=== PATIENT | female | born 1960 | race Caucasian/White ===

== ENCOUNTER 2023-07-15 22:36 | Emergency (ER) | payer MEDICAID, SELFPAY ==
[2023-07-15 22:48] VITALS: BP 161/79; BP 167/80; PULSE 82; PULSE 93; RESP 17; O2SAT 90; O2SAT 94
--- NOTE | 2023-07-15 23:44 | ED.ALCOHOL ---
HPI - Alcohol General Chief Complaint: ETOH/Substance Use Stated Complaint: ETOH, WANTS TO GET OUT OF COLD Time Seen by Provider: 07/15/23 22:43 Source: patient and EMS Mode of arrival: EMS History of Present Illness HPI narrative: 62-year-old female brought in by EMS for alcohol/substance use, patient states that she drank 3 pt of vodka with the last drink 2100 and she endorses a history of withdrawal seizures the last of which occurred approximately 2 months ago. Patient reports she wants to be in out of the cold and did not like any of the [facility] options. She otherwise has no acute complaints and denies any SI/HI. Related Data Allergies Allergy/AdvReac Type Severity Reaction Status Date / Time No Known Allergies Allergy Verified 07/15/23 22:58 Review of Systems Review of Systems: Pertinent positives and negatives as stated in HPI PMF Past Medical History Source: nursing notes reviewed Social History Social History Alcohol intake: current Alcohol intake frequency: 3 or more drinks per day Alcohol type: hard liquor Smoked in Last 30 Days: Yes Use of substances other than those prescribed or required for medical reasons: No Advance Directives: No Advance Directives Information Provided: No Physical Exam ED Vital Signs: Vital Signs - 24 hr 07/15/23 22:48 07/16/23 00:16 Pulse Rate 82 Respiratory Rate 17 Blood Pressure 167/80 H Pulse Oximetry 90 L 91 L Oxygen Delivery Method Room Air Room Air BMI result Body Mass Index 30.0 VITAL SIGNS: Reviewed. GENERAL: Well developed, well nourished, in no acute distress. HEAD: Normocephalic/atraumatic LUNGS: Normal breath sounds. No adventitious sounds or accessory muscle use. SpO2<90> CARDIOVASCULAR: Regular rate and rhythm without noted murmurs, no JVD or lower extremity edema. ABDOMEN: Soft, non-tender, non-distended with bowel sounds. MUSCULOSKELETAL: No tenderness, deformities, or effusions noted on gross inspection. EXTREMITIES: No cyanosis, clubbing or edema. SKIN: Inspection of the skin reveals no rashes NEUROLOGIC: Drowsy but easily aroused and oriented x 3. Strength and sensation to light touch were grossly intact x 4. Medical Decision Making Medical Decision Making [facility] Narrative: 62-year-old female with history and clinical presentation consistent with alcohol intoxication, will place CIWA protocol, seizure pads were in place, will place patient on cardiac monitoring. Have continued with the CIWA evaluation, patient is clinically sober as walked with a steady gait several times to the bathroom, she is remained stable and is tolerating oral intake. She does not wish for any detox program at this time and otherwise denies any SI/HI. Patient placed in physician observation because the patient needed more time for clinical sobriety. At the time observation was started the patient's vital signs were stable, patient is alert and oriented, neuro: Nonfocal, CV RRR, lungs clear Differential Diagnosis Differential Diagnoses: The differential diagnosis associated with the presentation includes Please see the discussion above Admission/Observation Consideration of admission/observation: Escalation of care including admission/observation considered Please see the discussion above Discharge Plan Discharge Clinical Impression: Alcoholic intoxication, Alcohol use disorder Patient Disposition: Still a Patient
[2023-07-16 00:16] VITALS: O2SAT 91
--- NOTE | 2023-07-16 00:17 | PC.NURSE ---
on arrival pt changed into hospital gown. pt moved from hallway to room placed on heart monitor. nsr 83 bpm. pt reported hx seizure with withdrawals. seizure precautions in placed. hx copd 91% on RA. resp even and unlabored. ciwa 2. pt denies si/hi. nad. call morgan within reach.
--- NOTE | 2023-07-16 00:50 | PC.NURSE ---
pt ripped off heart monitor/o2 monitor. pt reporting needing detox meds. ciwa 2. pt ambulatory with steady gait to bathroom. pt verbally aggressive wit this RN saying you're a bitch and i need to see a fucking doctor. Dr. Shook aware.
--- NOTE | 2023-07-16 04:19 | PC.NURSE ---
pt appears to be sleeping. resp even and unlabored. able to reposition self in stretcher. call morgan within reach.
[2023-07-16 06:00] VITALS: BP 141/70; PULSE 85; RESP 17; TEMP 37; O2SAT 92
--- NOTE | 2023-07-16 06:43 | PC.NURSE ---
axox4 ambulatory with steady gait. resource booklet provided for pt for detox/shelters. pt escorted by security as states she wants to sleep and will not leave.
== END 2023-07-16 06:44 | disposition home or self-care (01) ==
PROVIDERS: Emergency Provider Student in an Organized Health Care Education/Training Program
DX: F10.129 Alcohol abuse with intoxication, unspecified (principal)
CPT/HCPCS: 99284

== ENCOUNTER 2023-07-29 18:43 | Emergency (ER) | payer MEDICAID, SELFPAY ==
--- NOTE | ~2023-07-29 | XR_ITS ---
EXAMINATION: PORTABLE CHEST 1 VIEW CLINICAL INFORMATION: cp. COMPARISON: No recent pertinent prior studies are available for comparison. TECHNIQUE: Portable frontal view of the chest was obtained. FINDINGS: Asymmetric elevation of the right hemidiaphragm is seen with linear basilar scarring or atelectasis more so at the right base. No significant effusion, overt edema, or pneumothorax. Cardiac silhouette within normal limits for size with vascular calcification in aorta. Degenerative scoliotic changes in the spine XR/XR chest 1V IMPRESSION: Asymmetric elevation of the right hemidiaphragm with linear basilar markings more likely due to atelectasis.
[2023-07-29 19:07] VITALS: BP 102/72; BP 113/48; PULSE 73; PULSE 81; RESP 18; TEMP 39.6; O2SAT 96; O2SAT 97
--- NOTE | 2023-07-29 19:55 | ECG_ITS ---
Test Reason : SYNCOPE Blood Pressure : / mmHG Vent. Rate : 072 BPM Atrial Rate : 072 BPM P-R Int : 144 ms QRS Dur : 086 ms QT Int : 388 ms P-R-T Axes : 041 -24 076 degrees QTc Int : 424 ms Normal sinus rhythm Minimal voltage criteria for LVH, may be normal variant ( R in aVL ) Septal infarct , age undetermined Abnormal ECG No previous ECGs available Referred By: Jennifer Clancy Electronically Signed By:Casper Arnett
--- NOTE | 2023-07-29 19:59 | ED_ITS ---
HPI - Syncope General Chief Complaint: Syncope Stated Complaint: [address], dizzy, diff breathing, syncope Time Seen by Provider: 07/29/23 19:10 Related Data Allergies Allergy/AdvReac Type Severity Reaction Status Date / Time No Known Allergies Allergy Verified 07/15/23 22:58 [facility] Social History Social History Alcohol intake: current Alcohol intake frequency: a few times a week Alcohol type: hard liquor Smoked in Last 30 Days: No Use of substances other than those prescribed or required for medical reasons: No Advance Directives: No Advance Directives Information Provided: No Physical Exam 2 Vital Signs: Vital Signs: Last Vital Signs Temp 97.8 F 07/30/23 01:04 Pulse 59 07/30/23 01:04 Resp 21 H 07/30/23 01:04 BP 125/59 L 07/30/23 01:42 Pulse Ox 96 07/30/23 01:04 O2 Del Method Room Air 07/30/23 01:04 O2 Flow Rate 4 07/30/23 00:55 Oxygen Flow Rate 2 07/29/23 21:52 BMI result Body Mass Index 30.0 Course Reevaluation(s) Reevaluation #1: I reviewed results of patient's workup, she is doing much better, she is noted be influenza A positive, she does ambulate with a steady gait and is noted to be oxygenating well on room air and is otherwise stable for discharge back to the facility. Time: 03:01 Medications Administered Discontinued Medications Generic Name Dose Route Start Last Admin Trade Name Freq PRN Reason Stop Dose Admin Acetaminophen 975 mg 07/29/23 19:55 07/29/23 22:28 Acetaminophen 325 Mg Tablet PO 07/29/23 19:56 975 mg ONCE ONE Administration Sodium Chloride 1,000 mls @ 999 mls/hr 07/29/23 20:00 07/29/23 23:49 Ns IV 07/29/23 21:00 Not Given .Q1H1M FABIEN Sodium Chloride 1,000 mls @ 999 mls/hr 07/29/23 20:00 07/29/23 23:49 Ns IV 07/29/23 21:00 Not Given .Q1H1M FABIEN Sodium Chloride 2,449.41 mls @ 2,449.41 mls/hr 07/29/23 22:03 07/30/23 00:33 Ns 30 ml/kg infuse over 1 hr (2449.41 ml) 07/29/23 23:02 Infused IV Infusion .Q1H STA Ceftriaxone Sodium 1 gm/ 50 mls @ 100 mls/hr 07/29/23 22:03 07/29/23 23:44 Sodium Chloride IV 07/29/23 22:32 Infused ONCE ONE Infusion Medical Decision Making Medical Decision Making [facility] Narrative: 62-year-old from [facility] presents today with having shortness of breath dizziness history of COPD. Positive fever positive generalized malaise positive coughing had a syncopal episode. No head strike. Positive loss of consciousness noted for about 30 seconds. Patient not on any blood thinners. No signs of head trauma. Patient's had a fever here 103.2. Labs ordered. Will order a total of 30 cc/kilos IV fluids. Lactate is pending. Additional labs are pending. My interpretation patient's initial chest x-ray was grossly negative for any acute infiltrate. My interpretation patient's EKG showed a sinus rhythm heart rate is 70 ID QRS QTC within normal limits is no acute ST segment elevation. This patient was signed out to me and I quickly reviewed all workup and investigations, patient is been resting during the time that I have been awaiting completion of her workup which seems to be significant for influenza a positivity. Differential Diagnosis Differential Diagnoses: The differential diagnosis associated with the presentation includes Flu COVID RSV, vasovagal syncope versus cardiac syncope versus urinary tract infection. Lab Data [facility] Lab Attestation statement: I reviewed the patient's lab results. 07/29/23 22:01 07/29/23 22:01 Labs: Lab Results 07/29/23 07/29/23 07/30/23 Range/Units 22:01 22:08 00:09 WBC 14.4 H (4.8-10.8) X10*3/uL RBC 4.37 (4.20-5.50) X10*6/uL Hgb 10.0 L (12.0-16.0) g/dl Hct 31.5 L (37.0-47.0) % MCV 72.1 L (80.0-98.0) fL MCH 22.9 L (27.0-33.0) pg MCHC 31.7 (31.0-35.0) g/dl RDW 20.3 H (11.0-16.0) % Plt Count 336 (160-400) X10*3/uL MPV 10.0 (9.4-12.3) fL Immature Gran % (Auto) 0.3 (0.0-0.4) % Neut % (Auto) 72.0 (45-73) % Lymph % (Auto) 17.6 L (20-40) % Cotton % (Auto) 9.7 (2-11) % Eos % (Auto) 0.1 (0-4) % Baso % (Auto) 0.3 (0-2) % Lymph # (Auto) 2.5 (1.2-4.9) X10*3/uL Cotton # (Auto) 1.4 H (0.1-1.2) X10*3/uL Eos # (Auto) 0.0 (0.0-0.4) X10*3/uL Baso # (Auto) 0.0 (0.0-0.2) X10*3/uL Abs Immat Gran (auto) 0.05 H (0.00-0.03) X10*3/uL Absolute Neuts (auto) 10.3 H (2.0-8.3) x10*3/uL Absolute Nucleated RBC 0.000 (0.0-0.012) X10*3/uL Nucleated RBC % (auto) 0.0 (0.0-0.2) /100WBC Sodium 130 L (135-145) mmol/L Potassium 4.4 (3.3-5.1) mmol/L Chloride 95 L (96-108) mmol/L Carbon Dioxide 25 (22-29) mmol/L Anion Gap 14 (12-20) BUN 22 H (9-16) mg/dL Creatinine 1.43 H (0.5-1.4) mg/dL Estim Creat Clear Calc 42.5 Estimated GFR 37 Random Glucose 109 (60-115) mg/dL Lactic Acid 0.8 (0.5-2.0) mmol/L Calcium 9.0 (8.4-10.2) mg/dL Total Bilirubin 0.3 (0.0-1.0) mg/dL Direct Bilirubin 0.2 (0.0-0.5) mg/dL AST 28 (5-31) U/L ALT 17 (0-31) U/L Alkaline Phosphatase 150 H (39-117) U/L Troponin I High Sens < 2.7 (<3.5-17.0) ng/L Total Protein 7.6 (6.5-8.0) g/dL Albumin 3.9 (3.5-5.0) g/dL Urine Color Yellow Urine Appearance Clear Urine pH 5.5 (5.0-9.0) Ur Specific [place] 1.015 (1.005-1.025) Urine Protein Negative (Neg-Trace) mg/dL Urine Glucose (UA) Negative (Negative) mg/dL Urine Ketones Trace (Negative) mg/dL Urine Blood Negative (Negative) Urine Nitrite Negative (Negative) Ur Leukocyte Esterase Negative (Negative) Urine RBC 0-2 (0-2) /HPF Urine WBC 0-5 (0-5) /HPF Ur Squamous Epith Cells 3-5 (0-2) /HPF Urine Bacteria None Seen (None Seen) Hyaline Casts >20 (0-2) /LPF Ethyl Alcohol < 10 mg/dL Influenza Type A (PCR) POSITIVE A (Negative) Influenza Type B (PCR) NEGATIVE (Negative) RSV RNA Qual (PCR) NEGATIVE (Negative) SARS-CoV-2 RNA (RT-PCR) NEGATIVE (Negative) Independent Interpretation I performed an independent interpretation of an: EKG (Sinus pattern heart rate is 70 ID QRS QTC within normal limits is no acute ST segment elevation) and Plain X-Ray (Chest x-ray negative for focal infiltrate) Discharge Plan Discharge Clinical Impression: Fever, Syncope, Viral syndrome, Influenza A Patient Disposition: Home, Self-Care Instructions: Influenza (ED), Viral Syndrome (ED) Additional Instructions: 1. Resume all home medications as prescribed. 2. Please follow up with the facilities primary care doctor in the next 1-2 days. Return to the ER for any worsening symptoms.
[2023-07-29 21:43] VITALS: BP 109/46; RESP 24; TEMP 37.7; O2SAT 93
[2023-07-29 21:52] VITALS: O2SAT 93
[2023-07-29 22:15] LABS: MANUAL DIFF FLAG NO
[2023-07-29 22:16] LABS: Basophils Percent Auto 0.3 % (0-2); Eosinophils Percent Auto 0.1 % (0-4); Hematocrit 31.5 % (37.0-47.0); Imm Gran Abs Auto 0.05 X10*3/uL (0.00-0.03); Imm Gran Pct Auto 0.3 % (0.0-0.4); Lymphocytes Absolute Auto 2.5 X10*3/uL (1.2-4.9); Lymphocytes Percent Auto 17.6 % (20-40); Mean Corpuscular HGB Conc 31.7 g/dl (31.0-35.0); Mean Corpuscular Hemoglobin 22.9 pg (27.0-33.0); Mean Corpuscular Volume 72.1 fL (80.0-98.0); Monocytes Absolute Auto 1.4 X10*3/uL (0.1-1.2); Monocytes Percent Auto 9.7 % (2-11); Neutrophils Absolute Auto 10.3 x10*3/uL (2.0-8.3); Platelet Count 336 X10*3/uL (160-400); Red Blood Count 4.37 X10*6/uL (4.20-5.50); Red Cell Distribution Width 20.3 % (11.0-16.0); White Blood Count 14.4 X10*3/uL (4.8-10.8)
[2023-07-29] MEDS: 0.9 % Sodium Chloride 2,449.41 ML 2449.41 ML IV (22:23)
[2023-07-29 22:26] LABS: Lactic Acid 0.8 mmol/L (0.5-2.0)
--- NOTE | 2023-07-29 22:27 | MHC.EDTECH ---
Patient inc therfore patient changed and patient walked to the bathroom
[2023-07-29] MEDS: Acetaminophen 325 MG TABLET 975 MG PO (22:28)
[2023-07-29 22:35] LABS: Alanine Aminotransferase 17 U/L (0-31); Albumin Level 3.9 g/dL (3.5-5.0); Alkaline Phosphatase 150 U/L (39-117); Anion Gap 14 (12-20); Aspartate Amino Transferase 28 U/L (5-31); Bilirubin Direct 0.2 mg/dL (0.0-0.5); Bilirubin Total 0.3 mg/dL (0.0-1.0); Blood Urea Nitrogen 22 mg/dL (9-16); Carbon Dioxide 25 mmol/L (22-29); Chloride 95 mmol/L (96-108); Creatinine Clr Calc Pharmacy 42.5; Estimated Glomerular Filt Rate 37; Ethanol < 10 mg/dL; Glucose Random 109 mg/dL (60-115); Potassium 4.4 mmol/L (3.3-5.1); Sodium 130 mmol/L (135-145); Total Protein 7.6 g/dL (6.5-8.0)
[2023-07-29 22:48] LABS: Troponin-I High Sensitivity < 2.7 ng/L (<3.5-17.0)
[2023-07-29 23:01] LABS: Influenza A PCR POSITIVE (Negative); Influenza B PCR NEGATIVE (Negative); Resp Syncy Virus RNA Qual PCR NEGATIVE (Negative); SARS COV2 PCR INHOUSE NEGATIVE (Negative)
[2023-07-29 23:12] VITALS: BP 91/38; PULSE 65; RESP 24; TEMP 37.4; O2SAT 92
[2023-07-29] MEDS: cefTRIAXone sodium 1 GM in 0.9 % Sodium Chloride 50 ML IV (23:14)
--- NOTE | 2023-07-29 23:15 | PC.NURSE ---
Addendum entered by Maya Montilla 07/30/23 02:23: IV FLUIDS STARTED @22:23 BY PREVIOUS RN MARCIN Cruz FLUIDS SCANNED IN UNDER 30CC/KG ORDER TO REFLECT SEPSIS PROTOCOL BY THIS RN WHEN CARE TOOK OVER Original Note: assumed care of patient at 23:00 - per previous RN sepsis protocol initiated at 22:04 however sepsis worksheet not started by previous RN. When t/w assumed care at 23:00, first liter bag of normal saline fluids running through iv, antibiotics not yet administered. This RN took over care and started antibiotic as ordered @23:14. Vital signs updated and entered. Pt wearing 2L O2 nasal cannula which she says is not her baseline. Pt dropped down to 88% on 2L when asleep, O2 bumped up to 4L NC. Pt straight cath'd for urine sample as ordered by , pt cleaned up and linens changed. Call morgan within reach plan of care ongoing
[2023-07-29 23:40] VITALS: BP 93/37; PULSE 63; RESP 24; O2SAT 92
--- NOTE | 2023-07-29 23:41 | PC.NURSE ---
late entry: pt comes from [facility] for a syncopal episode. is on a section 21. pt was caught by staff in the hallway, did not hit head, but lost consciousness for ~30 seconds. pt not on thinners. pt in hallway bed, waiting for private ED bay for changeover/EKG. pt initial temp read 103, second 99.8. pt had sweatshirt on that was taken off to cool down. pt difficult stick, multiple attempts for IV. 22G to left thumb. labs drawn and sent. EKG obtained. sepsis alert called at 2204. pt medicated with tylenol. fluids hung. awaiting for 2nd blood culture to hang abx. report given to DARSHANA Trejo who is hanging IV abx now that 2nd blood culture obtained. pt is a&o x4, pleasant, calm, and cooperative. call morgan within reach. plan of care ongoing.
[2023-07-29 23:52] VITALS: BP 100/41; PULSE 64; RESP 23; O2SAT 94
[2023-07-30 00:07] VITALS: BP 97/48; PULSE 61; RESP 23; O2SAT 93
[2023-07-30 00:19] LABS: Appearance Urine Clear; Color Urine Yellow; Glucose Urine UA Negative (Negative); Leukocyte Esterase Urine Negative (Negative); Nitrite Urine Negative (Negative); PH 5.5 (5.0-9.0); Specific Gravity - Urine 1.015 (1.005-1.025); Urine Blood Negative (Negative); Urine Ketones Trace mg/dL (Negative); Urine Protein Negative (Neg-Trace)
[2023-07-30 00:32] LABS: Bacteria Urine None Seen (None Seen); Hyaline Casts Urine >20 /LPF (0-2); RBC Urine 0-2 /HPF (0-2); WBC Urine 0-5 /HPF (0-5)
[2023-07-30 00:33] VITALS: BP 108/48; PULSE 63; RESP 20; TEMP 36.7; O2SAT 94; O2SAT 98
[2023-07-30 00:55] VITALS: BP 119/48; PULSE 60; RESP 22; O2SAT 97
--- NOTE | 2023-07-30 00:57 | PC.NURSE ---
sepsis fluids complete. blood pressures documented in chart. Pt resting comfortably on stretcher. plan of care ongoing.
[2023-07-30 01:04] VITALS: BP 106/48; PULSE 59; RESP 21; TEMP 36.6; O2SAT 96
[2023-07-30 01:42] VITALS: BP 125/59
--- NOTE | 2023-07-30 02:50 | PC.NURSE ---
pt ambulated with this RN with a steady gait to and from bathroom. Pt is 90-92% O2 on room air . MD malagon
--- NOTE | 2023-07-30 03:05 | PC.NURSE ---
pt to be discharged back to [facility] via ambulance.
--- NOTE | 2023-07-30 03:53 | PC.NURSE ---
report called to yard general car supervisor at [facility]. ambulance transport back to facility now.
== END 2023-07-30 03:54 | disposition home or self-care (01) ==
PROVIDERS: Emergency Medicine Emergency Medical Services; Emergency Provider Student in an Organized Health Care Education/Training Program
DX: J10.1 Influenza due to other identified influenza virus with other respiratory manifestations (principal); B34.9 Viral infection, unspecified; R55 Syncope and collapse; R06.02 Shortness of breath; R42 Dizziness and giddiness; R50.9 Fever, unspecified; R94.31 Abnormal electrocardiogram [ECG] [EKG]; Z20.822 Contact with and (suspected) exposure to COVID-19; Z20.828 Contact with and (suspected) exposure to other viral communicable diseases; Z79.899 Other long term (current) drug therapy
CPT/HCPCS: 0241U; 36415; 71045; 80048; 80076; 80307; 81001; 83605; 84484; 85025; 87040; 93005; 96361; 96374; 99285; J0696

== ENCOUNTER → 2023-07-29 19:55 | Outpatient (BNV) | payer MEDICAID, SELFPAY | PROVIDERS: Emergency Provider Student in an Organized Health Care Education/Training Program; Visit Provider Internal Medicine Cardiovascular Disease | DX: R94.31 Abnormal electrocardiogram [ECG] [EKG] (principal) | CPT/HCPCS: 93010 ==

== ENCOUNTER 2023-08-21 23:39 | Emergency (ER) | payer MEDICAID, SELFPAY ==
[2023-08-22 00:03] VITALS: BP 160/90; PULSE 82; O2SAT 96; BMI 26.6
--- NOTE | 2023-08-22 00:05 | PC.NURSE ---
pt changed over by security had bottle of alcohol on self; belongings placed in linen closet of [facility] pod.
[2023-08-22 00:36] VITALS: BP 136/65; PULSE 76; RESP 12; TEMP 36.8; O2SAT 93
--- NOTE | 2023-08-22 00:57 | ED_ITS ---
HPI - Alcohol General Chief Complaint: ETOH/Substance Use Stated Complaint: etoh Time Seen by Provider: 08/21/23 23:56 Source: patient Mode of arrival: EMS History of Present Illness HPI narrative: 62-year-old female is brought in by EMS from [facility] and reports that her last alcoholic drink was 2-1/2 hours ago and that she would like to pursue detox and left her previous detox a month and a half ago prior to completion. Patient reports that she has had history of seizures with abstaining from alcohol and that she lives alone. She denies SI/HI. Related Data Allergies Allergy/AdvReac Type Severity Reaction Status Date / Time No Known Allergies Allergy Verified 07/15/23 22:58 Review of Systems Review of Systems: Pertinent positives and negatives as stated in HPI PMF Past Medical History Source: nursing notes reviewed Social History Social History Alcohol intake: current Alcohol intake frequency: a few times a week Alcohol type: hard liquor Advance Directives: No Advance Directives Information Provided: No Physical Exam ED Vital Signs: Vital Signs - 24 hr 08/22/23 00:36 Temperature 98.2 F Pulse Rate 76 Respiratory Rate 12 Blood Pressure 136/65 Pulse Oximetry 93 Oxygen Delivery Method Room Air BMI result Body Mass Index 26.6 VITAL SIGNS: Reviewed. GENERAL: Well developed, well nourished, in no acute distress. HEAD: Normocephalic/atraumatic EYES: PERRLA, EOMI EARS: Ext canals without abnormality NOSE: Nares patent bilateral OROPHARYNX: no oral lesions noted, posterior pharynx clear NECK: Supple, no adenopathy LUNGS: Normal breath sounds. No adventitious sounds or accessory muscle use. SpO2<93> CARDIOVASCULAR: Regular rate and rhythm without noted murmurs ABDOMEN: Soft, non-tender, non-distended with bowel sounds. MUSCULOSKELETAL: No tenderness, deformities, or effusions noted on gross inspection. EXTREMITIES: No cyanosis, clubbing or edema. SKIN: Inspection of the skin reveals no rashes NEUROLOGIC: Alert and oriented x 4. Strength and sensation to light touch were grossly intact x 4. Medical Decision Making Medical Decision Making [facility] Narrative: 62-year-old female who appears well but clinically intoxicated, she will be placed on a CIWA and allowed to become clinically sober. In the morning the plan will be for her to call around to different detox facilities if she still wishes to pursue detox. Patient placed in physician observation because the patient needed more time for clinical sobriety. At the time observation was started the patient's vital signs were stable, patient is alert and oriented, neuro: Nonfocal, CV RRR, lungs clear Differential Diagnosis Differential Diagnoses: The differential diagnosis associated with the presentation includes Please see the discussion above Admission/Observation Consideration of admission/observation: Escalation of care including admission/observation considered Please see the discussion above External Record Review External record reviewed: Outpatient record and Prior outpatient labs Critical Care Time Critical Care Time Critical Care Time: Yes Total Critical Care Time: 30 Attestation: I personally attest to this time spent taking care of the patient. Discharge Plan Discharge Clinical Impression: Alcoholic intoxication, Alcohol use disorder Patient Disposition: Still a Patient Instructions: Abuse of Alcohol (ED), Alcohol Intoxication (ED) Additional Instructions: You have been provided with a list detox facilities, please make the necessary phone calls to check for bed availability.
[2023-08-22 06:10] VITALS: BP 104/71; PULSE 78; RESP 16; TEMP 36.7; O2SAT 98
[2023-08-22 07:58] VITALS: BP 149/59; PULSE 87; RESP 14; TEMP 36.6; O2SAT 92
--- NOTE | 2023-08-22 08:28 | PC.NURSE ---
this RN resumed care of pt at this time. vss and up to date. pt currently resting on stretcher in no apparent distress at this time. no sob/wob noted. respirations even and unlabored.
[2023-08-22 09:49] LABS: Appearance Urine Clear; Color Urine Yellow; Glucose Urine UA Negative (Negative); Leukocyte Esterase Urine Negative (Negative); Nitrite Urine Negative (Negative); PH 6.5 (5.0-9.0); Specific Gravity - Urine <= 1.005 (1.005-1.025); Urine Blood Negative (Negative); Urine Ketones Negative (Negative); Urine Protein Negative (Neg-Trace)
[2023-08-22 10:14] LABS: Amphetamine Screen Urine Not Detected (Not Detect); Barbiturates, Urine Not Detected (Not Detect); Benzodiazepines Screen Urine Not Detected (Not Detect); Cannabinoid Screen Urine Not Detected (Not Detect); Cocaine Screen Urine Not Detected (Not Detect); Fentanyl, urine Not Detected (Not Detect); Opiate Screen Urine Not Detected (Not Detect); Phencyclidine Screen Urine Not Detected (Not Detect)
[2023-08-22 11:08] LABS: MANUAL DIFF FLAG NO
[2023-08-22 11:09] LABS: Basophils Percent Auto 0.8 % (0-2); Eosinophils Absolute Auto 0.3 X10*3/uL (0.0-0.4); Eosinophils Percent Auto 5.3 % (0-4); Hemoglobin 10.6 g/dl (12.0-16.0); Imm Gran Abs Auto 0.01 X10*3/uL (0.00-0.03); Imm Gran Pct Auto 0.2 % (0.0-0.4); Lymphocytes Absolute Auto 1.5 X10*3/uL (1.2-4.9); Lymphocytes Percent Auto 28.6 % (20-40); Mean Corpuscular HGB Conc 31.2 g/dl (31.0-35.0); Mean Corpuscular Hemoglobin 22.9 pg (27.0-33.0); Mean Corpuscular Volume 73.4 fL (80.0-98.0); Mean Platelet Volume 9.4 fL (9.4-12.3); Monocytes Absolute Auto 0.4 X10*3/uL (0.1-1.2); Monocytes Percent Auto 7.6 % (2-11); Neutrophils Percent Auto 57.5 % (45-73); Platelet Count 333 X10*3/uL (160-400); Red Blood Count 4.63 X10*6/uL (4.20-5.50); Red Cell Distribution Width 20.3 % (11.0-16.0); White Blood Count 5.3 X10*3/uL (4.8-10.8)
--- NOTE | 2023-08-22 11:12 | PC.NURSE ---
labs/urine obtained/sent to lab.
[2023-08-22 11:36] LABS: Alanine Aminotransferase 17 U/L (0-31); Albumin Level 3.8 g/dL (3.5-5.0); Alkaline Phosphatase 168 U/L (39-117); Anion Gap 9 (12-20); Aspartate Amino Transferase 23 U/L (5-31); Bilirubin Direct 0.1 mg/dL (0.0-0.5); Bilirubin Total 0.3 mg/dL (0.0-1.0); Blood Urea Nitrogen 6 mg/dL (9-16); Calcium 8.9 mg/dL (8.4-10.2); Carbon Dioxide 26 mmol/L (22-29); Chloride 105 mmol/L (96-108); Creatinine Clr Calc Pharmacy 81.5; Estimated Glomerular Filt Rate > 60; Ethanol < 10 mg/dL; Glucose Random 182 mg/dL (60-115); Magnesium 1.9 mg/dL (1.6-2.6); Potassium 3.9 mmol/L (3.3-5.1); Sodium 136 mmol/L (135-145); Total Protein 7.4 g/dL (6.5-8.0)
--- NOTE | 2023-08-22 11:58 | PC.NURSE ---
pt becoming increasingly agitated/arguing w/ staff when vitals needed to be taken. pt verbalizing that she no longer wants to have a care team consult placed and that she wants to leave. provider notified/aware.
--- NOTE | 2023-08-22 12:05 | PC.NURSE ---
pt's belongings returned from the pod. pt provided w/ list of detox facilities. pt verbalizes to this rn that she will not be utilizing them. pt also provided w/ d/c paperwork.
== END 2023-08-22 12:06 | disposition home or self-care (01) ==
PROVIDERS: Emergency Provider Emergency Medicine
DX: F10.129 Alcohol abuse with intoxication, unspecified (principal); Y90.8 Blood alcohol level of 240 mg/100 ml or more; Z71.51 Drug abuse counseling and surveillance of drug abuser; Z79.899 Other long term (current) drug therapy
CPT/HCPCS: 36415; 80048; 80076; 80307; 81003; 83735; 85025; 99284

== ENCOUNTER 2023-09-01 05:10 | Emergency (ER) | payer MEDICAID, SELFPAY ==
--- NOTE | ~2023-09-01 | XR_ITS ---
EXAMINATION: XR ANKLE, LEFT CLINICAL INFORMATION: Pain. COMPARISON: None available. TECHNIQUE: AP, lateral, and mortise views of the left ankle. FINDINGS: There is mild diffuse soft tissue swelling about the ankle. No significant ankle joint effusion is seen. The ankle mortise is intact. No acute fracture or dislocation is noted. Prominent plantar calcaneal spur is seen. XR/XR ankle LT min 3V IMPRESSION: * Mild diffuse soft tissue swelling about the ankle. * No acute fracture or dislocation.
[2023-09-01 05:24] VITALS: BP 135/67; PULSE 79; RESP 18; TEMP 36.8; O2SAT 93; BMI 31.7
--- NOTE | 2023-09-01 07:30 | ED_ITS ---
HPI - Extremity Problem General Chief complaint: Extremity Problem Stated complaint: Lt Ankle pain Time Seen by Provider: 09/01/23 07:20 Source: patient and RN notes reviewed Mode of arrival: ambulatory Limitations: no limitations History of Present Illness HPI Narrative: This is a 62-year-old female, with a history of osteoarthritis and hypertension, presenting to the emergency department with complaints of left ankle pain x2 days. Patient denies any recent trauma or injury. She reports worsening pain with weight-bearing. Denies any fevers, chills, chest pain, shortness breast, abdominal pain, nausea, vomiting or diarrhea. She is otherwise feeling well. Denies taking any medications prior to arrival to treat her pain. No history of previous injury or problems with her ankle in the past. No other complaints or concerns at this time. MD Complaint: extremity pain and extremity swelling Related Data Previous Rx's Medication Instructions Recorded acetaminophen 500 mg tablet 500 mg PO Q6H PRN pain #30 tabs 09/01/23 (Tylenol Extra Strength) Allergies Allergy/AdvReac Type Severity Reaction Status Date / Time No Known Allergies Allergy Verified 09/01/23 05:23 Review of Systems Review of Systems: Yes all other systems are reviewed and are negative Constitutional: Constitutional: Reports as per [facility] Social History Social History Alcohol intake: current Alcohol intake frequency: 3 or more drinks per day Alcohol type: wine and hard liquor Smoked in Last 30 Days: Yes Use of substances other than those prescribed or required for medical reasons: No Advance Directives: No Advance Directives Information Provided: Yes Patient : No Physical Exam Vital Signs: Vital Signs: Last Vital Signs Temp 99.1 F 09/01/23 11:16 Pulse 80 09/01/23 11:16 Resp 14 09/01/23 11:16 BP 161/70 H 09/01/23 11:16 Pulse Ox 94 09/01/23 11:16 O2 Del Method Room Air 09/01/23 11:16 BMI result Body Mass Index 31.7 Const: General: cooperative, comfortable and no acute distress Orientation/consciousness: patient oriented x3 Limitations: no limitations HEENT: Head: Yes normal to inspection, Yes normocephalic and Yes atraumatic Ears: hearing grossly normal bilaterally General nose exam: Normal external nose present Face and sinus: Yes normal facial exam Mouth: Normal oral and palatal mucosa present, oropharynx normal and moist mucous membranes Throat: Yes posterior oropharynx normal Eyes: General: appearance normal, both eyes and all related structures Eyelids: Yes eyelids normal Conjunctivae: conjunctivae normal Sclerae: sclerae normal Pupils: Equal, round and reactive pupils present EOM: EOMs intact bilaterally Neck: Neck: Yes normal visual inspection, Yes full ROM and Yes no lymphadenopathy Lymphatic: no lymphadenopathy noted Chest: Chest palpation & inspection: normal inspection of the chest Resp: Effort & Inspection: normal respiratory effort and able to speak in complete sentences Cardio: Rate: regular rate Rhythm: regular rhythm Heart sounds: S1 normal heart sound present and S2 normal heart sound present GI: Inspection: Yes normal to inspection Skin: General skin exam: no rashes or lesions noted Trauma: no lacerations or abrasions Wounds: no wounds Neuro: General: patient oriented x3 and moves all extremities Cranial nerves: Yes Equal, round and reactive pupils present Extrem: Other: Left ankle lateral aspect is moderate edema noted, no ecchymosis, erythema. Tenderness palpation along the lateral malleolus, no tenderness along the medial malleolus. Full range of motion joint without difficulty. Strong DP pulse. No calf tenderness, no pedal edema noted. General: Yes normal to inspection Right upper extremity: normal to inspection Left upper extremity: normal to inspection Right lower extremity: normal to inspection Left lower extremity: normal to inspection Course Reevaluation(s) Reevaluation #1: Left ankle x-ray revealing mild diffuse soft tissue swelling, no bony abnormality seen. Patient's symptoms consistent with a left ankle pain/sprain. Discussed findings with patient. Patient does not have a primary care physician who she can follow-up with. Patient discharged with Tylenol, given Fortino wrap, and also orthopedic referral. Given return precautions. She understands and agrees with this plan. Time: 10:57 Medications Administered Discontinued Medications Generic Name Dose Route Start Last Admin Trade Name Freq PRN Reason Stop Dose Admin Acetaminophen 650 mg 09/01/23 07:29 09/01/23 07:39 Acetaminophen 325 Mg Tablet PO 09/01/23 07:30 650 mg ONCE ONE Administration Medical Decision Making Medical Decision Making MDM Narrative: This is a 62-year-old female, with a history of hypertension and osteoarthritis, presenting to the emergency department with complaints of atraumatic left ankle pain x 2 days. On arrival, vital signs within normal limits. Patient has tenderness palpation along the lateral malleolus. Differential diagnoses include fracture, sprain, strain, contusion, septic arthritis-stefanii sarah. Plan: X-ray, Tylenol Differential Diagnosis Differential Diagnoses: The differential diagnosis associated with the presentation includes See above Admission/Observation Consideration of admission/observation: Escalation of care including admission/observation considered Escalation of care including admission/observation considered however given workup today not warranted at this time. Lab Data MDM Lab Attestation statement: I reviewed the patient's lab results. Radiology Impression Discussion of test interpretation with radiology: I have reviewed the radiologist's reading. Radiologist Impression: EXAMINATION: XR ANKLE, LEFT CLINICAL INFORMATION: Pain. COMPARISON: None available. TECHNIQUE: AP, lateral, and mortise views of the left ankle. FINDINGS: There is mild diffuse soft tissue swelling about the ankle. No significant ankle joint effusion is seen. The ankle mortise is intact. No acute fracture or dislocation is noted. Prominent plantar calcaneal spur is seen. XR/XR ankle LT min 3V IMPRESSION: * Mild diffuse soft tissue swelling about the ankle. * No acute fracture or dislocation. Dictated By: Charisse Sharma MD External Record Review External record reviewed: Inpatient record, Office record, Outpatient record, Prior outpatient labs, Prior outpatient radiology, Primary care record and Outside ED record Discharge Plan Discharge Clinical Impression: Ankle pain, left Patient Disposition: Home, Self-Care Instructions: Arthralgia (ED) Additional Instructions: You were seen in the emergency department due to left ankle pain. Your x-ray did not show any bony abnormalities. Rest, ice, elevate, and use Fortino wrap as needed. Take Tylenol as needed for pain. You need to follow-up with a primary care physician, call tomorrow to make an appointment. If you continue to have pain in your ankle, please follow-up with Orthopedics, call to make an appointment. If any new or worsening symptoms occur, including but not limited to fevers, chills, worsening swelling, pain, please return for re-evaluation. Prescriptions: New acetaminophen [Tylenol Extra Strength] 500 mg tablet 500 mg PO Q6H PRN (Reason: pain) Qty: 30 0RF Referrals: [facility] [place] [facility] [Provider Group] Interventions: ED Discharge Assessment Last Done: 09/01/23 11:16
[2023-09-01] MEDS: Acetaminophen 325 MG TABLET 650 MG PO (07:39)
--- NOTE | 2023-09-01 07:42 | PC.NURSE ---
pt medicated per mar. effectiveness pending.
[2023-09-01 08:44] VITALS: BP 125/65; PULSE 65; RESP 13; TEMP 36.9; O2SAT 93
--- NOTE | 2023-09-01 09:07 | PC.NURSE ---
pt resting comfortably w/ eyes closed in no apparent distress post medication administration. respirations even and unlabored. plan of care ongoing at this time.
[2023-09-01 10:00] VITALS: BP 161/70; PULSE 80; RESP 14; TEMP 37.3; O2SAT 94
[2023-09-01 11:10] VITALS: BP 131/70; PULSE 80; RESP 14; TEMP 37.3; O2SAT 94
--- NOTE | 2023-09-01 11:11 | PC.NURSE ---
lesly wrap applied to LLE by tech. pt tolerated well.
[2023-09-01 11:16] VITALS: BP 161/70; PULSE 80; RESP 14; TEMP 37.3; O2SAT 94
== END 2023-09-01 11:28 | disposition home or self-care (01) ==
PROVIDERS: Emergency Provider Emergency Medicine
DX: M25.572 Pain in left ankle and joints of left foot (principal); I10 Essential (primary) hypertension
CPT/HCPCS: 73610; 99283; 99284

== ENCOUNTER 2023-12-04 01:31 | Emergency (ER) | payer MEDICAID, SELFPAY ==
--- NOTE | 2023-12-04 | ECG_ITS ---
Test Reason : HTN Blood Pressure : / mmHG Vent. Rate : 089 BPM Atrial Rate : 089 BPM P-R Int : 152 ms QRS Dur : 090 ms QT Int : 400 ms P-R-T Axes : 071 -28 067 degrees QTc Int : 486 ms Sinus rhythm with Premature atrial complexes Minimal voltage criteria for LVH, may be normal variant ( R in aVL ) Borderline ECG When compared with ECG of 29-JUL-2023 21:14, Premature atrial complexes are now Present Criteria for Septal infarct are no longer Present QT has lengthened Referred By: Generic ED Physician Electronically Signed By:Casper Arnett
[2023-12-04 01:34] VITALS: BP 170/98; PULSE 97; O2SAT 95
[2023-12-04 01:35] VITALS: BP 161/68; PULSE 89; RESP 18; TEMP 36.2; O2SAT 90; BMI 34.0
--- NOTE | 2023-12-04 02:05 | MHC.EDTECH ---
Pt refusing lab work/swab. Derrick GILLILAND aware.
[2023-12-04 02:45] LABS: MANUAL DIFF FLAG NO
--- NOTE | 2023-12-04 02:45 | ED.ALCOHOL ---
HPI - Alcohol General Chief Complaint: ETOH/Substance Use Stated Complaint: etoh sob edema Time Seen by Provider: 12/04/23 02:39 Source: patient and EMS Mode of arrival: EMS Limitations: no limitations History of Present Illness ED Provider: Dr. Mikki Reyes HPI narrative: Patient comes to the emergency room complaining of alcohol intoxication, requesting detox. Patient called herself 911. Patient complaining of chronic left ankle pain that started approximately in August. Patient denies any falls or injuries. Patient denies SI or HI Related Data Previous Rx's ?Medication ?Instructions ?Recorded acetaminophen 500 mg tablet 500 mg PO Q6H PRN pain #30 tabs 09/01/23 (Tylenol Extra Strength) Allergies Allergy/AdvReac Type Severity Reaction Status Date / Time No Known Allergies Allergy Verified 12/04/23 01:37 Review of Systems Review of Systems: Constitutional : No Weight loss, No Fever, No Chills, No Night Sweats, No Fatigue, No Malaise ENT/Mouth : No Hearing loss, No Ear Pain, No Nasal Congestion, No Sinus Pain, No Hoarseness, No sore throat, No Rhinorrhea, No Swallowing Difficulty Eyes: No Eye Pain, No Swelling, No Redness, No Foreign Body, No Discharge, No Vision Changes Cardiovascular : No Chest Pain, No SOB, No Dyspnea on Exertion, No Orthopnea, No Edema, No Palpitations Respiratory : No Cough, No Sputum, No Wheezing, No Smoke Exposure, No Dyspnea Gastrointestinal : No Nausea, No Vomiting, No Diarrhea, No Constipation, No abdominal Pain, No Hematochezia, No Melena Genitourinary : no irregular bleeding, No Dysuria, No Urinary Frequency, No Hematuria, No Urinary Incontinence, No Urgency, No Flank Pain, No Urinary Flow Changes, No Hesitancy Musculoskeletal : No joint pain, No Myalgias, No Joint Swelling Skin : No Skin Lesions, No rash Neuro : No Weakness, No Numbness, No Paresthesias, No Loss of Consciousness, No Dizziness, No Headache Psych : No Anxiety/Panic, No Depression, No SI/HI/AH/VH, admits to alcohol abuse, requesting detox Heme/Lymph: No Bruising, No Bleeding,No Lymphadenopathy Endocrine : No Polyuria, No Polydipsia, No Temperature Intolerance PMF Past Medical History Medical History Alcohol dependence Alcohol abuse Social History Social History Alcohol intake: current Alcohol intake frequency: 3 or more drinks per day Alcohol type: hard liquor Smoked in Last 30 Days: Yes Use of substances other than those prescribed or required for medical reasons: No Do you have a plan to hurt others: No Plan Patient : No Physical Exam ED Vital Signs: Vital Signs - 24 hr 12/04/23 01:35 Temperature 97.2 F Pulse Rate 89 Respiratory Rate 18 Blood Pressure 161/68 H Pulse Oximetry 90 L Oxygen Delivery Method Room Air BMI result Body Mass Index 34.0 Const Other: Appearance: Alert. Oriented X3. No acute distress. Intoxicated, mildly slurred speech Eyes: Pupils equal, round and reactive to light. ENT: Pharynx normal. Neck: Normal inspection. Neck supple. No lymph nodes noted. No crepitus CVS: Normal heart rate and rhythm. Pulses normal. Normal S1 and S2 Respiratory: No respiratory distress. Breath sounds normal. No Wheezing. No rales Abdomen: Soft and nontender. No rigidity. No distention. Skin: Skin warm and dry. Normal skin color. Normal skin turgor. Extremities: +1 nonpitting edema bilaterally. No Lacerations. No Rash Neuro: Oriented X 3. No motor deficit. No sensory deficit. Moves all extremities, intoxicated Psych: calm, cooperative, normal affect Course Course Course Narrative: -of patient's labs pending -care team consult pending Medical Decision Making Medical Decision Making [facility] Narrative: -nonpitting edema in lower extremities likely secondary to amlodipine side-effect. Patient states she has had this before with propranolol. -my interpretation of labs: Hematology and chemistry at base line, BNP negative, ETOH level 86 -patient calm, sleeping, care team consult pending for detox -physician observation started at 03:51 Differential Diagnosis Differential Diagnoses: The differential diagnosis associated with the presentation includes (Anxiety, depression, alcohol dependence, alcohol intoxication) Admission/Observation Consideration of admission/observation: Escalation of care including admission/observation considered (Patient under physician observation waiting to be seen by the care team) Lab Data [facility] Lab Attestation statement: I reviewed the patient's lab results. 12/04/23 Unknown 12/04/23 Unknown Labs: Lab Results 12/04/23 Range/Units Unknown WBC 7.9 (4.8-10.8) X10*3/uL RBC 4.35 (4.20-5.50) X10*6/uL Hgb 10.1 L (12.0-16.0) g/dl Hct 31.6 L (37.0-47.0) % MCV 72.6 L (80.0-98.0) fL MCH 23.2 L (27.0-33.0) pg MCHC 32.0 (31.0-35.0) g/dl RDW 18.6 H (11.0-16.0) % Plt Count 361 (160-400) X10*3/uL MPV 9.4 (9.4-12.3) fL Immature Gran % (Auto) 0.4 (0.0-0.4) % Neut % (Auto) 56.3 (45-73) % Lymph % (Auto) 30.7 (20-40) % [place] % (Auto) 7.7 (2-11) % Eos % (Auto) 4.1 H (0-4) % Baso % (Auto) 0.8 (0-2) % Lymph # (Auto) 2.4 (1.2-4.9) X10*3/uL [place] # (Auto) 0.6 (0.1-1.2) X10*3/uL Eos # (Auto) 0.3 (0.0-0.4) X10*3/uL Baso # (Auto) 0.1 (0.0-0.2) X10*3/uL Abs Immat Gran (auto) 0.03 (0.00-0.03) X10*3/uL Absolute Neuts (auto) 4.4 (2.0-8.3) x10*3/uL Absolute Nucleated RBC 0.000 (0.0-0.012) X10*3/uL Nucleated RBC % (auto) 0.0 (0.0-0.2) /100WBC Sodium 138 (135-145) mmol/L Potassium 3.4 (3.3-5.1) mmol/L Chloride 104 (96-108) mmol/L Carbon Dioxide 24 (22-29) mmol/L Anion Gap 13 (12-20) BUN 7 L (9-16) mg/dL Creatinine 0.70 (0.5-1.4) mg/dL Estim Creat Clear Calc 91.3 Estimated GFR > 60 Random Glucose 108 (60-115) mg/dL Calcium 8.6 (8.4-10.2) mg/dL Magnesium 2.0 (1.6-2.6) mg/dL Total Bilirubin 0.2 (0.0-1.0) mg/dL AST 24 (5-31) U/L ALT 18 (0-31) U/L Alkaline Phosphatase 161 H (39-117) U/L B-Natriuretic Peptide 14 (<100) pg/mL Total Protein 7.5 (6.5-8.0) g/dL Albumin 3.8 (3.5-5.0) g/dL Ethyl Alcohol 86 mg/dL COVID-19 ([facility]) Negative (Negative) COVID-19 Clin Com See Note Critical Care Time Critical Care Time Critical Care Time: Yes Total Critical Care Time: 30 Attestation: I have personally provided critical care time. Time includes review of lab data, radiology results, discussion with consultants, and monitoring for potential decompensation. Intervention performed as documented. Discharge Plan Discharge Clinical Impression: Alcoholic intoxication Patient Disposition: Still a Patient Prescriptions: No Action acetaminophen [Tylenol Extra Strength] 500 mg tablet 500 mg PO Q6H PRN (Reason: pain) Qty: 30 0RF Print Language: Bhutanese
[2023-12-04 02:47] LABS: Basophils Absolute Auto 0.1 X10*3/uL (0.0-0.2); Basophils Percent Auto 0.8 % (0-2); Eosinophils Absolute Auto 0.3 X10*3/uL (0.0-0.4); Eosinophils Percent Auto 4.1 % (0-4); Hematocrit 31.6 % (37.0-47.0); Hemoglobin 10.1 g/dl (12.0-16.0); Imm Gran Abs Auto 0.03 X10*3/uL (0.00-0.03); Imm Gran Pct Auto 0.4 % (0.0-0.4); Lymphocytes Absolute Auto 2.4 X10*3/uL (1.2-4.9); Lymphocytes Percent Auto 30.7 % (20-40); Mean Corpuscular Hemoglobin 23.2 pg (27.0-33.0); Mean Corpuscular Volume 72.6 fL (80.0-98.0); Mean Platelet Volume 9.4 fL (9.4-12.3); Monocytes Absolute Auto 0.6 X10*3/uL (0.1-1.2); Monocytes Percent Auto 7.7 % (2-11); Neutrophils Absolute Auto 4.4 x10*3/uL (2.0-8.3); Neutrophils Percent Auto 56.3 % (45-73); Platelet Count 361 X10*3/uL (160-400); Red Blood Count 4.35 X10*6/uL (4.20-5.50); Red Cell Distribution Width 18.6 % (11.0-16.0); White Blood Count 7.9 X10*3/uL (4.8-10.8)
[2023-12-04 03:01] LABS: Alanine Aminotransferase 18 U/L (0-31); Albumin Level 3.8 g/dL (3.5-5.0); Alkaline Phosphatase 161 U/L (39-117); Anion Gap 13 (12-20); Aspartate Amino Transferase 24 U/L (5-31); Bilirubin Total 0.2 mg/dL (0.0-1.0); Blood Urea Nitrogen 7 mg/dL (9-16); Calcium 8.6 mg/dL (8.4-10.2); Carbon Dioxide 24 mmol/L (22-29); Chloride 104 mmol/L (96-108); Creatinine Clr Calc Pharmacy 91.3; Estimated Glomerular Filt Rate > 60; Ethanol 86 mg/dL; Glucose Random 108 mg/dL (60-115); Potassium 3.4 mmol/L (3.3-5.1); Sodium 138 mmol/L (135-145); Total Protein 7.5 g/dL (6.5-8.0)
[2023-12-04 03:12] LABS: COVID-19 Test Negative (Negative); IDNOW Serial# 08D9AD1C
[2023-12-04 03:25] LABS: B Type Natriuretic Peptide 14 pg/mL (<100)
[2023-12-04 04:00] VITALS: BP 168/72; PULSE 81; RESP 16; TEMP 36.6; O2SAT 92
[2023-12-04 06:22] VITALS: BP 173/82; PULSE 87; RESP 16; TEMP 36.6; O2SAT 93
[2023-12-04] MEDS: LORazepam 1 MG TABLET 2 MG PO (08:26)
[2023-12-04 08:29] VITALS: BP 140/54; PULSE 90; RESP 16; O2SAT 95
--- NOTE | 2023-12-04 08:29 | PC.NURSE ---
Breakfast ordered, CIWA 6, Ativan given
[2023-12-04 08:48] LABS: Appearance Urine Clear; Color Urine Yellow; Glucose Urine UA Negative (Negative); Leukocyte Esterase Urine Negative (Negative); Nitrite Urine Negative (Negative); PH 6.5 (5.0-9.0); Specific Gravity - Urine <= 1.005 (1.005-1.025); Urine Blood Negative (Negative); Urine Ketones Negative (Negative); Urine Protein Negative (Neg-Trace)
[2023-12-04 08:50] LABS: UPreg QC Valid YES; Urine Pregnancy NEGATIVE (NEGATIVE)
[2023-12-04 08:56] LABS: Amphetamine Screen Urine Not Detected (Not Detect); Barbiturates, Urine Not Detected (Not Detect); Benzodiazepines Screen Urine Not Detected (Not Detect); Buprenorphine Scr Not Detected (Not Detect); Cannabinoid Screen Urine Not Detected (Not Detect); Cocaine Screen Urine Not Detected (Not Detect); Fentanyl, urine Not Detected (Not Detect); Methadone Screen, Urine Not Detected (Not Detect); Opiate Screen Urine Not Detected (Not Detect); Oxycodone Screen Urine Not Detected (Not Detect); Phencyclidine Screen Urine Not Detected (Not Detect)
--- NOTE | 2023-12-04 10:23 | MHC.RECOVRN ---
Briefly met with pt after request for [facility]. Pt laying in bed asleep, wakes to touch but quickly falls back to sleep during conversation. Pt reports alcohol use, 2 6 packs beer daily plus 1 bottle of wine x 2 months. Pt interested in local [facility] only. Referral sent to Jess.
[2023-12-04 13:15] VITALS: BP 140/54; PULSE 90; RESP 16; TEMP -17.7; TEMP 0; O2SAT 95
--- NOTE | 2023-12-04 13:26 | MHC.RECOVRN ---
Pt accepted to [facility]. Transported via [facility].
== END 2023-12-04 13:17 | disposition other institution (70) ==
PROVIDERS: Emergency Provider Emergency Medicine
DX: F10.129 Alcohol abuse with intoxication, unspecified (principal); Y90.4 Blood alcohol level of 80-99 mg/100 ml; R94.31 Abnormal electrocardiogram [ECG] [EKG]; Z79.899 Other long term (current) drug therapy; Z11.52 Encounter for screening for COVID-19; Z51.81 Encounter for therapeutic drug level monitoring
CPT/HCPCS: 80053; 80307; 81003; 81025; 83735; 83880; 85025; 87635; 93005; 99285

== ENCOUNTER → 2023-12-04 01:51 | Outpatient (BNV) | payer MEDICAID, SELFPAY | PROVIDERS: Emergency Provider Emergency Medicine; Visit Provider Internal Medicine Cardiovascular Disease | DX: I10 Essential (primary) hypertension (principal) | CPT/HCPCS: 93010 ==

== ENCOUNTER 2024-07-11 02:12 | Emergency (ER) | payer MEDICAID, SELFPAY ==
[2024-07-11] VITALS (10 sets, daily range): BP systolic 122–230; BP diastolic 43–100; PULSE 59–112; RESP 14–20; TEMP 36.4–36.7; O2SAT 89–98; BMI 28.3
--- NOTE | 2024-07-11 02:40 | PC.NURSE ---
Addendum entered by Pamella Rutledge 07/11/24 03:01: patient belongings placed in locker #3 Original Note: patient changed over with security present. swearing, verbal threats to staff. security took belongings.
--- NOTE | 2024-07-11 03:20 | MHC.EDTECH ---
Pt refusing any care from this Tech. Pt continues to hurl racist comments at staff
--- OUTSIDE RECORDS SUMMARY | 2024-07-11 04:06 | XMS_ITS | Encounter Summary ---
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 Skin: Warm and dry. No rash, no ulceration. Behavioral/Psychiatric: Slightly dysthymic mood. Labs: Lab Results Component Value Date WBC 8.7 06/24/2024 RBC 4.20 06/24/2024 HGB 10.4 (L) 06/24/2024 HCT 33.0 (L) 06/24/2024 MCV 79.5 06/24/2024 MCHC 31.5 (L) 06/24/2024 RDW 17.1 (H) 06/24/2024 PLT 305 06/24/2024 MPV 10.5 06/24/2024 NRBC 0.0 06/24/2024 DIFF Lab Results Component Value Date LYMPHOPCT 22.7 06/24/2024 NEUTROABS 5.28 06/24/2024 LYMPHSABS 1.97 06/24/2024 MONOABS 0.90 06/24/2024 EOSABS 0.44 06/24/2024 BASOSABS 0.06 06/24/2024 IMMGRANABS 0.02 06/24/2024 RETIC No results found for: RETIC , RETICCTPCT Lab Results Component Value Date NA 134 06/25/2024 K 3.5 06/25/2024 CL 98 06/25/2024 CO2 30 06/25/2024 GLUCOSE 84 06/25/2024 BUN 13 06/25/2024 CREATININE 0.54 06/25/2024 CALCIUM 8.7 06/25/2024 PROT 7.3 06/22/2024 ALBUMIN 3.2 06/22/2024 BILITOT 0.4 06/22/2024 AST 30 06/22/2024 ALT 36 06/22/2024 PHOS 2.8 06/23/2024 MG 1.9 06/23/2024 ALKPHOS 302 (H) 06/22/2024 EGFR 103 06/25/2024 Imaging: XR Chest 1 View Result Date: 06/21/2024 Narrative: XR CHEST 1 VIEW INDICATION: Pneumonia TECHNIQUE: XR CHEST 1 VIEW COMPARISON: 06/19/2024 Impression: FINDINGS/IMPRESSION: Right upper extremity PICC terminates in the right atrium. Elevated right diaphragm with unchanged right basilar opacity, possibly atelectasis. No pleural effusion orpneumothorax. Cardiac silhouette and bones are stable compared to prior -------- FINAL REPORT -------- Dictated By: DELANO HERNANDEZ Dictated Date: 06/21/2024 08:08 ET Assigned Physician: DELANO HERNANDEZ Reviewed and Electronically Signed By: DELANO HERNANDEZ Signed Date: 06/21/2024 08:09 ET Workstation ID: [id number] Transcribed By: Self Edit Transcribed Date: 06/21/2024 08:08 ET XR Chest 1 View Result Date: 06/19/2024 Narrative: XR CHEST 1 VIEW INDICATION: Respiratory failure TECHNIQUE: XR CHEST 1 VIEW COMPARISON: 06/18/2024 Impression: FINDINGS/IMPRESSION: Elevated right diaphragm with bibasilar atelectasis. No pleural effusion or pneumothorax. Cardiac silhouette and bones are normal. -------- FINAL REPORT -------- Dictated By: DELANO HERNANDEZ Dictated Date: 06/19/2024 08:54 ET Assigned Physician: DELANO HERNANDEZ Reviewed and El ectronically Signed By: DELANO HERNANDEZ Signed Date: 06/19/2024 09:08 ET Workstation ID: [id number] Transcribed By: Self Edit Transcribed Date: 06/19/2024 08:54 ET XR Chest 1 View Result Date: 06/18/2024 Narrative: HISTORY: The patient is a 63-year-old female with hypoxia. FINDINGS: Upright AP portableradiograph of the chest again demonstrates degenerative changes and dextroscoliosis of the thoracicspine as also seen on the prior study performed 06/16/2024. The cardiac silhouette is within normallimits. The aortic knob is calcified. Discoid atelectasis has developed at the left lung base. The lungs are otherwise clear. The right hemidiaphragm is again seen to be elevated as also seen on prior studies dating back to 08/20/2023. Impression: Interval development of left base discoid atelectasis since 06/16/2024. The lungs otherwise remain clear. Again seen is chronic elevation of the right hemidiaphragm. Code 81695 -------- FINAL REPORT -------- Dictated By: Chacorta Pineda Dictated Date: 06/18/2024 10:06 ET Assigned Physician: Chacorta Pineda Reviewed and Electronically Signed By: Chacorta Pineda Signed Date: 06/18/2024 10:08 ET Workstation ID: [id number] Transcribed By: Self Edit Transcribed Date: 06/18/2024 10:06 ET XR Chest 1 View Result Date: 06/17/2024 Narrative: Examination: Chest portable AP sitting at 2158 hours. COMPARISON: Chest 03/10/2024. FINDINGS: The lungs are hypoexpanded with by basilar atelectatic changes. Heart size and pulmonary vasculature is normal. There is mild extradural scoliosis lower dorsal spine. No aggressive lytic or sclerotic process seen. Impression: Bibasilar atelectatic changes. -------- FINAL REPORT -------- Dictated By: Lex DarlingDictated Date: 06/17/2024 08:26 ET Assigned Physician: Lex Darling Reviewed and Electronically Signed By: Lex Darling Signed Date: 06/17/2024 08:27 ET Workstation ID: [id number] Transcribed By: Self Edit Transcribed Date: 06/17/2024 08:[address] Abdomen Pelvis w Contrast Result Date: 06/16/2024 Narrative: CT abdomen and pelvis with contrast Comparison: None Findings: Developing infiltrate and/or atelectasis of the right lung base. Small hiatal hernia. Atherosclerosis of the abdominal aorta.Small subcentimeter lymph nodes retroperitoneum. Mild intrahepatic and extrahepatic biliary ductal dilatation likely related to prior cholecystectomy. Pancreatic atrophy. The spleen and bilateral adrenal glands are normal. The kidneys without nephrolithiasis or hydronephrosis. The contour of the urinary bladder is unremarkable. Atrophied anteverted uterus. No bowel obstruction, pneumoperitoneum, or pneumatosis. Scattered colonic diverticula without diverticulitis. Mild colonic fecal burden greatest involving proximal colon. Normal appendix. Degenerative changes of the lumbar spine bilateral hips. Impression: 1. Normal appendix. 2. Scattered colonic diverticula without diverticulitis. Mild colonic fecal burden greatest involving the proximal colon. 3. Mild intrahepatic and extrahepatic biliaryductal dilatation likely related to prior cholecystectomy. 4. A small hiatal hernia. 5. Developing infiltrate and/or atelectasis of the right lung base. This document has been electronically signed by: Joey Rivera DO on 06/16/2024 23:00:36 CT Angio Chest wo and/or w Contrast Result Date: 06/16/2024 Narrative: CTA chest with IV contrast. MIP images also submitted for evaluation. Comparison: None Findings: The thyroid is unremarkable. Normal caliber of the thoracic aorta. Atherosclerosis of the thoracic aorta. Soft plaque involving the descending thoracic aorta The heart is normal size. Small lymph nodes throughout mediastinum No pulmonary embolism. Bronchial thickening within the right base.Some opacities involving the right lung base which could represent developing right basilar infectious process including pneumonia and or right basilar atelectasis. Degenerative changes of the thoracic spine. Please see report for discussion of the abdomen and pelvis. A small hiatal hernia. Cholecys tectomy. Impression: 1. No pulmonary embolism. 2. Bronchial thickening within the right base. Some opacitiesinvolving the right lung base which could represent developing right basilar infectious process including pneumonia and or right basilar atelectasis. This document has been electronically signed by: Joey Rivera DO on 06/16/2024 23:00:33 Assessment / Plan: Assessment: This is a 63-year-old female with past medical history significant for essential hypertension, chronic obstructive pulmonary disease, severe alcohol use disorder complicated by alcohol withdrawal seizures, cocaine use disorder, tobacco use disorder, major depressive disorder admitted to the inpatient psychiatric unit for depression with suicidal ideations. [facility] was consulted for medical clearancefor psychiatric admission. Major depressive disorder with suicidal ideations History of severe alcohol use disorder with history of alcohol withdrawal seizures (completed alcohol withdrawal at [facility]) History of cocaine use disorder -Patient to be assessed and managed by the psychiatric team. -Continue management and medication changes per psychiatric team. -Continue as needed medications per psychiatric team. -The patient verbally contracts for safety, continue with safety checks every 15 minutes per psychiatric team. History of essential hypertension -Continue PO amlodipine 5 mg daily and PO propranolol 20 mg twice daily. History of chronic obstructive pulmonary disease History of tobacco use disorder Patient has a documented history of chronic obstructive pulmonary disease but denies using any inhalers or nebulizers at home. She denies any cough or shortness of breath and she has no expiratory wheezing on physical examination. -Continue nicotine replacement with as needed gum. -Start DuoNeb every 6 hours as needed for wheezing/shortness of breath. Acute hypoxic respiratory failure secondary to aspiration pneumonia - resolved MRSA carrier Patient initially presented to [facility] on 06/06/2024 in the setting of shortness of breath following an episode of nausea/vomiting. She was found to have acute hypoxic respiratory failure secondary to an early right lower lobe infiltrate concerning for aspiration pneumonia. Patient wastreated with IV antibiotics including ampicillin/sulbactam, ceftriaxone/azithromycin, and doxycycline throughout her 2-week stay at [facility]. Patient currently denies any cough or shortness of breath. She was also found to have a positive MRSA nasal swab on 06/18/2024. -Patient completed antibiotic course at [facility] so no need for continued antibiotic treatment at this time. -She received mupirocin ointment x 5 days for + MRSA nasal swab. Per infection prevention, patient does not require any isolation for positive MRSA nasal swab at this time. Patient's vital signs are reviewed and the patient has remained hemodynamically stable. The patient's most recent lab work from 06/25/2024 was reviewed and negative for acute significant abnormalities. Patient is otherwise medically stable and cleared for psychiatric admission; please do not hesitate to contact [facility] if any acute medical problems arise. Ashley Loyd PA-C Hospital Medicine Service 07/01/24 3:56 PM EST Associated attestation - Terri Roberson DO - 07/02/2024 1:45 PM EST AIMS ATTENDING ADDENDUM I personally saw and evaluated the patient. I discussed the patient case with the [facility] PA and am inagreement with the findings and plan as documented A complete 10 point review of symptoms was done and was negative except as mentioned in PA documentation. Vitally stable, afebrile. Vitals: Vitals: 07/01/24 1500 07/01/24 1936 07/02/24 0803 BP: 132/72 (!) 119/49 116/50 BP Location: Left arm Left arm Left arm Patient Position: Sitting Sitting Sitting Pulse: 64 69 64 Resp: Temp: 36.5 ??C (97.7 ??F) 36.1 ??C (97 ??F) 36.3 ??C (97.4 ??F) TempSrc: Temporal Temporal Temporal SpO2: 94% 90% 90% Weight: 86.3 kg (190 lb 4.8 oz) Height: 1.651 m (65 ) Labs and imaging reviewed as above. Clinical Impression: 63 y.o. year of old female with history of essential HTN, COPD, severe EtOH use disorder w/ hx EtOHwithdrawal seizures, cocaine use disorder, tobacco use disorder, MDD, who was admitted to the inpatient psych unit for depression with SI. #Hypokalemia #Chronic anemia #Essential HTN #MDD with SI #H/o severe EtOH disorder with hx withdrawal seizures #H/o cocaine use disorder #COPD #H/o tobacco use disorder #AHRF 2/2 aspiration pna, resolved #MRSA carrier -Agree with ongoing electrolyte monitoring and repletion. -HTN desi been reasonably controlled on amlodipine 5, propanolol 20. Hold propanolol for HR <60, hold amlodipine/propanolol for SBP <100 or DBP <50 -Continue nicotine replacement -Agree with duonebs per below. Rest as per PA note. DO LINDY Lei Hospitalist ([place] Text 7 AM- 7 PM) Contact LINDY cross-cover after 7 PM documented in this encounter Consult Notes * Velasquez Alicia, ERINN - 07/08/2024 2:01 PM EST 07/08/2024 @ 2:20 PM EST Nutrition Consult Note/Nutrition Assessment Reason for RD Intervention: Assessment Type: Nutrition Trigger Reason for Assessment: LOS Anthropometrics: Height: 165.1 cm (65 ) Weight: 86.3 kg (190 lb 4.8 oz) BMI (Calculated): 31.7 BMI Class: Obesity Class I Current Diet and Supplements: Dietary Orders (From admission, onward) Start Ordered 07/01/24 1456 Adult diet [facility]; General; Regular Diet effective now Question Answer Comment Location [facility] Diet Type (req) General General Diet Regular 07/01/24 1500 History of presenting illness: Patient is a 63 y.o. female with a history of essential hypertension, chronic obstructive pulmonary disease, severe alcohol use disorder complicated by alcohol withdrawal seizures, cocaine use disorder, tobacco use disorder, major depressive disorder, anxiety admitted07/01/2024 with Depression with suicidal ideation. Past Medical History: Diagnosis Date Alcohol use disorder Anxiety Cervical spinal stenosis CHF (congestive heart failure) ([facility]) Chronic back pain COPD (chronic obstructive pulmonary disease) ([facility]) Depression Hypertension Seizures ([facility]) Past Surgical History: Procedure Laterality Date CHOLECYSTECTOMY Food/Nutrition History: Self-selected diet(s) followed: Tends to follow a low sodium diet. Per medical documentation, pt was receiving food stamps and was eating 2 meals a day prior to admission. Appetite AGRICULTURAL AGENT: Fair Intake AGRICULTURAL AGENT: Stable Vitamins/Minerals/Herbs: One-a-Day Women's multivitamin, potassium phosphorus, and ferrous sulfate Weight History: Wt Readings from Last 10 Encounters: 07/01/24 86.3 kg (190 lb 4.8 oz) 06/24/24 89.8 kg (198 lb) 05/14/24 90.7 kg (200 lb) 04/22/24 81.6 kg (180 lb) Subjective Assessment: Spoke with Cherelle. Per interview, pt stated that her appetite is fair. She mentioned that prior to her previous admission at [facility], she was eating two meals a day. She was unclear how well she was eating at [facility]. During admission, she is eating 2 meals a day at 75% intake per meal. Cherelle denied any weight changes, difficulty with chewing or swallowing, food related allergies and use of nutritional supplements prior to admission. Cherelle was receptive to a nutritional supplement during admission. Cherelle confirmed that she was taking Women's One-a-Day multivitamin prior to admission. Per medical documentation, pt was also taking a potassium phosphorus tablet and ferrous sulfate. Per medical documentation, pt is homeless and was utilizing food stamps. Nutrition-Related Lab Values: Lab Results Component Value Date LIPASE 39 06/21/2024 Medications: amLODIPine, 5 mg, oral, Daily DULoxetine, 30 mg, oral, Daily gabapentin, 400 mg, oral, TID multivitamin minerals-iron, 1 tablet, oral, Daily propranoloL, 20 mg, oral, BID CONTINUOUS: PRN medications: acetaminophen, hydrOXYzine pamoate, ipratropium-albuteroL, magnesium hydroxide, nicotine polacrilex Energy Needs: 9088-2921 kcal, 86-103 gm protein, 2155 mL fluid per day. Height: 165.1 cm (65 ) Temp: 36.7 ??C (98.1 ??F) Calculating Weight (lbs): 190 Calculating Weight (Kg calc): 86.18 Food/Nutrition-Current Status: Intake Type: P.O. Current Diet Status: Appropriate Appetite: Fair Intake Amount (%): 75-100% Intake Assessment: Adequate (2 meals a day) Nutrition Focused Physical Findings: Overall Appearance: Per visual assessment, pt is obese. Nerves and Cognition: Alert Nutrition Diagnosis: Code Type: None Identified Status: New Diagnosis: No Acute Nutrition Dx Nutrition Interventions: Diet Order (Continue regular diet.) Goals: Patient will consume greater than or equal to 75% meals., Electrolytes within normal range., and Maintain weight. Coordination of Patient Care: Care plan discussed with patient/family. and Discussed with provider(s) via [employer] Chat/[employer]. Monitoring/Evaluation: Food Intake, Weight, Renal/Electrolyte Profile Follow Up: Nutrition Priority Level: Low Follow up Date: 07/17/24 Please consult nutrition if needed sooner. RD remains available and will continue to follow. Signature: Velasquez Alicia MS, RD Available through [employer] documented in this encounter Plan of Treatment Not on file documented as of this encounter Visit Diagnoses Diagnosis Depression with suicidal ideation- Primary Major depression Major depressive disorder, single episode, unspecified PTSD (post-traumatic stress disorder) Posttraumatic stress disorder documented in this encounter Admitting Diagnoses Diagnosis Major depression Major depressive disorder, single episode, unspecified documented in this encounter Administered Medications Inactive Administered Medications - up to 3 most recent administrations Medication Order MAR Action Action Date Dose Rate Site acetaminophen (TYLENOL) tablet 650 mg 650 mg, oral, Every 6 hours PRN, mild pain, Starting on Sat07/01/24 at 1459 amLODIPine (NORVASC) tablet 5 mg 5 mg, oral, Daily, First dose on Sat07/02/24 at 0900 Given 07/08/2024 9:05 AM EST 5 mg Given 07/07/2024 9:10 AM EST 5 mg Given 07/06/2024 9:15 AM EST 5 mg DULoxetine (CYMBALTA) DR capsule 30 mg 30 mg, oral, Daily, First dose on Sat07/02/24 at 1415, Do not crush or chew. Given 07/08/2024 9:05 AM EST 30 mg Given 07/07/2024 9:10 AM EST 30 mg Given 07/06/2024 9:15 AM EST 30 mg gabapentin (NEURONTIN) capsule 300 mg 300 mg, oral, 3 times daily, First dose on Sat07/01/24 at 1600 Given 07/04/2024 2:38 PM EST 300 mg Given 07/04/2024 9:49 AM EST 300 mg Given 07/03/2024 1:57 PM EST 300 mg gabapentin (NEURONTIN) capsule 400 mg 400 mg, oral, 3 times daily, First dose (after last modification) on Sat07/04/24 at 2100 Given 07/08/2024 1:14 PM EST 400 mg Given 07/08/2024 9:04 AM EST 400 mg Given 07/07/2024 8:30 PM EST 400 mg hydrOXYzine pamoate (VISTARIL) capsule 25 mg 25 mg, oral, Every 8 hours PRN, anxiety, Starting on Sat07/03/24 at 1452, Indications: anxiety Given 07/06/2024 8:21 PM EST 25 mg ipratropium-albuteroL (DUONEB) 0.5-2.5 mg/3 mL nebulizer solution 3 mL 3 mL, nebulization, Every 6 hours PRN, wheezing, shortness of breath, Starting on Sat07/01/24 at 1600 LORazepam (ATIVAN) tablet 1 mg 1 mg, oral, Every 4 hours PRN, for anxiety with psychomotor agitation / restlessness, Starting on Sat07/01/24 at 1459 Given 07/02/2024 8:32 PM EST 1 mg magnesium hydroxide (MILK OF MAGNESIA) 400 mg/5 mL suspension 30 mL 30 mL, oral, Daily PRN, constipation, Starting on Sat07/01/24 at 1500, 1st line for treatment of constipation - give scheduled if no bowel movement in past 24 hours multivitamin minerals-iron (THERA-M) 1 tablet 1 tablet, oral, Daily, First dose on Sat07/02/24 at 1415 Given 07/08/2024 9:04 AM EST 1 tablet Given 07/07/2024 9:10 AM EST 1 tablet Given 07/06/2024 9:15 AM EST 1 tablet nicotine polacrilex (NICORETTE) gum 2 mg 2 mg, buccal, Every 1 hour PRN, smoking cessation, nicotine craving, urge to smoke, Starting on Sat07/01/24 at 1500, Instruct patient to chew into gum, then place between the cheek and gum to enhance absorption. To increase chances of quitting, recommended to chew and park at least 9 pieces per day in the first 6 weeks of cessation., Indications: nicotine dependence, smoking cessation Given 07/04/2024 2:54 PM EST 2 mg propranoloL (INDERAL) tablet 20 mg 20 mg, oral, 2 times daily, First dose on Sat07/02/24 at 0900 Given 07/06/2024 9:15 AM EST 20 mg Given 07/05/2024 9:13 PM EST 20 mg Given 07/05/2024 9:58 AM EST 20 mg documented in this encounter Discontinued Medications Medication Sig Discontinue Reason Start Date End Da te nicotine polacrilex (NICORETTE) [address] 1 each (2 mg total) into mouth between cheek and gum every 2 (two) hours if needed for smoking cessation. Ineffective 06/26/2024 07/02/2024 amLODIPine (NORVASC) 5 mg tablet Take 1 tablet (5 mg total) by mouth 1 (one) time each day. 03/20/2024 07/08/2024 multivitamin minerals-iron (THERA-M) 9 mg iron-400 mcg tablet Take 1 tablet by mouth 1 (one) time each day. 06/27/2024 07/08/2024 ferrous sulfate 325 mg (65 mg iron) EC tablet Take 1 tablet (325 mg total) by mouth every other day. Stop Taking at Discharge 03/20/2024 07/08/2024 propranoloL (INDERAL) 20 mg tablet Take 1 tablet (20 mg total) by mouth 2 (two) times a day. Stop Taking at Discharge 03/20/2024 07/08/2024 cloNIDine (CATAPRES) 0.1 mg tablet Take 1 tablet (0.1 mg total) by mouth 4 (four) times a day. Stop Taking at Discharge 12/15/2023 07/08/2024 gabapentin (NEURONTIN) 100 mg capsule Take 3 capsules (300 mg total) by mouth 3 (three) times a day. Stop Taking at Discharge 12/15/2023 07/08/2024 FLUoxetine (PROzac) 20 mg capsule Take 1 capsule (20 mg total) by mouth 1 (one) time each day for 3 doses. Stop Taking at Discharge 06/27/2024 07/08/2024 OLANZapine (ZyPREXA ZYDIS) 5 mg disintegrating tablet Take 1 tablet (5 mg total) by mouth 3 (three) times a day if needed (delirium). Stop Taking at Discharge 06/26/2024 07/08/2024 doxycycline (MONODOX) 100 mg capsule Take 1 capsule (100 mg total) by mouth every 12 (twelve) hours for 4 doses. Take with at least 8 ounces (large glass) of water, do not lie down for 30 minutes after Stop Taking at Discharge 06/26/2024 07/08/2024 DULoxetine (CYMBALTA) [address] capsule Take 1 capsule (30 mg total) by mouth 1 (one) time each day. Do not crush or chew. Stop Taking at Discharge 06/27/2024 07/08/2024 folic acid (FOLVITE) 1 mg tablet Take 1 tablet (1 mg total) by mouth 1 (one) time each day. Stop Taking at Discharge 06/27/2024 07/08/2024 mupirocin (BACTROBAN) 2 % ointment Apply to each nostril 3 (three) times a day for 5 doses. Stop Taking at Discharge 06/26/2024 07/08/2024 phosphorus (K PHOS NEUTRAL) tablet Take 1 tablet by mouth 3 (three) times a day for 5 days. Stop Taking at Discharge 06/26/2024 07/08/2024 documented as of this encounter Active and Recently Administered Medications Times are shown in EST. Scheduled Medication Order 07/06/2024 07/07/2024 07/08/2024 amLODIPine (NORVASC) tablet 5 mg 5 mg, oral, Daily, First dose on Tyesha 07/02/24 at 0900 0915 (Given - Provider: Lynda Johnson RN) 0910 (Given - Provider: Jemma Adams RN) 0905 (Given - Provider: Alem Casas RN) DULoxetine (CYMBALTA) DR capsule 30 mg 30 mg, oral, Daily, First dose on Tyesha 07/02/24 at 1415, Do not crush or chew. 0915 (Given - Provider: Lynda Johnson RN) 0910 (Given - Provider: Jemma Adams RN) 0905 (Given - Provider: Alem Casas RN) gabapentin (NEURONTIN) capsule 400 mg 400 mg, oral, 3 times daily, First dose (after last modification) on 07/04/24 at 2100 0915 (Given - Provider: Lynda Johnson RN)1353 (Given - Provider: Lynda Johnson RN)2020 (Given - Provider: Kiet Sandoval RN) 0910 (Given - Provider: Jemma Adams RN)1312 (Given - Provider: Jemma Adams RN)2029 (Given - Provider: Kiet Sandoval RN) 0904 (Given - Provider: Alem Casas RN)1314 (Given - Provider: Alem Casas RN) multivitamin minerals-iron (THERA-M) 1 tablet 1 tablet, oral, Daily, First dose on Tyesha 07/02/24 at 1415 0915 (Given - Provider: Lynda Johnson RN) 0910 (Given - Provider: Jemma Adams RN) 09 (Given - Provider: Alem Casas RN) propranoloL (INDERAL) tablet 20 mg 20 mg, oral, 2 times daily, First dose on Sat07/02/24 at 0900 0915 (Given - Provider: Lynda Johnson, DARSHANA)2121 (Not Given - Provider: Kiet Sandoval RN - Reason: Patient/Resident/Agen t refused - education provided ) 09 (Not Given - Provider: Jemma Adams RN - Reason: Patient/Resident/Agen t refused - education provided )2030 (Not Given - Provider: Kiet Sandoval RN - Reason: Patient/Resident/Agen t refused - education provided ) 09 (Not Given - Provider: Alem Casas RN - Reason: Patient/Resident/Agen t refused - education provided ) PRN Medication Order 07/06/2024 07/07/2024 07/08/2024 acetaminophen (TYLENOL) tablet 650 mg 650 mg, oral, Every 6 hours PRN, mild pain, Starting on Sat07/01/24 at 1459 hydrOXYzine pamoate (VISTARIL) capsule 25 mg 25 mg, oral, Every 8 hours PRN, anxiety, Starting on Sat07/03/24 at 1452, Indications: anxiety 2020 (Given - Provider: Kiet Sandoval RN) ipratropium-albuteroL (DUONEB) 0.5-2.5 mg/3 mL nebulizer solution 3 mL 3 mL, nebulization, Every 6 hours PRN, wheezing, shortness of breath, Starting on Sat07/01/24 at 1600 magnesium hydroxide (MILK OF MAGNESIA) 400 mg/5 mL suspension 30 mL 30 mL, oral, Daily PRN, constipation, Starting on Sat07/01/24 at 1500, 1st line for treatment of constipation - give scheduled if no bowel movement in past 24 hours nicotine polacrilex (NICORETTE) gum 2 mg 2 mg, buccal, Every 1 hour PRN, smoking cessation, nicotine craving, urge to smoke, Starting on Sat07/01/24 at 1500, Instruct patient to chew into gum, then place between the cheek and gum to enhance absorption. To increase chances of quitting, recommended to chew and park at least 9 pieces per day in the first 6 weeks of cessation., Indications: nicotine dependence, smoking cessation documented in this encounter Orders Medications Ordered That Zeus ht Not Have Been Administered Count Last Ordered Date First Ordered Date acetaminophen (TYLENOL) tablet 650 mg 1 ipratropium-albuteroL (DUONE B) 0.5-2.5 mg/3 mL nebulizer solution 3 mL 1 07/01/2024 LORazepam (ATIVAN) injection 1 mg 1 025 magnesium hydroxide (MILK OF MAGNESIA) 400 mg/5 mL suspension 30 mL 1 07/01/2024 Diet Count Last Ordered Date First Orde red Date ADULT DISCHARGE DIET 1 07/08/2024 Nursing Count Last Ordered Date First Orde red Date ACTIVITY 1 07/08/2024 Admission Count Last Ordered Date First Orde red Date ADMIT TO IP PSYCH 1 07/01/2024 Discharge Count Last Ordered Date First Orde red Date DISCHARGE PATIENT 1 07/08/2024 documented in this encounter Additional Health Concerns Infection Onset Date Last Indicated Resolved Time MRSA 06/18/2024 06/18/2024 07/01/2024 3:49 PM EST documented as of this encounter Care Teams Door Manager Relationship Specialty Start Date End Date Physician, No Pcp PCP - General 04/22/24 documented as of this encounter
--- OUTSIDE RECORDS SUMMARY | 2024-07-11 04:06 | XMS_ITS ---
Author Organization [facility] Address [address], [place] [id number] Care Team Providers Care Core Drier Name Role Phone No, PCP Primary Care Provider Unavailabl e [facility], CHW Unavailable [phone] [facility], Nursing Unavailable [phone] REASON FOR VISIT C3 Chart Review by DARSHANA Streeter @[email or web address] Encounters Encounter Location Date Provider Diagnosis [facility] [address], [place] [id number] 07/02/2024 Nursing [facility] Plan Of Treatment No Information Progress Notes * Margi DOSHIDOB: 0 (63 yo F)Acc No.[id number]:07/02/2024 Patient:?Margi DOSHI :1960???Age:63 Y???Sex:Female Address: * true * Date:? Generated for Esperanza riley/Dave/eTfarooqsmitting on:?07/11/2024 04:05 AM EST
--- OUTSIDE RECORDS SUMMARY | 2024-07-11 04:07 | XMS_ITS | Encounter Summary ---
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 Orlando Ng MD [address] [place] [address] [facility] Emergency [address] [place] [address] Referral ID Status Reason Start Date Expiration Date Visits Re quested Visits Authorized [id number] 1 1 Encounter Details Date Type Department Care Team (Latest Contact Info) Description 06/16/2024 8:11 PM EST - 07/01/2024 1:57 PM [facility] Hospital Encounter [facility] Surgical Unit [address] [place] [id number] Cristin Lutz DO [address] [place] [address] Orlando Ng MD [address] [place] [id number] James Fletcher MD [address] [place] [phone] Jonathan Cole DO [address] [place], [place] [id number] Vickie Carmona MD [address] [place] [address] Grisel Wynn MD [address] [place] [id number] Adolfo Mena MD [address] [place] [address] Pneumonia of right lower lobe due to infectious organism (Primary Dx); SOB (shortness of breath); Hypoxia; Aspiration pneumonitis (CMS/HCC); Acute on chronic respiratory failure with hypercapnia (CMS/HCC) Discharge Disposition: Psychiatric Hospital Social History Tobacco Use Types Packs/Day Years Used Date Smoking Tobacco: Every Day Cigarettes Alcohol Use Standard Drinks/Week Comments Yes 0 (1 standard drink = 0.6 oz pur e alcohol) Interpersonal Safety Answer Date Record ed Physical [...] Sign Reading Time Taken Comments Blood Pressure 119/77 07/01/2024 7:54 AM EST Pulse 84 07/01/2024 7:54 AM EST Temperature 36.1 ??C (97 ??F) 07/01/2024 7:54 AM EST Respiratory Rate 14 07/01/2024 7:54 AM EST Oxygen Saturation 93% 07/01/2024 7:54 AM EST Inhaled Oxygen Concentration - - Weight 89.8 kg (198 lb) 06/24/2024 3:30 PM EST p er epic record Height 165.1 cm (5' 5 ) 06/16/2024 8:30 PM EST Body Mass Index 32.95 06/16/2024 8:30 PM EST documented in this encounter Functional [...] as of this encounter Discharge Summaries * Adolfo Mena MD - 07/01/2024 8:42 AM EST Images from the original note were not included. [facility] DISCHARGE SUMMARY Patient Information Cherelle Gonsales : 1960 [63 y.o.] Admitting Provider Jonathan Cole DO Discharge Provider Adolfo Mena MD, Adolfo Mena MD Primary Care Physician No Pcp Physician Admission Date 06/16/2024 Discharge Date 07/01/2024 Summary of Hospital Problems Presenting Chief Complaint: Difficulty breathing Primary Discharge Diagnosis: Acute hypoxic respiratory failure Aspiration pneumonia Methadone intoxication Major depression with suicidal ideation Alcohol use disorder Hypertension Discharge Destination: Needs inpatient psych facility Code Status at Discharge: Full Code - Default Inpatient Consultants: Psychiatry - Dr [facility] Hospital Course Summary This is a 63-year-old female with history of major depressive disorder, alcohol use disorder, cocaine use, COPD tobacco dependence, presenting to the emergency room initially with complaints of difficulty breathing, vomiting. Patient was noted to be hypoxic, concern for aspiration pneumonia, admitted for acute hypoxic respiratory failure secondary to likely aspiration pneumonia, and also possiblemethadone intoxication. Patient continued to be obtunded, and required to be started on naloxone infusion, hence transferred to the ICU. Patient was also monitored for her alcohol withdrawal, was briefly on Precedex drip aswell. Patient stabilized in the ICU and transferred out to the telemetry floor last evening. Acute hypoxic respiratory failure -improved Likely secondary to methadone intoxication, aspiration pneumonia Continue supplemental oxygen, titrate as tolerated Continue with doxycycline to complete the course. Currently on room air with good O2 sats Alcohol use disorder History of alcohol withdrawal seizures Not scoring on CIWA at this time. Followed by addiction service team as well. Continue multivitamin, folic acid Major depression with suicidal ideation Methadone overdose, intentional self-harm Patient reported of taking methadone and also with suicidal ideation. Continue with sitter at this time. Patient cannot leave AGAINST MEDICAL ADVICE at this time need continued evaluation for suicidal ideation Patient was seen by psychiatry again recommending inpatient psych facility when medically stable for discharge. Seen by N, recommending inpatient psych. Seen by psychiatry, plan is to reduce the dose of Prozac to eventually discontinue, continue 20 mg daily for 06/27, 06/28, 06/29 and then discontinue Hypertension on amlodipine CODE STATUS is full Patient is medically stable at this time for transfer to inpatient psych facility - being discharged to [facility] likely 07/01/24 Follow-Up Instructions and Recommendations Follow up with PCP in a week Discharge Medications Your medication list START taking these medications Instructions Last Dose Given Next Dose Due DULoxetine [address] capsule Commonly known as: CYMBALTA Take 1 capsule (30 mg total) by mouth 1 (one) time each day. Do not crush or chew. folic acid 1 mg tablet Commonly known as: FOLVITE Take 1 tablet (1 mg total) by mouth 1 (one) time each day. multivitamin minerals-iron 9 mg iron-400 mcg tablet Commonly known as: THERA-M Take 1 tablet by mouth 1 (one) time each day. nicotine polacrilex 2 mg gum Commonly known as: NICORETTE Place 1 each (2 mg total) into mouth between cheek and gum every 2 (two) hours if needed for smoking cessation. OLANZapine 5 mg disintegrating tablet Commonly known as: ZyPREXA ZYDIS Replaces: OLANZapine 2.5 mg tablet Take 1 tablet (5 mg total) by mouth 3 (three) times a day if needed (delirium). phosphorus tablet Commonly known as: K PHOS NEUTRAL Take 1 tablet by mouth 3 (three) times a day for 5 days. CHANGE how you take these medications Instructions Last Dose Given Next Dose Due FLUoxetine 20 mg capsule Commonly known as: PROzac What changed: how much to take when to take this Take 1 capsule (20 mg total) by mouth 1 (one) time each day for 3 doses. CONTINUE taking these medications Instructions Last Dose Given Next Dose Due amLODIPine 5 mg tablet Commonly known as: NORVASC Take 1 tablet (5 mg total) by mouth 1 (one) time each day. cloNIDine 0.1 mg tablet Commonly known as: CATAPRES Take 1 tablet (0.1 mg total) by mouth 4 (four) times a day. ferrous sulfate 325 mg (65 mg iron) EC tablet Take 1 tablet (325 mg total) by mouth every other day. gabapentin 100 mg capsule Commonly known as: NEURONTIN Take 3 capsules (300 mg total) by mouth 3 (three) times a day. propranoloL 20 mg tablet Commonly known as: INDERAL Take 1 tablet (20 mg total) by mouth 2 (two) times a day. STOP taking these medications hydrOXYzine pamoate 25 mg capsule Commonly known as: VISTARIL mirtazapine 7.5 mg tablet Commonly known as: REMERON OLANZapine 2.5 mg tablet Commonly known as: ZyPREXA Replaced by: OLANZapine 5 mg disintegrating tablet ASK your doctor about these medications Instructions Last Dose Given Next Dose Due doxycycline 100 mg capsule Commonly known as: MONODOX Ask about: Should I take this medication? Take 1 capsule (100 mg total) by mouth every 12 (twelve) hours for 4 doses. Take with at least 8 ounces (large glass) of water, do not lie down for 30 minutes after mupirocin 2 % ointment Commonly known as: BACTROBAN Ask about: Should I take this medication? Apply to each nostril 3 (three) times a day for 5 doses. Where to Get Your Medications These medications were sent to [facility] [place]- - [place], [place] - [address] [place] [phone] doxycycline 100 mg capsule FLUoxetine 20 mg capsule phosphorus tablet Information about where to get these medications is not yet available Ask your nurse or doctor about these medications DULoxetine [address] capsule folic acid 1 mg tablet multivitamin minerals-iron 9 mg iron-400 mcg tablet mupirocin 2 % ointment nicotine polacrilex 2 mg gum OLANZapine 5 mg disintegrating tablet Physical Exam at time of Discharge Physical Exam Elderly female, awake answering to questions appropriately, flat affect HEENT PERRLA Neck supple Chest no accessory muscle use, clear to auscultation Heart S1-S2 regular no murmurs appreciated Abdomen soft nontender bowel sounds present Extremities no edema Vitals Visit Vitals BP 119/77 (BP Location: Left arm, Patient Position: Lying) Pulse 84 Temp 36.1 ??C (97 ??F) (Temporal) Resp 14 Temp (24hrs), Av.4 ??C (97.5 ??F), Min:36.1 ??C (97 ??F), Max:36.7 ??C (98 ??F) Body mass index is 32.95 kg/m??. No results found for: PTWT , PTHT Results from last 7 days Lab Units 06/25/24 0517 SODIUM mmol/L 134 POTASSIUM mmol/L 3.5 CHLORIDE mmol/L 98 CO2 mmol/L 30 BUN mg/dL 13 CREATININE mg/dL 0.54 GLUCOSE mg/dL 84 CALCIUM mg/dL 8.7 XR Chest 1 View Final Result FINDINGS/IMPRESSION: Right upper extremity PICC terminates in the right atrium. Elevated right diaphragm with unchanged right basilar opacity, possibly atelectasis. No pleural effusion or pneumothorax. Cardiac silhouette and bones are stable compared to prior -------- FINAL REPORT -------- Dictated By: DELANO BARAJAS Dictated Date: 06/21/2024 08:08 ET Assigned Physician: DELANO BARAJAS Reviewed and Electronically Signed By: DELANO BARAJAS Signed Date: 06/21/2024 08:09 ET Workstation ID: [id number] Transcribed By: Self Edit Transcribed Date: 06/21/2024 08:08 ET XR Chest 1 View Final Result FINDINGS/IMPRESSION: Elevated right diaphragm with bibasilar atelectasis. No pleural effusion or pneumothorax. Cardiac silhouette and bones are normal. -------- FINAL REPORT -------- Dictated By: DELANO BARAJAS Dictated Date: 06/19/2024 08:54 ET Assigned Physician: DELANO BARAJAS Reviewed and Electronically Signed By: DELANO BARAJAS Signed Date: 06/19/2024 09:08 ET Workstation ID: [id number] Transcribed By: Self Edit Transcribed Date: 06/19/2024 08:54 ET XR Chest 1 View Final Result Interval development of left base discoid atelectasis since 06/16/2024. The lungs otherwise remain clear. Again seen is chronic elevation of the right hemidiaphragm. Code 27189 -------- FINAL REPORT -------- Dictated By: Chacorta Pineda Dictated Date: 06/18/2024 10:06 ET Assigned Physician: Chacorta Pineda Reviewed and Electronically Signed By: Chacorta Pineda Signed Date: 06/18/2024 10:08 ET Workstation ID: [id number] Transcribed By: Self Edit Transcribed Date: 06/18/2024 10:[address] Abdomen Pelvis w Contrast Final Result 1. Normal appendix. 2. Scattered colonic diverticula without diverticulitis. Mild colonic fecal burden greatest involving the proximal colon. 3. Mild intrahepatic and extrahepatic biliary ductal dilatation likely related to prior cholecystectomy. 4. A small hiatal hernia. 5. Developing infiltrate and/or atelectasis of the right lung base. This document has been electronically signed by: Joey Sullivan DO on 06/16/2024 23:00:36 CT Angio Chest wo and/or w Contrast Final Result 1. No pulmonary embolism. 2. Bronchial thickening within the right base. Some opacities involving the right lung base which could represent developing right basilar infectious process including pneumonia and or right basilar atelectasis. This document has been electronically signed by: Joey Sullivan DO on 06/16/2024 23:00:33 XR Chest 1 View Final Result Bibasilar atelectatic changes. -------- FINAL REPORT -------- Dictated By: Lex Darling Dictated Date: 06/17/2024 08:26 ET Assigned Physician: Lex Darling Reviewed and Electronically Signed By: Lex Darling Signed Date: 06/17/2024 08:27 ET Workstation ID: [id number] Transcribed By: Self Edit Transcribed Date: 06/17/2024 08:26 ET This dictation was performed using voice recognition software. Word substitution may have occurred and may have gone unnoticed and uncorrected * Adolfo Mena MD - 06/29/2024 3:20 PM EST Images from the original note were not included. [facility] DISCHARGE SUMMARY Patient Information Cherelle Gonsales : 1960 [63 y.o.] Admitting Provider Jonathan Cole DO Discharge Provider Adolfo Mena MD, Adolfo Mena MD Primary Care Physician No Pcp Physician Admission Date 06/16/2024 Discharge Date 06/29/2024 Summary of Hospital Problems Presenting Chief Complaint: Difficulty breathing Primary Discharge Diagnosis: Acute hypoxic respiratory failure Aspiration pneumonia Methadone intoxication Major depression with suicidal ideation Alcohol use disorder Hypertension Discharge Destination: Needs inpatient psych facility Code Status at Discharge: Full Code - Default Inpatient Consultants: Psychiatry - Dr [facility] Course Summary This is a 63-year-old female with history of major depressive disorder, alcohol use disorder, cocaine use, COPD tobacco dependence, presenting to the emergency room initially with complaints of difficulty breathing, vomiting. Patient was noted to be hypoxic, concern for aspiration pneumonia, admitted for acute hypoxic respiratory failure secondary to likely aspiration pneumonia, and also possiblemethadone intoxication. Patient continued to be obtunded, and required to be started on naloxone infusion, hence transferred to the ICU. Patient was also monitored for her alcohol withdrawal, was briefly on Precedex drip aswell. Patient stabilized in the ICU and transferred out to the telemetry floor last evening. Acute hypoxic respiratory failure -improved Likely secondary to methadone intoxication, aspiration pneumonia Continue supplemental oxygen, titrate as tolerated Continue with doxycycline to complete the course. Currently on room air with good O2 sats Alcohol use disorder History of alcohol withdrawal seizures Not scoring on CIWA at this time. Followed by addiction service team as well. Continue multivitamin, folic acid Major depression with suicidal ideation Methadone overdose, intentional self-harm Patient reported of taking methadone and also with suicidal ideation. Continue with sitter at this time. Patient cannot leave AGAINST MEDICAL ADVICE at this time need continued evaluation for suicidal ideation Patient was seen by psychiatry again recommending inpatient psych facility when medically stable for discharge. Seen by N, recommending inpatient psych. Seen by psychiatry, plan is to reduce the dose of Prozac to eventually discontinue, continue 20 mg daily for 06/27, 06/28, 06/29 and then discontinue Hypertension on amlodipine CODE STATUS is full Patient is medically stable at this time for transfer to inpatient psych facility when bed available. Still awaiting inpatient psych bed. Consider dc prozac after tomorrow's dose per psych Follow-Up Instructions and Recommendations Follow up with PCP in a week Discharge Medications Your medication list START taking these medications Instructions Last Dose Given Next Dose Due DULoxetine [address] capsule Commonly known as: CYMBALTA Take 1 capsule (30 mg total) by mouth 1 (one) time each day. Do not crush or chew. folic acid 1 mg tablet Commonly known as: FOLVITE Take 1 tablet (1 mg total) by mouth 1 (one) time each day. multivitamin minerals-iron 9 mg iron-400 mcg tablet Commonly known as: THERA-M Take 1 tablet by mouth 1 (one) time each day. nicotine polacrilex 2 mg gum Commonly known as: NICORETTE Place 1 each (2 mg total) into mouth between cheek and gum every 2 (two) hours if needed for smoking cessation. OLANZapine 5 mg disintegrating tablet Commonly known as: ZyPREXA ZYDIS Replaces: OLANZapine 2.5 mg tablet Take 1 tablet (5 mg total) by mouth 3 (three) times a day if needed (delirium). phosphorus tablet Commonly known as: K PHOS NEUTRAL Take 1 tablet by mouth 3 (three) times a day for 5 days. CHANGE how you take these medications Instructions Last Dose Given Next Dose Due FLUoxetine 20 mg capsule Commonly known as: PROzac What changed: how much to take when to take this Take 1 capsule (20 mg total) by mouth 1 (one) time each day for 3 doses. CONTINUE taking these medications Instructions Last Dose Given Next Dose Due amLODIPine 5 mg tablet Commonly known as: NORVASC Take 1 tablet (5 mg total) by mouth 1 (one) time each day. cloNIDine 0.1 mg tablet Commonly known as: CATAPRES Take 1 tablet (0.1 mg total) by mouth 4 (four) times a day. ferrous sulfate 325 mg (65 mg iron) EC tablet Take 1 tablet (325 mg total) by mouth every other day. gabapentin 100 mg capsule Commonly known as: NEURONTIN Take 3 capsules (300 mg total) by mouth 3 (three) times a day. propranoloL 20 mg tablet Commonly known as: INDERAL Take 1 tablet (20 mg total) by mouth 2 (two) times a day. STOP taking these medications hydrOXYzine pamoate 25 mg capsule Commonly known as: VISTARIL mirtazapine 7.5 mg tablet Commonly known as: REMERON OLANZapine 2.5 mg tablet Commonly known as: ZyPREXA Replaced by: OLANZapine 5 mg disintegrating tablet ASK your doctor about these medications Instructions Last Dose Given Next Dose Due doxycycline 100 mg capsule Commonly known as: MONODOX Ask about: Should I take this medication? Take 1 capsule (100 mg total) by mouth every 12 (twelve) hours for 4 doses. Take with at least 8 ounces (large glass) of water, do not lie down for 30 minutes after mupirocin 2 % ointment Commonly known as: BACTROBAN Ask about: Should I take this medication? Apply to each nostril 3 (three) times a day for 5 doses. Where to Get Your Medications These medications were sent to [facility]- [place]- - [address] [phone] doxycycline 100 mg capsule FLUoxetine 20 mg capsule phosphorus tablet Information about where to get these medications is not yet available Ask your nurse or doctor about these medications DULoxetine [address] capsule folic acid 1 mg tablet multivitamin minerals-iron 9 mg iron-400 mcg tablet mupirocin 2 % ointment nicotine polacrilex 2 mg gum OLANZapine 5 mg disintegrating tablet Physical Exam at time of Discharge Physical Exam Elderly female, awake answering to questions appropriately, flat affect HEENT PERRLA Neck supple Chest no accessory muscle use, clear to auscultation Heart S1-S2 regular no murmurs appreciated Abdomen soft nontender bowel sounds present Extremities no edema Vitals Visit Vitals BP 135/71 (BP Location: Left arm, Patient Position: Sitting) Pulse 58 Temp 36.2 ??C (97.2 ??F) (Temporal) Resp 18 Temp (24hrs), Av.3 ??C (97.4 ??F), Min:36.1 ??C (97 ??F), Max:36.8 ??C (98.2 ??F) Body mass index is 32.95 kg/m??. No results found for: PTWT , PTHT Results from last 7 days Lab Units 06/25/24 0517 06/24/24 0531 06/23/24 0425 SODIUM mmol/L 134 135 135 POTASSIUM mmol/L 3.5 3.3* 3.4* CHLORIDE mmol/L 98 97 98 CO2 mmol/L 30 30 31 BUN mg/dL 13 15 15 CREATININE mg/dL 0.54 0.56 0.55 GLUCOSE mg/dL 84 82 82 CALCIUM mg/dL 8.7 8.4* 8.5 Results from last 7 days Lab Units 06/24/24 0531 06/23/24 0425 WBC AUTO K/mcL 8.7 8.4 HEMOGLOBIN g/dL 10.4* 10.3* HEMATOCRIT % 33.0* 32.9* PLATELETS K/mcL 305 328 XR Chest 1 View Final Result FINDINGS/IMPRESSION: Right upper extremity PICC terminates in the right atrium. Elevated right diaphragm with unchanged right basilar opacity, possibly atelectasis. No pleural effusion or pneumothorax. Cardiac silhouette and bones are stable compared to prior -------- FINAL REPORT -------- Dictated By: DELANO BARAJAS Dictated Date: 06/21/2024 08:08 ET Assigned Physician: DELANO BARAJAS Reviewed and Electronically Signed By: DELANO BARAJAS Signed Date: 06/21/2024 08:09 ET Workstation ID: [id number] Transcribed By: Self Edit Transcribed Date: 06/21/2024 08:08 ET XR Chest 1 View Final Result FINDINGS/IMPRESSION: Elevated right diaphragm with bibasilar atelectasis. No pleural effusion or pneumothorax. Cardiac silhouette and bones are normal. -------- FINAL REPORT -------- Dictated By: DELANO BARAJAS Dictated Date: 06/19/2024 08:54 ET Assigned Physician: DELANO BARAJAS Reviewed and Electronically Signed By: DELANO BARAJAS Signed Date: 06/19/2024 09:08 ET Workstation ID: [id number] Transcribed By: Self Edit Transcribed Date: 06/19/2024 08:54 ET XR Chest 1 View Final Result Interval development of left base discoid atelectasis since 06/16/2024. The lungs otherwise remain clear. Again seen is chronic elevation of the right hemidiaphragm. Code 73774 -------- FINAL REPORT -------- Dictated By: Chacorta Pineda Dictated Date: 06/18/2024 10:06 ET Assigned Physician: Chacorta Pineda Reviewed and Electronically Signed By: Chacorta Pineda Signed Date: 06/18/2024 10:08 ET Workstation ID: [id number] Transcribed By: Self Edit Transcribed Date: 06/18/2024 10:[address] Abdomen Pelvis w Contrast Final Result 1. Normal appendix. 2. Scattered colonic diverticula without diverticulitis. Mild colonic fecal burden greatest involving the proximal colon. 3. Mild intrahepatic and extrahepatic biliary ductal dilatation likely related to prior cholecystectomy. 4. A small hiatal hernia. 5. Developing infiltrate and/or atelectasis of the right lung base. This document has been electronically signed by: Joey Sullivan DO on 06/16/2024 23:00:36 CT Angio Chest wo and/or w Contrast Final Result 1. No pulmonary embolism. 2. Bronchial thickening within the right base. Some opacities involving the right lung base which could represent developing right basilar infectious process including pneumonia and or right basilar atelectasis. This document has been electronically signed by: Joey Sullivan DO on 06/16/2024 23:00:33 XR Chest 1 View Final Result Bibasilar atelectatic changes. -------- FINAL REPORT -------- Dictated By: Lex Darling Dictated Date: 06/17/2024 08:26 ET Assigned Physician: Lex Darling Reviewed and Electronically Signed By: Lex Darling Signed Date: 06/17/2024 08:27 ET Workstation ID: [id number] Transcribed By: Self Edit Transcribed Date: 06/17/2024 08:26 ET Total time spent 45 minutes doing chart review, seeing patient performing physical exam, formulating plan, coordinating with RN, ICC for discharge, and documentation This dictation was performed using voice recognition software. Word substitution may have occurred and may have gone unnoticed and uncorrected * Grisel Wynn MD - 06/28/2024 2:01 PM EST Images from the original note were not included. [facility] DISCHARGE SUMMARY Patient Information Cherelle Gonsales : 1960 [63 y.o.] Admitting Provider Jonathan Cole, DO Discharge Provider Grisel Wynn MD, Grisel Wynn MD Primary Care Physician No Pcp Physician Admission Date 06/16/2024 Discharge Date 06/28/2024 Summary of Hospital Problems Presenting Chief Complaint: Difficulty breathing Primary Discharge Diagnosis: Acute hypoxic respiratory failure Aspiration pneumonia Methadone intoxication Major depression with suicidal ideation Alcohol use disorder Hypertension Discharge Destination: Needs inpatient psych facility Code Status at Discharge: Full Code - Default Inpatient Consultants: Psychiatry - Dr [facility] Course Summary This is a 63-year-old female with history of major depressive disorder, alcohol use disorder, cocaine use, COPD tobacco dependence, presenting to the emergency room initially with complaints of difficulty breathing, vomiting. Patient was noted to be hypoxic, concern for aspiration pneumonia, admitted for acute hypoxic respiratory failure secondary to likely aspiration pneumonia, and also possiblemethadone intoxication. Patient continued to be obtunded, and required to be started on naloxone infusion, hence transferred to the ICU. Patient was also monitored for her alcohol withdrawal, was briefly on Precedex drip aswell. Patient stabilized in the ICU and transferred out to the telemetry floor last evening. Acute hypoxic respiratory failure -improved Likely secondary to methadone intoxication, aspiration pneumonia Continue supplemental oxygen, titrate as tolerated Continue with doxycycline to complete the course. Currently on room air with good O2 sats Alcohol use disorder History of alcohol withdrawal seizures Not scoring on CIWA at this time. Followed by addiction service team as well. Continue multivitamin, folic acid Major depression with suicidal ideation Methadone overdose, intentional self-harm Patient reported of taking methadone and also with suicidal ideation. Continue with sitter at this time. Patient cannot leave AGAINST MEDICAL ADVICE at this time need continued evaluation for suicidal ideation Patient was seen by psychiatry again recommending inpatient psych facility when medically stable for discharge. Seen by [facility], recommending inpatient psych. Seen by psychiatry, plan is to reduce the dose of Prozac to eventually discontinue, continue 20 mg daily for 06/27, 06/28, 06/29 and then discontinue Hypertension on amlodipine CODE STATUS is full Patient is medically stable at this time for transfer to inpatient psych facility when bed available. Still awaiting inpatient psych bed. Consider dc prozac after tomorrow's dose per psych Follow-Up Instructions and Recommendations Follow up with PCP in a week Discharge Medications Your medication list START taking these medications Instructions Last Dose Given Next Dose Due doxycycline 100 mg capsule Commonly known as: MONODOX Take 1 capsule (100 mg total) by mouth every 12 (twelve) hours for 4 doses. Take with at least 8 ounces (large glass) of water, do not lie down for 30 minutes after DULoxetine [address] capsule Commonly known as: CYMBALTA Take 1 capsule (30 mg total) by mouth 1 (one) time each day. Do not crush or chew. folic acid 1 mg tablet Commonly known as: FOLVITE Take 1 tablet (1 mg total) by mouth 1 (one) time each day. multivitamin minerals-iron 9 mg iron-400 mcg tablet Commonly known as: THERA-M Take 1 tablet by mouth 1 (one) time each day. mupirocin 2 % ointment Commonly known as: BACTROBAN Apply to each nostril 3 (three) times a day for 5 doses. nicotine polacrilex 2 mg gum Commonly known as: NICORETTE Place 1 each (2 mg total) into mouth between cheek and gum every 2 (two) hours if needed for smoking cessation. OLANZapine 5 mg disintegrating tablet Commonly known as: ZyPREXA ZYDIS Replaces: OLANZapine 2.5 mg tablet Take 1 tablet (5 mg total) by mouth 3 (three) times a day if needed (delirium). phosphorus tablet Commonly known as: K PHOS NEUTRAL Take 1 tablet by mouth 3 (three) times a day for 5 days. CHANGE how you take these medications Instructions Last Dose Given Next Dose Due FLUoxetine 20 mg capsule Commonly known as: PROzac What changed: how much to take when to take this Take 1 capsule (20 mg total) by mouth 1 (one) time each day for 3 doses. CONTINUE taking these medications Instructions Last Dose Given Next Dose Due amLODIPine 5 mg tablet Commonly known as: NORVASC Take 1 tablet (5 mg total) by mouth 1 (one) time each day. cloNIDine 0.1 mg tablet Commonly known as: CATAPRES Take 1 tablet (0.1 mg total) by mouth 4 (four) times a day. ferrous sulfate 325 mg (65 mg iron) EC tablet Take 1 tablet (325 mg total) by mouth every other day. gabapentin 100 mg capsule Commonly known as: NEURONTIN Take 3 capsules (300 mg total) by mouth 3 (three) times a day. propranoloL 20 mg tablet Commonly known as: INDERAL Take 1 tablet (20 mg total) by mouth 2 (two) times a day. STOP taking these medications hydrOXYzine pamoate 25 mg capsule Commonly known as: VISTARIL mirtazapine 7.5 mg tablet Commonly known as: REMERON OLANZapine 2.5 mg tablet Commonly known as: ZyPREXA Replaced by: OLANZapine 5 mg disintegrating tablet Where to Get Your Medications These medications were sent to [facility]- [place] - [place], [place] - [address] [place] [id number] doxycycline 100 mg capsule FLUoxetine 20 mg capsule phosphorus tablet Information about where to get these medications is not yet available Ask your nurse or doctor about these medications DULoxetine [address] capsule folic acid 1 mg tablet multivitamin minerals-iron 9 mg iron-400 mcg tablet mupirocin 2 % ointment nicotine polacrilex 2 mg gum OLANZapine 5 mg disintegrating tablet Physical Exam at time of Discharge Physical Exam Elderly female, awake answering to questions appropriately, flat affect HEENT PERRLA Neck supple Chest no accessory muscle use, clear to auscultation Heart S1-S2 regular no murmurs appreciated Abdomen soft nontender bowel sounds present Extremities no edema Vitals Visit Vitals BP 129/69 (BP Location: Left arm, Patient Position: Lying) Pulse 55 Temp 36.8 ??C (98.3 ??F) (Temporal) Resp 14 Temp (24hrs), Av.4 ??C (97.5 ??F), Min:36.1 ??C (96.9 ??F), Max:36.8 ??C (98.3 ??F) Body mass index is 32.95 kg/m??. No results found for: PTWT , PTHT Results from last 7 days Lab Units 06/25/24 0517 06/24/24 0531 06/23/24 0425 SODIUM mmol/L 134 135 135 POTASSIUM mmol/L 3.5 3.3* 3.4* CHLORIDE mmol/L 98 97 98 CO2 mmol/L 30 30 31 BUN mg/dL 13 15 15 CREATININE mg/dL 0.54 0.56 0.55 GLUCOSE mg/dL 84 82 82 CALCIUM mg/dL 8.7 8.4* 8.5 Results from last 7 days Lab Units 06/24/24 0531 06/23/24 0425 06/22/24 0400 WBC AUTO K/mcL 8.7 8.4 7.9 HEMOGLOBIN g/dL 10.4* 10.3* 10.2* HEMATOCRIT % 33.0* 32.9* 32.3* PLATELETS K/mcL 305 328 285 XR Chest 1 View Final Result FINDINGS/IMPRESSION: Right upper extremity PICC terminates in the right atrium. Elevated right diaphragm with unchanged right basilar opacity, possibly atelectasis. No pleural effusion or pneumothorax. Cardiac silhouette and bones are stable compared to prior -------- FINAL REPORT -------- Dictated By: DELANO BARAJAS Dictated Date: 06/21/2024 08:08 ET Assigned Physician: DELANO BARAJAS Reviewed and Electronically Signed By: DELANO BARAJAS Signed Date: 06/21/2024 08:09 ET Workstation ID: [id number] Transcribed By: Self Edit Transcribed Date: 06/21/2024 08:08 ET XR Chest 1 View Final Result FINDINGS/IMPRESSION: Elevated right diaphragm with bibasilar atelectasis. No pleural effusion or pneumothorax. Cardiac silhouette and bones are normal. -------- FINAL REPORT -------- Dictated By: DELANO BARAJAS Dictated Date: 06/19/2024 08:54 ET Assigned Physician: DELANO BARAJAS Reviewed and Electronically Signed By: DELANO BARAJAS Signed Date: 06/19/2024 09:08 ET Workstation ID: [id number] Transcribed By: Self Edit Transcribed Date: 06/19/2024 08:54 ET XR Chest 1 View Final Result Interval development of left base discoid atelectasis since 06/16/2024. The lungs otherwise remain clear. Again seen is chronic elevation of the right hemidiaphragm. Code 84978 -------- FINAL REPORT -------- Dictated By: Chacorta Pineda Dictated Date: 06/18/2024 10:06 ET Assigned Physician: Chacorta Pineda Reviewed and Electronically Signed By: Chacorta Pineda Signed Date: 06/18/2024 10:08 ET Workstation ID: [id number] Transcribed By: Self Edit Transcribed Date: 06/18/2024 10:[address] Abdomen Pelvis w Contrast Final Result 1. Normal appendix. 2. Scattered colonic diverticula without diverticulitis. Mild colonic fecal burden greatest involving the proximal colon. 3. Mild intrahepatic and extrahepatic biliary ductal dilatation likely related to prior cholecystectomy. 4. A small hiatal hernia. 5. Developing infiltrate and/or atelectasis of the right lung base. This document has been electronically signed by: Joey Sullivan DO on 06/16/2024 23:00:36 CT Angio Chest wo and/or w Contrast Final Result 1. No pulmonary embolism. 2. Bronchial thickening within the right base. Some opacities involving the right lung base which could represent developing right basilar infectious process including pneumonia and or right basilar atelectasis. This document has been electronically signed by: Joey Sullivan DO on 06/16/2024 23:00:33 XR Chest 1 View Final Result Bibasilar atelectatic changes. -------- FINAL REPORT -------- Dictated By: Lex Darling Dictated Date: 06/17/2024 08:26 ET Assigned Physician: Lex Darling Reviewed and Electronically Signed By: Lex Darling Signed Date: 06/17/2024 08:27 ET Workstation ID: [id number] Transcribed By: Self Edit Transcribed Date: 06/17/2024 08:26 ET Total time spent 45 minutes doing chart review, seeing patient performing physical exam, formulating plan, coordinating with RN, ICC for discharge, and documentation This dictation was performed using voice recognition software. Word substitution may have occurred and may have gone unnoticed and uncorrected * Grisel Wynn MD - 06/27/2024 12:41 PM EST Images from the original note were not included. [place] DISCHARGE SUMMARY Patient Information Cherelle Gonsales : 1960 [63 y.o.] Admitting Provider Jonathan Cole DO Discharge Provider Grisel Wynn MD, Grisel Wynn MD Primary Care Physician No Pcp Physician Admission Date 06/16/2024 Discharge Date 06/27/2024 Please use this as a progress note for 06/27/24 as patient awaiting inpt psych bed at this time Summary of Hospital Problems Presenting Chief Complaint: Difficulty breathing Primary Discharge Diagnosis: Acute hypoxic respiratory failure Aspiration pneumonia Methadone intoxication Major depression with suicidal ideation Alcohol use disorder Hypertension Discharge Destination: Needs inpatient psych facility Code Status at Discharge: Full Code - Default Inpatient Consultants: Psychiatry - Dr [facility] Course Summary This is a 63-year-old female with history of major depressive disorder, alcohol use disorder, cocaine use, COPD tobacco dependence, presenting to the emergency room initially with complaints of difficulty breathing, vomiting. Patient was noted to be hypoxic, concern for aspiration pneumonia, admitted for acute hypoxic respiratory failure secondary to likely aspiration pneumonia, and also possiblemethadone intoxication. Patient continued to be obtunded, and required to be started on naloxone infusion, hence transferred to the ICU. Patient was also monitored for her alcohol withdrawal, was briefly on Precedex drip aswell. Patient stabilized in the ICU and transferred out to the telemetry floor last evening. Acute hypoxic respiratory failure -improved Likely secondary to methadone intoxication, aspiration pneumonia Continue supplemental oxygen, titrate as tolerated Continue with doxycycline to complete the course. Currently on room air with good O2 sats Alcohol use disorder History of alcohol withdrawal seizures Not scoring on CIWA at this time. Followed by addiction service team as well. Continue multivitamin, folic acid Major depression with suicidal ideation Methadone overdose, intentional self-harm Patient reported of taking methadone and also with suicidal ideation. Continue with sitter at this time. Patient cannot leave AGAINST MEDICAL ADVICE at this time need continued evaluation for suicidal ideation Patient was seen by psychiatry again recommending inpatient psych facility when medically stable for discharge. Seen by N, recommending inpatient psych. Seen by psychiatry, plan is to reduce the dose of Prozac to eventually discontinue, continue 20 mg daily for 06/27, 06/28, 06/29 and then discontinue Hypertension on amlodipine CODE STATUS is full Patient is medically stable at this time for transfer to inpatient psych facility when bed available. Will need to complete the oral course of antibiotics at this time. Follow-Up Instructions and Recommendations Follow up with PCP in a week Discharge Medications Your medication list START taking these medications Instructions Last Dose Given Next Dose Due doxycycline 100 mg capsule Commonly known as: MONODOX Take 1 capsule (100 mg total) by mouth every 12 (twelve) hours for 4 doses. Take with at least 8 ounces (large glass) of water, do not lie down for 30 minutes after DULoxetine [address] capsule Commonly known as: CYMBALTA Take 1 capsule (30 mg total) by mouth 1 (one) time each day. Do not crush or chew. folic acid 1 mg tablet Commonly known as: FOLVITE Take 1 tablet (1 mg total) by mouth 1 (one) time each day. multivitamin minerals-iron 9 mg iron-400 mcg tablet Commonly known as: THERA-M Take 1 tablet by mouth 1 (one) time each day. mupirocin 2 % ointment Commonly known as: BACTROBAN Apply to each nostril 3 (three) times a day for 5 doses. nicotine polacrilex 2 mg gum Commonly known as: NICORETTE Place 1 each (2 mg total) into mouth between cheek and gum every 2 (two) hours if needed for smoking cessation. OLANZapine 5 mg disintegrating tablet Commonly known as: ZyPREXA ZYDIS Replaces: OLANZapine 2.5 mg tablet Take 1 tablet (5 mg total) by mouth 3 (three) times a day if needed (delirium). phosphorus tablet Commonly known as: K PHOS NEUTRAL Take 1 tablet by mouth 3 (three) times a day for 5 days. CHANGE how you take these medications Instructions Last Dose Given Next Dose Due FLUoxetine 20 mg capsule Commonly known as: PROzac What changed: how much to take when to take this Take 1 capsule (20 mg total) by mouth 1 (one) time each day for 3 doses. CONTINUE taking these medications Instructions Last Dose Given Next Dose Due amLODIPine 5 mg tablet Commonly known as: NORVASC Take 1 tablet (5 mg total) by mouth 1 (one) time each day. cloNIDine 0.1 mg tablet Commonly known as: CATAPRES Take 1 tablet (0.1 mg total) by mouth 4 (four) times a day. ferrous sulfate 325 mg (65 mg iron) EC tablet Take 1 tablet (325 mg total) by mouth every other day. gabapentin 100 mg capsule Commonly known as: NEURONTIN Take 3 capsules (300 mg total) by mouth 3 (three) times a day. propranoloL 20 mg tablet Commonly known as: INDERAL Take 1 tablet (20 mg total) by mouth 2 (two) times a day. STOP taking these medications hydrOXYzine pamoate 25 mg capsule Commonly known as: VISTARIL mirtazapine 7.5 mg tablet Commonly known as: REMERON OLANZapine 2.5 mg tablet Commonly known as: ZyPREXA Replaced by: OLANZapine 5 mg disintegrating tablet Where to Get Your Medications These medications were sent to [facility]- [place]- - [place], [place] - [address] [place] [phone] doxycycline 100 mg capsule FLUoxetine 20 mg capsule phosphorus tablet Information about where to get these medications is not yet available Ask your nurse or doctor about these medications DULoxetine [address] capsule folic acid 1 mg tablet multivitamin minerals-iron 9 mg iron-400 mcg tablet mupirocin 2 % ointment nicotine polacrilex 2 mg gum OLANZapine 5 mg disintegrating tablet Physical Exam at time of Discharge Physical Exam Elderly female, awake answering to questions appropriately, flat affect HEENT PERRLA Neck supple Chest no accessory muscle use, clear to auscultation Heart S1-S2 regular no murmurs appreciated Abdomen soft nontender bowel sounds present Extremities no edema Vitals Visit Vitals BP 114/84 Pulse 56 Temp 36.3 ??C (97.4 ??F) Resp 15 Temp (24hrs), Av.5 ??C (97.7 ??F), Min:36.3 ??C (97.4 ??F), Max:36.7 ??C (98 ??F) Body mass index is 32.95 kg/m??. No results found for: PTWT , PTHT Results from last 7 days Lab Units 06/25/24 0517 06/24/24 0531 06/23/24 0425 SODIUM mmol/L 134 135 135 POTASSIUM mmol/L 3.5 3.3* 3.4* CHLORIDE mmol/L 98 97 98 CO2 mmol/L 30 30 31 BUN mg/dL 13 15 15 CREATININE mg/dL 0.54 0.56 0.55 GLUCOSE mg/dL 84 82 82 CALCIUM mg/dL 8.7 8.4* 8.5 Results from last 7 days Lab Units 06/24/24 0531 06/23/24 0425 06/22/24 0400 WBC AUTO K/mcL 8.7 8.4 7.9 HEMOGLOBIN g/dL 10.4* 10.3* 10.2* HEMATOCRIT % 33.0* 32.9* 32.3* PLATELETS K/mcL 305 328 285 XR Chest 1 View Final Result FINDINGS/IMPRESSION: Right upper extremity PICC terminates in the right atrium. Elevated right diaphragm with unchanged right basilar opacity, possibly atelectasis. No pleural effusion or pneumothorax. Cardiac silhouette and bones are stable compared to prior -------- FINAL REPORT -------- Dictated By: DELANO BARAJAS Dictated Date: 06/21/2024 08:08 ET Assigned Physician: DELANO BARAJAS Reviewed and Electronically Signed By: DELANO BARAJAS Signed Date: 06/21/2024 08:09 ET Workstation ID: [id number] Transcribed By: Self Edit Transcribed Date: 06/21/2024 08:08 ET XR Chest 1 View Final Result FINDINGS/IMPRESSION: Elevated right diaphragm with bibasilar atelectasis. No pleural effusion or pneumothorax. Cardiac silhouette and bones are normal. -------- FINAL REPORT -------- Dictated By: DELANO BARAJAS Dictated Date: 06/19/2024 08:54 ET Assigned Physician: DELANO BARAJAS Reviewed and Electronically Signed By: DELANO BARAJAS Signed Date: 06/19/2024 09:08 ET Workstation ID: [id number] Transcribed By: Self Edit Transcribed Date: 06/19/2024 08:54 ET XR Chest 1 View Final Result Interval development of left base discoid atelectasis since 06/16/2024. The lungs otherwise remain clear. Again seen is chronic elevation of the right hemidiaphragm. Code 80754 -------- FINAL REPORT -------- Dictated By: Chacorta Pineda Dictated Date: 06/18/2024 10:06 ET Assigned Physician: Chacorta Pineda Reviewed and Electronically Signed By: Chacorta Pineda Signed Date: 06/18/2024 10:08 ET Workstation ID: [id number] Transcribed By: Self Edit Transcribed Date: 06/18/2024 10:[address] Abdomen Pelvis w Contrast Final Result 1. Normal appendix. 2. Scattered colonic diverticula without diverticulitis. Mild colonic fecal burden greatest involving the proximal colon. 3. Mild intrahepatic and extrahepatic biliary ductal dilatation likely related to prior cholecystectomy. 4. A small hiatal hernia. 5. Developing infiltrate and/or atelectasis of the right lung base. This document has been electronically signed by: Joey Sullivan DO on 06/16/2024 23:00:36 CT Angio Chest wo and/or w Contrast Final Result 1. No pulmonary embolism. 2. Bronchial thickening within the right base. Some opacities involving the right lung base which could represent developing right basilar infectious process including pneumonia and or right basilar atelectasis. This document has been electronically signed by: Joey Sullivan DO on 06/16/2024 23:00:33 XR Chest 1 View Final Result Bibasilar atelectatic changes. -------- FINAL REPORT -------- Dictated By: Lex Darling Dictated Date: 06/17/2024 08:26 ET Assigned Physician: Lex Darling Reviewed and Electronically Signed By: Lex Darling Signed Date: 06/17/2024 08:27 ET Workstation ID: [id number] Transcribed By: Self Edit Transcribed Date: 06/17/2024 08:26 ET Total time spent 45 minutes doing chart review, seeing patient performing physical exam, formulating plan, coordinating with RN, ICC for discharge, and documentation This dictation was performed using voice recognition software. Word substitution may have occurred and may have gone unnoticed and uncorrected * Grisel Wynn MD - 06/26/2024 2:36 PM EST Images from the original note were not included. [place] DISCHARGE SUMMARY Patient Information Cherelle Gonsales : 1960 [63 y.o.] Admitting Provider Jonathan Cole DO Discharge Provider Grisel Wynn MD, Grisel Wynn MD Primary Care Physician No Pcp Physician Admission Date 06/16/2024 Discharge Date 06/26/2024 Please use this is a progress note, patient needs inpatient psych facility transfer. Awaiting inpatient psych bed availability at this time. Medically cleared for discharge Summary of Hospital Problems Presenting Chief Complaint: Difficulty breathing Primary Discharge Diagnosis: Acute hypoxic respiratory failure Aspiration pneumonia Methadone intoxication Major depression with suicidal ideation Alcohol use disorder Hypertension Discharge Destination: Needs inpatient psych facility Code Status at Discharge: Full Code - Default Inpatient Consultants: Psychiatry - Dr [facility] Course Summary This is a 63-year-old female with history of major depressive disorder, alcohol use disorder, cocaine use, COPD tobacco dependence, presenting to the emergency room initially with complaints of difficulty breathing, vomiting. Patient was noted to be hypoxic, concern for aspiration pneumonia, admitted for acute hypoxic respiratory failure secondary to likely aspiration pneumonia, and also possiblemethadone intoxication. Patient continued to be obtunded, and required to be started on naloxone infusion, hence transferred to the ICU. Patient was also monitored for her alcohol withdrawal, was briefly on Precedex drip aswell. Patient stabilized in the ICU and transferred out to the telemetry floor last evening. Acute hypoxic respiratory failure -improved Likely secondary to methadone intoxication, aspiration pneumonia Continue supplemental oxygen, titrate as tolerated Continue with doxycycline to complete the course. Currently on room air with good O2 sats Alcohol use disorder History of alcohol withdrawal seizures Not scoring on CIWA at this time. Followed by addiction service team as well. Continue multivitamin, folic acid Major depression with suicidal ideation Methadone overdose, intentional self-harm Patient reported of taking methadone and also with suicidal ideation. Continue with sitter at this time. Seen by psychiatry started on Prozac. Patient cannot leave AGAINST MEDICAL ADVICE at this time need continued evaluation for suicidal ideation Patient was seen by psychiatry again today, recommending inpatient psych facility when medically stable for discharge. Discussed with geriatric social worker to have N evaluate. Hypertension on amlodipine CODE STATUS is full Patient is medically stable at this time for transfer to inpatient psych facility when bed available. Will need to complete the oral course of antibiotics at this time. Follow-Up Instructions and Recommendations Follow up with PCP in a week Discharge Medications Your medication list ASK your doctor about these medications Instructions Last Dose Given Next Dose Due amLODIPine 5 mg tablet Commonly known as: NORVASC Ask about: Which instructions should I use? Take 1 tablet (5 mg total) by mouth 1 (one) time each day. cloNIDine 0.1 mg tablet Commonly known as: CATAPRES Take 1 tablet (0.1 mg total) by mouth 4 (four) times a day. ferrous sulfate 325 mg (65 mg iron) EC tablet Take 1 tablet (325 mg total) by mouth every other day. FLUoxetine 20 mg capsule Commonly known as: PROzac Ask about: Which instructions should I use? Take 3 capsules (60 mg total) by mouth. gabapentin 100 mg capsule Commonly known as: NEURONTIN Ask about: Which instructions should I use? Take 3 capsules (300 mg total) by mouth 3 (three) times a day. hydrOXYzine pamoate 25 mg capsule Commonly known as: VISTARIL Take 2 capsules (50 mg total) by mouth 3 (three) times a day if needed for anxiety. mirtazapine 7.5 mg tablet Commonly known as: REMERON Ask about: Which instructions should I use? Take 1 tablet (7.5 mg total) by mouth. OLANZapine 2.5 mg tablet Commonly known as: ZyPREXA Ask about: Which instructions should I use? Take 2 tablets (5 mg total) by mouth 2 (two) times a day. propranoloL 20 mg tablet Commonly known as: INDERAL Ask about: Which instructions should I use? Take 1 tablet (20 mg total) by mouth 2 (two) times a day. Physical Exam at time of Discharge Physical Exam Elderly female, awake answering to questions appropriately, flat affect HEENT PERRLA Neck supple Chest no accessory muscle use, clear to auscultation Heart S1-S2 regular no murmurs appreciated Abdomen soft nontender bowel sounds present Extremities no edema Vitals Visit Vitals BP 119/63 Pulse 56 Temp 37.2 ??C (99 ??F) Resp 18 Temp (24hrs), Av.6 ??C (97.9 ??F), Min:36.1 ??C (97 ??F), Max:37.2 ??C (99 ??F) Body mass index is 32.95 kg/m??. No results found for: PTWT , PTHT Results from last 7 days Lab Units 06/25/24 0517 06/24/24 0531 06/23/24 0425 SODIUM mmol/L 134 135 135 POTASSIUM mmol/L 3.5 3.3* 3.4* CHLORIDE mmol/L 98 97 98 CO2 mmol/L 30 30 31 BUN mg/dL 13 15 15 CREATININE mg/dL 0.54 0.56 0.55 GLUCOSE mg/dL 84 82 82 CALCIUM mg/dL 8.7 8.4* 8.5 Results from last 7 days Lab Units 06/24/24 0531 06/23/24 0425 06/22/24 0400 WBC AUTO K/mcL 8.7 8.4 7.9 HEMOGLOBIN g/dL 10.4* 10.3* 10.2* HEMATOCRIT % 33.0* 32.9* 32.3* PLATELETS K/mcL 305 328 285 XR Chest 1 View Final Result FINDINGS/IMPRESSION: Right upper extremity PICC terminates in the right atrium. Elevated right diaphragm with unchanged right basilar opacity, possibly atelectasis. No pleural effusion or pneumothorax. Cardiac silhouette and bones are stable compared to prior -------- FINAL REPORT -------- Dictated By: DELANO BARAJAS Dictated Date: 06/21/2024 08:08 ET Assigned Physician: DELANO BARAJAS Reviewed and Electronically Signed By: DELANO BARAJAS Signed Date: 06/21/2024 08:09 ET Workstation ID: [id number] Transcribed By: Self Edit Transcribed Date: 06/21/2024 08:08 ET XR Chest 1 View Final Result FINDINGS/IMPRESSION: Elevated right diaphragm with bibasilar atelectasis. No pleural effusion or pneumothorax. Cardiac silhouette and bones are normal. -------- FINAL REPORT -------- Dictated By: DELANO BARAJAS Dictated Date: 06/19/2024 08:54 ET Assigned Physician: DELANO BARAJAS Reviewed and Electronically Signed By: DELANO BARAJAS Signed Date: 06/19/2024 09:08 ET Workstation ID: [id number] Transcribed By: Self Edit Transcribed Date: 06/19/2024 08:54 ET XR Chest 1 View Final Result Interval development of left base discoid atelectasis since 06/16/2024. The lungs otherwise remain clear. Again seen is chronic elevation of the right hemidiaphragm. Code 06678 -------- FINAL REPORT -------- Dictated By: Chacorta Pineda Dictated Date: 06/18/2024 10:06 ET Assigned Physician: Chacorta Pineda Reviewed and Electronically Signed By: Chacorta Pineda Signed Date: 06/18/2024 10:08 ET Workstation ID: [id number] Transcribed By: Self Edit Transcribed Date: 06/18/2024 10:[address] Abdomen Pelvis w Contrast Final Result 1. Normal appendix. 2. Scattered colonic diverticula without diverticulitis. Mild colonic fecal burden greatest involving the proximal colon. 3. Mild intrahepatic and extrahepatic biliary ductal dilatation likely related to prior cholecystectomy. 4. A small hiatal hernia. 5. Developing infiltrate and/or atelectasis of the right lung base. This document has been electronically signed by: Joey Sullivan DO on 06/16/2024 23:00:36 CT Angio Chest wo and/or w Contrast Final Result 1. No pulmonary embolism. 2. Bronchial thickening within the right base. Some opacities involving the right lung base which could represent developing right basilar infectious process including pneumonia and or right basilar atelectasis. This document has been electronically signed by: Joey Sullivan DO on 06/16/2024 23:00:33 XR Chest 1 View Final Result Bibasilar atelectatic changes. -------- FINAL REPORT -------- Dictated By: Lex Darling Dictated Date: 06/17/2024 08:26 ET Assigned Physician: Lex Darling Reviewed and Electronically Signed By: Lex Darling Signed Date: 06/17/2024 08:27 ET Workstation ID: [id number] Transcribed By: Self Edit Transcribed Date: 06/17/2024 08:26 ET Total time spent 45 minutes doing chart review, seeing patient performing physical exam, formulating plan, coordinating with RN, ICC for discharge, and documentation This dictation was performed using voice recognition software. Word substitution may have occurred and may have gone unnoticed and uncorrected * Grisel Wynn MD - 06/26/2024 2:35 PM EST Low-salt diet * Grisel Wynn MD - 06/26/2024 2:35 PM EST As tolerated documented in this encounter Discharge Instructions * Discharge Instructions* Grisel Wynn MD - 06/26/2024 2:35 PM EST Follow-up with your primary care physician in a week upon discharge documented in this encounter Medications at Time [...] 07/08/2024 naloxone (NARCAN) 4 mg/0.1 mL nasal sprayIndications:opioid overdose,opioid-induced respiratory depression Administer 1 each (4 mg total) into affected nostril(s) if needed for opioid reversal or respiratory depression. Give 4 mg (1 spray) into one nostril. May repeat every 2-3 minutes if needed, alternating nostrils, until medical assistance becomes available. 2 each 07/08/2024 07/08/2025 nicotine polacrilex (NICORETTE) 2 mg gumIndications:nicotine dependence,smoking cessation Place 1 each (2 mg total) into mouth between cheek and gum every 2 (two) hours if needed for smoking cessation (nicotine craving, urge to smoke). 100 each 07/08/2024 08/07/2024 amLODIPine (NORVASC) 5 mg tablet Take 1 tablet (5 mg total) by mouth 1 (one) time each day. 03/20/2024 07/08/2024 cloNIDine (CATAPRES) 0.1 mg tablet Take 1 tablet (0.1 mg total) by mouth 4 (four) times a day. 12/15/2023 07/08/2024 doxycycline (MONODOX) 100 mg capsule Take 1 capsule (100 mg total) by mouth every 12 (twelve) hours for 4 doses. Take with at least 8 ounces (large glass) of water, do not lie down for 30 minutes after 4 each 06/26/2024 07/08/2024 DULoxetine (CYMBALTA) [address] capsule Take 1 capsule (30 mg total) by mouth 1 (one) time each day. Do not crush or chew. 06/27/2024 07/08/2024 ferrous sulfate 325 mg (65 mg iron) EC tablet Take 1 tablet (325 mg total) by mouth every other day. 03/20/2024 07/08/2024 FLUoxetine (PROzac) 20 mg capsule Take 1 capsule (20 mg total) by mouth 1 (one) time each day for 3 doses. 3 each 06/27/2024 07/08/2024 folic acid (FOLVITE) 1 mg tablet Take 1 tablet (1 mg total) by mouth 1 (one) time each day. 06/27/2024 07/08/2024 gabapentin (NEURONTIN) 100 mg capsule Take 3 capsules (300 mg total) by mouth 3 (three) times a day. 12/15/2023 07/08/2024 multivitamin minerals-iron (THERA-M) 9 mg iron-400 mcg tablet Take 1 tablet by mouth 1 (one) time each day. 06/27/2024 07/08/2024 mupirocin (BACTROBAN) 2 % ointment Apply to each nostril 3 (three) times a day for 5 doses. 06/26/2024 07/08/2024 nicotine polacrilex (NICORETTE) [address] 1 each (2 mg total) into mouth between cheek and gum every 2 (two) hours if needed for smoking cessation. 06/26/2024 07/02/2024 OLANZapine (ZyPREXA ZYDIS) 5 mg disintegrating tablet Take 1 tablet (5 mg total) by mouth 3 (three) times a day if needed (delirium). 06/26/2024 07/08/2024 phosphorus (K PHOS NEUTRAL) tablet Take 1 tablet by mouth 3 (three) times a day for 5 days. 15 tablet 06/26/2024 07/08/2024 propranoloL (INDERAL) 20 mg tablet Take 1 tablet (20 mg total) by mouth 2 (two) times a day. 03/20/2024 07/08/2024 documented as of this encounter Ordered Prescriptions Prescription Sig Dispensed Refills Start Date End Da te phosphorus (K PHOS NEUTRAL) tablet Take 1 tablet by mouth 3 (three) times a day for 5 days. 15 tablet 06/26/2024 07/08/2024 nicotine polacrilex (NICORETTE) [address] 1 each (2 mg total) into mouth between cheek and gum every 2 (two) hours if needed for smoking cessation. 06/26/2024 07/02/2024 mupirocin (BACTROBAN) 2 % ointment Apply to each nostril 3 (three) times a day for 5 doses. 06/26/2024 07/08/2024 multivitamin minerals-iron (THERA-M) 9 mg iron-400 mcg tablet Take 1 tablet by mouth 1 (one) time each day. 06/27/2024 07/08/2024 folic acid (FOLVITE) 1 mg tablet Take 1 tablet (1 mg total) by mouth 1 (one) time each day. 06/27/2024 07/08/2024 DULoxetine (CYMBALTA) [address] capsule Take 1 capsule (30 mg total) by mouth 1 (one) time each day. Do not crush or chew. 06/27/2024 07/08/2024 doxycycline (MONODOX) 100 mg capsule Take 1 capsule (100 mg total) by mouth every 12 (twelve) hours for 4 doses. Take with at least 8 ounces (large glass) of water, do not lie down for 30 minutes after 4 each 06/26/2024 07/08/2024 OLANZapine (ZyPREXA ZYDIS) 5 mg disintegrating tablet Take 1 tablet (5 mg total) by mouth 3 (three) times a day if needed (delirium). 06/26/2024 07/08/2024 FLUoxetine (PROzac) 20 mg capsule Take 1 capsule (20 mg total) by mouth 1 (one) time each day for 3 doses. 3 each 06/27/2024 07/08/2024 documented in this encounter Discharge Disposition Disposition Code Departure [facility] documented in this encounter Progress Notes * Thelma Ochoa RN - 07/01/2024 11:04 AM EST 07/01/24 1104 Transportation What day is the transport expected? 07/01/24 What time is the transport expected? 1300 Final Discharge Disposition Inpatient Behavioral Health ([facility]) Pt d/c to [facility] per Behavioral health team at 1300 via [facility]. * Ashley Pereira RN - 07/01/2024 10:41 AM EST Problem: Skin Integrity: Pressure Injury Actual or Risk of Goal: Will not develop new pressure injury Outcome: Progressing Goal: Skin integrity will improve Outcome: Progressing Goal: Risk for impaired skin integrity will decrease Outcome: Progressing Goals: Identify possible barriers to meeting goals/advancing plan of care: awaiting bed placement at in psych Stability of the patient: Moderately Stable - Low risk of patient condition declining or worsening End of Shift Summary: Patient alert and oriented, cooperative with plan of care and meds. Verbalizes no complaints. Awaiting placement. * LUCIEN Renee - 07/01/2024 10:24 AM EST Images from the original note were not included. Cherelle Gonsales 1960 [id number] Author: LUCIEN Renee DOS: 07/01/2024 Requesting Service: Hospitalist Service Chief Complaint: Acute on chronic respiratory failure with hypercapnia (CMS/HCC) Reason for Consultation: Alcohol use disorder Source of History: Patient and chart Subjective History of Present Illness: Cherelle Gonsales is a 63 y.o. female with a history of alcohol use disorder among others presentingto the hospital for acute on chronic respiratory failure Presentation include ingestion of methadone requiring Narcan drip in the ICU setting Continues to meet with our behavioral health team Has no interest in drinking alcohol at this time Uninterested in medications for AUD Allergies: Allergies Allergen Reactions Penicillins Rash Home Medications: Prior to Admission medications Medication Sig Start Date End Date Taking? Authorizing Provider doxycycline (MONODOX) 100 mg capsule Take 1 capsule (100 mg total) by mouth every 12 (twelve) hoursfor 4 doses. Take with at least 8 ounces (large glass) of water, do not lie down for 30 minutes after 06/26/24 06/28/24 Yes Grisel Wynn MD DULoxetine (CYMBALTA) [address] capsule Take 1 capsule (30 mg total) by mouth 1 (one) time each day.Do not crush or chew. 06/27/24 07/27/24 Yes Grisel Wynn MD FLUoxetine (PROzac) 20 mg capsule Take 1 capsule (20 mg total) by mouth 1 (one) time each day for 3doses. 06/27/24 06/30/24 Yes Grisel Wynn MD folic acid (FOLVITE) 1 mg tablet Take 1 tablet (1 mg total) by mouth 1 (one) time each day. Yes Grisel Wynn MD multivitamin minerals-iron (THERA-M) 9 mg iron-400 mcg tablet Take 1 tablet by mouth 1 (one) time each day. 06/27/24 Yes Grisel Wynn MD mupirocin (BACTROBAN) 2 % ointment Apply to each nostril 3 (three) times a day for 5 doses. Yes Grisel Wynn MD nicotine polacrilex (NICORETTE) [address] 1 each (2 mg total) into mouth between cheek and gumevery 2 (two) hours if needed for smoking cessation. 06/26/24 07/26/24 Yes Grisel Wynn MD OLANZapine (ZyPREXA ZYDIS) 5 mg disintegrating tablet Take 1 tablet (5 mg total) by mouth 3 (three)times a day if needed (delirium). 06/26/24 07/26/24 Yes Grisel Wynn MD phosphorus (K PHOS NEUTRAL) tablet Take 1 tablet by mouth 3 (three) times a day for 5 days. Yes Grisel Wynn MD amLODIPine (NORVASC) 5 mg tablet Take 1 tablet (5 mg total) by mouth 1 (one) time each day. 03/20/24istorical Provider, cloNIDine (CATAPRES) 0.1 mg tablet Take 1 tablet (0.1 mg total) by mouth 4 (four) times a day. 12/15/23 Historical Provider, ferrous sulfate 325 mg (65 mg iron) EC tablet Take 1 tablet (325 mg total) by mouth every other day. 03/20/24 Historical Provider, FLUoxetine (PROzac) 20 mg capsule Take 3 capsules (60 mg total) by mouth. 03/20/24 Historical Provider, gabapentin (NEURONTIN) 100 mg capsule Take 3 capsules (300 mg total) by mouth 3 (three) times a day. 12/15/23 Historical Provider, hydrOXYzine pamoate (VISTARIL) 25 mg capsule Take 2 capsules (50 mg total) by mouth 3 (three) timesa day if needed for anxiety. Patient not taking: Reported on 05/14/2024 03/20/24 Historical Provider, mirtazapine (REMERON) 7.5 mg tablet Take 1 tablet (7.5 mg total) by mouth. Historical Provider, OLANZapine (ZyPREXA) 2.5 mg tablet Take 2 tablets (5 mg total) by mouth 2 (two) times a day. 02/01/24 Historical Provider, propranoloL (INDERAL) 20 mg tablet Take 1 tablet (20 mg total) by mouth 2 (two) times a day. 03/20/24 Historical Provider, Past Medical History: Past Medical History: Diagnosis Date Alcohol use disorder Anxiety Cervical spinal stenosis CHF (congestive heart failure) ([facility]) Chronic back pain COPD (chronic obstructive pulmonary disease) ([facility]) Depression Hypertension Past Surgical History: Past Surgical History: Procedure Laterality Date CHOLECYSTECTOMY Family History: Family History Problem Relation Name Age of Onset Hypertension Other Anxiety disorder Other Social History: Social History Tobacco Use Smoking Status Every Day Current packs/day: 0.25 Types: Cigarettes Smokeless Tobacco Not on file Social History Substance and Sexual Activity Alcohol Use Yes Social History Substance and Sexual Activity Drug Use Yes Types: Cocaine Objective Last Recorded Vitals: Blood pressure 119/77, pulse 84, temperature 36.1 ??C (97 ??F), temperature source Temporal, resp. rate 14, height 1.651 m (65 ), weight 89.8 kg (198 lb), SpO2 93%. Physical Exam Lying in bed Appears comfortable overall No gross resting tremor No tachycardia documented No increased work of breathing Alert and oriented Conversive appropriately Labs: Lab Results Component Value Date GLUCOSE 84 06/25/2024 CALCIUM 8.7 06/25/2024 NA 134 06/25/2024 K 3.5 06/25/2024 CO2 30 06/25/2024 CL 98 06/25/2024 BUN 13 06/25/2024 CREATININE 0.54 06/25/2024 Lab Results Component Value Date WBC 8.7 06/24/2024 HGB 10.4 (L) 06/24/2024 HCT 33.0 (L) 06/24/2024 MCV 79.5 06/24/2024 PLT 305 06/24/2024 Imaging: XR Chest 1 View Narrative: XR CHEST 1 VIEW INDICATION: Pneumonia TECHNIQUE: XR CHEST 1 VIEW COMPARISON: 06/19/2024 Impression: FINDINGS/IMPRESSION: Right upper extremity PICC terminates in the right atrium. Elevated right diaphragm with unchanged right basilar opacity, possibly atelectasis. No pleural effusion orpneumothorax. Cardiac silhouette and bones are stable compared to prior -------- FINAL REPORT -------- Dictated By: DELANO BARAJAS Dictated Date: 06/21/2024 08:08 ET Assigned Physician: DELANO BARAJAS Reviewed and Electronically Signed By: DELANO ABRAJAS Signed Date: 06/21/2024 08:09 ET Workstation ID: [id number] Transcribed By: Self Edit Transcribed Date: 06/21/2024 08:08 ET Meds: amLODIPine, 10 mg, oral, Daily DULoxetine, 60 mg, oral, Daily enoxaparin, 40 mg, subcutaneous, q24h FABIEN famotidine, 20 mg, oral, Daily folic acid, 1 mg, oral, Daily gabapentin, 100 mg, oral, TID multivitamin with minerals-iron, 1 each, oral, Daily mupirocin, , Each Nostril, TID phosphorus, 250 mg, oral, TID polyetheylene glycol, 17 g, oral, Daily propranoloL, 40 mg, oral, BID sodium chloride, 10 mL, intravenous, BID PRN medications: acetaminophen, albuterol, calcium carbonate, hydrALAZINE, LORazepam, naloxone, nicotine polacrilex, OLANZapine, ondansetron, [COMPLETED] Insert peripheral IV AND Maintain IV access AND [COMPLETED] Saline lock IV AND sodium chloride AND sodium chloride Assessment and Plan Cherelle Gonsales is a 63 y.o. female with a history of alcohol use disorder among others presentingto the hospital for acute on chronic respiratory failure Presentation also included ingestion of opioids/methadone requiring Narcan drip in the ICU We have been following in the setting of alcohol use disorder Motivated for abstinence at this time, has no intentions to drink alcohol Understands the long-term use of alcohol has led to increased difficulties in her life Uninterested in medications for AUD Hopeful for mental health admission Reach out to us directly with any questions or concerns We will continue to follow Principal Problem: Acute on chronic respiratory failure with hypercapnia (CMS/HCC) Active Problems: Aspiration pneumonitis (CMS/HCC) Depression with suicidal ideation H/O ETOH abuse MRSA (methicillin resistant Staphylococcus aureus) carrier Alcoholic intoxication with complication (CMS/HCC) Methadone overdose, intentional self-harm, initial encounter (CMS/[facility]) Wernicke encephalopathy Provider Attestation Electronically signed by Orlando Magallanes PA-C Disclaimer: Speech recognition software was utilized to dictate portions of this document. Errors in [employer] senior specialist may be present. Please reach out to me if any questions. * Erika Haynes RN - 07/01/2024 1:53 AM EST Problem: Skin Integrity: Pressure Injury Actual or Risk of Goal: Will not develop new pressure injury Outcome: Progressing Goal: Skin integrity will improve Outcome: Progressing Goal: Risk for impaired skin integrity will decrease Outcome: Progressing Problem: Activity:Pressure Injury Actual or Risk of Goal: Mobility will improve Outcome: Progressing Problem: Nutritional:Pressure Injury Actual or Risk of Goal: Nutritional status will improve Outcome: Progressing Problem: Patient Specific Problem: Pressure Injury Actual or Risk of Goal: Patient Specific Outcome Outcome: Progressing Problem: Bowel/Gastric: Constipation Goal: Occurrences of constipation will decrease Outcome: Progressing Goal: Ability to achieve a regular elimination pattern will improve Outcome: Progressing Goals: To d/c pt to [facility] to [facility] dept. Identify possible barriers to meeting goals/advancing plan of care: Pt is cooperative and wanting to d/c to in pt [facility]; pt is also homeless. Stability of the patient: Moderately Unstable - Medium risk of patient condition declining or worsening End of Shift Summary: Pt alert and cooperative with care. VSS. Reported anxiety and requested ativan at HS; effective. No c/o pain. Ambulating in room independently and tolerated few snacks overnightand sandwich. * Faustino Stevens RN - 06/30/2024 7:00 PM EST Goals: Identify possible barriers to meeting goals/advancing plan of care: PICC line removal. No charted BM since 06/25/23 Stability of the patient: Moderately Stable - Low risk of patient condition declining or worsening End of Shift Summary: Patient alert oriented but forgetful at times. Noted recurrently confused about her the part of her PICC line that transitions from 2 lumens to one line going into her vein despite this RN having explained it every time this RN flushed the line. No recorded BM since 06/25 but noted forgetfulness and IND ambulation in room, soft belly, no nausea, +BS and reports flatus. MiralaxPRN given. Call from [facility], have in-patient psych bed at [facility] for 07/01, time to be determined in AM 07/01. Covid screen obtained per instruction. * Maya Anglin RN - 06/30/2024 5:[address] [facility] called. Patient will be discharged tomorrow 07/01 to [facility]. [place] requesting covid test. Primary nurse to obtain order. [facility] to call tomorrow to provide time to send patient. * LUCIEN Renee - 06/30/2024 10:19 AM EST Images from the original note were not included. Cherelle Gonsales 1960 [id number] Author: LUCIEN Renee DOS: 06/30/2024 Requesting Service: Hospitalist Service Chief Complaint: Acute on chronic respiratory failure with hypercapnia (CMS/HCC) Reason for Consultation: Alcohol use disorder Source of History: Patient and chart Subjective History of Present Illness: Cherelle Gonsales is a 63 y.o. female with a history of alcohol use disorder among others presentingto the hospital for acute on chronic respiratory failure Presentation include ingestion of methadone requiring Narcan drip in the ICU setting Continues to meet with our behavioral health team Has no interest in drinking alcohol at this time Allergies: Allergies Allergen Reactions Penicillins Rash Home Medications: Prior to Admission medications Medication Sig Start Date End Date Taking? Authorizing Provider doxycycline (MONODOX) 100 mg capsule Take 1 capsule (100 mg total) by mouth every 12 (twelve) hoursfor 4 doses. Take with at least 8 ounces (large glass) of water, do not lie down for 30 minutes after 06/26/24 06/28/24 Yes Grisel Wynn MD DULoxetine (CYMBALTA) [address] capsule Take 1 capsule (30 mg total) by mouth 1 (one) time each day.Do not crush or chew. 06/27/24 07/27/24 Yes Grisel Wynn MD FLUoxetine (PROzac) 20 mg capsule Take 1 capsule (20 mg total) by mouth 1 (one) time each day for 3doses. 06/27/24 06/30/24 Yes Grisel Wynn MD folic acid (FOLVITE) 1 mg tablet Take 1 tablet (1 mg total) by mouth 1 (one) time each day. Yes Grisel Wynn MD multivitamin minerals-iron (THERA-M) 9 mg iron-400 mcg tablet Take 1 tablet by mouth 1 (one) time each day. 06/27/24 Yes Grisel Wynn MD mupirocin (BACTROBAN) 2 % ointment Apply to each nostril 3 (three) times a day for 5 doses. Yes Grisel Wynn MD nicotine polacrilex (NICORETTE) [address] 1 each (2 mg total) into mouth between cheek and gumevery 2 (two) hours if needed for smoking cessation. 06/26/24 07/26/24 Yes Grisel Wynn MD OLANZapine (ZyPREXA ZYDIS) 5 mg disintegrating tablet Take 1 tablet (5 mg total) by mouth 3 (three)times a day if needed (delirium). 06/26/24 07/26/24 Yes Grisel Wynn MD phosphorus (K PHOS NEUTRAL) tablet Take 1 tablet by mouth 3 (three) times a day for 5 days. Yes Grisel Wynn MD amLODIPine (NORVASC) 5 mg tablet Take 1 tablet (5 mg total) by mouth 1 (one) time each day. 03/20/24istorical Provider, cloNIDine (CATAPRES) 0.1 mg tablet Take 1 tablet (0.1 mg total) by mouth 4 (four) times a day. 12/15/23 Historical Provider, ferrous sulfate 325 mg (65 mg iron) EC tablet Take 1 tablet (325 mg total) by mouth every other day. 03/20/24 Historical Provider, FLUoxetine (PROzac) 20 mg capsule Take 3 capsules (60 mg total) by mouth. 03/20/24 Historical Provider, gabapentin (NEURONTIN) 100 mg capsule Take 3 capsules (300 mg total) by mouth 3 (three) times a day. 12/15/23 Historical Provider, hydrOXYzine pamoate (VISTARIL) 25 mg capsule Take 2 capsules (50 mg total) by mouth 3 (three) timesa day if needed for anxiety. Patient not taking: Reported on 05/14/2024 03/20/24 Historical Provider, mirtazapine (REMERON) 7.5 mg tablet Take 1 tablet (7.5 mg total) by mouth. Historical Provider, OLANZapine (ZyPREXA) 2.5 mg tablet Take 2 tablets (5 mg total) by mouth 2 (two) times a day. 02/01/24 Historical Provider, propranoloL (INDERAL) 20 mg tablet Take 1 tablet (20 mg total) by mouth 2 (two) times a day. 03/20/24 Historical Provider, Past Medical History: Past Medical History: Diagnosis Date Alcohol use disorder Anxiety Cervical spinal stenosis CHF (congestive heart failure) ([facility]) Chronic back pain COPD (chronic obstructive pulmonary disease) ([facility]) Depression Hypertension Past Surgical History: Past Surgical History: Procedure Laterality Date CHOLECYSTECTOMY Family History: Family History Problem Relation Name Age of Onset Hypertension Other Anxiety disorder Other Social History: Social History Tobacco Use Smoking Status Every Day Current packs/day: 0.25 Types: Cigarettes Smokeless Tobacco Not on file Social History Substance and Sexual Activity Alcohol Use Yes Social History Substance and Sexual Activity Drug Use Yes Types: Cocaine Objective Last Recorded Vitals: Blood pressure 132/71, pulse 55, temperature 35.9 ??C (96.7 ??F), temperature source Temporal, resp. rate 16, height 1.651 m (65 ), weight 89.8 kg (198 lb), SpO2 98%. Physical Exam Lying in bed Appears comfortable overall No gross resting tremor No tachycardia documented No increased work of breathing Alert and oriented Conversive appropriately Labs: Lab Results Component Value Date GLUCOSE 84 06/25/2024 CALCIUM 8.7 06/25/2024 NA 134 06/25/2024 K 3.5 06/25/2024 CO2 30 06/25/2024 CL 98 06/25/2024 BUN 13 06/25/2024 CREATININE 0.54 06/25/2024 Lab Results Component Value Date WBC 8.7 06/24/2024 HGB 10.4 (L) 06/24/2024 HCT 33.0 (L) 06/24/2024 MCV 79.5 06/24/2024 PLT 305 06/24/2024 Imaging: XR Chest 1 View Narrative: XR CHEST 1 VIEW INDICATION: Pneumonia TECHNIQUE: XR CHEST 1 VIEW COMPARISON: 06/19/2024 Impression: FINDINGS/IMPRESSION: Right upper extremity PICC terminates in the right atrium. Elevated right diaphragm with unchanged right basilar opacity, possibly atelectasis. No pleural effusion orpneumothorax. Cardiac silhouette and bones are stable compared to prior -------- FINAL REPORT -------- Dictated By: DELANO BARAJAS Dictated Date: 06/21/2024 08:08 ET Assigned Physician: DELANO BARAJAS Reviewed and Electronically Signed By: DELANO BARAJAS Signed Date: 06/21/2024 08:09 ET Workstation ID: [id number] Transcribed By: Self Edit Transcribed Date: 06/21/2024 08:08 ET Meds: amLODIPine, 10 mg, oral, Daily DULoxetine, 60 mg, oral, Daily enoxaparin, 40 mg, subcutaneous, q24h FABIEN famotidine, 20 mg, oral, Daily folic acid, 1 mg, oral, Daily gabapentin, 100 mg, oral, TID multivitamin with minerals-iron, 1 each, oral, Daily mupirocin, , Each Nostril, TID phosphorus, 250 mg, oral, TID polyetheylene glycol, 17 g, oral, Daily propranoloL, 40 mg, oral, BID sodium chloride, 10 mL, intravenous, BID PRN medications: acetaminophen, albuterol, calcium carbonate, hydrALAZINE, LORazepam, naloxone, nicotine polacrilex, OLANZapine, ondansetron, [COMPLETED] Insert peripheral IV AND Maintain IV access AND [COMPLETED] Saline lock IV AND sodium chloride AND sodium chloride Assessment and Plan Cherelle Gonsales is a 63 y.o.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 hypercapnia (CMS/HCC) Active Problems: Aspiration pneumonitis ([facility]) Depression with suicidal ideation H/O ETOH abuse MRSA (methicillin resistant Staphylococcus aureus) carrier Alcoholic intoxication with complication (CMS/[facility]) Methadone overdose, intentional self-harm, initial encounter ([facility]) Wernicke encephalopathy Provider Attestation Electronically signed by Orlando Magallanes PA-C Disclaimer: Speech recognition software was utilized to dictate portions of this document. Errors in [employer] senior specialist may be present. Please reach out to me if any questions. * TICO Barrera - 06/29/2024 10:53 AM EST Record reviewed. Psychiatry continues to support in pt psychiatric admission. Bed search continues as coordinated by [facility]. * Anjelica Parker MD - 06/29/2024 10:00 AM EST Connected to patient's room via I-pad with help from fitness technician; assistance much appreciated. Patient consented to visit via Telehealth video conferencing modality. Patient educated as to likely differences between Telehealth care and face to face care. Patient informed of the risks and benefits of using Telehealth services and procedures and likely risks and benefits of using alternatives to Telehealth services. Patient informed of the right to refuse Telehealth services at any time without jeopardizing his/her right to future care, services or benefits. Patient was informed that he/she is being seen solely by Anjelica Parker MD today via secure connection in a locked virtual exam room. Persons present on patient's end: Patient Persons present on provider's end: Anjelica Parekr MD CHART REVIEWED, PATIENT INTERVIEWED. CHIEF COMPLAINT: Depression, anxiety Time spent on encounter: 15 HISTORY OF PRESENT ILLNESS Cherelle Gonsales is a 63 y.o. female with psychiatric history significant for depression, anxiety, and alcohol/cocaine/tobacco use disorders and medical history significant for but not limited to COPD, HTN, chronic back pain, and cervical spinal stenosis who was admitted for acute hypoxic respiratory failure and aspiration PNA. Psychiatry was consulted due to concern for suicidal ideations. The patient states that she is feeling dejected because she doesn't have anyone to call or to rely on. She doesn't want to kill herself per se, but she feels that she doesn't have any social options. She states that she has never felt this depressed and desperate before. Her anxiety is very high. REVIEW OF SYSTEMS CONSTITUTIONAL: The patient denies fevers, chills, sweats and body ache. HEENT: Denies MATOS, blurry vision, eye pain, tinnitus, vertigo, gingival bleeding, sore throat, neck or thyroid masses. RESPIRATORY: Denies cough, sputum, hemoptysis. CARDIAC: Denies chest pain, pressure, palpitations, irregular heartbeats. Denies lower extremity edema. GASTROINTESTINAL: C/o continued constipation. GENITOURINARY: Denies dysuria, hematuria, nocturia or frequency. NEUROLOGIC: Denies headaches, dizziness, syncope. MUSCULOSKELETAL: Negative for arthritis. Denies muscle weakness. No limitation in range of motion. VASCULAR: Denies claudication and cramping. ENDOCRINOLOGY: Denies heat or cold intolerance. HEMATOLOGY: Denies easy bleeding or blood transfusion. DERMATOLOGY: Denies changes in moles or pigmentation changes. Psychiatric ROS: Depression: See HPI. Sari: The patient denies elevated/expansive mood, decreased need for sleep, grandiosity, pressuredspeech, flight of ideas, distractibility, increase in goal directed activity, and hypersexuality. Psychosis: The patient denies audio or visual hallucinations, delusions, thought broadcasting, thought insertion, delusions of reference, catatonia, or disorganized speech or behavior. Anxiety: See HPI. Panic: The patient denies any recent panic episodes. PTSD: The patient denies any h/o trauma and does not endorse any current s/s related to PTSD. OCD: The patient denies intrusive thoughts, repetitive behaviors, counting, checking, washing, symmetry, or grouping and ordering that take up more than 1 hour of the day. Eating Disorder: The patient denies feeling overweight, excessive dieting or exercise to lose weight, overuse of laxatives, binging/purging behaviors, and amenorrhea. MEDICAL HISTORY Non-psychiatric medical history: Past Medical History: Diagnosis Date Alcohol use disorder Anxiety Cervical spinal stenosis CHF (congestive heart failure) ([facility]) Chronic back pain COPD (chronic obstructive pulmonary disease) ([facility]) Depression Hypertension Current medications: amLODIPine, 10 mg, oral, Daily DULoxetine, 30 mg, oral, Daily enoxaparin, 40 mg, subcutaneous, q24h FABIEN famotidine, 20 mg, oral, Daily folic acid, 1 mg, oral, Daily gabapentin, 100 mg, oral, TID multivitamin with minerals-iron, 1 each, oral, Daily mupirocin, , Each Nostril, TID phosphorus, 250 mg, oral, TID polyetheylene glycol, 17 g, oral, Daily propranoloL, 40 mg, oral, BID sodium chloride, 10 mL, intravenous, BID ALLERGIES: Allergies Allergen Reactions Penicillins Rash MSE: Appearance: AOx4. Appears stated age, well groomed. Pleasant and cooperative. Adequate eye contact.No psychomotor agitation or retardation. No evidence of EPS. Muscle tone/station: WNL. Orientation: To person, place, time, and situation. Attention and Concentration: No deficits in attention and concentration. Speech: Normal rate, rhythm, volume, and tone. Mood: Not good. Affect: Dysphoric and anxious with restricted range, mood congruent. No lability noted. Thought Process: Coherent, linear, logical, and goal-directed. No FOI or BEST. No thought blocking. Thought Content: Feels desperate but denies suicidal/homicidal ideation. Denies auditory/visual hallucinations. No delusions. No paranoia. Perception/associations: Denies hallucinations, somatic complaints, or tactile disturbances Suicidal Ideations: The patient doesn't want to or kill herself, but she doesn't know how to goon. She feels that going to a psychiatric unit voluntarily would be the best option for her. Pt denies SI, intent, or plan. Low acute risk. Currently is future oriented, motivated for treatment, and compliant with medications. Homicidal Ideations: Pt denies HI, intent, or plan. Low acute risk. No history of violence. No access to firearms. Behavior: No abnormal behavior during interview. Fund of Knowledge: Appropriate for age and level of education Intellect/Memory: Estimated as average based on interview. Immediate, recent, and remote memory is grossly intact. Language: No deficits Judgment/Insight: fair at present. Musculoskeletal Exam: Movement: [x]normal []abnormal [-]dyskinesias [-]tremors [-]tics Station: [x]upright []hyperflexed/stooped []hyperextended Muscle strength [x]appears normal [-]appears abnormal Muscle tone: [x]normal [-]muscle rigidity LABS: Lab Results Component Value Date WBC 8.7 [...] 06/24/2024 BASOSABS 0.06 06/24/2024 IMMGRANABS 0.02 06/24/2024 VITALS: BP: 119/65 (06/29 751) Heart Rate: 56 (06/29 751) Temp: 36.1 ??C (97 ??F) (06/29 751) Temp Source: Temporal (06/29 751) SpO2: 97 % (06/29 751) O2 Flow Rate (L/min): 2 L/min (06/29 751) ASSESSMENT: Cherelle Gonsales is a 63 y.o. female with psychiatric history significant for depression, anxiety, and alcohol/cocaine/tobacco use disorders and medical history significant for but not limited to COPD, HTN, chronic back pain, and cervical spinal stenosis who was admitted for acute hypoxic respiratory failure and aspiration PNA. Psychiatry was consulted due to concern for suicidal ideations. DSM-5 DIAGNOSIS: Suicidal ideations, resolved Depressive disorder, unspecified Anxiety disorder, unspecified Alcohol/cocaine/tobacco use disorders COPD, HTN, chronic back pain, and cervical spinal stenosis Admitted for acute hypoxic respiratory failure and aspiration PNA; has developed AMS TREATMENT PLAN: Pt has verbalized understanding and given consent/agreement with medications and plan offered. LEVEL OF CARE: Continue current level of treatment. RECOMMENDATIONS: D/c Prozac. Increase Cymbalta to 60 mg/day for depression and anxiety. Discussed/Reviewed mechanism of action of SNRIs, expected benefits and time to response, common SEs including GI, MATOS, increased BP, drowsiness or activation, sexual SEs, and withdrawal syndrome, and more rare but serious adverse effects including hepatotoxicity, seizures, agitation, sari, suicidal thoughts and behaviors. Psychiatric bed search for voluntary admission is currently underway. Continue to offer Zyprexa Zydis prn agitation. Medication Education: Risks, benefits, alternatives, and potential side effects were discussed withthe patient. Patient voiced understanding and agreed with medication regimen described above. LABS: Reviewed and discussed most recent labs results. MEDICATION CONTRACT: Patient agreed to take medication only as prescribed and acknowledges that services may be terminated if prescription abuse is observed. SAFETY PLAN: Patient is to alert team if symptoms worsen. Team will monitor for development of suicidal ideations or an acute medication reaction. - Call 911 or present to nearest Emergency Room in case of crisis / suicidal thoughts upon discharge. EDUCATION/CONSENT: Discussed and explained all diagnoses including differential diagnosis and treatment options. Discussed risks, benefits, potential side effects, contraindications, potential drug-drug interactions, alternatives to current medications and medication allergies as noted above. Discussed continuing to monitor for side effects and treatment efficacy prospectively and delineated patient's involvement and responsibility in monitoring for side effects and efficacy. Lucien bell expressed understanding of these recommendations. BARRIERS TO LEARNING: Patient demonstrates a readiness to learn. Patient verbalizes understanding and agrees to plan. No barriers to communication noted. MEDICATION RECONCILIATION: Medications were reviewed and reconciled with the patient. PREVENTATIVE RECOMMENDATIONS: Preventative Health Education Counseling: discussed proper diet/nutrition, exercise, and sleep hygiene. The patient was encouraged to avoid nicotine, alcohol and illicitdrugs at all times. The patient was made aware that records from the [facility] can be sent to his/her PCP at any time that he/she requests. * Zamzam Wadsworth RN - 06/29/2024 2:46 AM EST Problem: Skin Integrity: Pressure Injury Actual or Risk of Goal: Will not develop new pressure injury Outcome: Progressing Goal: Skin integrity will improve Outcome: Progressing Goal: Risk for impaired skin integrity will decrease Outcome: Progressing Problem: Activity:Pressure Injury Actual or Risk of Goal: Mobility will improve Outcome: Progressing Problem: Nutritional:Pressure Injury Actual or Risk of Goal: Nutritional status will improve Outcome: Progressing Problem: Patient Specific Problem: Pressure Injury Actual or Risk of Goal: Patient Specific Outcome Outcome: Progressing Goals: Identify possible barriers to meeting goals/advancing plan of care: Stability of the patient: Moderately Stable - Low risk of patient condition declining or worsening End of Shift Summary: Pt alert and oriented X 4, pt is compliant with all nursing care, no complaints of pain at this time. Pt resting comfortable in bed with call light within reach. * Annetta Mccray RN - 06/28/2024 6:42 PM EST Goals: Identify possible barriers to meeting goals/advancing plan of care: Inpatient psych placement Stability of the patient: Moderately Stable - Low risk of patient condition declining or worsening End of Shift Summary: AxOx3, VSS, bradycardic, R PICC patent, awaiting placement. Patient sitting up in bed eating. No events. * Zamzam Wadsworth RN - 06/28/2024 3:26 AM EST Problem: Skin Integrity: Pressure Injury Actual or Risk of Goal: Will not develop new pressure injury Outcome: Progressing Goal: Skin integrity will improve Outcome: Progressing Goal: Risk for impaired skin integrity will decrease Outcome: Progressing Problem: Activity:Pressure Injury Actual or Risk of Goal: Mobility will improve Outcome: Progressing Problem: Nutritional:Pressure Injury Actual or Risk of Goal: Nutritional status will improve Outcome: Progressing Problem: Patient Specific Problem: Pressure Injury Actual or Risk of Goal: Patient Specific Outcome Outcome: Progressing Goals: Identify possible barriers to meeting goals/advancing plan of care: Stability of the patient: Moderately Stable - Low risk of patient condition declining or worsening End of Shift Summary: Pt is alert and oriented x 4, Pt was nauseous the beginning of the shift, prnantinausea meds give, see emar. Pt compliant with all nursing care. Pt had no reports of any pain at this time, resting comfortable in bed. VSS at this this time and call morgan within reach. Pt is awaiting placement. * Luz Elena Craig RN - 06/27/2024 6:51 PM EST Problem: Skin Integrity: Pressure Injury Actual or Risk of Goal: Will not develop new pressure injury Outcome: Progressing Goal: Skin integrity will improve Outcome: Progressing Goal: Risk for impaired skin integrity will decrease Outcome: Progressing Problem: Activity:Pressure Injury Actual or Risk of Goal: Mobility will improve Outcome: Progressing Problem: Nutritional:Pressure Injury Actual or Risk of Goal: Nutritional status will improve Outcome: Progressing Problem: Patient Specific Problem: Pressure Injury Actual or Risk of Goal: Patient Specific Outcome Outcome: Progressing Goals: Identify possible barriers to meeting goals/advancing plan of care: pending inpt pysch placement VSS, adoption social worker and section 12 removed by Syl Mayer. Pt with no SI or thoughts of self harm. Pt resting comfortably. * Syl Mayer NP - 06/27/2024 12:11 PM EST Psychiatry Progress note Patient seen by me, nursing report reviewed with the interdisciplinary team, medications and chart history reviewed. Subjective: (reported issues and events over the last 24 hours) I would not still be in the hospital if I had any place to go Principal Problem: Acute on chronic respiratory failure with hypercapnia (CMS/HCC) Active Problems: Aspiration pneumonitis (CMS/HCC) Depression with suicidal ideation H/O ETOH abuse MRSA (methicillin resistant Staphylococcus aureus) carrier Alcoholic intoxication with complication (CMS/HCC) Methadone overdose, intentional self-harm, initial encounter (CMS/HCC) Wernicke encephalopathy Objective: Seclusion/Restraint in last 24 hours: No Lying on bed, eyes closed, limited engagement. Blood pressure 114/84, pulse 56, temperature 36.3 ??C (97.4 ??F), resp. rate 15, height 1.651 m (65 ), weight 89.8 kg (198 lb), SpO2 91%. Appearance/Grooming: eye contact leave the light out and grooming moderately kept Musculoskeletal: Normal Orientation: Appropriate to age, Person, Place, and Time Mood: irritable Affect: mood-congruent Memory: Recent: fair Remote: fair Attention Span: fair Concentration: fair Language Usage: Appropriate to age Speech: Coherent and Regular rate, rhythm, volume and articulation Fund. Of Knowledge: WNL Thought Processes: Coherent Thought Associations: Logical Thought Abnormalities or Psychosis: Not present Judgement: Fair Insight: fair Sleep: reports sleeping pretty good Appetite: no change Energy: no change Lab Results: Results for orders placed or performed during the hospital encounter of 06/16/24 ECG 12 lead Collection Time: 06/16/24 9:08 PM Result Value Ref Range Ventricular Rate ECG 94 BPM Atrial Rate 94 BPM P-R Interval 156 ms QRS Duration 90 ms Q-T Interval 386 ms QTc 482 ms P Wave [place] 58 degrees R [place] -6 degrees T [place] 87 degrees ECG Interpretation Normal sinus rhythm Septal infarct (cited on or before 16-JUN-2024) Abnormal ECG When compared with ECG of 14-MAY-2024 08:38, T wave inversion now evident in Lateral leads Septal ST elevation is more evident Confirmed by Herbie HARTLEY JAMES ([id number]) on 06/17/2024 8:56:10 AM Comprehensive metabolic panel Collection Time: 06/16/24 9:09 PM Result Value Ref Range Sodium 134 133 - 145 mmol/L Potassium 3.8 3.5 - 5.5 mmol/L Chloride 102 96 - 110 mmol/L CO2 25 21 - 32 mmol/L Anion Gap 7 3 - 11 Glucose 118 (H) 70 - 100 mg/dL BUN 15 5 - 25 mg/dL Creatinine 0.89 0.50 - 1.10 mg/dL eGFR 73 >=60 mL/min/1.73m2 BUN/Creatinine Ratio 16.9 Calcium 9.1 8.5 - 10.5 mg/dL AST (SGOT) 49 (H) 10 - 42 unit/L ALT (SGPT) 45 10 - 60 unit/L Alkaline Phosphatase 301 (H) 42 - 121 unit/L Total Protein 8.3 (H) 6.0 - 8.0 g/dL Albumin 3.9 3.2 - 5.0 g/dL Total Bilirubin 0.2 0.0 - 1.4 mg/dL CBC auto differential Collection Time: 06/16/24 9:09 PM Result Value Ref Range WBC 10.8 4.8 - 10.8 K/mcL RBC 5.10 (H) 3.80 - 4.80 M/mcL Hemoglobin 12.4 11.5 - 16.0 g/dL Hematocrit 40.2 35.0 - 47.0 % MCV 79.0 79.0 - 98.0 FL MCH 24.4 (L) 27.0 - 32.0 pcg MCHC 30.8 (L) 32.0 - 37.0 g/dL RDW 16.7 (H) 11.0 - 15.0 % Platelets 339 130 - 400 K/mcL MPV 10.6 7.0 - 11.0 FL NRBC 0.0 <1.0 % NRBC Absolute 0.00 <0.10 K/mcL Neutrophils Relative 74.6 % Lymphocytes Relative 16.2 % Monocytes Relative 6.9 % Eosinophils Relative 1.4 % Basophils Relative 0.5 % Immature Granulocytes Relative 0.4 % Neutrophils Absolute 8.09 (H) 1.50 - 7.00 K/mcL Lymphocytes Absolute 1.76 1.00 - 5.00 K/mcL Monocytes Absolute 0.75 0.20 - 1.00 K/mcL Eosinophils Absolute 0.15 0.00 - 0.50 K/mcL Basophils Absolute 0.05 0.00 - 0.20 K/mcL Immature Granulocytes Absolute 0.04 (H) 0.00 - 0.03 K/mcL Ethanol Collection Time: 06/16/24 9:09 PM Result Value Ref Range Ethanol Level 65 (H) 0 - 10 mg/dL Respiratory virus panel molecular study Collection Time: 06/16/24 9:20 PM Specimen: Nares; Swab Result Value Ref Range Adenovirus Detection by PCR Not Detected Not Detected Influenza A PCR Not Detected Not Detected Influenza B PCR Not Detected Not Detected Coronavirus 229E Not Detected Not Detected Coronavirus HKU1 Not Detected Not Detected Coronavirus OC43 Not Detected Not Detected Coronavirus NL63 Not Detected Not Detected Parainfluenza Virus 1 Not Detected Not Detected Parainfluenza Virus 2 Not Detected Not Detected Parainfluenza Virus 3 Not Detected Not Detected Parainfluenza Virus 4 Not Detected Not Detected RSV PCR Not Detected Not Detected Human Metapneumovirus A and B Not Detected Not Detected Rhinovirus/Enterovirus Not Detected Not Detected Bordetella pertussis Not Detected Not Detected Bordetella parapertussis Not Detected Not Detected Mycoplasma pneumo by PCR Not Detected Not Detected Chlamydia pneumoniae Not Detected Not Detected SARS COV-2 Not Detected Not Detected B-type natriuretic peptide Collection Time: 06/16/24 9:32 PM Result Value Ref Range BNP 17 <=100 pcg/mL Troponin I high sensitivity (NOW and then in 1 hour) Collection Time: 06/16/24 11:20 PM Result Value Ref Range High Sensitivity Troponin I 22 <=54 ng/L Troponin I high sensitivity (NOW and then in 1 hour) Collection Time: 06/17/24 12:04 AM Result Value Ref Range High Sensitivity Troponin I 21 <=54 ng/L Arterial blood gas Collection Time: 06/17/24 1:04 AM Result Value Ref Range pH, Arterial 7.25 (L) 7.35 - 7.45 pH pCO2, Arterial 59 (H) 35 - 45 mmHg pO2, Arterial 128 (H) 80 - 100 mmHg HCO3, Arterial 23.1 22.0 - 26.0 mmol/L O2 Sat, Arterial 98.7 (H) 95.0 - 98.0 % Base Excess, Arterial -2.3 (L) -2.0 - 2.0 mmol/L Sb Test Pass Pass, Unresponsive, Line FIO2 100.00 Drug abuse screen 8a panel, urine Collection Time: 06/17/24 2:17 AM Result Value Ref Range Amphetamine Screen, Ur Negative Negative Barbiturate Screen, Ur Negative Negative Benzodiazepine Screen, Ur Positive (A) Negative Cocaine Screen, Ur Negative Negative Opiate Screen, Ur Negative Negative Cannabinoid (THC) Screen, Ur Negative Negative Oxycodone Screen, Ur Negative Negative Fentanyl, Ur Negative Negative Fentanyl urine Collection Time: 06/17/24 2:17 AM Result Value Ref Range Fentanyl, Ur Negative Negative Methadone, urine Collection Time: 06/17/24 2:17 AM Result Value Ref Range Methadone Screen, Urine Positive (A) Negative CBC auto differential Collection Time: 06/17/24 4:08 AM Result Value Ref Range WBC 16.7 (H) 4.8 - 10.8 K/mcL RBC 5.00 (H) 3.80 - 4.80 M/mcL Hemoglobin 12.2 11.5 - 16.0 g/dL Hematocrit 40.4 35.0 - 47.0 % MCV 81.5 79.0 - 98.0 FL MCH 24.6 (L) 27.0 - 32.0 pcg MCHC 30.2 (L) 32.0 - 37.0 g/dL RDW 16.9 (H) 11.0 - 15.0 % Platelets 318 130 - 400 K/mcL MPV 10.8 7.0 - 11.0 FL NRBC 0.0 <1.0 % NRBC Absolute 0.00 <0.10 K/mcL Neutrophils Relative 83.9 % Lymphocytes Relative 4.9 % Monocytes Relative 9.4 % Eosinophils Relative 1.1 % Basophils Relative 0.3 % Immature Granulocytes Relative 0.4 % Neutrophils Absolute 14.02 (H) 1.50 - 7.00 K/mcL Lymphocytes Absolute 0.82 (L) 1.00 - 5.00 K/mcL Monocytes Absolute 1.58 (H) 0.20 - 1.00 K/mcL Eosinophils Absolute 0.19 0.00 - 0.50 K/mcL Basophils Absolute 0.05 0.00 - 0.20 K/mcL Immature Granulocytes Absolute 0.06 (H) 0.00 - 0.03 K/mcL Basic metabolic panel Collection Time: 06/17/24 6:00 AM Result Value Ref Range Sodium 134 133 - 145 mmol/L Potassium 5.3 3.5 - 5.5 mmol/L Chloride 101 96 - 110 mmol/L CO2 28 21 - 32 mmol/L Anion Gap 5 3 - 11 Glucose 108 (H) 70 - 100 mg/dL BUN 18 5 - 25 mg/dL Creatinine 1.08 0.50 - 1.10 mg/dL eGFR 57 (L) >=60 mL/min/1.73m2 BUN/Creatinine Ratio 16.7 Calcium 8.3 (L) 8.5 - 10.5 mg/dL Magnesium Collection Time: 06/17/24 6:00 AM Result Value Ref Range Magnesium 2.1 1.9 - 2.6 mg/dL Phosphorus Collection Time: 06/17/24 6:00 AM Result Value Ref Range Phosphorus 4.3 2.5 - 4.5 mg/dL Arterial blood gas Collection Time: 06/17/24 6:42 AM Result Value Ref Range pH, Arterial 7.25 (L) 7.35 - 7.45 pH pCO2, Arterial 65 (HH) 35 - 45 mmHg pO2, Arterial 89 80 - 100 mmHg HCO3, Arterial 24.9 22.0 - 26.0 mmol/L O2 Sat, Arterial 97.5 95.0 - 98.0 % Base Excess, Arterial 0.0 -2.0 - 2.0 mmol/L Sb Test Pass Pass, Unresponsive, Line FIO2 45.00 Venous blood gas Collection Time: 06/17/24 8:49 PM Result Value Ref Range pH, Parker 7.24 (L) 7.32 - 7.42 pH pCO2, Parker 73 (HH) 41 - 51 mmHg pO2, Parker 55 (H) 25 - 40 mmHg HCO3, Venous 26.3 (H) 22.0 - 26.0 mmol/L O2 Sat, Parker 85.5 % Base Excess, Parker 2.2 (H) -2.0 - 2.0 mmol/L POCT Glucose, blood Collection Time: 06/17/24 10:55 PM Result Value Ref Range Glucose POCT 106 (H) 70 - 100 mg/dL POCT Glucose, blood Collection Time: 06/18/24 4:19 AM Result Value Ref Range Glucose POCT 115 (H) 70 - 100 mg/dL Venous blood gas Collection Time: 06/18/24 4:30 AM Result Value Ref Range pH, Parker 7.29 (L) 7.32 - 7.42 pH pCO2, Parker 76 (HH) 41 - 51 mmHg pO2, Parker 73 (H) 25 - 40 mmHg HCO3, Venous 30.8 (H) 22.0 - 26.0 mmol/L O2 Sat, Parker 94.1 % Base Excess, Parker 7.6 (H) -2.0 - 2.0 mmol/L Basic metabolic panel Collection Time: 06/18/24 5:35 AM Result Value Ref Range Sodium 137 133 - 145 mmol/L Potassium 4.1 3.5 - 5.5 mmol/L Chloride 103 96 - 110 mmol/L CO2 32 21 - 32 mmol/L Anion Gap 2 (L) 3 - 11 Glucose 110 (H) 70 - 100 mg/dL BUN 18 5 - 25 mg/dL Creatinine 0.90 0.50 - 1.10 mg/dL eGFR 72 >=60 mL/min/1.73m2 BUN/Creatinine Ratio 20.0 Calcium 8.1 (L) 8.5 - 10.5 mg/dL Magnesium Collection Time: 06/18/24 5:35 AM Result Value Ref Range Magnesium 2.2 1.9 - 2.6 mg/dL Phosphorus Collection Time: 06/18/24 5:35 AM Result Value Ref Range Phosphorus 2.5 2.5 - 4.5 mg/dL Venous blood gas Collection Time: 06/18/24 5:35 AM Result Value Ref Range pH, Parker 7.32 7.32 - 7.42 pH pCO2, Parker 65 (HH) 41 - 51 mmHg pO2, Parker 60 (H) 25 - 40 mmHg HCO3, Venous 29.2 (H) 22.0 - 26.0 mmol/L O2 Sat, Parker 89.9 % Base Excess, Parker 5.7 (H) -2.0 - 2.0 mmol/L Thyroid stimulating hormone Collection Time: 06/18/24 5:35 AM Result Value Ref Range TSH 1.99 0.40 - 4.00 mcIU/mL Procalcitonin Collection Time: 06/18/24 5:35 AM Result Value Ref Range Procalcitonin 0.06 <=0.16 ng/mL Legionella antigen urine, EIA Collection Time: 06/18/24 10:12 AM Result Value Ref Range Legionella Antigen, Ur Negative Negative MRSA molecular study Collection Time: 06/18/24 10:12 AM Specimen: Nares; Swab Result Value Ref Range MRSA Screen PCR Detected (A) Not Detected Basic metabolic panel Collection Time: 06/19/24 4:37 AM Result Value Ref Range Sodium 134 133 - 145 mmol/L Potassium 4.0 3.5 - 5.5 mmol/L Chloride 99 96 - 110 mmol/L CO2 33 (H) 21 - 32 mmol/L Anion Gap 2 (L) 3 - 11 Glucose 106 (H) 70 - 100 mg/dL BUN 13 5 - 25 mg/dL Creatinine 0.75 0.50 - 1.10 mg/dL eGFR 89 >=60 mL/min/1.73m2 BUN/Creatinine Ratio 17.3 Calcium 8.3 (L) 8.5 - 10.5 mg/dL Calcium, ionized Collection Time: 06/19/24 4:37 AM Result Value Ref Range Calcium Ionized 4.74 4.50 - 5.30 mg/dL Magnesium Collection Time: 06/19/24 4:37 AM Result Value Ref Range Magnesium 1.9 1.9 - 2.6 mg/dL Phosphorus Collection Time: 06/19/24 4:37 AM Result Value Ref Range Phosphorus 1.9 (L) 2.5 - 4.5 mg/dL Hepatic function panel Collection Time: 06/19/24 4:37 AM Result Value Ref Range Total Protein 7.3 6.0 - 8.0 g/dL Albumin 3.3 3.2 - 5.0 g/dL Total Bilirubin 0.3 0.0 - 1.4 mg/dL Bilirubin, Direct <0.1 0.0 - 0.3 mg/dL Bilirubin, Indirect ALT (SGPT) 64 (H) 10 - 60 unit/L AST (SGOT) 94 (H) 10 - 42 unit/L Alkaline Phosphatase 319 (H) 42 - 121 unit/L Procalcitonin Collection Time: 06/19/24 4:37 AM Result Value Ref Range Procalcitonin 0.03 <=0.16 ng/mL CBC auto differential Collection Time: 06/19/24 4:37 AM Result Value Ref Range WBC 8.7 4.8 - 10.8 K/mcL RBC 4.00 3.80 - 4.80 M/mcL Hemoglobin 10.0 (L) 11.5 - 16.0 g/dL Hematocrit 33.7 (L) 35.0 - 47.0 % MCV 83.6 79.0 - 98.0 FL MCH 24.8 (L) 27.0 - 32.0 pcg MCHC 29.7 (L) 32.0 - 37.0 g/dL RDW 16.6 (H) 11.0 - 15.0 % Platelets 260 130 - 400 K/mcL MPV 10.5 7.0 - 11.0 FL NRBC 0.0 <1.0 % NRBC Absolute 0.00 <0.10 K/mcL Neutrophils Relative 72.0 % Lymphocytes Relative 15.8 % Monocytes Relative 8.3 % Eosinophils Relative 2.9 % Basophils Relative 0.5 % Immature Granulocytes Relative 0.5 % Neutrophils Absolute 6.23 1.50 - 7.00 K/mcL Lymphocytes Absolute 1.37 1.00 - 5.00 K/mcL Monocytes Absolute 0.72 0.20 - 1.00 K/mcL Eosinophils Absolute 0.25 0.00 - 0.50 K/mcL Basophils Absolute 0.04 0.00 - 0.20 K/mcL Immature Granulocytes Absolute 0.04 (H) 0.00 - 0.03 K/mcL Venous blood gas Collection Time: 06/19/24 2:54 PM Result Value Ref Range pH, Parker 7.25 (L) 7.32 - 7.42 pH pCO2, Parker 87 (HH) 41 - 51 mmHg pO2, Parker 31 25 - 40 mmHg HCO3, Venous 30.1 (H) 22.0 - 26.0 mmol/L O2 Sat, Parker 50.1 % Base Excess, Parker 8.1 (H) -2.0 - 2.0 mmol/L Venous blood gas Collection Time: 06/19/24 6:38 PM Result Value Ref Range pH, Parker 7.29 (L) 7.32 - 7.42 pH pCO2, Parker 75 (HH) 41 - 51 mmHg pO2, Parker 55 (H) 25 - 40 mmHg HCO3, Venous 30.6 (H) 22.0 - 26.0 mmol/L O2 Sat, Parker 88.5 % Base Excess, Parker 7.5 (H) -2.0 - 2.0 mmol/L Ammonia Collection Time: 06/19/24 6:38 PM Result Value Ref Range Ammonia 57 (H) 11 - 35 mcmol/L POCT Glucose, blood Collection Time: 06/19/24 11:39 PM Result Value Ref Range Glucose POCT 117 (H) 70 - 100 mg/dL Basic metabolic panel Collection Time: 06/20/24 4:27 AM Result Value Ref Range Sodium 136 133 - 145 mmol/L Potassium 4.1 3.5 - 5.5 mmol/L Chloride 99 96 - 110 mmol/L CO2 38 (H) 21 - 32 mmol/L Anion Gap -1 (L) 3 - 11 Glucose 95 70 - 100 mg/dL BUN 13 5 - 25 mg/dL Creatinine 0.66 0.50 - 1.10 mg/dL eGFR 98 >=60 mL/min/1.73m2 BUN/Creatinine Ratio 19.7 Calcium 8.4 (L) 8.5 - 10.5 mg/dL Calcium, ionized Collection Time: 06/20/24 4:27 AM Result Value Ref Range Calcium Ionized 4.90 4.50 - 5.30 mg/dL Magnesium Collection Time: 06/20/24 4:27 AM Result Value Ref Range Magnesium 1.9 1.9 - 2.6 mg/dL Phosphorus Collection Time: 06/20/24 4:27 AM Result Value Ref Range Phosphorus 2.2 (L) 2.5 - 4.5 mg/dL Procalcitonin Collection Time: 06/20/24 4:27 AM Result Value Ref Range Procalcitonin <0.02 <=0.16 ng/mL CBC auto differential Collection Time: 06/20/24 4:27 AM Result Value Ref Range WBC 7.3 4.8 - 10.8 K/mcL RBC 4.00 3.80 - 4.80 M/mcL Hemoglobin 9.8 (L) 11.5 - 16.0 g/dL Hematocrit 33.4 (L) 35.0 - 47.0 % MCV 83.9 79.0 - 98.0 FL MCH 24.6 (L) 27.0 - 32.0 pcg MCHC 29.3 (L) 32.0 - 37.0 g/dL RDW 16.3 (H) 11.0 - 15.0 % Platelets 255 130 - 400 K/mcL MPV 10.1 7.0 - 11.0 FL NRBC 0.0 <1.0 % NRBC Absolute 0.00 <0.10 K/mcL Neutrophils Relative 66.6 % Lymphocytes Relative 20.0 % Monocytes Relative 9.3 % Eosinophils Relative 3.4 % Basophils Relative 0.4 % Immature Granulocytes Relative 0.3 % Neutrophils Absolute 4.87 1.50 - 7.00 K/mcL Lymphocytes Absolute 1.46 1.00 - 5.00 K/mcL Monocytes Absolute 0.68 0.20 - 1.00 K/mcL Eosinophils Absolute 0.25 0.00 - 0.50 K/mcL Basophils Absolute 0.03 0.00 - 0.20 K/mcL Immature Granulocytes Absolute 0.02 0.00 - 0.03 K/mcL Venous blood gas Collection Time: 06/20/24 4:27 AM Result Value Ref Range pH, Parker 7.33 7.32 - 7.42 pH pCO2, Parker 82 (HH) 41 - 51 mmHg pO2, Parker 56 (H) 25 - 40 mmHg HCO3, Venous 35.3 (H) 22.0 - 26.0 mmol/L O2 Sat, Parker 85.0 % Base Excess, Parker 13.8 (H) -2.0 - 2.0 mmol/L POCT Glucose, blood Collection Time: 06/20/24 10:42 AM Result Value Ref Range Glucose POCT 99 70 - 100 mg/dL Venous blood gas Collection Time: 06/20/24 11:10 AM Result Value Ref Range pH, Parker 7.34 7.32 - 7.42 pH pCO2, Parker 68 (HH) 41 - 51 mmHg pO2, Parker 61 (H) 25 - 40 mmHg HCO3, Venous 31.9 (H) 22.0 - 26.0 mmol/L O2 Sat, Parker 93.4 % Base Excess, Parker 9.1 (H) -2.0 - 2.0 mmol/L Ammonia Collection Time: 06/20/24 1:22 PM Result Value Ref Range Ammonia 27 11 - 35 mcmol/L Thyroid stimulating hormone Collection Time: 06/20/24 1:31 PM Result Value Ref Range TSH 3.41 0.40 - 4.00 mcIU/mL Hepatic function panel Collection Time: 06/21/24 4:29 AM Result Value Ref Range Total Protein 6.8 6.0 - 8.0 g/dL Albumin 3.0 (L) 3.2 - 5.0 g/dL Total Bilirubin 0.5 0.0 - 1.4 mg/dL Bilirubin, Direct 0.1 0.0 - 0.3 mg/dL Bilirubin, Indirect 0.4 0.0 - 1.1 mg/dL ALT (SGPT) 43 10 - 60 unit/L AST (SGOT) 43 (H) 10 - 42 unit/L Alkaline Phosphatase 318 (H) 42 - 121 unit/L Lactate Collection Time: 06/21/24 4:29 AM Result Value Ref Range Lactate 0.6 0.4 - 2.0 mmol/L Calcium, ionized Collection Time: 06/21/24 4:29 AM Result Value Ref Range Calcium Ionized 4.54 4.50 - 5.30 mg/dL Magnesium Collection Time: 06/21/24 4:29 AM Result Value Ref Range Magnesium 1.8 (L) 1.9 - 2.6 mg/dL Phosphorus Collection Time: 06/21/24 4:29 AM Result Value Ref Range Phosphorus 2.0 (L) 2.5 - 4.5 mg/dL Basic metabolic panel Collection Time: 06/21/24 4:29 AM Result Value Ref Range Sodium 136 133 - 145 mmol/L Potassium 3.6 3.5 - 5.5 mmol/L Chloride 98 96 - 110 mmol/L CO2 34 (H) 21 - 32 mmol/L Anion Gap 4 3 - 11 Glucose 87 70 - 100 mg/dL BUN 10 5 - 25 mg/dL Creatinine 0.47 (L) 0.50 - 1.10 mg/dL eGFR 106 >=60 mL/min/1.73m2 BUN/Creatinine Ratio 21.3 Calcium 8.4 (L) 8.5 - 10.5 mg/dL CBC auto differential Collection Time: 06/21/24 4:29 AM Result Value Ref Range WBC 6.9 4.8 - 10.8 K/mcL RBC 3.90 3.80 - 4.80 M/mcL Hemoglobin 9.8 (L) 11.5 - 16.0 g/dL Hematocrit 31.8 (L) 35.0 - 47.0 % MCV 80.7 79.0 - 98.0 FL MCH 24.9 (L) 27.0 - 32.0 pcg MCHC 30.8 (L) 32.0 - 37.0 g/dL RDW 16.0 (H) 11.0 - 15.0 % Platelets 279 130 - 400 K/mcL MPV 10.2 7.0 - 11.0 FL NRBC 0.0 <1.0 % NRBC Absolute 0.00 <0.10 K/mcL Neutrophils Relative 69.6 % Lymphocytes Relative 18.9 % Monocytes Relative 8.0 % Eosinophils Relative 2.8 % Basophils Relative 0.6 % Immature Granulocytes Relative 0.1 % Neutrophils Absolute 4.79 1.50 - 7.00 K/mcL Lymphocytes Absolute 1.30 1.00 - 5.00 K/mcL Monocytes Absolute 0.55 0.20 - 1.00 K/mcL Eosinophils Absolute 0.19 0.00 - 0.50 K/mcL Basophils Absolute 0.04 0.00 - 0.20 K/mcL Immature Granulocytes Absolute 0.01 0.00 - 0.03 K/mcL Arterial blood gas Collection Time: 06/21/24 5:36 AM Result Value Ref Range pH, Arterial 7.45 7.35 - 7.45 pH pCO2, Arterial 53 (H) 35 - 45 mmHg pO2, Arterial 89 80 - 100 mmHg HCO3, Arterial 33.7 (H) 22.0 - 26.0 mmol/L O2 Sat, Arterial 99.1 (H) 95.0 - 98.0 % Base Excess, Arterial 11.2 (H) -2.0 - 2.0 mmol/L Sb Test Pass Pass, Unresponsive, Line FIO2 30.00 Lipase Collection Time: 06/21/24 2:11 PM Result Value Ref Range Lipase 39 13 - 75 unit/L Hepatic function panel Collection Time: 06/22/24 4:00 AM Result Value Ref Range Total Protein 7.3 6.0 - 8.0 g/dL Albumin 3.2 3.2 - 5.0 g/dL Total Bilirubin 0.4 0.0 - 1.4 mg/dL Bilirubin, Direct <0.1 0.0 - 0.3 mg/dL Bilirubin, Indirect ALT (SGPT) 36 10 - 60 unit/L AST (SGOT) 30 10 - 42 unit/L Alkaline Phosphatase 302 (H) 42 - 121 unit/L Lactate Collection Time: 06/22/24 4:00 AM Result Value Ref Range Lactate 0.9 0.4 - 2.0 mmol/L Magnesium Collection Time: 06/22/24 4:00 AM Result Value Ref Range Magnesium 1.9 1.9 - 2.6 mg/dL Phosphorus Collection Time: 06/22/24 4:00 AM Result Value Ref Range Phosphorus 1.9 (L) 2.5 - 4.5 mg/dL Basic metabolic panel Collection Time: 06/22/24 4:00 AM Result Value Ref Range Sodium 136 133 - 145 mmol/L Potassium 3.6 3.5 - 5.5 mmol/L Chloride 98 96 - 110 mmol/L CO2 29 21 - 32 mmol/L Anion Gap 9 3 - 11 Glucose 119 (H) 70 - 100 mg/dL BUN 12 5 - 25 mg/dL Creatinine 0.51 0.50 - 1.10 mg/dL eGFR 104 >=60 mL/min/1.73m2 BUN/Creatinine Ratio 23.5 Calcium 8.4 (L) 8.5 - 10.5 mg/dL CBC auto differential Collection Time: 06/22/24 4:00 AM Result Value Ref Range WBC 7.9 4.8 - 10.8 K/mcL RBC 4.10 3.80 - 4.80 M/mcL Hemoglobin 10.2 (L) 11.5 - 16.0 g/dL Hematocrit 32.3 (L) 35.0 - 47.0 % MCV 79.4 79.0 - 98.0 FL MCH 25.1 (L) 27.0 - 32.0 pcg MCHC 31.6 (L) 32.0 - 37.0 g/dL RDW 16.2 (H) 11.0 - 15.0 % Platelets 285 130 - 400 K/mcL MPV 10.2 7.0 - 11.0 FL NRBC 0.0 <1.0 % NRBC Absolute 0.00 <0.10 K/mcL Neutrophils Relative 69.2 % Lymphocytes Relative 20.1 % Monocytes Relative 8.6 % Eosinophils Relative 1.5 % Basophils Relative 0.3 % Immature Granulocytes Relative 0.3 % Neutrophils Absolute 5.46 1.50 - 7.00 K/mcL Lymphocytes Absolute 1.58 1.00 - 5.00 K/mcL Monocytes Absolute 0.68 0.20 - 1.00 K/mcL Eosinophils Absolute 0.12 0.00 - 0.50 K/mcL Basophils Absolute 0.02 0.00 - 0.20 K/mcL Immature Granulocytes Absolute 0.02 0.00 - 0.03 K/mcL Venous blood gas Collection Time: 06/22/24 4:00 AM Result Value Ref Range pH, Parker 7.48 (H) 7.32 - 7.42 pH pCO2, Parker 47 41 - 51 mmHg pO2, Parker 42 (H) 25 - 40 mmHg HCO3, Venous 32.3 (H) 22.0 - 26.0 mmol/L O2 Sat, Parker 72.9 % Base Excess, Parker 10.2 (H) -2.0 - 2.0 mmol/L Calcium, ionized Collection Time: 06/22/24 6:31 AM Result Value Ref Range Calcium Ionized 4.59 4.50 - 5.30 mg/dL Basic metabolic panel Collection Time: 06/23/24 4:25 AM Result Value Ref Range Sodium 135 133 - 145 mmol/L Potassium 3.4 (L) 3.5 - 5.5 mmol/L Chloride 98 96 - 110 mmol/L CO2 31 21 - 32 mmol/L Anion Gap 6 3 - 11 Glucose 82 70 - 100 mg/dL BUN 15 5 - 25 mg/dL Creatinine 0.55 0.50 - 1.10 mg/dL eGFR 103 >=60 mL/min/1.73m2 BUN/Creatinine Ratio 27.3 Calcium 8.5 8.5 - 10.5 mg/dL Calcium, ionized Collection Time: 06/23/24 4:25 AM Result Value Ref Range Calcium Ionized 4.79 4.50 - 5.30 mg/dL Magnesium Collection Time: 06/23/24 4:25 AM Result Value Ref Range Magnesium 1.9 1.9 - 2.6 mg/dL Phosphorus Collection Time: 06/23/24 4:25 AM Result Value Ref Range Phosphorus 2.8 2.5 - 4.5 mg/dL Procalcitonin Collection Time: 06/23/24 4:25 AM Result Value Ref Range Procalcitonin 0.04 <=0.16 ng/mL CBC auto differential Collection Time: 06/23/24 4:25 AM Result Value Ref Range WBC 8.4 4.8 - 10.8 K/mcL RBC 4.20 3.80 - 4.80 M/mcL Hemoglobin 10.3 (L) 11.5 - 16.0 g/dL Hematocrit 32.9 (L) 35.0 - 47.0 % MCV 79.1 79.0 - 98.0 FL MCH 24.8 (L) 27.0 - 32.0 pcg MCHC 31.3 (L) 32.0 - 37.0 g/dL RDW 16.9 (H) 11.0 - 15.0 % Platelets 328 130 - 400 K/mcL MPV 10.7 7.0 - 11.0 FL NRBC 0.0 <1.0 % NRBC Absolute 0.00 <0.10 K/mcL Neutrophils Relative 64.6 % Lymphocytes Relative 19.3 % Monocytes Relative 10.8 % Eosinophils Relative 4.2 % Basophils Relative 0.6 % Immature Granulocytes Relative 0.5 % Neutrophils Absolute 5.42 1.50 - 7.00 K/mcL Lymphocytes Absolute 1.62 1.00 - 5.00 K/mcL Monocytes Absolute 0.91 0.20 - 1.00 K/mcL Eosinophils Absolute 0.35 0.00 - 0.50 K/mcL Basophils Absolute 0.05 0.00 - 0.20 K/mcL Immature Granulocytes Absolute 0.04 (H) 0.00 - 0.03 K/mcL Basic metabolic panel Collection Time: 06/24/24 5:31 AM Result Value Ref Range Sodium 135 133 - 145 mmol/L Potassium 3.3 (L) 3.5 - 5.5 mmol/L Chloride 97 96 - 110 mmol/L CO2 30 21 - 32 mmol/L Anion Gap 8 3 - 11 Glucose 82 70 - 100 mg/dL BUN 15 5 - 25 mg/dL Creatinine 0.56 0.50 - 1.10 mg/dL eGFR 102 >=60 mL/min/1.73m2 BUN/Creatinine Ratio 26.8 Calcium 8.4 (L) 8.5 - 10.5 mg/dL CBC auto differential Collection Time: 06/24/24 5:31 AM Result Value Ref Range WBC 8.7 4.8 - 10.8 K/mcL RBC 4.20 3.80 - 4.80 M/mcL Hemoglobin 10.4 (L) 11.5 - 16.0 g/dL Hematocrit 33.0 (L) 35.0 - 47.0 % MCV 79.5 79.0 - 98.0 FL MCH 25.1 (L) 27.0 - 32.0 pcg MCHC 31.5 (L) 32.0 - 37.0 g/dL RDW 17.1 (H) 11.0 - 15.0 % Platelets 305 130 - 400 K/mcL MPV 10.5 7.0 - 11.0 FL NRBC 0.0 <1.0 % NRBC Absolute 0.00 <0.10 K/mcL Neutrophils Relative 60.9 % Lymphocytes Relative 22.7 % Monocytes Relative 10.4 % Eosinophils Relative 5.1 % Basophils Relative 0.7 % Immature Granulocytes Relative 0.2 % Neutrophils Absolute 5.28 1.50 - 7.00 K/mcL Lymphocytes Absolute 1.97 1.00 - 5.00 K/mcL Monocytes Absolute 0.90 0.20 - 1.00 K/mcL Eosinophils Absolute 0.44 0.00 - 0.50 K/mcL Basophils Absolute 0.06 0.00 - 0.20 K/mcL Immature Granulocytes Absolute 0.02 0.00 - 0.03 K/mcL Basic metabolic panel Collection Time: 06/25/24 5:17 AM Result Value Ref Range Sodium 134 133 - 145 mmol/L Potassium 3.5 3.5 - 5.5 mmol/L Chloride 98 96 - 110 mmol/L CO2 30 21 - 32 mmol/L Anion Gap 6 3 - 11 Glucose 84 70 - 100 mg/dL BUN 13 5 - 25 mg/dL Creatinine 0.54 0.50 - 1.10 mg/dL eGFR 103 >=60 mL/min/1.73m2 BUN/Creatinine Ratio 24.1 Calcium 8.7 8.5 - 10.5 mg/dL Medications: Current Facility-Administered Medications Medication Dose Route Frequency Provider Last Rate Last Admin acetaminophen (TYLENOL) tablet 650 mg 650 mg oral q4h PRN Jonathan Levrault, DO 650 mg at 06/17/24 0516 albuterol 2.5 mg /3 mL (0.083 %) nebulizer solution 2.5 mg 2.5 mg nebulization q6h PRN Jonathan Cole, DO 2.5 mg at 06/17/24 0517 amLODIPine (NORVASC) tablet 10 mg 10 mg oral Daily Jonathan Cole DO 10 mg at 06/27/24902 calcium carbonate (TUMS) chewable tablet 500 mg 500 mg oral q4h PRN Jonathan Cole DO doxycycline (MONODOX) capsule 100 mg 100 mg oral q12h [facility] Grisel Wynn MD 100 mg at 06/27/24902 DULoxetine (CYMBALTA) DR capsule 30 mg 30 mg oral Daily Anjelica Parker MD 30 mg at 06/27/24902 enoxaparin (LOVENOX) injection 40 mg 40 mg subcutaneous q24h [facility] Jonathan Cole DO 40 mg at 06/27/24902 famotidine (PEPCID) tablet 20 mg 20 mg oral Daily Jonathan Cole DO 20 mg at 06/27/24902 FLUoxetine (PROzac) capsule 20 mg 20 mg oral Daily Anjelica Parker MD 20 mg at 06/27/24902 folic acid (FOLVITE) tablet 1 mg 1 mg oral Daily Jonathan Cole DO 1 mg at 06/27/24902 gabapentin (NEURONTIN) capsule 100 mg 100 mg oral TID Grisel Wynn MD 100 mg at 06/27/24902 hydrALAZINE (APRESOLINE) injection 10 mg 10 mg intravenous q4h PRN Jonathan Cole DO LORazepam (ATIVAN) tablet 1 mg 1 mg oral q6h PRN Jonathan Cole DO 1 mg at 06/22/24 1237 multivitamin minerals-iron (THERA-M) 1 tablet 1 each oral Daily Jonathan Cole DO 1 tablet at 06/27/24 09 mupirocin (BACTROBAN) 2 % ointment Each Nostril TID Grisel Wynn MD Given at 06/27/24 09 naloxone (NARCAN) injection 0.1 mg 0.1 mg intravenous q1h PRN Jonathan Cole DO nicotine polacrilex (NICORETTE) gum 2 mg 2 mg buccal q2h PRN Grisel Wynn MD OLANZapine (ZyPREXA ZYDIS) disintegrating tablet 5 mg 5 mg oral TID PRN Jonathan Cole DO ondansetron (PF) (ZOFRAN) injection 4 mg 4 mg intravenous q6h PRN Jonathan Levrault, DO 4 mg at 06/18/24 1040 phosphorus (K PHOS NEUTRAL) tablet 1 tablet 250 mg oral TID Jonathan Levrault, DO 1 tablet at 06/27/24 0903 propranoloL (INDERAL) tablet 40 mg 40 mg oral BID Jonathan Levrault, DO 40 mg at 06/27/24 0903 sodium chloride 0.9 % flush 10 mL 10 mL intravenous BID Jonathan Levrault, DO 10 mL at 06/27/24 0907 And sodium chloride 0.9 % flush 10 mL 10 mL intravenous PRN Jonathan Levrault, DO 10 mL at 06/20/24 1722 ASSESSMENT: Cherelle Perez Tico denies suicidal ideation, denies thought of harming others. Reports frustration with lack of supports in the community If I had anybody I would not still be here . Denies interest in outpatient psychiatric treatment and reports lack of trust with the process of inpatient units been in them all, they just keep you a couple days and then put you out . Diagnosis Depressive disorder, unspecified Anxiety disorder, unspecified Alcohol/cocaine/tobacco use disorders Recommendations RECOMMENDATIONS: Continue with plan to decrease Prozac to 20 mg PO qAM x 3 days, then discontinue. (06/27. 06/28, and 06/29) Continue Cymbalta 30 mg/day for depression and anxiety. Discussed/Reviewed mechanism of action of SNRIs, expected benefits and time to response, common SEs including GI, MATOS, increased BP, drowsiness or activation, sexual SEs, and withdrawal syndrome, and more rare but serious adverse effects including hepatotoxicity, seizures, agitation, sari, suicidal thoughts and behaviors. 3. Continue to offer Zyprexa Zydis prn agitation 4. Collaborate with case management and team for discharge planning. Patient to be considered a voluntary inpatient psychiatric hospitalization, allowing patient to consider alternative such as respite or stabilization units that promote psychotherapeutic services in the community. Discussed observations with healthcare team 5. Will discontinue sitter at this time. Syl Mayer NP * Mary Beth Sandoval LCSW - 06/27/2024 10:31 AM EST Sw reviewed the chart per behavioral health pt [facility] pt is medically ready to d/c sw will continue to follow for d/c planning * Carito Ross RN - 06/27/2024 2:16 AM EST Problem: Skin Integrity: Pressure Injury Actual or Risk of Goal: Will not develop new pressure injury Outcome: Progressing Goal: Skin integrity will improve Outcome: Progressing Goal: Risk for impaired skin integrity will decrease Outcome: Progressing Problem: Activity:Pressure Injury Actual or Risk of Goal: Mobility will improve Outcome: Progressing Problem: Nutritional:Pressure Injury Actual or Risk of Goal: Nutritional status will improve Outcome: Progressing Problem: Patient Specific Problem: Pressure Injury Actual or Risk of Goal: Patient Specific Outcome Outcome: Progressing Goals: Identify possible barriers to meeting goals/advancing plan of care: placement Stability of the patient: Moderately Stable - Low risk of patient condition declining or worsening End of Shift Summary: Patient sleeping well overnight. 1:1 sitter at bedside and safety precautionsin place.No issues overnight. Pt denied any n/v/d. VSS. Currently just awaiting placement. * Renetta Roca, PT - 06/26/2024 4:03 PM EST Physical Therapy Therapy session was attempted for Cherelle Gonsales by Renetta Roca PT on 06/26/2024. The patient was unable to be seen for the following reason(s): Refused treatment despite encouragement. PT notified nurse Plan for return visit: Tomorrow * TICO Barrera - 06/26/2024 1:11 PM EST This policy writer was notified by nursing patient is medically cleared for dc. per psychiatry recommendation is dc to inpatient psychiatric level of care. With this information, geriatric social worker contacted [facility] and requested they assess for proposed disposition. Nursing/ICC aware. * Shantel Cooper DO - 06/26/2024 11:44 AM EST Images from the original note were not included. Cherelle Gonsales 1960 [id number] Author: LUCIEN Vazquez DOS: 06/26/2024 Requesting Service: Hospitalist Service Chief Complaint: Acute on chronic respiratory failure with hypercapnia (CMS/HCC) Reason for Consultation: Alcohol use disorder Source of History: Patient and chart Subjective History of Present Illness: Cherelle Gonsales is a 63 y.o. female with a history of alcohol use disorder with a longstanding history. Patient is known to our service from previous admissions. Patient recently admitted to the ICUfor methadone ingestion secondary to suicidal ideation. Ultimately being treated for question pneumonia, COPD. Patient still has a sitter and is on a section 12 at this time. At time of evaluation this a.m. patient is less talkative and somewhat frustrated with her circumstance. Patient states she remains homeless and needs help. Patient continues to be followed by medicine and psychiatry. Allergies: Allergies Allergen Reactions Penicillins Rash Home Medications: Prior to Admission medications Medication Sig Start Date End Date Taking? Authorizing Provider amLODIPine (NORVASC) 5 mg tablet Take 1 tablet (5 mg total) by mouth 1 (one) time each day. 03/20/24istorical Provider, cloNIDine (CATAPRES) 0.1 mg tablet Take 1 tablet (0.1 mg total) by mouth 4 (four) times a day. 12/15/23 Historical Provider, ferrous sulfate 325 mg (65 mg iron) EC tablet Take 1 tablet (325 mg total) by mouth every other day. 03/20/24 Historical Provider, FLUoxetine (PROzac) 20 mg capsule Take 3 capsules (60 mg total) by mouth. 03/20/24 Historical Provider, gabapentin (NEURONTIN) 100 mg capsule Take 3 capsules (300 mg total) by mouth 3 (three) times a day. 12/15/23 Historical Provider, hydrOXYzine pamoate (VISTARIL) 25 mg capsule Take 2 capsules (50 mg total) by mouth 3 (three) timesa day if needed for anxiety. Patient not taking: Reported on 05/14/2024 03/20/24 Historical Provider, mirtazapine (REMERON) 7.5 mg tablet Take 1 tablet (7.5 mg total) by mouth. Historical Provider, OLANZapine (ZyPREXA) 2.5 mg tablet Take 2 tablets (5 mg total) by mouth 2 (two) times a day. 02/01/24 Historical Provider, propranoloL (INDERAL) 20 mg tablet Take 1 tablet (20 mg total) by mouth 2 (two) times a day. 03/20/24 Historical Provider, Past Medical History: Past Medical History: Diagnosis Date Alcohol use disorder Anxiety Cervical spinal stenosis CHF (congestive heart failure) ([facility]) Chronic back pain COPD (chronic obstructive pulmonary disease) ([facility]) Depression Hypertension Past Surgical History: Past Surgical History: Procedure Laterality Date CHOLECYSTECTOMY Family History: Family History Problem Relation Name Age of Onset Hypertension Other Anxiety disorder Other Social History: Social History Tobacco Use Smoking Status Every Day Current packs/day: 0.25 Types: Cigarettes Smokeless Tobacco Not on file Social History Substance and Sexual Activity Alcohol Use Yes Social History Substance and Sexual Activity Drug Use Yes Types: Cocaine Objective Last Recorded Vitals: Blood pressure 119/63, pulse 60, temperature 37.2 ??C (99 ??F), resp. rate 18, height 1.651 m (65 ), weight 89.8 kg (198 lb), SpO2 94%. Physical Exam Lying in bed Slightly anxious and agitated No gross resting tremor Normal cardiac rate No increased work of breathing Alert and oriented Conversing appropriately Labs: Lab Results Component Value Date GLUCOSE 84 06/25/2024 CALCIUM 8.7 06/25/2024 NA 134 06/25/2024 K 3.5 06/25/2024 CO2 30 06/25/2024 CL 98 06/25/2024 BUN 13 06/25/2024 CREATININE 0.54 06/25/2024 Lab Results Component Value Date WBC 8.7 06/24/2024 HGB 10.4 (L) 06/24/2024 HCT 33.0 (L) 06/24/2024 MCV 79.5 06/24/2024 PLT 305 06/24/2024 Imaging: XR Chest 1 View Narrative: XR CHEST 1 VIEW INDICATION: Pneumonia TECHNIQUE: XR CHEST 1 VIEW COMPARISON: 06/19/2024 Impression: FINDINGS/IMPRESSION: Right upper extremity PICC terminates in the right atrium. Elevated right diaphragm with unchanged right basilar opacity, possibly atelectasis. No pleural effusion orpneumothorax. Cardiac silhouette and bones are stable compared to prior -------- FINAL REPORT -------- Dictated By: DELANO BARAJAS Dictated Date: 06/21/2024 08:08 ET Assigned Physician: DELANO BARAJAS Reviewed and Electronically Signed By: DELANO BARAJAS Signed Date: 06/21/2024 08:09 ET Workstation ID: [id number] Transcribed By: Self Edit Transcribed Date: 06/21/2024 08:08 ET Meds: amLODIPine, 10 mg, oral, Daily doxycycline, 100 mg, oral, q12h FABIEN DULoxetine, 30 mg, oral, Daily enoxaparin, 40 mg, subcutaneous, q24h FABIEN famotidine, 20 mg, oral, Daily [START ON 06/27/2024] FLUoxetine, 20 mg, oral, Daily folic acid, 1 mg, oral, Daily gabapentin, 100 mg, oral, TID multivitamin with minerals-iron, 1 each, oral, Daily mupirocin, , Each Nostril, TID phosphorus, 250 mg, oral, TID propranoloL, 40 mg, oral, BID sodium chloride, 10 mL, intravenous, BID PRN medications: acetaminophen, albuterol, calcium carbonate, hydrALAZINE, LORazepam, naloxone, nicotine polacrilex, OLANZapine, ondansetron, [COMPLETED] Insert peripheral IV AND Maintain IV access AND [COMPLETED] Saline lock IV AND sodium chloride AND sodium chloride Assessment and Plan Cherelle Gonsales is a 63 y.o. female with a history of alcohol use disorder. Patient ultimately presented to hospital with intentional versus accidental overdose of methadone. Currently needing ICU level of care. During her ICU admission patient came somewhat encephalopathic and those symptoms have improved. Patient remains on a section 12 with a sitter at the bedside Patient states she does want help in her recovery process and states she is homeless. Recovery team continue to work with patient but disposition will depend on medicine clearance and psychiatric disposition. We will continue to follow please reach out with any questions or concerns. Principal Problem: Acute on chronic respiratory failure with hypercapnia (CMS/HCC) Active Problems: Aspiration pneumonitis ([facility]) Depression with suicidal ideation H/O ETOH abuse MRSA (methicillin resistant Staphylococcus aureus) carrier Alcoholic intoxication with complication ([facility]) Methadone overdose, intentional self-harm, initial encounter ([facility]) Wernicke encephalopathy Provider Attestation Electronically signed by Mukesh Prabhakar PA-C * Anjelica Parker MD - 06/26/2024 10:16 AM EST Connected to patient's room via I-pad with help from fitness technician; assistance much appreciated. Patient consented to visit via Telehealth video conferencing modality. Patient educated as to likely differences between Telehealth care and face to face care. Patient informed of the risks and benefits of using Telehealth services and procedures and likely risks and benefits of using alternatives to Telehealth services. Patient informed of the right to refuse Telehealth services at any time without jeopardizing his/her right to future care, services or benefits. Patient was informed that he/she is being seen solely by Anjelica Parker MD today via secure connection in a locked virtual exam room. Persons present on patient's end: Patient, sitter Persons present on provider's end: Anjelica Parker MD CHART REVIEWED, PATIENT INTERVIEWED. CHIEF COMPLAINT: SI Time spent on encounter: 10 min. HISTORY OF PRESENT ILLNESS Cherelle Gonsales is a 63 y.o. female with psychiatric history significant for depression, anxiety, and alcohol/cocaine/tobacco use disorders and medical history significant for but not limited to COPD, HTN, chronic back pain, and cervical spinal stenosis who was admitted for acute hypoxic respiratory failure and aspiration PNA. Psychiatry was consulted due to concern for suicidal ideations. The patient states that she is ???the same as always.?? She continues to feel depressed and continues toreport suicidal ideations with plan to overdose on pills. She feels that her problems are insurmountable. REVIEW OF SYSTEMS CONSTITUTIONAL: The patient denies fevers, chills, sweats and body ache. HEENT: Denies MATOS, blurry vision, eye pain, tinnitus, vertigo, gingival bleeding, sore throat, neck or thyroid masses. RESPIRATORY: Denies cough, sputum, hemoptysis. CARDIAC: Denies chest pain, pressure, palpitations, irregular heartbeats. Denies lower extremity edema. GASTROINTESTINAL: Denies abdominal pain, changes in bowel habits or any bleeding on toilet paper. GENITOURINARY: Denies dysuria, hematuria, nocturia or frequency. NEUROLOGIC: Denies headaches, dizziness, syncope. MUSCULOSKELETAL: Negative for arthritis. Denies muscle weakness. No limitation in range of motion. VASCULAR: Denies claudication and cramping. ENDOCRINOLOGY: Denies heat or cold intolerance. HEMATOLOGY: Denies easy bleeding or blood transfusion. DERMATOLOGY: Denies changes in moles or pigmentation changes. Psychiatric ROS: Depression: See HPI. Sari: The patient denies elevated/expansive mood, decreased need for sleep, grandiosity, pressuredspeech, flight of ideas, distractibility, increase in goal directed activity, and hypersexuality. Psychosis: The patient denies audio or visual hallucinations, delusions, thought broadcasting, thought insertion, delusions of reference, catatonia, or disorganized speech or behavior. Anxiety: See HPI. Panic: The patient denies any recent panic episodes. PTSD: The patient denies any h/o trauma and does not endorse any current s/s related to PTSD. OCD: The patient denies intrusive thoughts, repetitive behaviors, counting, checking, washing, symmetry, or grouping and ordering that take up more than 1 hour of the day. Eating Disorder: The patient denies feeling overweight, excessive dieting or exercise to lose weight, overuse of laxatives, binging/purging behaviors, and amenorrhea. MEDICAL HISTORY Non-psychiatric medical history: Past Medical History: Diagnosis Date Alcohol use disorder Anxiety Cervical spinal stenosis CHF (congestive heart failure) ([facility]) Chronic back pain COPD (chronic obstructive pulmonary disease) ([facility]) Depression Hypertension Current medications: amLODIPine, 10 mg, oral, Daily doxycycline, 100 mg, oral, q12h FABIEN enoxaparin, 40 mg, subcutaneous, q24h FABIEN famotidine, 20 mg, oral, Daily FLUoxetine, 40 mg, oral, Daily folic acid, 1 mg, oral, Daily gabapentin, 100 mg, oral, TID multivitamin with minerals-iron, 1 each, oral, Daily mupirocin, , Each Nostril, TID phosphorus, 250 mg, oral, TID propranoloL, 40 mg, oral, BID sodium chloride, 10 mL, intravenous, BID ALLERGIES: Allergies Allergen Reactions Penicillins Rash MSE: Appearance: AOx4. Appears stated age, well groomed. Pleasant and cooperative. Adequate eye contact.No psychomotor agitation or retardation. No evidence of EPS. Muscle tone/station: WNL. Orientation: To person, place, time, and situation. Attention and Concentration: No deficits in attention and concentration. Speech: Normal rate, rhythm, volume, and tone. Mood: The same. Affect: Dysphoric and anxious with restricted range, mood congruent. No lability noted. Thought Process: Coherent, linear, logical, and goal-directed. No FOI or BEST. No thought blocking. Thought Content: SI, as above. Denies homicidal ideation. Denies auditory/visual hallucinations. Nodelusions. No paranoia. Perception/associations: Denies hallucinations, somatic complaints, or tactile disturbances Suicidal Ideations: SI, as above. Homicidal Ideations: Pt denies HI, intent, or plan. Low acute risk. No history of violence. No access to firearms. Behavior: No abnormal behavior during interview. Fund of Knowledge: Appropriate for age and level of education Intellect/Memory: Estimated as average based on interview. Immediate, recent, and remote memory is grossly intact. Language: No deficits Judgment/Insight: fair at present. Musculoskeletal Exam: Movement: [x]normal []abnormal [-]dyskinesias [-]tremors [-]tics Station: [x]upright []hyperflexed/stooped []hyperextended Muscle strength [x]appears normal [-]appears abnormal Muscle tone: [x]normal [-]muscle rigidity LABS: Lab Results Component Value Date WBC 8.7 [...] 06/24/2024 BASOSABS 0.06 06/24/2024 IMMGRANABS 0.02 06/24/2024 VITALS: BP: 119/63 (06/26 801) Heart Rate: 60 (06/26 801) Temp: 37.2 ??C (99 ??F) (06/26 801) Temp Source: Temporal (06/26 240) SpO2: 94 % (06/26 240) O2 Flow Rate (L/min): 2 L/min (06/26 240) O2 Delivery Method: Nasal cannula (06/25 153) ASSESSMENT: Cherelle Gonsales is a 63 y.o. female with psychiatric history significant for depression, anxiety, and alcohol/cocaine/tobacco use disorders and medical history significant for but not limited to COPD, HTN, chronic back pain, and cervical spinal stenosis who was admitted for acute hypoxic respiratory failure and aspiration PNA. Psychiatry was consulted due to concern for suicidal ideations. DSM-5 DIAGNOSIS: Suicidal ideations Depressive disorder, unspecified Anxiety disorder, unspecified Alcohol/cocaine/tobacco use disorders COPD, HTN, chronic back pain, and cervical spinal stenosis Admitted for acute hypoxic respiratory failure and aspiration PNA; has developed AMS TREATMENT PLAN: Pt has verbalized understanding and given consent/agreement with medications and plan offered. LEVEL OF CARE: Continue current level of treatment. RECOMMENDATIONS: Offered increase in Prozac, but the patient declined. She notes that she has done better on Cymbalta in the past, and she wants to try to go back to that medication. Decrease Prozac to 20 mg PO qAM x3 days, then discontinue. Initiate Cymbalta 30 mg/day for depression and anxiety. Discussed/Reviewed mechanism of action of SNRIs, expected benefits and time to response, common SEs including GI, MATOS, increased BP, drowsiness or activation, sexual SEs, and withdrawal syndrome, and more rare but serious adverse effects including hepatotoxicity, seizures, agitation, sari, suicidal thoughts and behaviors. Continue sitter for safety. The patient meets criteria for Section 12 and cannot leave the hospitalAMA. She will need frequent recurrent evaluations for SI as her AMS clears. Psychiatry will continue to follow. Please alert the u/s when the patient has been medically cleared. At that time, will asthe storage specialist to evaluate for possible transfer to a psychiatric unit. Continue to offer Zyprexa Zydis prn agitation. Medication Education: Risks, benefits, alternatives, and potential side effects were discussed withthe patient. Patient voiced understanding and agreed with medication regimen described above. LABS: Reviewed and discussed most recent labs results. MEDICATION CONTRACT: Patient agreed to take medication only as prescribed and acknowledges that services may be terminated if prescription abuse is observed. SAFETY PLAN: Patient is to alert team if symptoms worsen. Team will monitor for development of suicidal ideations or an acute medication reaction. - Call 911 or present to nearest Emergency Room in case of crisis / suicidal thoughts upon discharge. EDUCATION/CONSENT: Discussed and explained all diagnoses including differential diagnosis and treatment options. Discussed risks, benefits, potential side effects, contraindications, potential drug-drug interactions, alternatives to current medications and medication allergies as noted above. Discussed continuing to monitor for side effects and treatment efficacy prospectively and delineated patient's involvement and responsibility in monitoring for side effects and efficacy. Lucien bell expressed understanding of these recommendations. BARRIERS TO LEARNING: Patient demonstrates a readiness to learn. Patient verbalizes understanding and agrees to plan. No barriers to communication noted. MEDICATION RECONCILIATION: Medications were reviewed and reconciled with the patient. PREVENTATIVE RECOMMENDATIONS: Preventative Health Education Counseling: discussed proper diet/nutrition, exercise, and sleep hygiene. The patient was encouraged to avoid nicotine, alcohol and illicitdrugs at all times. The patient was made aware that records from the u/s can be sent to his/her PCP at any time that he/she requests. * Anjelica Parker MD - 06/26/2024 8:26 AM EST The u/s attempted to see the patient this morning, but she was sleeping and would not rouse to the sound of her name being called. She mumbled something incoherent and then went back to sleep at one point. Will allow the patient to continue to rest at this time. * Erika Haynes RN - 06/26/2024 4:41 AM EST Problem: Skin Integrity: Pressure Injury Actual or Risk of Goal: Will not develop new pressure injury Outcome: Progressing Goal: Skin integrity will improve Outcome: Progressing Goal: Risk for impaired skin integrity will decrease Outcome: Progressing Problem: Activity:Pressure Injury Actual or Risk of Goal: Mobility will improve Outcome: Progressing Problem: Nutritional:Pressure Injury Actual or Risk of Goal: Nutritional status will improve Outcome: Progressing Problem: Patient Specific Problem: Pressure Injury Actual or Risk of Goal: Patient Specific Outcome Outcome: Progressing Goals: Eliminate SI and improve breathing; titrate off of O2 Identify possible barriers to meeting goals/advancing plan of care: Pt has a hx of major depression and ETOH abuse Stability of the patient: Moderately Unstable - Medium risk of patient condition declining or worsening End of Shift Summary: Pt alert and oriented; cooperative and pleasant with care. 1:1 sitter in roomfor safety. No c/o pain. 2L n/c and satting in mid 90s. All SI precautions followed. Resting at this time watching tv * Grisel Wynn MD - 06/25/2024 3:11 PM EST Images from the original note were not included. MELISSA PROGRESS NOTE Date: 06/25/2024 Author: Grisel Wynn MD Patient ID: Cherelle Gonsales is a 63 y.o. female : 1960 MR#: [id number] SUBJECTIVE Patient seen and examined. Patient admitted to ICU for acute respiratory failure secondary to aspiration pneumonia, in the setting of severe alcohol disorder, also concern for suicidal thoughts. Was noted to be obtunded requiring naloxone infusion briefly in the ICU. Stabilized and transferred out. Patient is much more awake today, answering to questions appropriately. Sitter present at the bedside no acute issues overnight. Current Medications: amLODIPine, 10 mg, oral, Daily enoxaparin, 40 mg, subcutaneous, q24h FABIEN famotidine, 20 mg, oral, Daily FLUoxetine, 40 mg, oral, Daily folic acid, 1 mg, oral, Daily gabapentin, 100 mg, oral, TID multivitamin with minerals-iron, 1 each, oral, Daily mupirocin, , Each Nostril, TID phosphorus, 250 mg, oral, TID propranoloL, 40 mg, oral, BID sodium chloride, 10 mL, intravenous, BID PRN medications: acetaminophen, albuterol, calcium carbonate, hydrALAZINE, LORazepam, naloxone, nicotine polacrilex, OLANZapine, ondansetron, [COMPLETED] Insert peripheral IV AND Maintain IV access AND [COMPLETED] Saline lock IV AND sodium chloride AND sodium chloride OBJECTIVE Vitals: 06/24/24 1852 06/24/24 2033 06/25/24 0253 06/25/24 0802 BP: 117/59 128/69 112/51 (!) 149/69 BP Location: Left arm Left arm Left arm Left arm Patient Position: Lying Lying Lying Sitting Pulse: 64 59 59 64 Resp: 18 17 16 18 Temp: 36.7 ??C (98.1 ??F) 35.8 ??C (96.4 ??F) 36.4 ??C (97.5 ??F) 36.2 ??C (97.2 ??F) TempSrc: Temporal Temporal Temporal Temporal SpO2: 95% 96% 96% 99% Weight: Height: Physical Exam Elderly female, awake answering to questions appropriately HEENT PERRLA Neck supple Chest no accessory muscle use slightly diminished breath sounds Heart S1-S2 regular no murmurs appreciated Abdomen soft nontender bowel sounds present Extremities no edema Results from last 7 days Lab Units 06/25/24 0517 SODIUM mmol/L 134 POTASSIUM mmol/L 3.5 CHLORIDE mmol/L 98 CO2 mmol/L 30 BUN mg/dL 13 CREATININE mg/dL 0.54 GLUCOSE mg/dL 84 CALCIUM mg/dL 8.7 Results from last 7 days Lab Units 06/24/24 0531 WBC AUTO K/mcL 8.7 HEMOGLOBIN g/dL 10.4* HEMATOCRIT % 33.0* PLATELETS K/mcL 305 No results found for this or any previous visit (from the past 168 hour(s)). Imaging: XR Chest 1 View Narrative: XR CHEST 1 VIEW INDICATION: Pneumonia TECHNIQUE: XR CHEST 1 VIEW COMPARISON: 06/19/2024 Impression: FINDINGS/IMPRESSION: Right upper extremity PICC terminates in the right atrium. Elevated right diaphragm with unchanged right basilar opacity, possibly atelectasis. No pleural effusion orpneumothorax. Cardiac silhouette and bones are stable compared to prior -------- FINAL REPORT -------- Dictated By: DELANO BARAJAS Dictated Date: 06/21/2024 08:08 ET Assigned Physician: DELANO BARAJAS Reviewed and Electronically Signed By: DELANO BARAJAS Signed Date: 06/21/2024 08:09 ET Workstation ID: [id number] Transcribed By: Self Edit Transcribed Date: 06/21/2024 08:08 ET ASSESSMENT & PLAN This is a 63-year-old female with history of major depressive disorder, alcohol use disorder, cocaine use, COPD tobacco dependence, presenting to the emergency room initially with complaints of difficulty breathing, vomiting. Patient was noted to be hypoxic, concern for aspiration pneumonia, admitted for acute hypoxic respiratory failure secondary to likely aspiration pneumonia, and also possiblemethadone intoxication. Patient continued to be obtunded, and required to be started on naloxone infusion, hence transferred to the ICU. Patient was also monitored for her alcohol withdrawal, was briefly on Precedex drip aswell. Patient stabilized in the ICU and transferred out to the telemetry floor last evening. Acute hypoxic respiratory failure Likely secondary to methadone intoxication, aspiration pneumonia Continue supplemental oxygen, titrate as tolerated Continue with doxycycline to complete the course. Encourage incentive spirometry. Alcohol use disorder History of alcohol withdrawal seizures Not scoring on CIWA at this time. Followed by addiction service team as well. Major depression with suicidal ideation Methadone overdose, intentional self-harm Patient reported of taking methadone and also with suicidal ideation. Continue with sitter at this time. Seen by psychiatry started on Prozac. Patient cannot leave AGAINST MEDICAL ADVICE at this time need continued evaluation for suicidal ideation Mental status simon she is much more awake today, answering to questions appropriately. Will resume back on gabapentin 100 mg 3 times daily home dosing. Hypertension on amlodipine DVT prophylaxis Lovenox General Weakness was seen by PT earlier and had recommended rehab however she is much more awake today and appears much improved, will have PT reevaluate in a.m., Will have PT reeval done, if clearedfrom PT, then consider looking into possible inpatient psych facility if still needs per psych recommendations. CODE STATUS is full Continue with sitter per psychiatry recommendations for now. Cannot leave AMA. * Mary Beth Sandoval LCSW - 06/25/2024 3:09 PM EST Sw met with the pt at the bedside the pt was alert and oriented pt is on a section 12 pt states that she does not have any SI at this time pt in interested in going to a TSS pt is homeless a TSS referral will be placed to [facility] pt is also open to residential placement * VIKAS Jama - 06/25/2024 12:44 PM EST Images from the original note were not included. Speech Language Pathology [facility] HOME RESTORATION SERVICE SUPERVISOR TREATMENT NOTE NAME: Cherelle Gonsales DATE OF : 1960 ROOM: [facility]524- Pt ID by: Self, Full Name and DATE: 06/25/24 TIME CALCULATION: HOME RESTORATION SERVICE SUPERVISOR Start Time: 1130 HOME RESTORATION SERVICE SUPERVISOR Stop Time: 1200 HOME RESTORATION SERVICE SUPERVISOR Time Calculation (min): 30 min Child Health Associate Required: No ADMISSION DIAGNOSIS: Aspiration pneumonitis (CMS/HCC) [J69.0] SOB (shortness of breath) [R06.02] Hypoxia [R09.02] Pneumonia of right lower lobe due to infectious organism [J18.9] Acute hypoxemic respiratory failure (CMS/HCC) [J96.01] MISSED TIME: FAMILY/CAREGIVER PRESENT: SUBJECTIVE SUBJECTIVE: Chart reviewed, and patient seen for HOME RESTORATION SERVICE SUPERVISOR follow up for ongoing . Sitting at edge of thebed. Sitter present. Patient has crackers at bedside, dislike for current diet texture Level 5 solids. PRECAUTIONS: Medical Precautions: Contact Safety Interventions: Sitter Swallow Precautions: Aspiration, Modified Diet Alert , Responsive, and Cooperative OBJECTIVE PAIN: VITALS: OXYGEN THERAPY: TREATMENTS: Treatments: Swallow Function SWALLOW FUNCTION: Swallow/Oral Function Treatment Time Entry: 30 Swallow Activity 1: Thin liquids via straw: adequate labial seal, no s/s aspiration Swallow Activity 2: Regular solids x 4: adequate mastication and oral clearance, laryngeal movementpalpated, no s/s aspiration, no c/o globus. Diet Recommendations: Regular solids/thin liquids Swallow Comments: tolerated upgraded trials of solids. Pt reports back to baseline. ASPIRATION RISK: Diet Solids Recommendation: IDDSI Level 7 Regular Diet Liquids Recommendation: Thin liquids Recommended Medication Route: PO ASSESSMENT HOME RESTORATION SERVICE SUPERVISOR ASSESSMENT: HOME RESTORATION SERVICE SUPERVISOR Assessment Results: Swallowing impairments Dysphagia Diagnosis: Within Functional Limits Evaluation/Treatment Tolerance: Patient tolerated treatment well Medical Staff Made Aware: Yes Comments: discussed with RN and sent message to MD Swallowing returned to baseline now that Mental status improved. DIET SOLIDS RECOMMENDATIONS: IDDSI Level 7 Regular DIET LIQUIDS RECOMMENDATIONS: Thin liquids CURRENT DIET ORDERED: Dietary Orders (From admission, onward) Start Ordered 06/25/24 1056 Adult diet [facility]; General, Modified Consistency Options for Liquids and Solids; Regular; IDDSI Level 5 Minced & Moist; Patient Safety Tray Diet effective now Question Answer Comment Location [facility] Diet Type (req) General Diet Type (req) Modified Consistency Options for Liquids and Solids General Diet Regular Modified Consistency Options for Liquids and Solids IDDSI Level 5 Minced & Moist Miscellaneous Patient Safety Tray 06/25/24 1057 PLAN HOME RESTORATION SERVICE SUPERVISOR PLAN: Treatment/Interventions: Swallow function HOME RESTORATION SERVICE SUPERVISOR Plan: No skilled HOME RESTORATION SERVICE SUPERVISOR No Skilled HOME RESTORATION SERVICE SUPERVISOR: Independent with swallowing HOME RESTORATION SERVICE SUPERVISOR Frequency: 2-5 days per week HOME RESTORATION SERVICE SUPERVISOR Treatments per day: 1 time per day HOME RESTORATION SERVICE SUPERVISOR - Evaluation Status: Complete Diet Recommendations: Regular solids/thin liquids DISCHARGE RECOMMENDATIONS No Speech-Language Pathology (HOME RESTORATION SERVICE SUPERVISOR) services/needs at next level of care. EDUCATION EDUCATION: Education Documentation Modified Diet Training, taught by VIKAS Jama at 06/25/2024 12:44 PM. Learner: Patient Readiness: Acceptance Method: Explanation Response: Demonstrated Understanding Education Comments No comments found. GOALS GOALS: Encounter Problems Encounter Problems (Active) There are no active problems. Encounter Problems (Resolved) Template: Speech Therapy Problem: Swallowing Dates: Start: 06/21/24 Resolved: 06/25/24 Goal: Patient will tolerate recommended food and liquid consistencies without clinical signs and symptoms of aspirations (Resolved) Dates: Start: 06/21/24 Expected End: 06/28/24 Resolved: 06/25/24 Description: Goal Type: STG, Performance Level: Min assist Outcomes Date/Time User Outcome 06/25/24 1243 VIKAS Jama Completed Goal: Patient will tolerate therapeutic trials of recommended consistency without clinical signs and symptoms of aspiration (Resolved) Dates: Start: 06/21/24 Expected End: 06/28/24 Resolved: 06/25/24 Description: Goal Type: STG, Performance Level: Min assist Outcomes Date/Time User Outcome 06/25/24 1243 VIKAS Jama Completed * Shantel Cooper DO - 06/25/2024 10:33 AM EST Images from the original note were not included. Cherelle Gonsales 1960 [id number] Author: LUCIEN Vazquez DOS: 06/25/2024 Requesting Service: Hospitalist Service Chief Complaint: Acute on chronic respiratory failure with hypercapnia (CMS/HCC) Reason for Consultation: Alcohol use disorder Source of History: Patient and chart Subjective History of Present Illness: Cherelle Gonsales is a 63 y.o. female with a history of alcohol use disorder presenting to the hospital ultimately for shortness of breath. Patient ultimately took a friend's methadone and was placed on a Narcan drip with an ICU level care. During patient's ICU course patient became somewhat encephalopathic and was placed on a Precedex drip. Patient now been moved to the stepdown floor with symptoms drastically improving. Patient remains a section 12 at this time. Patient's alcohol use history is primarily of care and has a history of alcohol withdrawal seizures. Admits that she has not used illicit drugs in many years prior to taking a friend's methadone. Allergies: Allergies Allergen Reactions Penicillins Rash Home Medications: Prior to Admission medications Medication Sig Start Date End Date Taking? Authorizing Provider amLODIPine (NORVASC) 5 mg tablet Take 1 tablet (5 mg total) by mouth 1 (one) time each day. 03/20/24istorical Provider, cloNIDine (CATAPRES) 0.1 mg tablet Take 1 tablet (0.1 mg total) by mouth 4 (four) times a day. 12/15/23 Historical Provider, ferrous sulfate 325 mg (65 mg iron) EC tablet Take 1 tablet (325 mg total) by mouth every other day. 03/20/24 Historical Provider, FLUoxetine (PROzac) 20 mg capsule Take 3 capsules (60 mg total) by mouth. 03/20/24 Historical Provider, gabapentin (NEURONTIN) 100 mg capsule Take 3 capsules (300 mg total) by mouth 3 (three) times a day. 12/15/23 Historical Provider, hydrOXYzine pamoate (VISTARIL) 25 mg capsule Take 2 capsules (50 mg total) by mouth 3 (three) timesa day if needed for anxiety. Patient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 [COMPLETED] Insert peripheral IV AND Maintain IV access AND [COMPLETED] Saline lock IV AND sodium chloride AND sodium chloride OBJECTIVE Vitals: 06/23/24 2002 06/24/24 0100 06/24/24 0633 06/24/24 0804 BP: 123/66 118/62 113/50 BP Location: Left arm Left arm;Upper Left arm Patient Position: Lying Lying Lying Pulse: 61 60 62 Resp: 18 16 16 Temp: 36.2 ??C (97.2 ??F) 36.7 ??C (98 ??F) 36.7 ??C (98.1 ??F) TempSrc: Temporal Temporal Temporal SpO2: 93% 95% 94% Weight: 90.2 kg (198 lb 14.4 oz) Height: Physical Exam Elderly female, sleepy but easily arousable and answering to questions in single words HEENT PERRLA Neck supple Chest no accessory muscle use slightly diminished breath sounds Heart S1-S2 regular no murmurs appreciated Abdomen soft nontender bowel sounds present Extremities no edema Results from last 7 days Lab Units 06/24/24 0531 SODIUM mmol/L 135 POTASSIUM mmol/L 3.3* CHLORIDE mmol/L 97 CO2 mmol/L 30 BUN mg/dL 15 CREATININE mg/dL 0.56 GLUCOSE mg/dL 82 CALCIUM mg/dL 8.4* Results from last 7 days Lab Units 06/24/24 0531 WBC AUTO K/mcL 8.7 HEMOGLOBIN g/dL 10.4* HEMATOCRIT % 33.0* PLATELETS K/mcL 305 Recent Results (from the past 168 hour(s)) Legionella antigen urine, EIA Collection Time: 06/18/24 10:12 AM Result Value Ref Range Legionella Antigen, Ur Negative Negative MRSA molecular study Collection Time: 06/18/24 10:12 AM Specimen: Nares; Swab Result Value Ref Range MRSA Screen PCR Detected (A) Not Detected Imaging: XR Chest 1 View Narrative: XR CHEST 1 VIEW INDICATION: Pneumonia TECHNIQUE: XR CHEST 1 VIEW COMPARISON: 06/19/2024 Impression: FINDINGS/IMPRESSION: Right upper extremity PICC terminates in the right atrium. Elevated right diaphragm with unchanged right basilar opacity, possibly atelectasis. No pleural effusion orpneumothorax. Cardiac silhouette and bones are stable compared to prior -------- FINAL REPORT -------- Dictated By: DELANO BARAJAS Dictated Date: 06/21/2024 08:08 ET Assigned Physician: DELANO BARAJAS Reviewed and Electronically Signed By: DELANO BARAJAS Signed Date: 06/21/2024 08:09 ET Workstation ID: [id number] Transcribed By: Self Edit Transcribed Date: 06/21/2024 08:08 ET ASSESSMENT & PLAN This is a 63-year-old female with history of major depressive disorder, alcohol use disorder, cocaine use, COPD tobacco dependence, presenting to the emergency room initially with complaints of difficulty breathing, vomiting. Patient was noted to be hypoxic, concern for aspiration pneumonia, admitted for acute hypoxic respiratory failure secondary to likely aspiration pneumonia, and also possiblemethadone intoxication. Patient continued to be obtunded, and required to be started on naloxone infusion, hence transferred to the ICU. Patient was also monitored for her alcohol withdrawal, was briefly on Precedex drip aswell. Patient stabilized in the ICU and transferred out to the telemetry floor last evening. Acute hypoxic respiratory failure Likely secondary to methadone intoxication, aspiration pneumonia Continue supplemental oxygen, slowly improving. Switch to doxycycline to complete course of antibiotics at this time. Encourage incentive spirometry Alcohol use disorder History of alcohol withdrawal seizures Not scoring on CIWA at this time. Followed by addiction service team as well. Major depression with suicidal ideation Methadone overdose, intentional self-harm Patient reported of taking methadone and also with suicidal ideation. Continue with sitter at this time. Seen by psychiatry started on Prozac. Patient cannot leave AGAINST MEDICAL ADVICE at this time need continued evaluation for suicidal ideation Has olanzapine as needed for agitation. Did not receive any dose yesterday. Currently sleepy but easily arousable. Hypertension on amlodipine DVT prophylaxis Lovenox CODE STATUS is full Continue with sitter per psychiatry recommendations for now. Cannot leave AMA. Discussed with geriatric social worker, will reassess in a.m., overall improving * Grisel Wynn MD - 06/24/2024 11:03 AM EST [facility] Provider Response Note PATIENT: CHERELLE GONSALES : 1960 ADMIT DATE: 06/17/2024 3:36 AM DISCH DATE: RESPONDING PROVIDER #: [id number] PROVIDER RESPONSE TEXT: The patient has acute respiratory failure QUERY TEXT: The provider is required to clarify conflicting documentation in the medical record. The following documentation is noted in the medical record: Progress Notes 06/22/2024 (1) Subjective : This is a 63-year-old female with a past medical history significant for major depressive disorder,severe alcohol use disorder complicated by alcohol withdrawal seizures, cocaine use, tobacco dependence, COPD who initially was admitted to [facility] in 06/16/2024 into 06/17/2024 for acute r espiratory failure with hypoxia likely secondary to aspiration pneumonia in the setting of severe alcohol use disorder. ED Provider Notes 06/16/2024 (1) Patient be admitted to the hospital for acute respiratory failure secondary to pneumonia. Progress Notes 06/21/2024 Patient Active Problem List : Diagnosis : - Aspiration pneumonitis (CMS/HCC) - Acute on chronic respiratory failure with hypercapnia (CMS/HCC) Progress Notes 06/22/2024 ACUTE MEDICAL ISSUES Acute on chronic respiratory failure with hypercapnia Aspiration pneumonitis MRSA carrier - Patient initially observed hypoxic on admission, she is not oxygen dependent - Patient is not currently requiring BiPAP or high flow, she is on nasal cannula Progress Notes 06/22/2024 (2) Subjective : She is observed on oxygen via nasal canula. Assessment/Plan : - Patient initially observed hypoxic on admission, she is not oxygen dependent Progress Notes 06/22/2024 (1) She is not on chronic oxygen. ARTERIAL BLOOD GAS 06/21/2024 05:36 06/17/2024 06:42 06/17/2024 01:04 Sb Test Pass Pass Pass Base Excess, Arterial (mmol/L) 11.2 0.0 -2.3 FIO2 30.00 45.00 100.00 HCO3, Arterial (mmol/L) 33.7 24.9 23.1 O2 Sat, Arterial (%) 99.1 97.5 98.7 pCO2, Arterial (mmHg) 53 65 59 pH, Arterial (pH) 7.45 7.25 7.25 pO2, Arterial (mmHg) 89 89 128 Diagnosis 1: acute respiratory failure Documented by: Camilla Chan NP Location: Progress Notes 06/22/2024 Diagnosis 2: Acute on chronic respiratory failure Documented by: Camilla Chan NP, Vickie Carmona MD, Jonathan Cole DO Location: Progress Notes 06/21/2024 , Progress Notes 06/22/2024 Please clarify the appropriate diagnosis for this patient. Contact: The patient's clinical indicators include: Options provided: -- Acute respiratory failure -- Acute on chronic respiratory failure -- Other - I will add my own diagnosis -- Disagree - Not applicable / Not valid Query created by: Stefany Tanner on 06/23/2024 12:23 PM Electronically signed by: GRISEL WYNN MD 06/24/2024 11:02 AM * Anjelica Parker MD - 06/24/2024 9:27 AM EST The u/s attempted to see the patient this morning, but she was sleeping. The u/s deemed it appropriate to allow the patient to continue to rest. Psychiatry will continue to follow. * Renetta Roca, PT - 06/23/2024 3:10 PM EST [place], [place] Acute Care PT TREATMENT 06/23/2024 Patient Information Cherelle Gonsales 1960 63 y.o. Ambulation: Walking Assistance: Minimum assistance Device: Rolling walker Distance Ambulated (ft): (30 ft x 2) PLOF: Level of [place]: Independent with mobility and functional transfers Lives With: (homeless) Home Adaptive Equipment: (her RW was stolen so no AD now) Home Living Comments: she was living in the streets. PT Discharge Recommendation: longterm facility placement Medical Diagnosis ICD-10-CM ICD-9-CM 1. Pneumonia of right lower lobe due to infectious organism J18.9 486 2. SOB (shortness of breath) R06.[address] Angio Chest wo and/or w Contrast CT Angio Chest wo and/or w Contrast 3. Hypoxia R09.02 799.02 4. Aspiration pneumonitis ([facility]) J69.0 507.0 5. Acute on chronic respiratory failure with hypercapnia (CMS/HCC) J96.22 518.84 Rehabilitation Precautions/Restrictions Precautions Medical Precautions: Droplet (MRSA Nares) Safety Interventions: Sitter Swallow Precautions: Aspiration, Modified Diet PT Session: PT Time Calculation PT Start Time: 1510 PT Stop Time: 1540 PT Time Calculation (min): 30 min SUBJECTIVE Pt was pleased to be walking OBJECTIVE Vitals/Pain: Vital Signs Heart Rate: 78 Oxygen Therapy Oxygen Therapy: Supplemental oxygen O2 Delivery Method: Nasal cannula O2 Flow Rate (L/min): 2 L/min Pain Assessment Pain Assessment: No/denies pain General Assessments: Activity Tolerance Endurance: Tolerates 10 - 20 min exercise with multiple rests Dynamic Standing Balance Dynamic Standing-Level of Assistance: Contact guard Dynamic Standing-Balance: Ambulation Dynamic Standing-Comments: fair + with RW Functional Assessments: Bed Mobility Lying to Sitting Assistance: Minimum assistance Transfers Sit to Stand Assistance: Minimum assistance, Contact guard Ambulation Walking Assistance: Minimum assistance Device: Rolling walker Distance Ambulated (ft): (30 ft x 2) Comments: pt had the O2 line and mack catheter as she walked in the room Procedure/Treatment: Therapeutic Activity Therapeutic Activity Time Entry: 30 Therapeutic Activity 1: pls see above for mobility. Pt tolerating sitting up in chair after gait. Sitter was present. VCs for safe turning before sitting in chair and VCs for hand placement for sit <->stand Education Education Documentation Mobility Training, taught by Renetta Roca PT at 06/23/2024 3:10 PM. Learner: Patient Readiness: Acceptance Method: Explanation, Demonstration Response: Verbalizes Understanding, Demonstrated Understanding Comment: safe sit to stand and turning all the way before sitting in chair. Education Comments No comments found. ASSESSMENT Pt ambulated safely with walker and assist of 1. Continue PT to work on improving her strength and mobility. Recommend rehab. PT Assessment PT Assessment Results: Decreased strength, Decreased endurance, Decreased safety awareness, Impaired gait Prognosis: Good Evaluation/Treatment Tolerance: Patient tolerated treatment well Medical Staff Made Aware: Yes Equipment Equipment Received: Equipment Recommended: Rolling walker PLAN During acute care stay: PT Plan: Skilled PT PT Frequency: 2-5 days per week Treatment/Interventions: Functional transfer training, Bed mobility, Gait training, Balance training PT Discharge Recommendations: longterm facility placement PT Time Entry: Therapeutic Activity Time Entry: 30 * Grisel Wynn MD - 06/23/2024 2:13 PM EST Images from the original note were not included. [facility] PROGRESS NOTE Date: 06/23/2024 Author: Grisel Wynn MD Patient ID: Cherelle Gonsales is a 63 y.o. female : 1960 MR#: [id number] SUBJECTIVE Patient seen and examined. Was transferred from ICU yesterday evening. Patient admitted to ICU for acute respiratory failure secondary to aspiration pneumonia, in the setting of severe alcohol disorder, also concern for suicidal thoughts. Was noted to be obtunded requiring naloxone infusion briefly in the ICU. Stabilized and transferred out. Patient on 2 L nasal cannula at the time of my visit. Sitter present at the bedside. Discussed withRN no acute issues overnight. Patient complains of some cough with greenish sputum. Currently denies any pain. States she has been eating fine. Current Medications: amLODIPine, 10 mg, oral, Daily doxycycline, 100 mg, oral, q12h FABIEN enoxaparin, 40 mg, subcutaneous, q24h FABIEN famotidine, 20 mg, oral, Daily FLUoxetine, 40 mg, oral, Daily folic acid, 1 mg, oral, Daily multivitamin with minerals-iron, 1 each, oral, Daily phosphorus, 250 mg, oral, TID propranoloL, 40 mg, oral, BID sodium chloride, 10 mL, intravenous, BID PRN medications: acetaminophen, albuterol, calcium carbonate, hydrALAZINE, LORazepam, naloxone, OLANZapine, ondansetron, [COMPLETED] Insert peripheral IV AND Maintain IV access AND [COMPLETED] Saline lock IV AND sodium chloride AND sodium chloride OBJECTIVE Vitals: 06/23/24 0019 06/23/24 0320 06/23/24 0735 06/23/24 1115 BP: 128/63 (!) 152/78 (!) 181/84 (!) 145/80 BP Location: Left arm Left arm Patient Position: Lying Lying Pulse: 66 63 66 58 Resp: 19 18 17 18 Temp: 36.4 ??C (97.6 ??F) 36.2 ??C (97.2 ??F) 36.4 ??C (97.6 ??F) 35.8 ??C (96.5 ??F) TempSrc: Temporal Temporal SpO2: 95% 98% 98% 97% Weight: Height: Physical Exam Elderly female, not in any acute distress on 2 L nasal cannula HEENT PERRLA Neck supple Chest no accessory muscle use slightly diminished breath sounds, some rhonchi heard. Heart S1-S2 regular no murmurs appreciated Abdomen soft nontender bowel sounds present Extremities no edema Results from last 7 days Lab Units 06/23/24 0425 SODIUM mmol/L 135 POTASSIUM mmol/L 3.4* CHLORIDE mmol/L 98 CO2 mmol/L 31 BUN mg/dL 15 CREATININE mg/dL 0.55 GLUCOSE mg/dL 82 CALCIUM mg/dL 8.5 Results from last 7 days Lab Units 06/23/24 0425 WBC AUTO K/mcL 8.4 HEMOGLOBIN g/dL 10.3* HEMATOCRIT % 32.9* PLATELETS K/mcL 328 Recent Results (from the past 168 hour(s)) Respiratory virus panel molecular study Collection Time: 06/16/24 9:20 PM Specimen: Nares; Swab Result Value Ref Range Adenovirus Detection by PCR Not Detected Not Detected Influenza A PCR Not Detected Not Detected Influenza B PCR Not Detected Not Detected Coronavirus 229E Not Detected Not Detected Coronavirus HKU1 Not Detected Not Detected Coronavirus OC43 Not Detected Not Detected Coronavirus NL63 Not Detected Not Detected Parainfluenza Virus 1 Not Detected Not Detected Parainfluenza Virus 2 Not Detected Not Detected Parainfluenza Virus 3 Not Detected Not Detected Parainfluenza Virus 4 Not Detected Not Detected RSV PCR Not Detected Not Detected Human Metapneumovirus A and B Not Detected Not Detected Rhinovirus/Enterovirus Not Detected Not Detected Bordetella pertussis Not Detected Not Detected Bordetella parapertussis Not Detected Not Detected Mycoplasma pneumo by PCR Not Detected Not Detected Chlamydia pneumoniae Not Detected Not Detected SARS COV-2 Not Detected Not Detected Legionella antigen urine, EIA Collection Time: 06/18/24 10:12 AM Result Value Ref Range Legionella Antigen, Ur Negative Negative MRSA molecular study Collection Time: 06/18/24 10:12 AM Specimen: Nares; Swab Result Value Ref Range MRSA Screen PCR Detected (A) Not Detected Imaging: XR Chest 1 View Narrative: XR CHEST 1 VIEW INDICATION: Pneumonia TECHNIQUE: XR CHEST 1 VIEW COMPARISON: 06/19/2024 Impression: FINDINGS/IMPRESSION: Right upper extremity PICC terminates in the right atrium. Elevated right diaphragm with unchanged right basilar opacity, possibly atelectasis. No pleural effusion orpneumothorax. Cardiac silhouette and bones are stable compared to prior -------- FINAL REPORT -------- Dictated By: DELANO BARAJAS Dictated Date: 06/21/2024 08:08 ET Assigned Physician: DELANO BARAJAS Reviewed and Electronically Signed By: MARY, DELANO Signed Date: 06/21/2024 08:09 ET Workstation ID: [id number] Transcribed By: Self Edit Transcribed Date: 06/21/2024 08:08 ET ASSESSMENT & PLAN This is a 63-year-old female with history of major depressive disorder, alcohol use disorder, cocaine use, COPD tobacco dependence, presenting to the emergency room initially with complaints of difficulty breathing, vomiting. Patient was noted to be hypoxic, concern for aspiration pneumonia, admitted for acute hypoxic respiratory failure secondary to likely aspiration pneumonia, and also possiblemethadone intoxication. Patient continued to be obtunded, and required to be started on naloxone infusion, hence transferred to the ICU. Patient was also monitored for her alcohol withdrawal, was briefly on Precedex drip aswell. Patient stabilized in the ICU and transferred out to the telemetry floor last evening. Acute hypoxic respiratory failure Likely secondary to methadone intoxication, aspiration pneumonia Currently on 2 L nasal cannula, improving, continue with IV antibiotics for now Encourage incentive spirometry Alcohol use disorder History of alcohol withdrawal seizures Currently on CIWA scale not scoring much. Being followed by the addiction team as well. Major depression with suicidal ideation Methadone overdose, intentional self-harm Patient reported of taking methadone and also with suicidal ideation. Continue with sitter at this time. Seen by psychiatry started on Prozac. Patient cannot leave AGAINST MEDICAL ADVICE at this time need continued evaluation for suicidal ideation Continue with olanzapine as needed for agitation. Hypertension on amlodipine DVT prophylaxis Lovenox CODE STATUS is full Can transfer out of the telemetry. Continue with a sitter for now. * Simon Elkins - 06/23/2024 11:13 AM EST Images from the original note were not included. Material Controller Note Cherelle Gonsales 1960 [id number] Author: Simon Elkins DOS: 06/23/2024 Cherelle Gonsales is a 63 y.o. female with a history of opiate & EtOH misuse. I utilized active listening and motivational interviewing during this contact to help establish a positive working rapport and to continue to build trust. Ms. Gonsales and I know each other quite well having worked together a few times during her past visits to [facility]. Today, Ms. Gonsales and I discussed just staying put. Not leaving the hospital P.D.D. (or A.M.A.) Ms. Gonsales biggest concern is her homelessness so she and I talked about going through entire months worth of programs. Referrals: None Required at this time Harm Reduction: None required at this time SIGNATURES: Simon Elkins Certified Material Controller * Mary Beth Sandoval LCSW - 06/23/2024 9:33 AM EST Pt was seen by psych today pt is on a section 12 cannot leave AMA pt has 1:1 sitter sw went to the bedside pt was asleep, sw will continue to follow for d/c planning * Anjelica Parker MD - 06/23/2024 8:26 AM EST Images from the original note were not included. Connected to patient's room via I-pad with help from fitness technician; assistance much appreciated. Patient consented to visit via Telehealth video conferencing modality. Patient educated as to likely differences between Telehealth care and face to face care. Patient informed of the risks and benefits of using Telehealth services and procedures and likely risks and benefits of using alternatives to Telehealth services. Patient informed of the right to refuse Telehealth services at any time without jeopardizing his/her right to future care, services or benefits. Patient was informed that he/she is being seen solely by Anjelica Parker MD today via secure connection in a locked virtual exam room. Persons present on patient's end: Patient Persons present on provider's end: Anjelica Parker MD CHART REVIEWED, PATIENT INTERVIEWED. CHIEF COMPLAINT: SI, AMS Time spent on encounter: 10 min. HISTORY OF PRESENT ILLNESS Cherelle Gonsales is a 63 y.o. female with psychiatric history significant for depression, anxiety, and alcohol/cocaine/tobacco use disorders and medical history significant for but not limited to COPD, HTN, chronic back pain, and cervical spinal stenosis who was admitted for acute hypoxic respiratory failure and aspiration PNA. Psychiatry was consulted due to concern for suicidal ideations. The patient states that she is doing alright this morning but had a hard time staying asleep last night. She continues to feel very depressed, and she admits to continued suicidal ideations. She will notshare a plan with the u/s today. She states, I just feel like I want to drop . She continues to feel very anxious and overwhelmed. She admits to feeling confused and knows that she is not thinking as clearly as usual. REVIEW OF SYSTEMS CONSTITUTIONAL: The patient denies fevers, chills, sweats and body ache. HEENT: Denies MATOS, blurry vision, eye pain, tinnitus, vertigo, gingival bleeding, sore throat, neck or thyroid masses. RESPIRATORY: Denies cough, sputum, hemoptysis. CARDIAC: Denies chest pain, pressure, palpitations, irregular heartbeats. Denies lower extremity edema. GASTROINTESTINAL: Denies abdominal pain, changes in bowel habits or any bleeding on toilet paper. GENITOURINARY: Denies dysuria, hematuria, nocturia or frequency. NEUROLOGIC: Denies headaches, dizziness, syncope. MUSCULOSKELETAL: Negative for arthritis. Denies muscle weakness. No limitation in range of motion. VASCULAR: Denies claudication and cramping. ENDOCRINOLOGY: Denies heat or cold intolerance. HEMATOLOGY: Denies easy bleeding or blood transfusion. DERMATOLOGY: Denies changes in moles or pigmentation changes. Psychiatric ROS: Depression: See HPI. Sari: The patient denies elevated/expansive mood, decreased need for sleep, grandiosity, pressuredspeech, flight of ideas, distractibility, increase in goal directed activity, and hypersexuality. Psychosis: The patient denies audio or visual hallucinations, delusions, thought broadcasting, thought insertion, delusions of reference, catatonia, or disorganized speech or behavior. Anxiety: See HPI. Panic: The patient denies any recent panic episodes. PTSD: The patient denies any h/o trauma and does not endorse any current s/s related to PTSD. OCD: The patient denies intrusive thoughts, repetitive behaviors, counting, checking, washing, symmetry, or grouping and ordering that take up more than 1 hour of the day. Eating Disorder: The patient denies feeling overweight, excessive dieting or exercise to lose weight, overuse of laxatives, binging/purging behaviors, and amenorrhea. MEDICAL HISTORY Non-psychiatric medical history: Past Medical History: Diagnosis Date Alcohol use disorder Anxiety Cervical spinal stenosis CHF (congestive heart failure) ([facility]) Chronic back pain COPD (chronic obstructive pulmonary disease) ([facility]) Depression Hypertension Current medications: amLODIPine, 10 mg, oral, Daily doxycycline, 100 mg, oral, q12h FABIEN enoxaparin, 40 mg, subcutaneous, q24h FABIEN famotidine, 20 mg, oral, Daily FLUoxetine, 40 mg, oral, Daily folic acid, 1 mg, oral, Daily multivitamin with minerals-iron, 1 each, oral, Daily phosphorus, 250 mg, oral, TID propranoloL, 40 mg, oral, BID sodium chloride, 10 mL, intravenous, BID ALLERGIES: Allergies Allergen Reactions Penicillins Rash MSE: Appearance: Alert and oriented person and place. Appears stated age, well groomed. Pleasant and cooperative. Adequate eye contact. No psychomotor agitation or retardation. No evidence of EPS. Muscle tone/station: WNL. Orientation: As above Attention and Concentration: Confused at times, takes a long time to answer orientation questions. Speech: Mumbles, sometimes incoherently. Mood: Bad. I have no self-esteem. Affect: Dysphoric and anxious with restricted range, mood congruent. No lability noted. Not agitated at present. Thought Process: Confused at times. No FOI or BEST. No thought blocking. Thought Content: SI, as above. Denies homicidal ideation. Denies auditory/visual hallucinations. Nodelusions. No paranoia. Perception/associations: Denies hallucinations, somatic complaints, or tactile disturbances Suicidal Ideations: As above. Homicidal Ideations: Pt denies HI, intent, or plan. Low acute risk. No history of violence. No access to firearms. Behavior: No abnormal behavior during interview. Fund of Knowledge: Appropriate for age and level of education Intellect/Memory: Estimated as average based on interview. Immediate, recent, and remote memory is grossly intact. Language: No deficits Judgment/Insight: limited Musculoskeletal Exam: Movement: [x]normal []abnormal [-]dyskinesias [-]tremors [-]tics Station: [x]upright []hyperflexed/stooped []hyperextended Muscle strength [x]appears normal [-]appears abnormal Muscle tone: [x]normal [-]muscle rigidity LABS: Lab Results Component Value Date WBC 8.4 06/23/2024 RBC 4.20 06/23/2024 HGB 10.3 (L) 06/23/2024 HCT 32.9 (L) 06/23/2024 MCV 79.1 06/23/2024 MCHC 31.3 (L) 06/23/2024 RDW 16.9 (H) 06/23/2024 PLT 328 06/23/2024 MPV 10.7 06/23/2024 NRBC 0.0 06/23/2024 DIFF Lab Results Component Value Date LYMPHOPCT 19.3 06/23/2024 NEUTROABS 5.42 06/23/2024 LYMPHSABS 1.62 06/23/2024 MONOABS 0.91 06/23/2024 EOSABS 0.35 06/23/2024 BASOSABS 0.05 06/23/2024 IMMGRANABS 0.04 (H) 06/23/2024 Pain Management Panel More data may exist Latest Ref Rng & Units 06/17/2024 05/14/2024 Pain Management Panel Amphetamine Screen, Ur Negative Negative Negative Barbiturate Screen, Ur Negative Negative Positive Benzodiazepine Screen, Ur Negative Positive Positive Buprenorphine Screen Urine Negative - Negative Cocaine Screen, Ur Negative Negative Positive Fentanyl, Ur Negative Negative Negative Negative Negative Methadone Screen, Urine Negative Positive Negative Opiate Screen, Ur Negative Negative Negative PCP Scrn, Ur Negative - Negative Cannabinoid (THC) Screen, Ur Negative Negative Negative Details Multiple values from one day are sorted in reverse-chronological order VITALS: BP: 181/84 (06/23 734) Heart Rate: 66 (06/23 734) Temp: 36.4 ??C (97.6 ??F) (06/23 734) Temp Source: Temporal (06/23 734) SpO2: 98 % (06/23 734) FiO2 (%): 40 % (06/21 2339) O2 Flow Rate (L/min): 2 L/min (06/23 734) O2 Delivery Method: Nasal cannula (06/23 734) ASSESSMENT: Cherelle Gonsales is a 63 y.o. female with psychiatric history significant for depression, anxiety, and alcohol/cocaine/tobacco use disorders and medical history significant for but not limited to COPD, HTN, chronic back pain, and cervical spinal stenosis who was admitted for acute hypoxic respiratory failure and aspiration PNA. Psychiatry was consulted due to concern for suicidal ideations. DSM-5 DIAGNOSIS: Suicidal ideations Depressive disorder, unspecified Anxiety disorder, unspecified Alcohol/cocaine/tobacco use disorders COPD, HTN, chronic back pain, and cervical spinal stenosis Admitted for acute hypoxic respiratory failure and aspiration PNA; has developed AMS TREATMENT PLAN: Pt has verbalized understanding and given consent/agreement with medications and plan offered. LEVEL OF CARE: Continue current level of treatment. RECOMMENDATIONS: Continue Prozac 40 mg PO qAM. Discussed/Reviewed mechanism of action of SSRIs, expected benefits and time to response, common SEs including GI, MATOS, drowsiness or activation, sexual SEs, and more rarebut serious adverse effects including agitation, sari, suicidal thoughts and behaviors. Continue sitter for safety. The patient meets criteria for Section 12 and cannot leave the hospitalAMA. She will need frequent recurrent evaluations for SI as her AMS clears. Psychiatry will continue to follow. Please alert the u/s when the patient has been medically cleared. At that time, will asthe storage specialist to evaluate for possible transfer to a psychiatric unit. Continue to offer Zyprexa Zydis prn agitation. Medication Education: Risks, benefits, alternatives, and potential side effects were discussed withthe patient. Patient voiced understanding and agreed with medication regimen described above. LABS: Reviewed and discussed most recent labs results. MEDICATION CONTRACT: Patient agreed to take medication only as prescribed and acknowledges that services may be terminated if prescription abuse is observed. SAFETY PLAN: Patient is to alert team if symptoms worsen. Team will monitor for development of suicidal ideations or an acute medication reaction. - Call 911 or present to nearest Emergency Room in case of crisis / suicidal thoughts upon discharge. EDUCATION/CONSENT: Discussed and explained all diagnoses including differential diagnosis and treatment options. Discussed risks, benefits, potential side effects, contraindications, potential drug-drug interactions, alternatives to current medications and medication allergies as noted above. Discussed continuing to monitor for side effects and treatment efficacy prospectively and delineated patient's involvement and responsibility in monitoring for side effects and efficacy. Lucien bell expressed understanding of these recommendations. BARRIERS TO LEARNING: Patient demonstrates a readiness to learn. Patient verbalizes understanding and agrees to plan. No barriers to communication noted. MEDICATION RECONCILIATION: Medications were reviewed and reconciled with the patient. PREVENTATIVE RECOMMENDATIONS: Preventative Health Education Counseling: discussed proper diet/nutrition, exercise, and sleep hygiene. The patient was encouraged to avoid nicotine, alcohol and illicitdrugs at all times. The patient was made aware that records from the u/s can be sent to his/her PCP at any time that he/she requests. * Magalis Nice RN - 06/22/2024 7:38 PM EST Problem: Skin Integrity: Pressure Injury Actual or Risk of Goal: Will not develop new pressure injury Outcome: Progressing Goal: Skin integrity will improve Outcome: Progressing Goal: Risk for impaired skin integrity will decrease Outcome: Progressing Problem: Activity:Pressure Injury Actual or Risk of Goal: Mobility will improve Outcome: Progressing Problem: Nutritional:Pressure Injury Actual or Risk of Goal: Nutritional status will improve Outcome: Progressing Problem: Patient Specific Problem: Pressure Injury Actual or Risk of Goal: Patient Specific Outcome Outcome: Progressing Problem: Swallowing Goal: Patient will tolerate recommended food and liquid consistencies without clinical signs and symptoms of aspirations Outcome: Progressing Goal: Patient will tolerate therapeutic trials of recommended consistency without clinical signs and symptoms of aspiration Outcome: Progressing * TICO Barrera - 06/22/2024 6:22 PM EST Review of medical record documents pt remains on a section 12 and will be closely monitored by psychiatry as mental status clears for suicidal ideation. Patient also continues to be followed by addiction services. Social work to follow as needed with disposition. * Magalis Nice RN - 06/22/2024 5:04 PM EST Patient precedex gtt discontinued at 0941. She had been cooperative and redirectable up until around 1230 when she began pulling at her catheter and refused to wear her nasal cannula oxygen. She was restless in bed and picking at her laxmi and leads attempting to climb out of bed. Ativan 1mg po was given per orders and assisted with easing her restlessness. She has been alert and more calm s/p ativan with the occasional redirection still needed from her bedside sitter She has also been able totake a small nap after not sleeping all night per previous RN report. * Camilla Chan NP - 06/22/2024 2:41 PM EST Subjective This is a 63-year-old female with a past medical history significant for major depressive disorder,severe alcohol use disorder complicated by alcohol withdrawal seizures, cocaine use, tobacco dependence, COPD who initially was admitted to [facility] in 06/16/2024 into 06/17/2024 for acute r espiratory failure with hypoxia likely secondary to aspiration pneumonia in the setting of severe alcohol use disorder. Patient required 3 doses of naloxone however she came obtunded requiring naloxone infusion, becauseof this, ICU was consulted. 06/18/2024: Patient was transferred to ICU on naloxone drip, patient had also reported having suicidal thoughts and so one-to-one sitter was initiated. 06/19/2024: Patient remained in ICU, one-to-one sitter remains in place and psychiatry following patient for possible psychiatric admission once patient is medically cleared. 06/20/2024: Patient was BiPAP overnight with improvement in CBG and transition to high flow during the day. 06/21/2024: High-dose thiamine was administered the patient reportedly had better cognition, potential Warnicke's encephalopathy. Patient remained on high flow overnight, HOME RESTORATION SERVICE SUPERVISOR evaluated patient and recommended n.p.o. with ice chips due to fluctuating altered mental status. Patient was on low-dose dexmedetomidine infusion as she was unable to take oral medications. Laboratory results 06/22/2024: Random glucose 119, calcium 8.4, phosphorus 1.9, alk phos 302, H&H10.2/32.3. 06/22/2024: patient was deemed stable for ICU downgrade to [facility]. She has been weaned off of Precedex infusion and she does have some mild agitation however was also seen by addiction medicine who does not feel that she should have worsening symptoms as she is fairly far into her hospitalization at this point and the recommendation is to continue CIWA scale and continuing to address abstinence. On my evaluation of patient, patient is observed in her room, sitter is present at bedside. She is easily arousable to verbal stimuli and does answer questions however is still confused and does not answer questions appropriately. She is observed on oxygen via nasal canula. Objective Physical Exam General: Appears stated age, no respiratory distress sitting up in bed, easily arousable to verbal stimuli however does not answer questions appropriately. Sitter present at bedside. Skin: Clean, dry and intact, no obvious open wounds or sores, bruises or abrasions Cardiac: Regular rate and rhythm, S1-S2 noted, no murmurs, rubs, gallops or clicks, no JVD or interstitial edema, no carotid bruits Respiratory: Lung sounds are diminished however CTAB, no expiratory wheezes, rales or rhonchi, no accessory respiratory muscles noted or evidence of nasal flaring. Abdomen: Soft, nontender, nondistended, bowel sounds active in all 4 quadrants, no abdominal guarding or Warner sign. Extremities: No peripheral or pedal edema noted. No swelling, redness or tenderness noted to bilateral lower legs. Neuro: Alert to person, disoriented to situation and place. Psychiatric: Currently calm, cooperative, without agitation or restlessness. Last Recorded Vitals: Blood pressure 115/71, pulse 67, temperature 37.1 ??C (98.8 ??F), temperature source Temporal, resp. rate (!) 27, height 1.651 m (65 ), weight 92.1 kg (203 lb), SpO2 91%. Assessment/Plan ACUTE MEDICAL ISSUES Acute on chronic respiratory failure with hypercapnia Aspiration pneumonitis MRSA carrier - Patient initially observed hypoxic on admission, she is not oxygen dependent - Patient is not currently requiring BiPAP or high flow, she is on nasal cannula - CT chest angio without and with contrast performed on 06/16/2024:1. No pulmonary embolism. 2. Bronchial thickening within the right base. Some opacities involving the right lung base which could represent developing right basilar infectious process including pneumonia and or right basilar atelectasis. - Chest x-ray 06/21/2024:Right upper extremity PICC terminates in the right atrium. Elevated right diaphragm with unchanged right basilar opacity, possibly atelectasis. No pleural effusion or pneumothorax. Cardiac silhouette and bones are stable compared to prior - She has been transitioned to oral doxycycline from IV antibiotics - Aspiration and fall precautions placed History of alcohol abuse with withdrawal seizures Alcohol intoxication with complication -Patient does carry a history of alcohol abuse with known withdrawal seizures. - Her story change depending on what provider asked her, it was documented that patient was treating 2 L of vodka daily for an extended period of time however she also mentioned that she left her dual diagnosis treatment program 2 days prior to admission and was using alcohol since. Prior to the past 2 days she reported being sober for 3 weeks. -Recommend continued abstinence from alcohol - Not appearing in withdrawal now, continue CIWA scale Depression with suicidal ideation Methadone overdose, intentional self-harm - Patient reports taking 1 dose of 20 mg of methadone, she was reporting depression and suicidal thoughts. - One-to-one sitter remains in place. - Psychiatry continues to follow patient while hospitalized, continue recommendations/participationin care appreciated - Fluoxetine, Ativan and olanzapine continued. CHRONIC MEDICAL ISSUES: Hypertension - Amlodipine. OTHER: DVT prophylaxis - Lovenox Patient is presumed a full code Patient is unable to provide HCP/emergency contact at this time Case and plan discussed with Dr. Luis Higgins Please note that 75 minutes or greater was spent on performing a medically appropriate history and physical examination, review of laboratory and radiology data requiring a high level of medical decision making. Associated attestation - Luis Higgins MD - 06/24/2024 6:11 PM EST This is a split/shared visit with Camilla Chan NP. I personally performed the medical decision making (MDM) for the care of this patient on 06/22/24 as documented below This is 63-year-old female currently with acute on chronic respiratory failure with hypercapnia andhypoxia due to aspiration pneumonitis. She is [place] MRSA carrier. She is off BiPAP right now I have reviewed CT angiogram that was performed on June 16 and there is no pulmonary embolism but there is diffuse bronchial wall thickening especially on the right side with some opacities involving the right lung which are infectious in origin. Chest x-ray as of June 21 shows PICC line in the right atrium but no pleural effusion no pneumothorax no mediastinal widening however there is a right basilar opacity. Patient transition to doxycycline Chronic alcoholism continue CIWA scale as well as thiamine and folate. Depression with suicidal ideations and methadone overdose intentional self-harm she remains with sitter one-to-one. Psychiatric team is following. Continue fluoxetine Ativan and olanzapine. Luis Higgins MD 06/24/24 6:08 PM EST * LUCIEN Renee - 06/22/2024 12:38 PM EST Images from the original note were not included. Cherelle Gonsales 1960 [id number] Author: LUCIEN Renee DOS: 06/22/2024 Requesting Service: Hospitalist Service Chief Complaint: Acute on chronic respiratory failure with hypercapnia (CMS/HCC) Reason for Consultation: Alcohol use disorder Source of History: Patient and chart Subjective History of Present Illness: Cherelle Gonsales is a 63 y.o. female with a past medical history to include alcohol use disorder among others presenting to the hospital for shortness of breath Consultation note performed by my colleague prior, see note for further details Remains in the ICU Nursing has weaned off the Precedex Some mild agitation at the time my exam this afternoon Acknowledges ongoing alcohol use, drinking vodka prior to hospitalization Endorse a history of withdrawal seizures Denies history of illicit drug use Allergies: Allergies Allergen Reactions Penicillins Rash Home Medications: Prior to Admission medications Medication Sig Start Date End Date Taking? Authorizing Provider amLODIPine (NORVASC) 5 mg tablet Take 1 tablet (5 mg total) by mouth 1 (one) time each day. 03/20/24istorical Provider, cloNIDine (CATAPRES) 0.1 mg tablet Take 1 tablet (0.1 mg total) by mouth 4 (four) times a day. 12/15/23 Historical Provider, ferrous sulfate 325 mg (65 mg iron) EC tablet Take 1 tablet (325 mg total) by mouth every other day. 03/20/24 Historical Provider, FLUoxetine (PROzac) 20 mg capsule Take 3 capsules (60 mg total) by mouth. 03/20/24 Historical Provider, gabapentin (NEURONTIN) 100 mg capsule Take 3 capsules (300 mg total) by mouth 3 (three) times a day. 12/15/23 Historical Provider, hydrOXYzine pamoate (VISTARIL) 25 mg capsule Take 2 capsules (50 mg total) by mouth 3 (three) timesa day if needed for anxiety. Patient not taking: Reported on 05/14/2024 03/20/24 Historical Provider, mirtazapine (REMERON) 7.5 mg tablet Take 1 tablet (7.5 mg total) by mouth. Historical Provider, OLANZapine (ZyPREXA) 2.5 mg tablet Take 2 tablets (5 mg total) by mouth 2 (two) times a day. 02/01/24 Historical Provider, propranoloL (INDERAL) 20 mg tablet Take 1 tablet (20 mg total) by mouth 2 (two) times a day. 03/20/24 Historical Provider, amLODIPine (NORVASC) 2.5 mg tablet Take 2 tablets (5 mg total) by mouth 1 (one) time each day. 12/15/23 06/17/24 Historical ProviderMD FLUoxetine (PROzac) 20 mg tablet Take 1 tablet (20 mg total) by mouth 1 (one) time each day. Pt reports she only takes 20mg not 60mg 12/15/23 06/17/24 Historical ProviderMD gabapentin (NEURONTIN) 600 mg tablet Take 0.5 tablets (300 mg total) by mouth 3 (three) times a day. 03/08/24 06/17/24 Historical Provider, hydrOXYzine HCL (ATARAX) 25 mg tablet Take 2 tablets (50 mg total) by mouth 3 (three) times a day if needed for anxiety. 08/08/23 06/17/24 Historical Provider, mirtazapine (REMERON) 15 mg tablet Take 0.5 tablets (7.5 mg total) by mouth at bedtime. 03/20/24 06/17/24 Historical Provider, OLANZapine (ZyPREXA) 5 mg tablet Take 1 tablet (5 mg total) by mouth at bedtime. 03/20/24 06/17/24 Historical Provider, propranoloL (INDERAL) 10 mg tablet Take 2 tablets (20 mg total) by mouth 2 (two) times a day. 12/15/23 06/17/24 Historical Provider, Past Medical History: Past Medical History: Diagnosis Date Alcohol use disorder Anxiety Cervical spinal stenosis CHF (congestive heart failure) ([facility]) Chronic back pain COPD (chronic obstructive pulmonary disease) ([facility]) Depression Hypertension Past Surgical History: Past Surgical History: Procedure Laterality Date CHOLECYSTECTOMY Family History: Family History Problem Relation Name Age of Onset Hypertension Other Anxiety disorder Other Social History: Social History Tobacco Use Smoking Status Every Day Current packs/day: 0.25 Types: Cigarettes Smokeless Tobacco Not on file Social History Substance and Sexual Activity Alcohol Use Yes Social History Substance and Sexual Activity Drug Use Yes Types: Cocaine Objective Last Recorded Vitals: Blood pressure 100/52, pulse 63, temperature 37 ??C (98.6 ??F), resp. rate 20, height 1.651 m (65 ), weight 92.1 kg (203 lb), SpO2 93%. Physical Exam Sitting upright in bed Sitter at the bedside Appears comfortable Mildly restless No gross resting tremor Normal cardiac rate Nasal cannula in place Alert and oriented Conversing appropriately Labs: Lab Results Component Value Date GLUCOSE 119 (H) 06/22/2024 CALCIUM 8.4 (L) 06/22/2024 NA 136 06/22/2024 K 3.6 06/22/2024 CO2 29 06/22/2024 CL 98 06/22/2024 BUN 12 06/22/2024 CREATININE 0.51 06/22/2024 Lab Results Component Value Date WBC 7.9 06/22/2024 HGB 10.2 (L) 06/22/2024 HCT 32.3 (L) 06/22/2024 MCV 79.4 06/22/2024 PLT 285 06/22/2024 Imaging: XR Chest 1 View Narrative: XR CHEST 1 VIEW INDICATION: Pneumonia TECHNIQUE: XR CHEST 1 VIEW COMPARISON: 06/19/2024 Impression: FINDINGS/IMPRESSION: Right upper extremity PICC terminates in the right atrium. Elevated right diaphragm with unchanged right basilar opacity, possibly atelectasis. No pleural effusion orpneumothorax. Cardiac silhouette and bones are stable compared to prior -------- FINAL REPORT -------- Dictated By: DELANO BARAJAS Dictated Date: 06/21/2024 08:08 ET Assigned Physician: DELANO BARAJAS Reviewed and Electronically Signed By: DELANO BARAJAS Signed Date: 06/21/2024 08:09 ET Workstation ID: [id number] Transcribed By: Self Edit Transcribed Date: 06/21/2024 08:08 ET Meds: [START ON 06/23/2024] amLODIPine, 10 mg, oral, Daily doxycycline, 100 mg, oral, q12h FABIEN enoxaparin, 40 mg, subcutaneous, q24h FABIEN famotidine, 20 mg, oral, Daily FLUoxetine, 40 mg, oral, Daily folic acid, 1 mg, oral, Daily multivitamin with minerals-iron, 1 each, oral, Daily phosphorus, 250 mg, oral, TID potassium phosphate, 30 mmol, intravenous, Once propranoloL, 40 mg, oral, BID sodium chloride, 10 mL, intravenous, BID PRN medications: acetaminophen, albuterol, calcium carbonate, hydrALAZINE, LORazepam, naloxone, OLANZapine, ondansetron, [COMPLETED] Insert peripheral IV AND Maintain IV access AND [COMPLETED] Saline lock IV AND sodium chloride AND sodium chloride Assessment and Plan Cherelle Gonsales is a 63 y.o. female with a history of alcohol use disorder. Patient also admitted for for opiate overdose that was now stated as intentional. Patient has been weaned off Narcan drip. Patient ultimately admitted taking the methadone was an attempt to hurt herself. No significant history of illicit drug use otherwise identified Patient did not receive phenobarbital. Speaking with ICU team no sign of worsening concerns for alcohol withdrawal at this time. Patient was evaluated by psychiatry, section 12 has been placed Thiamine folate replacement. Patient has no obvious signs of worsening alcohol withdrawal at this time would continue to monitorCIWA scale. 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 We will continue to follow. Please reach out with any questions or concerns. 06/22/2024 1130 -- Patient seen again today. Nursing has weaned off the Precedex infusion. Some mild agitation appreciated, no other signs or symptoms to suggest persistent withdrawal. Fairly far into hospitalization now, would not expect worsening symptoms. Can certainly turn our focus to abstinencewhen medically appropriate. Reach out directly with any questions or concerns. We will continue to follow. Principal Problem: Acute on chronic respiratory failure with hypercapnia ([facility]) Active Problems: Aspiration pneumonitis ([facility]) Depression with suicidal ideation H/O ETOH abuse MRSA (methicillin resistant Staphylococcus aureus) carrier Alcoholic intoxication with complication ([facility]) Methadone overdose, intentional self-harm, initial encounter ([facility]) Provider Attestation Electronically signed by Orlando Magallanes PA-C * Jonathan Cole DO - 06/22/2024 11:20 AM EST [facility] PROGRESS NOTE Code Status: Full Code - Default SUBJECTIVE 06/17 ICU consult note Elsy Weinstein PA-C: Cherelle Gonsales is a 63 y.o. female with a history of COPD, hypertension, major depression, severe alcohol use disorder complicated by alcohol withdrawal seizures, cocaine use, and tobacco dependence who presents to the [facility] Emergency Department with vomiting and shortness of breath. This history is per [place] provider upon presentationto ED. The patient reports she was in a dual diagnosis recovery program until 2 days prior to presentation. She left the program and immediately began drinking alcohol again. She began vomiting and felt short of breath. She sought care in the Emergency Department. She was seen and admitted to the [facility]'s service. At the time of evaluation, the patient had become increasingly hypoxic and bradypneic and was minimally responsive to sternal rub. She was administered naloxone 0.4 mg IV x 1 and an ABG was simultaneously obtained. After receiving naloxone, the patient became alert with her respiratory rate increasing to the 20s and and becoming tachycardic to the 120s. On interview, the initially denied taking any opioids, illicit or otherwise; however, 90 minutes later, the patient again became bradypneic andpoorly responsive. An additional dose of naloxone 0.4 mg x 1 was administered with the patient again feeling awake and alert. At this time she endorses buying methadone on the street but denies typically using opioids. She is also unclear about her alcohol use. While she reported to the ER providerthat she was drinking 2 L of vodka daily for extended period time; however, she stated to Melissa provider that she left her dual diagnosis treatment program 2 days ago and has been using alcohol since.Prior to the past 2 days, she tells me she had been sober for 3 weeks. At this time she is not showing significant signs of alcohol withdrawal. She does report that she is having suicidal thoughts. When asked if she intends to harm herself, she states that she has in the past. One month ago she was institutionalized secondary to depression and suicidal ideation. She continues to require 6 L/min supplemental O2 by [employer]. She is not on chronic oxygen. She reports she is homeless and uses a walker for ambulation. Functional status prior to presentation: Ambulatory with a walker. Patient has now required 3 doses of Narcan and there is consideration for starting a Narcan drip. For that reason, ICU consultation is being requested for possible transfer as Narcan drip cannot be initiated on [facility]. 06/18: Patient seen and examined. Please see note from Dr. Ng overnight. Ultimately transferred toICU on Narcan infusion at 0.2 mg/h. Just cut in half to 1 mg/h. Addiction medicine service is following. Reportedly took 1 dose of 20 mg of methadone. Has been drinking as well. No evidence of alcohol withdrawal. Vital signs stable. 06/19: Patient seen and examined this morning. Awake and alert. Eccentric affect. Denies pain. Mildlynauseous. Shortness of breath is improved. Cough is scant and unproductive. No fevers overnight. Seen by psychiatry. One-to-one sitter continues. Psychiatry following for possible inpatient psych admission once medically cleared. Denies any suicidality this morning. States feeling better. Remains on high flow. Late entry: Nursing reports increasing somnolence over the course of the day today. VBG consistent with acute hypercarbic respiratory failure. Restarted on BiPAP. Will continue ICU management. 06/20 - 06/21: Please see Dr. Carmona notes for details. 06/22: Patient seen and examined this morning. Chart, labs, studies reviewed. Case discussed in detail with ICU providers. Patient was maintained on Precedex overnight. This was discontinued this morning in favor of Zydis and Ativan. Seen by psychiatry. Case discussed with Dr. Godwin who agrees with present management. Still requiring one-to-one for suicidality. Transitioned to oral antibiotics to complete course. PT ordered. Not requiring BiPAP or high flow. Stable for downgrade to IMC. OBJECTIVE FLUID BALANCE VITAL SIGNS Intake/Output Summary (Last 24 hours) at 06/22/2024 1120 Last data filed at 06/22/2024 1103 Gross per 24 hour Intake 524.8 ml Output 2400 ml Net -1875.2 ml Weight change: Visit Vitals BP (!) 166/74 Pulse 65 Temp 36.8 ??C (98.2 ??F) Resp 20 OXYGENATION AND VENTILATION FiO2 (%): [40 %] 40 % ABG Lab Results Component Value Date PHART 7.45 06/21/2024 PHART 7.25 (L) 06/17/2024 PHART 7.25 (L) 06/17/2024 [id number] 53 (H) 06/21/2024 ZRJ6ZJF 65 (HH) 06/17/2024 RNI1VDF 59 (H) 06/17/2024 PO2ART 89 06/21/2024 PO2ART 89 06/17/2024 PO2ART 128 (H) 06/17/2024 HEO7DXC 33.7 (H) 06/21/2024 PMG4DSG 24.9 06/17/2024 [id number] 23.1 06/17/2024 [id number] 99.1 (H) 06/21/2024 M0HCOCGL 97.5 06/17/2024 [id number] 98.7 (H) 06/17/2024 BEART 11.2 (H) 06/21/2024 BEART 0.0 06/17/2024 BEART -2.3 (L) 06/17/2024 ALLENS Pass 06/21/2024 ALLENS Pass 06/17/2024 ALLENS Pass 06/17/2024 FIO2 30.00 06/21/2024 FIO2 45.00 06/17/2024 FIO2 100.00 06/17/2024 PHYSICAL EXAMINATION In general the patient is awake, alert, oriented to person and place.. No distress. HEENT is unremarkable. Pupils are equal round reactive to light. Sclera are anicteric. Extraocular muscles intact. Neck is supple, no JVD. Heart is regular. No murmurs appreciated. Chest is clear. Diminished at the bases. No rales, rhonchi, or wheezes. Abdomen is soft, nondistended. Bowel sounds quiet. Extremities notable for dependent edema. Warm and well-perfused. Distal pulses palpable in the radial/dorsalis pedis. Neuro exam is grossly nonfocal. Rectal is deferred is deferred. Mack in place. CURRENT MEDICATIONS Scheduled Meds: [START ON 06/23/2024] amLODIPine, 10 mg, oral, Daily doxycycline, 100 mg, oral, q12h FABIEN enoxaparin, 40 mg, subcutaneous, q24h FABIEN famotidine, 20 mg, oral, Daily FLUoxetine, 40 mg, oral, Daily folic acid, 1 mg, oral, Daily multivitamin with minerals-iron, 1 each, oral, Daily potassium phosphate, 30 mmol, intravenous, Once propranoloL, 40 mg, oral, BID sodium chloride, 10 mL, intravenous, BID PRN medications: acetaminophen, albuterol, calcium carbonate, hydrALAZINE, LORazepam, naloxone, OLANZapine, ondansetron, [COMPLETED] Insert peripheral IV AND Maintain IV access AND [COMPLETED] Saline lock IV AND sodium chloride AND sodium chloride Continuous Infusions: PRN Meds: PRN medications: acetaminophen, albuterol, calcium carbonate, hydrALAZINE, LORazepam, naloxone, OLANZapine, ondansetron, [COMPLETED] Insert peripheral IV AND Maintain IV access AND [COMPLETED] Saline lock IV AND sodium chloride AND sodium chloride Outpatient medications reviewed and reconciled with those appropriate to this admission. LINES & DRAINS PICC 06/20/24 Double Lumen Right Basilic (Active) Site Assessment Clean;Dry;Intact 06/22/24 0916 Proximal Lumen Status Blood return noted;Flushed;Infusing 06/22/24 0916 Distal Lumen Status Blood return noted;Flushed;Infusing 06/22/24 0916 Phlebitis Scale 0 06/22/24 0916 Length eva (cm) 0 cm 06/21/24 1559 Extremity Circumference (cm) 32 cm 06/20/24 165 Dressing Type Securing device;Transparent with Chlorhexidine Gluconate gel 06/22/24 0916 Dressing Status Clean;Dry;Intact 06/22/24 0916 Dressing Intervention New dressing 06/20/241652 Dressing Change Due 06/27/24 06/22/24 09 Line Necessity Yes, meets criteria 06/22/24 08 Line Necessity Reviewed With marina cole 06/22/24 08 Urethral Catheter (Active) Site Assessment Clean;Skin intact 06/22/24 08 Collection Container Standard drainage bag 06/22/24 08 Securement Method Securing device (Describe) 06/22/24 0815 Reason for Continuing Urinary Catheterization Critically ill and need for accurate measurements of I&O (e.g., hourly monitoring) 06/22/24 0815 Urinary Catheter Output (mL) 75 mL 06/22/24 0600 Line necessity addressed daily. NUTRITION Diet Order: Dietary Orders (From admission, onward) Start Ordered 06/22/24 0941 Adult diet [facility]; General, Modified Consistency Options for Liquids and Solids; Regular; IDDSI Level 5 Minced & Moist Diet effective now Question Answer Comment Location [facility] Diet Type (req) General Diet Type (req) Modified Consistency Options for Liquids and Solids General Diet Regular Modified Consistency Options for Liquids and Solids IDDSI Level 5 Minced & Moist 06/22/24 0940 LAB RESULTS Lab Results Component Value Date WBC 7.9 06/22/2024 RBC 4.10 06/22/2024 HGB 10.2 (L) 06/22/2024 HCT 32.3 (L) 06/22/2024 MCV 79.4 06/22/2024 MCHC 31.6 (L) 06/22/2024 RDW 16.2 (H) 06/22/2024 PLT 285 06/22/2024 MPV 10.2 06/22/2024 NRBC 0.0 06/22/2024 DIFF Lab Results Component Value Date LYMPHOPCT 20.1 06/22/2024 NEUTROABS 5.46 06/22/2024 LYMPHSABS 1.58 06/22/2024 MONOABS 0.68 06/22/2024 EOSABS 0.12 06/22/2024 BASOSABS 0.02 06/22/2024 IMMGRANABS 0.02 06/22/2024 RETIC No results found for: RETIC , RETICCTPCT Lab Results Component Value Date NA 136 06/22/2024 K 3.6 06/22/2024 CL 98 06/22/2024 CO2 29 06/22/2024 GLUCOSE 119 (H) 06/22/2024 BUN 12 06/22/2024 CREATININE 0.51 06/22/2024 CALCIUM 8.4 (L) 06/22/2024 PROT 7.3 06/22/2024 ALBUMIN 3.2 06/22/2024 BILITOT 0.4 06/22/2024 AST 30 06/22/2024 ALT 36 06/22/2024 PHOS 1.9 (L) 06/22/2024 MG 1.9 06/22/2024 ALKPHOS 302 (H) 06/22/2024 EGFR 104 06/22/2024 RADIOLOGY I have reviewed the relevant diagnostic imaging. MICROBIOLOGY I have reviewed the relevant microbiology. Patient Active Problem List Diagnosis Aspiration pneumonitis ([facility]) Acute on chronic respiratory failure with hypercapnia ([facility]) Depression with suicidal ideation H/O ETOH abuse MRSA (methicillin resistant Staphylococcus aureus) carrier Alcoholic intoxication with complication ([facility]) Methadone overdose, intentional self-harm, initial encounter ([facility]) ASSESSMENT & PLAN This is a 63-year-old female who recent left a dual diagnosis treatment center and began drinking alcohol again. Reportedly took 120 mg methadone. Presented with altered mental status. Responded to Narcan boluses. Ultimately started on a Narcan infusion. Noted on Unasyn for possible aspiration pneumonitis versus pneumonia, transitioned to oral doxycycline on 06/22. Psych is following. Addiction medicine following. One-to-one ordered. Will likely need discharge to psychiatric facility given ongoing suicidality. Neuro: Appreciate psych input. Will continue Prozac 40 mg daily. I added Zyprexa and Ativan as needed. Appreciate addiction medicine input. Continue one-to-one. Once medically cleared, will likely need inpatient psych admission. CV: Stable vitals. Continue to titrate antihypertensives Pulm: Weaned to nasal cannula. MRSA positive nares. Not on Vanco as respiratory status is stable without leukocytosis or fevers. GI: Diet as tolerated. IDDSI 5. Appreciate speech eval. Renal: Monitor I's and O's and electrolytes. Discontinue Mack once more mobile. ID: Patient informed nursing on 06/19 that she is allergic to penicillin. Has received ampicillin with minimal rash noted at IV infusion site. Will discontinue in favor of doxycycline and add penicillin to allergy list. 5 more doses of doxycycline ordered. Endocrine: Normal TSH. Sugars have been reasonable. Proph: Lovenox and Protonix. No family or next of kin. Code: Full code. Disp: Downgrade to [facility] if mental status remains stable off Precedex. Restraints: Not indicated DVT Prophylaxis: Ordered. Family Updated: Daily and as needed. CCM time 55 minutes. Patient was on Precedex at the time of my evaluation this morning. Jonathan Cole DO * VIKAS Chinchilla - 06/22/2024 9:10 AM EST Images from the original note were not included. [facility] HOME RESTORATION SERVICE SUPERVISOR TREATMENT NOTE NAME: Cherelle Gonsales DATE OF : 1960 ROOM: [address] [place] [address] Pt ID by: ANN keating confirmed. DATE: 06/22/24 TIME CALCULATION: HOME RESTORATION SERVICE SUPERVISOR Start Time: 909 HOME RESTORATION SERVICE SUPERVISOR Stop Time: 929 HOME RESTORATION SERVICE SUPERVISOR Time Calculation (min): 20 min Child Health Associate Required: No ADMISSION DIAGNOSIS: Aspiration pneumonitis (CMS/HCC) [J69.0] SOB (shortness of breath) [R06.02] Hypoxia [R09.02] Pneumonia of right lower lobe due to infectious organism [J18.9] Acute hypoxemic respiratory failure (CMS/HCC) [J96.01] MISSED TIME: FAMILY/CAREGIVER PRESENT: No SUBJECTIVE SUBJECTIVE: Chart reviewed, and patient seen for HOME RESTORATION SERVICE SUPERVISOR follow up for ongoing dysphagia tx. Cleared byDARSHANA Clay for session. Per RN, Pt consumed breakfast tray regular solids and thin liquids. RN reporting improved mentation today. Oriented to place. Required direct assist with feeding. Denied cough or throat clear with PO. Pt accepted limited PO during tx session, required max coaxing to participate. Sitter present. PRECAUTIONS: Medical Precautions: Contact Safety Interventions: Sitter Swallow Precautions: Aspiration, Modified Diet Alert , Confused, and Uncooperative OBJECTIVE OXYGEN THERAPY: Oxygen Therapy: Supplemental oxygen O2 Delivery Method: Nasal cannula TREATMENTS: Treatments: Swallow Function, Aspiration Risk SWALLOW FUNCTION: Swallow/Oral Function Treatment Time Entry: 20 Swallow Activity 1: Thin liquids via cup sip: adequate labial seal, WFL a-p, no cough or throat, nochange in vocal quality, no change in breathing Swallow Activity 2: IDDSI 4 solids via spoon with assist from therapist: adequate labial seal, sloworal transit, adequate oral clearance, no cough or throat clear. Swallow Activity 3: IDDSI 5 solids via spoon with assist from therapist: functional oral prep, sloworal transit, adequate oral clearance, no cough or throat clear. Swallow Comments: Pt accepted limited PO at this time, reporting fullness from breakfast. ASPIRATION RISK: Risk for Aspiration: (at risk) Recommendations: Dysphagia treatment Diet Solids Recommendation: IDDSI Level 5 Minced and Moist Diet Liquids Recommendation: Thin liquids Liquid Administration Via: Cup Supervision Level: Supervision with meals, Supervision with meals to cue compensatory strategies Compensatory Swallowing Strategies: Upright as possible for all oral intake, Remain upright for 20-30 minutes after meals, Slow rate of intake, Small bites/sips Recommended Medication Route: PO ASSESSMENT HOME RESTORATION SERVICE SUPERVISOR ASSESSMENT: HOME RESTORATION SERVICE SUPERVISOR Assessment Results: Swallowing impairments Dysphagia Diagnosis: Mild oral stage dysphagia, Moderate pharyngeal stage dysphagia Evaluation/Treatment Tolerance: Patient tolerated treatment well Medical Staff Made Aware: Yes Comments: MD rivera. DIET SOLIDS RECOMMENDATIONS: IDDSI Level 5 Minced and Moist DIET LIQUIDS RECOMMENDATIONS: Thin liquids PLAN HOME RESTORATION SERVICE SUPERVISOR PLAN: Treatment/Interventions: Swallow function HOME RESTORATION SERVICE SUPERVISOR Plan: Skilled HOME RESTORATION SERVICE SUPERVISOR HOME RESTORATION SERVICE SUPERVISOR Frequency: 2-5 days per week HOME RESTORATION SERVICE SUPERVISOR Treatments per day: 1 time per day HOME RESTORATION SERVICE SUPERVISOR - Evaluation Status: Complete Diet Recommendations: IDDSI 5/0 minced and moist solids and thin liquids EDUCATION EDUCATION: Education Documentation Modified Diet Training, taught by Audra Quiñonez, HOME RESTORATION SERVICE SUPERVISOR at 06/22/2024 9:10 AM. Learner: Patient Readiness: Acceptance Method: Explanation Response: Verbalizes Understanding, Needs Reinforcement Education Comments No comments found. GOALS GOALS: Encounter Problems Encounter Problems (Active) Template: Speech Therapy Problem: Swallowing Dates: Start: 06/21/24 Goal: Patient will tolerate recommended food and liquid consistencies without clinical signs and symptoms of aspirations Dates: Start: 06/21/24 Expected End: 06/28/24 Description: Goal Type: STG, Performance Level: Min assist Outcomes Date/Time User Outcome 06/22/24 0939 VIKAS Chinchilla Progressing Goal: Patient will tolerate therapeutic trials of recommended consistency without clinical signs and symptoms of aspiration Dates: Start: 06/21/24 Expected End: 06/28/24 Description: Goal Type: STG, Performance Level: Min assist Outcomes Date/Time User Outcome 06/22/24 0714 Nkechi Williamson RN Progressing Encounter Problems (Resolved) There are no resolved problems. Associated attestation - Lizabeth Antoine SLP - 06/22/2024 9:58 AM EST I attest that I, Sadie Antoine M.S.,[facility]-HOME RESTORATION SERVICE SUPERVISOR, was physically involved in the ongoing assessment, decision making, and interventions provided during today's patient care session. I have reviewed all documentation for today's 06/22/24, entered by Speech Therapy Fellow, Audra Ariza, and further attest that it is an accurate clinical record of today's encounter, including accurate and appropriate charges. * Anjelica Parker MD - 06/22/2024 9:00 AM EST Connected to patient's room via I-pad with help from fitness technician; assistance much appreciated. Patient consented to visit via Telehealth video conferencing modality. Patient educated as to likely differences between Telehealth care and face to face care. Patient informed of the risks and benefits of using Telehealth services and procedures and likely risks and benefits of using alternatives to Telehealth services. Patient informed of the right to refuse Telehealth services at any time without jeopardizing his/her right to future care, services or benefits. Patient was informed that he/she is being seen solely by Anjelica Parker MD today via secure connection in a locked virtual exam room. Persons present on patient's end: Patient Persons present on provider's end: Anjelica Parker MD CHART REVIEWED, PATIENT INTERVIEWED. CHIEF COMPLAINT: SI, AMS Time spent on encounter: 13 min. HISTORY OF PRESENT ILLNESS Cherelle Gonsales is a 63 y.o. female with psychiatric history significant for depression, anxiety, and alcohol/cocaine/tobacco use disorders and medical history significant for but not limited to COPD, HTN, chronic back pain, and cervical spinal stenosis who was admitted for acute hypoxic respiratory failure and aspiration PNA. Psychiatry was consulted due to concern for suicidal ideations. The patient states that she is feeling better today than she was over the weekend. She reports feeling out of it over the weekend and notes that she has not been sleeping well at all. She feels very tired this morning. Today, she gives her name and birthdate but doesn't know how old she is. She doesn't know today's date or even the year, but she does know that she is currently at [facility]. She admits to not feeling well but isn't sure if she is suicidal or not. She feels depressed and anxious. She states, This is awful. REVIEW OF SYSTEMS CONSTITUTIONAL: The patient denies fevers, chills, sweats and body ache. HEENT: Denies MATOS, blurry vision, eye pain, tinnitus, vertigo, gingival bleeding, sore throat, neck or thyroid masses. RESPIRATORY: Denies cough, sputum, hemoptysis. CARDIAC: Denies chest pain, pressure, palpitations, irregular heartbeats. Denies lower extremity edema. GASTROINTESTINAL: Denies abdominal pain, changes in bowel habits or any bleeding on toilet paper. GENITOURINARY: Denies dysuria, hematuria, nocturia or frequency. NEUROLOGIC: Denies headaches, dizziness, syncope. MUSCULOSKELETAL: Negative for arthritis. Denies muscle weakness. No limitation in range of motion. VASCULAR: Denies claudication and cramping. ENDOCRINOLOGY: Denies heat or cold intolerance. HEMATOLOGY: Denies easy bleeding or blood transfusion. DERMATOLOGY: Denies changes in moles or pigmentation changes. Psychiatric ROS: Depression: The patient denies any depressed mood, anhedonia, depression-related sleep changes, feelings of guilt/worthlessness, fatigue, poor concentration, appetite changes, psychomotor agitation or retardation, or suicidal ideations. Sari: The patient denies elevated/expansive mood, decreased need for sleep, grandiosity, pressuredspeech, flight of ideas, distractibility, increase in goal directed activity, and hypersexuality. Psychosis: The patient denies audio or visual hallucinations, delusions, thought broadcasting, thought insertion, delusions of reference, catatonia, or disorganized speech or behavior. Anxiety: The patient denies any excessive worry, restlessness, fatigue, poor concentration, irritability, muscle tension, or anxiety-related sleep changes. Panic: The patient denies any recent panic episodes. PTSD: The patient denies any h/o trauma and does not endorse any current s/s related to PTSD. OCD: The patient denies intrusive thoughts, repetitive behaviors, counting, checking, washing, symmetry, or grouping and ordering that take up more than 1 hour of the day. Eating Disorder: The patient denies feeling overweight, excessive dieting or exercise to lose weight, overuse of laxatives, binging/purging behaviors, and amenorrhea. MEDICAL HISTORY Non-psychiatric medical history: Past Medical History: Diagnosis Date Alcohol use disorder Anxiety Cervical spinal stenosis CHF (congestive heart failure) ([facility]) Chronic back pain COPD (chronic obstructive pulmonary disease) ([facility]) Depression Hypertension Current medications: amLODIPine, 5 mg, oral, Daily azithromycin, 500 mg, intravenous, q24h enoxaparin, 40 mg, subcutaneous, q24h FABIEN FLUoxetine, 40 mg, oral, Daily folic acid, 1 mg, oral, Daily multivitamin with minerals-iron, 1 each, oral, Daily pantoprazole, 40 mg, intravenous, q24h potassium phosphate, 30 mmol, intravenous, Once propranoloL, 20 mg, oral, BID sodium chloride, 10 mL, intravenous, BID ALLERGIES: Allergies Allergen Reactions Penicillins Rash MSE: Appearance: Awake but confused, oriented to person and place. Appears stated age, well groomed. Pleasant and cooperative. Adequate eye contact. No psychomotor agitation or retardation. No evidence ofEPS. Muscle tone/station: WNL. Orientation: As above. Attention and Concentration: Confused. Speech: Normal rate, rhythm, volume, and tone. Mood: I don't feel good, I can tell you that. Affect: Dysphoric and anxious with restricted range, mood congruent. No lability noted. Thought Process: Confused. No FOI or BEST. No thought blocking. Thought Content: Does not directly answer questions about suicidality. Was suicidal at previous encounter with the u/s, prior to AMS. Denies homicidal ideation. Denies auditory/visual hallucinations.No delusions. No paranoia. Perception/associations: Denies hallucinations, somatic complaints, or tactile disturbances Suicidal Ideations: See above. Homicidal Ideations: Pt denies HI, intent, or plan. Low acute risk. No history of violence. No access to firearms. Behavior: No abnormal behavior during interview. Fund of Knowledge: Appropriate for age and level of education Intellect/Memory: Estimated as average based on interview. Immediate, recent, and remote memory is grossly intact. Language: No deficits Judgment/Insight: limited/poor Musculoskeletal Exam: Movement: [x]normal []abnormal [-]dyskinesias [-]tremors [-]tics Station: [x]upright []hyperflexed/stooped []hyperextended Muscle strength [x]appears normal [-]appears abnormal Muscle tone: [x]normal [-]muscle rigidity LABS: Lab Results Component Value Date WBC 7.9 06/22/2024 RBC 4.10 06/22/2024 HGB 10.2 (L) 06/22/2024 HCT 32.3 (L) 06/22/2024 MCV 79.4 06/22/2024 MCHC 31.6 (L) 06/22/2024 RDW 16.2 (H) 06/22/2024 PLT 285 06/22/2024 MPV 10.2 06/22/2024 NRBC 0.0 06/22/2024 DIFF Lab Results Component Value Date LYMPHOPCT 20.1 06/22/2024 NEUTROABS 5.46 06/22/2024 LYMPHSABS 1.58 06/22/2024 MONOABS 0.68 06/22/2024 EOSABS 0.12 06/22/2024 BASOSABS 0.02 06/22/2024 IMMGRANABS 0.02 06/22/2024 VITALS: BP: 158/71 (06/22 699) Heart Rate: 65 (06/22 699) Temp: 36.9 ??C (98.4 ??F) (06/22 699) SpO2: 92 % (06/22 599) FiO2 (%): 40 % (06/21 2339) O2 Flow Rate (L/min): 3 L/min (06/22 699) O2 Delivery Method: Nasal cannula (06/22 699) ASSESSMENT: Cherelle Gonsales is a 63 y.o. female with psychiatric history significant for depression, anxiety, and alcohol/cocaine/tobacco use disorders and medical history significant for but not limited to COPD, HTN, chronic back pain, and cervical spinal stenosis who was admitted for acute hypoxic respiratory failure and aspiration PNA. Psychiatry was consulted due to concern for suicidal ideations. The patient admitted to SI during a previous encounter with the u/s, prior to developing AMS. She is still confused, and she does not answer questions related to SI in a direct manner today. DSM-5 DIAGNOSIS: Suicidal ideations Depressive disorder, unspecified Anxiety disorder, unspecified Alcohol/cocaine/tobacco use disorders COPD, HTN, chronic back pain, and cervical spinal stenosis Admitted for acute hypoxic respiratory failure and aspiration PNA; has developed AMS TREATMENT PLAN: Pt has verbalized understanding and given consent/agreement with medications and plan offered. LEVEL OF CARE: Continue current level of treatment. RECOMMENDATIONS: Continue Prozac 40 mg PO qAM. Discussed/Reviewed mechanism of action of SSRIs, expected benefits and time to response, common SEs including GI, MATOS, drowsiness or activation, sexual SEs, and more rarebut serious adverse effects including agitation, sari, suicidal thoughts and behaviors. Continue sitter for safety. The patient meets criteria for Section 12 and cannot leave the hospitalAMA. She will need frequent recurrent evaluations for SI as her AMS clears. Psychiatry will continue to follow. Please alert the u/s when the patient has been medically cleared. At that time, will asthe storage specialist to evaluate for possible transfer to a psychiatric unit. Medication Education: Risks, benefits, alternatives, and potential side effects were discussed withthe patient. Patient voiced understanding and agreed with medication regimen described above. LABS: Reviewed and discussed most recent labs results. MEDICATION CONTRACT: Patient agreed to take medication only as prescribed and acknowledges that services may be terminated if prescription abuse is observed. SAFETY PLAN: Patient is to alert team if symptoms worsen. Team will monitor for development of suicidal ideations or an acute medication reaction. - Call 911 or present to nearest Emergency Room in case of crisis / suicidal thoughts upon discharge. EDUCATION/CONSENT: Discussed and explained all diagnoses including differential diagnosis and treatment options. Discussed risks, benefits, potential side effects, contraindications, potential drug-drug interactions, alternatives to current medications and medication allergies as noted above. Discussed continuing to monitor for side effects and treatment efficacy prospectively and delineated patient's involvement and responsibility in monitoring for side effects and efficacy. Lucien bell expressed understanding of these recommendations. BARRIERS TO LEARNING: Patient demonstrates a readiness to learn. Patient verbalizes understanding and agrees to plan. No barriers to communication noted. MEDICATION RECONCILIATION: Medications were reviewed and reconciled with the patient. PREVENTATIVE RECOMMENDATIONS: Preventative Health Education Counseling: discussed proper diet/nutrition, exercise, and sleep hygiene. The patient was encouraged to avoid nicotine, alcohol and illicitdrugs at all times. The patient was made aware that records from the u/s can be sent to his/her PCP at any time that he/she requests. * Nkechi Williamson RN - 06/22/2024 7:15 AM EST Goals: PATIENT WILL BE BETTER ABLE TO FOLLOW COMMANDS CONSISTENTLY Identify possible barriers to meeting goals/advancing plan of care: ? MENTAL STATUS CHANGES FROM HXOF ETOH OVER USE, DRUG USE Stability of the patient: Moderately Stable - Low risk of patient condition declining or worsening End of Shift Summary: PATIENT STILL DOES NOT CONSISTENTLY FOLLOW COMMANDS * Lenora Edward NP - 06/21/2024 12:59 PM EST Psychiatry f/u: Pt is awake, she could not say where she was. Staff report that after thiamin yesterday she was better and began talking.. Mental status: Pt in bed, awake and alert but not oriented. She is more talkative and tries to stayon topic. She did say she has some stomach pain but unable to be more descriptive. She appears anxious and when asked nods head but cannot say more. ( We discussed at length her history of anxiety .) She denies SI/HI : No, I want to live . Pt did not sleep last night and failed her swallowtest today. She appears to be slowed in processing and puzzled at times about what I am asking her. Impression: Etoh abuse R/o withdrawal Anxiety nos R/o psychosis Mood nos Plan: reviewed at length with mortgage loan funder and nursing. Suggest a trial of lorazepam low dose and please document effect. * Vickie Carmona MD - 06/21/2024 12:04 PM EST [facility] PROGRESS NOTE Code Status: Full Code - Default Length of Stay: 6 ICU Day: 5 SUBJECTIVE 06/17 ICU consult note Elsy Weinstein PA-C: Cherelle Gonsales is a 63 y.o. female with a history of COPD, hypertension, major depression, severe alcohol use disorder complicated by alcohol withdrawal seizures, cocaine use, and tobacco dependence who presents to the [facility] Emergency Department with vomiting and shortness of breath. This history is per [place] provider upon presentationto ED. The patient reports she was in a dual diagnosis recovery program until 2 days prior to presentation. She left the program and immediately began drinking alcohol again. She began vomiting and felt short of breath. She sought care in the Emergency Department. She was seen and admitted to the [facility]'s service. At the time of evaluation, the patient had become increasingly hypoxic and bradypneic and was minimally responsive to sternal rub. She was administered naloxone 0.4 mg IV x 1 and an ABG was simultaneously obtained. After receiving naloxone, the patient became alert with her respiratory rate increasing to the 20s and and becoming tachycardic to the 120s. On interview, the initially denied taking any opioids, illicit or otherwise; however, 90 minutes later, the patient again became bradypneic andpoorly responsive. An additional dose of naloxone 0.4 mg x 1 was administered with the patient again feeling awake and alert. At this time she endorses buying methadone on the street but denies typically using opioids. She is also unclear about her alcohol use. While she reported to the ER provider that she was drinking 2 L of vodka daily for extended period time; however, she stated to [place] provider that she left her dual diagnosis treatment program 2 days ago and has been using alcohol since. Prior to the past 2 days, she tells me she had been sober for 3 weeks. At this time she is not showing significant signs of alcohol withdrawal. She does report that she is having suicidal thoughts. When asked if she intends to harm herself, she states that she has in the past. One month ago she was institutionalized secondary to depression and suicidal ideation. She continues to require 6 L/min supplemental O2 by [employer]. She is not on chronic oxygen. She reports she is homeless and uses a walker for ambulation. Functional status prior to presentation: Ambulatory with a walker. Patient has now required 3 doses of Narcan and there is consideration for starting a Narcan drip. For that reason, ICU consultation is being requested for possible transfer as Narcan drip cannot be initiated on [facility]. 06/18: Patient seen and examined. Please see note from Dr. Ng overnight. Ultimately transferred toICU on Narcan infusion at 0.2 mg/h. Just cut in half to 1 mg/h. Addiction medicine service is following. Reportedly took 1 dose of 20 mg of methadone. Has been drinking as well. No evidence of alcohol withdrawal. Vital signs stable. 06/19: Patient seen and examined this morning. Awake and alert. Eccentric affect. Denies pain. Mildlynauseous. Shortness of breath is improved. Cough is scant and unproductive. No fevers overnight. Seen by psychiatry. One-to-one sitter continues. Psychiatry following for possible inpatient psych admission once medically cleared. Denies any suicidality this morning. States feeling better. Remains on high flow. Late entry: Nursing reports increasing somnolence over the course of the day today. VBG consistent with acute hypercarbic respiratory failure. Restarted on BiPAP. Will continue ICU management. LOIACONO 06/20: Transfer of care received from [facility] chairman emeritus Jonathan Cole DO. this AM. EMR reviewed, patient examined and discussed with ICU bedside nurse. No new clinical events overnight. AM results and noteable actions include: Acceptable respiratory mechanics on BiPAP overnight with improved CBG Transition to high flow nasal cannula this morning. Purposeful and nonfocal motor exam all 4 extremities. Cognition significantly improved however on voluntary cooperation with bedside staff appears to be inconsistent. LOI[place]ONO 06/21:Transfer of care received from [facility] chairman emeritus LITTLE De Anda this AM. EMR reviewed, patient examined and discussed with ICU bedside nurse. AM results and noteable actions include: Improved cognition this last evening following initiation of high-dose thiamine support for potential Warnicke's encephalopathy. Acceptable respiratory mechanics on high flow nasal cannula overnight with FiO2 40% and de-escalation to nasal cannula O2 throughout the day today. HOME RESTORATION SERVICE SUPERVISOR evaluation recs n.p.o./ice chips due to patient fluctuating AMS w/ ongoing follow-up from HOME RESTORATION SERVICE SUPERVISOR Patient is cognitively more alert, endorses ongoing confusion regarding place and circumstance. Patient expresses ongoing anxiety regarding herself realized confusion and depression-patient discussed her concerns with psychiatry at bedside (Jennifer Edward (RESOURCE DEVELOPMENT DIRECTOR) Low-dose dexmedetomidine infusion initiated (following collaboration with psychiatry) until enteralaccess for meds can be more appropriately recommended. OBJECTIVE FLUID BALANCE VITAL SIGNS Intake/Output Summary (Last 24 hours) at 06/21/2024 1512 Last data filed at 06/21/2024 0700 Gross per 24 hour Intake 443.24 ml Output 1290 ml Net -846.76 ml Weight change: Visit Vitals BP (!) 167/81 Pulse 80 Temp 36.6 ??C (97.9 ??F) Resp 13 OXYGENATION AND VENTILATION FiO2 (%): [30 %-40 %] 40 % ABG Lab Results Component Value Date PHART 7.45 06/21/2024 PHART 7.25 (L) 06/17/2024 PHART 7.25 (L) 06/17/2024 NJB2ZWH 53 (H) 06/21/2024 GCA1FLE 65 (HH) 06/17/2024 PDW0DOI 59 (H) 06/17/2024 PO2ART 89 06/21/2024 PO2ART 89 06/17/2024 PO2ART 128 (H) 06/17/2024 ZPZ2ZIZ 33.7 (H) 06/21/2024 JLZ2MNA 24.9 06/17/2024 VXV2MZO 23.1 06/17/2024 M2UXUSGI 99.1 (H) 06/21/2024 T1IASIPR 97.5 06/17/2024 Q2IILSKQ 98.7 (H) 06/17/2024 BEART 11.2 (H) 06/21/2024 BEART 0.0 06/17/2024 BEART -2.3 (L) 06/17/2024 ALLENS Pass 06/21/2024 ALLENS Pass 06/17/2024 ALLENS Pass 06/17/2024 FIO2 30.00 06/21/2024 FIO2 45.00 06/17/2024 FIO2 100.00 06/17/2024 PHYSICAL EXAMINATION Appearance: No Acute Distress Neuro: Internitantly confused to place and circumstance. Intermittently but improved cooperation with requested simple commands. Bilaterally intentionally nonfocally purposeful with all 4 extremities. Nonfocal motor exam and without sensory deficit Head Exam: Normocephalic, Symmetric HEENT: Sclera Anicteric, PERRL, Moist Mucous Membranes, Trachea Midline, No JVD. Chest: CTA bilaterally. No Accessory Muscle Use. Cardiac: RRR without audible M/R/G Abdomen: Soft, Non-tender, NABS Rectal Exam: Deferred : IUBC in place draining clear cale urine Skin: Skin Color Normal, Skin Temperature Normal, Skin Turgor Normal. CRF < 3sec Wound Present: No Upper Extremity Appearance: Normal, Symmetric. Extremity muscle appearance andtone unremarkable. Lower Extremity Appearance: Normal, Symmetric. Extremity muscle appearance andtone unremarkable. Mental Status: A,A, & O x 3. appropriately conversant Follows Commands: yes Motor Response: symmetric, non-focally localizes noxious stimuli all 4 extremities Sensory Response: nonfocally localizes noxious stimuli all 4 extremities CURRENT MEDICATIONS Scheduled Meds: amLODIPine, 5 mg, oral, Daily azithromycin, 500 mg, intravenous, q24h enoxaparin, 40 mg, subcutaneous, q24h FABIEN FLUoxetine, 40 mg, oral, Daily folic acid, 1 mg, oral, Daily magnesium sulfate, , , multivitamin with minerals-iron, 1 each, oral, Daily pantoprazole, 40 mg, intravenous, q24h potassium phosphate, 30 mmol, intravenous, Once propranoloL, 20 mg, oral, BID sodium chloride, 10 mL, intravenous, BID dexmedeTOMIDine (PRECEDEX) infusion, 0.2-1.5 mcg/kg/hr, Last Rate: 0.5 mcg/kg/hr (06/21/241411) PRN medications: acetaminophen, albuterol, calcium carbonate, diphenhydrAMINE, hydrALAZINE, magnesium sulfate, naloxone, ondansetron, [COMPLETED] Insert peripheral IV AND Maintain IV access AND [COMPLETED] Saline lock IV AND sodium chloride AND sodium chloride Continuous Infusions:dexmedeTOMIDine (PRECEDEX) infusion, 0.2-1.5 mcg/kg/hr, Last Rate: 0.5 mcg/kg/hr (06/21/241411) PRN Meds: PRN medications: acetaminophen, albuterol, calcium carbonate, diphenhydrAMINE, hydrALAZINE, magnesium sulfate, naloxone, ondansetron, [COMPLETED] Insert peripheral IV AND Maintain IV access AND [COMPLETED] Saline lock IV AND sodium chloride AND sodium chloride LINES & DRAINS PICC 06/20/24 Double Lumen Right Basilic (Active) Site Assessment Clean;Dry;Intact 06/21/24 0757 Proximal Lumen Status Blood return noted;Flushed;Capped;Normal saline locked 06/20/24 165 Distal Lumen Status Blood return noted;Capped;Flushed;Normal saline locked 06/20/24 165 Phlebitis Scale 0 06/21/24 0757 Length eva (cm) 0 cm 06/20/24 165 Extremity Circumference (cm) 32 cm 06/20/24 165 Dressing Type Transparent;Chlorhexidine patch 06/21/24 075 Dressing Status Clean;Dry;Intact 06/21/24 075 Dressing Intervention New dressing 06/20/24 165 Dressing Change Due 06/27/24 06/20/24 165 Urethral Catheter (Active) Site Assessment Clean;Skin intact 06/21/24 0825 Collection Container Standard drainage bag 06/19/24 0000 Securement Method Leg strap 06/19/24 0000 Reason for Continuing Urinary Catheterization Critically ill and need for accurate measurements of I&O (e.g., hourly monitoring) 06/21/24 0825 Urinary Catheter Output (mL) 125 mL 06/21/24 0600 NUTRITION Diet Order: Dietary Orders (From admission, onward) Start Ordered 06/17/24 1522 Adult diet [facility]; General; Regular Diet effective now Question Answer Comment Location [facility] Diet Type (req) General General Diet Regular 06/17/24 1522 LAB RESULTS Lab Results Component Value Date WBC 6.9 06/21/2024 RBC 3.90 06/21/2024 HGB 9.8 (L) 06/21/2024 HCT 31.8 (L) 06/21/2024 MCV 80.7 06/21/2024 MCHC 30.8 (L) 06/21/2024 RDW 16.0 (H) 06/21/2024 PLT 279 06/21/2024 MPV 10.2 06/21/2024 NRBC 0.0 06/21/2024 DIFF Lab Results Component Value Date LYMPHOPCT 18.9 06/21/2024 NEUTROABS 4.79 06/21/2024 LYMPHSABS 1.30 06/21/2024 MONOABS 0.55 06/21/2024 EOSABS 0.19 06/21/2024 BASOSABS 0.04 06/21/2024 IMMGRANABS 0.01 06/21/2024 RETIC No results found for: RETIC , RETICCTPCT Lab Results Component Value Date NA 136 06/21/2024 K 3.6 06/21/2024 CL 98 06/21/2024 CO2 34 (H) 06/21/2024 GLUCOSE 87 06/21/2024 BUN 10 06/21/2024 CREATININE 0.47 (L) 06/21/2024 CALCIUM 8.4 (L) 06/21/2024 PROT 6.8 06/21/2024 ALBUMIN 3.0 (L) 06/21/2024 BILITOT 0.5 06/21/2024 AST 43 (H) 06/21/2024 ALT 43 06/21/2024 PHOS 2.0 (L) 06/21/2024 MG 1.8 (L) 06/21/2024 ALKPHOS 318 (H) 06/21/2024 EGFR 106 06/21/2024 RADIOLOGY I have reviewed the relevant diagnostic imaging MICROBIOLOGY I have reviewed the relevant microbiology ASSESSMENT & PLAN Patient Active Problem List Diagnosis Aspiration pneumonitis ([facility]/HCC) Acute on chronic respiratory failure with hypercapnia ([facility]) Depression with suicidal ideation H/O ETOH abuse MRSA (methicillin resistant Staphylococcus aureus) carrier Alcoholic intoxication with complication ([facility]) Methadone overdose, intentional self-harm, initial encounter ([facility]) Wernickie Encephalopathy Diagnosis Plan Neuro: -Pain control: Denies pain -Sedation/Anxiety management: Prozac -Psychiatry follow-up -Addiction Services followup - cont Thiamine 500mg q8h x full 48h- then de-escalate Thiamine to 250mg daily x 5d Cardiovascular/Hematological: -target MAP > 65 mmHg -Continue Norvasc, Inderal Heme: -transfusion trigger Hb < 7.0 g/dl -VTE prophylaxis: mechanical, enoxaparin subcu Pulmonary: -Target SaO2 > 92% -Continue BiPAP/HFNC as needed -Provide FiO2 cautiously in clinical setting of likely CO2 retention. -Progressive mobility as possible to optimize respiratory mechanics. -Albuterol nebs scheduled and RN GI/Nutrition: -Peptic Ulcer Prophylaxis: Shift Protonix to IV pantoprazole while on BiPAP. -Continue Folvite, Thera M /Renal/Lytes: -target UO > 0.5 cc/kg/h Adjusted IBW -replace electrolytes to WNL -Replace hypophosphatemia Endocrine: -target BG 140-180 -SSI ICU protocol ID: -azithromycin () for potential aspiration pneumonitis/tracheobronchitis -assess antimicrobials, when present, daily for potential de-escalation.assess antimicrobials, whenpresent, daily for potential de-escalation. Social: Patient/family updated regarding patient status, response to therapy and plan of care. Skin/Wound: -Wound prevention positioning 62 minutes of critical care time was spent in direct patient care at the bedside or in the immediate area with this patient. They are acutely ill with system failure. They are at high risk for decompensation. This time was spent assessing and managing the patient, interpreting labs and imaging, coordinating care with other medical providers, and gathering history and discussing management and prognosis with family. Vickie Carmona MD * VIKAS Chinchilla - 06/21/2024 9:40 AM EST Images from the original note were not included. [facility] HOME RESTORATION SERVICE SUPERVISOR BEDSIDE SWALLOW EVALUATION NAME: Cherelle Gonsales DATE OF : 1960 ROOM: [address] [place] [address] Pt ID by: ANN keating confirmed. Pt hesitant to state name to this policy writer. HOME RESTORATION SERVICE SUPERVISOR Received On: 06/21/24 Child Health Associate Required: No TIME IN: 0940 TIME OUT: 1010 TOTAL TIME: 30 min SUBJECTIVE Orders acknowledged/received, chart reviewed, and patient cleared by DARSHANA Terrazas for swallow evaluation. Patient seen at bedside in room. Per RN, Pt continues to demonstrate AMS, slightly improved since yesterday. Provided oral care for Pt with toothette. Principal Problem: Acute on chronic respiratory failure with hypercapnia ([facility]/HCC) Date Noted: 06/20/2024 Active Problems: Aspiration pneumonitis ([facility]/HCC) Date Noted: 06/16/2024 Depression with suicidal ideation Date Noted: 06/20/2024 H/O ETOH abuse Date Noted: 06/20/2024 MRSA (methicillin resistant Staphylococcus aureus) carrier Date Noted: 06/20/2024 Alcoholic intoxication with complication ([facility]) Date Noted: 06/20/2024 Methadone overdose, intentional self-harm, initial encounter ([facility]) Date Noted: 06/20/2024 Resolved Problems: * No resolved hospital problems. * Aspiration pneumonitis (CMS/HCC) [J69.0] SOB (shortness of breath) [R06.02] Hypoxia [R09.02] Pneumonia of right lower lobe due to infectious organism [J18.9] Acute hypoxemic respiratory failure ([facility]/HCC) [J96.01] No admission procedures for hospital encounter. PAST MEDICAL HISTORY: Past Medical History: Diagnosis Date Alcohol use disorder Anxiety Cervical spinal stenosis CHF (congestive heart failure) (CMS/HCC) Chronic back pain COPD (chronic obstructive pulmonary disease) (CMS/HCC) Depression Hypertension PAST SURGICAL HISTORY: Past Surgical History: Procedure Laterality Date CHOLECYSTECTOMY PRIOR LEVEL OF FUNCTIONING: Unable to determine as Pt did not appropriately answer interview questions/unintelligible. IMAGING RESULTS: MRI Brain No results found for this or any previous visit. CT Head No results found for this or any previous visit. Chest Portable Results for orders placed during the hospital encounter of 06/16/24 XR Chest 1 View Narrative XR CHEST 1 VIEW INDICATION: Pneumonia TECHNIQUE: XR CHEST 1 VIEW COMPARISON: 06/19/2024 Impression FINDINGS/IMPRESSION: Right upper extremity PICC terminates in the right atrium. Elevated right diaphragm with unchanged right basilar opacity, possibly atelectasis. No pleural effusion or pneumothorax. Cardiac silhouette and bones are stable compared to prior -------- FINAL REPORT -------- Dictated By: DELANO BARAJAS Dictated Date: 06/21/2024 08:08 ET Assigned Physician: DELANO BARAJAS Reviewed and Electronically Signed By: DELANO BARAJAS Signed Date: 06/21/2024 08:09 ET Workstation ID: [id number] Transcribed By: Self Edit Transcribed Date: 06/21/2024 08:08 ET Chest 2 View No results found for this or any previous visit. Chest CT Results for orders placed during the hospital encounter of 06/16/24 CT Angio Chest wo and/or w Contrast Narrative CTA chest with IV contrast. MIP images also submitted for evaluation. Comparison: None Findings: The thyroid is unremarkable. Normal caliber of the thoracic aorta. Atherosclerosis of the thoracic aorta. Soft plaque involving the descending thoracic aorta The heart is normal size. Small lymph nodes throughout mediastinum No pulmonary embolism. Bronchial thickening within the right base. Some opacities involving the right lung base which could represent developing right basilar infectious process including pneumonia and or right basilar atelectasis. Degenerative changes of the thoracic spine. Please see report for discussion of the abdomen and pelvis. A small hiatal hernia. Cholecystectomy. Impression 1. No pulmonary embolism. 2. Bronchial thickening within the right base. Some opacities involving the right lung base which could represent developing right basilar infectious process including pneumonia and or right basilar atelectasis. This document has been electronically signed by: Joey Sullivan DO on 06/16/2024 23:00:33 ALLERGIES: Allergies Allergen Reactions Penicillins Rash OBJECTIVE VITALS: OXYGEN THERAPY: Oxygen Therapy: Supplemental oxygen O2 Delivery Method: High flow nasal cannula TRACHEOSTOMY: Tracheostomy: No DYSPHAGIA SYMPTOMS REPORTED BY PATIENT: Unable to state any swallowing issues CURRENT DIET TEXTURES ORDERED: NPO NPO FEEDING METHOD: Dependent For Feeding ENDURANCE DURING MEALS: To Be Assessed MENTAL STATUS: Alert and Confused SWALLOW BASELINE ASSESSMENT: Respiratory Status: High flow nasal cannula Behavior/Cognition: Alert, Confused, Doesn't follow directions, Requires cueing Dentition: Partial dentures upper, Edentulous lower Patient Positioning: Upright in bed Baseline Comments: Unable to determine as Pt did not answer interview questions appropriately/unintelligible. MOTOR SPEECH: Labial Symmetry: Within Functional Limits Lingual Symmetry: Within Functional Limits Facial Symmetry: Within Functional Limits Intelligibility: Intelligibility reduced Intelligibility Ratin%-80% CONSISTENCIES ASSESSED: Yes Ice Chips Presentation: Spoon, Therapist fed Oral: Within functional limits Pharyngeal: Within Functional Limits Amount: x4 Thin Presentation: Spoon, Straw, Therapist fed Oral: Within functional limits Pharyngeal: Cough - immediate, Cough - delayed Amount: x2 tsp, x1 small straw sip Comments: Required cues for safe intake. Puree Presentation: Spoon, Therapist fed Oral: Other (Comment) (Pt almost suctioning apple sauce off spoon) Pharyngeal: Cough - immediate, Cough - delayed Amount: x2 tsp ASSESSMENT/RECOMMENDATIONS ASPIRATION RISK: Risk for Aspiration: (at risk) Recommendations: NPO, Other (Comment) (ice chips for pleasure) Diet Solids Recommendation: NPO Diet Liquids Recommendation: NPO HOME RESTORATION SERVICE SUPERVISOR ASSESSMENT: HOME RESTORATION SERVICE SUPERVISOR Assessment Results: Swallowing impairments Dysphagia Diagnosis: Mild oral stage dysphagia, Moderate pharyngeal stage dysphagia Evaluation/Treatment Tolerance: Other (Comment) (Limited d/t overt s/sx of aspiration/penetration) Medical Staff Made Aware: Yes Comments: RN aware of recommendations and MD messaged. PLAN OF CARE HOME RESTORATION SERVICE SUPERVISOR PLAN Treatment/Interventions: Swallow function HOME RESTORATION SERVICE SUPERVISOR Plan: Skilled HOME RESTORATION SERVICE SUPERVISOR HOME RESTORATION SERVICE SUPERVISOR Frequency: 2-5 days per week HOME RESTORATION SERVICE SUPERVISOR Treatments per day: 1 time per day HOME RESTORATION SERVICE SUPERVISOR - Evaluation Status: Complete Diet Recommendations: NPO, ice chips for pleasure EDUCATION Education Documentation Teach aspiration precautions, taught by Audra Quiñonez, HOME RESTORATION SERVICE SUPERVISOR at 06/21/2024 9:40 AM. Learner: Patient Readiness: Cognitively Impaired Method: Explanation Response: Cognitively Impaired Education Comments No comments found. GOALS Encounter Problems Encounter Problems (Active) Template: Speech Therapy Problem: Swallowing Dates: Start: 06/21/24 Goal: Patient will tolerate recommended food and liquid consistencies without clinical signs and symptoms of aspirations Dates: Start: 06/21/24 Expected End: 06/28/24 Description: Goal: Patient will tolerate therapeutic trials of recommended consistency without clinical signs and symptoms of aspiration Dates: Start: 06/21/24 Expected End: 06/28/24 Description: Encounter Problems (Resolved) There are no resolved problems. * Nkechi Williamson RN - 06/21/2024 3:13 AM EST Goals: PATIENT WILL ALLOW STAFF TO REPOSITION HER Q2H Identify possible barriers to meeting goals/advancing plan of care: PT'S CONFUSION AND DISORIENTATION TO TIME, PLACE AND SITUATION Stability of the patient: Moderately Stable - Low risk of patient condition declining or worsening End of Shift Summary: PATIENT A LITTLE RESISTANT TO REPOSITIONING BUT WILL ALLOW SOME CHANGE IN POSITION WHILE IN BED * VIKAS Jensen - 06/20/2024 2:52 PM EST Speech Language Pathology Therapy session was attempted for Cherelle Gonsales by VIKAS Jensen on 06/20/2024. The patient was unable to be seen for the following reason(s): Other: RN reported that pt is not appropriate for PO trials at this time due to AMS. Plan for return visit: Tomorrow * Lenora Edward NP - 06/20/2024 1:41 PM EST Psychiatric follow up: Met pt with ICU mortgage loan funder. Pt up in chair. Staff report little interaction and not offering conversation. Mental status: Pt is alert but not interactive which is a major change. She is unable to follow most commands , did minimally move feet when asked.Nods head yes when asked if she remembered me but not sure she does. She is not verbal. Sitter states she occasionally looks at him but is not interactive. She could tell us she was in the hospital, unable to participate in mental status exam. Impression: Altered mental status Plan: Pt is being closely followed in ICU . Service will follow. * Symone Randhawa - 06/20/2024 11:32 AM EST SPIRITUAL CARE Date/Time:06/20/24 at 11:33 AM EST Type of Visit:Coordinate Measuring Equipment Operator Rounding Reason for Visit: Spiritual/Emotional Support Time Spent: 12 Minutes Location: [address] [place] [address] Sacramental Encounters: Spiritual Distress Assessment: Spiritual Distress Assessment at beginning of visit Meaning - Overall Life Balance: Substantial evidence of unmet spiritual need Transcendence: Some evidence of unmet spiritual need Values - Acknowledgement: Some evidence of unmet spiritual need Values - Control: Some evidence of unmet spiritual need Psycho-Social Identity: Substantial evidence of unmet spiritual need SDAT Beginning of Visit Average Score: 1.4 Spiritual Distress Assessment at end of visit Meaning - Overall Life Balance: Substantial evidence of unmet spiritual need Transcendence: Some evidence of unmet spiritual need Values - Acknowledgement: Some evidence of unmet spiritual need Values - Control: Some evidence of unmet spiritual need Psycho-Social Identity: Substantial evidence of unmet spiritual need SDAT End of Visit Average Score: 1.4 Spiritual Assessment/Distress Spiritual Care Assessment: Assessment: Coordinate Measuring Equipment Operator initiated visit. Pt shows evidence of spiritual / emotional distress due to hospitalization and housing instability. Pt was seated in chair watching television. Pt did not respond to auto rental supervisor initially and appeared confused. Pt spoke few words, smiled, and engaged with chaplainbriefly. Intervention: NE Spiritual Care Interventions : consulted with interdisciplinary team and cultivated a relationship of care and support; Coordinate Measuring Equipment Operator consulted with pt's RN who confirmed pt's housing instability. Coordinate Measuring Equipment Operator confirmed that Social Work referral has been made. Outcomes: Pt was calm. Plan of Care: Visit as needed *Reference: Spiritual Distress Assessment Tool: The SDAT is a clinical tool used by chaplains to identify unmet spiritual and emotional needs that can impact Goals of Care in the following categories: Spiritual Distress Assessment Legend Spiritual Needs Related Questions Meaning Are you having difficulties coping with what is happening to your now? Does your hospitalization have any repercussions on the way you live usually? Transcendence Do you have a particular religious, tee, or spirituality? Is your religious/spirituality/tee challenged by what is happening to you now? Values Do you think that the health professionals caring for you know you well enough? Do you feel that you are participating in the decisions made about your care? Psycho-Social Identity Do you have any worries or difficulties regarding your family or other persons close to you? Do you feel lonely? Do you have links to your tee community? SCALE 0= no evidence of unmet spiritual needs 1= some evidence of unmet spiritual needs 2= substantial evidence of unmet spiritual needs 3= evidence of severe unmet spiritual needs * Vickie Carmona MD - 06/20/2024 7:12 AM EST [facility] PROGRESS NOTE Code Status: Full Code - Default Length of Stay: 5 ICU Day: 4 SUBJECTIVE 06/17 ICU consult note Elsy Weinstein PA-C: Cherelle Gonsales is a 63 y.o. female with a history of COPD, hypertension, major depression, severe alcohol use disorder complicated by alcohol withdrawal seizures, cocaine use, and tobacco dependence who presents to the [facility] Emergency Department with vomiting and shortness of breath. This history is per [place] provider upon presentationto ED. The patient reports she was in a dual diagnosis recovery program until 2 days prior to presentation. She left the program and immediately began drinking alcohol again. She began vomiting and felt short of breath. She sought care in the Emergency Department. She was seen and admitted to the [facility]'s service. At the time of evaluation, the patient had become increasingly hypoxic and bradypneic and was minimally responsive to sternal rub. She was administered naloxone 0.4 mg IV x 1 and an ABG was simultaneously obtained. After receiving naloxone, the patient became alert with her respiratory rate increasing to the 20s and and becoming tachycardic to the 120s. On interview, the initially denied taking any opioids, illicit or otherwise; however, 90 minutes later, the patient again became bradypneic andpoorly responsive. An additional dose of naloxone 0.4 mg x 1 was administered with the patient again feeling awake and alert. At this time she endorses buying methadone on the street but denies typically using opioids. She is also unclear about her alcohol use. While she reported to the ER providerthat she was drinking 2 L of vodka daily for extended period time; however, she stated to [facility] [place] provider that she left her dual diagnosis treatment program 2 days ago and has been using alcohol since.Prior to the past 2 days, she tells me she had been sober for 3 weeks. At this time she is not showing significant signs of alcohol withdrawal. She does report that she is having suicidal thoughts. When asked if she intends to harm herself, she states that she has in the past. One month ago she was institutionalized secondary to depression and suicidal ideation. She continues to require 6 L/min supplemental O2 by [employer]. She is not on chronic oxygen. She reports she is homeless and uses a walker for ambulation. Functional status prior to presentation: Ambulatory with a walker. Patient has now required 3 doses of Narcan and there is consideration for starting a Narcan drip. For that reason, ICU consultation is being requested for possible transfer as Narcan drip cannot be initiated on [facility]. 06/18: Patient seen and examined. Please see note from Dr. Ng overnight. Ultimately transferred toICU on Narcan infusion at 0.2 mg/h. Just cut in half to 1 mg/h. Addiction medicine service is following. Reportedly took 1 dose of 20 mg of methadone. Has been drinking as well. No evidence of alcohol withdrawal. Vital signs stable. 06/19: Patient seen and examined this morning. Awake and alert. Eccentric affect. Denies pain. Mildlynauseous. Shortness of breath is improved. Cough is scant and unproductive. No fevers overnight. Seen by psychiatry. One-to-one sitter continues. Psychiatry following for possible inpatient psych admission once medically cleared. Denies any suicidality this morning. States feeling better. Remains on high flow. Late entry: Nursing reports increasing somnolence over the course of the day today. VBG consistent with acute hypercarbic respiratory failure. Restarted on BiPAP. Will continue ICU management. KRISTI 06/20: Transfer of care received from [facility] chairman emeritus Jonathan Cole DO. this AM. EMR reviewed, patient examined and discussed with ICU bedside nurse. No new clinical events overnight. AM results and noteable actions include: Acceptable respiratory mechanics on BiPAP overnight with improved CBG Transition to high flow nasal cannula this morning. Purposeful and nonfocal motor exam all 4 extremities. Cognition significantly improved however on voluntary cooperation with bedside staff appears to be inconsistent. OBJECTIVE FLUID BALANCE VITAL SIGNS Intake/Output Summary (Last 24 hours) at 06/20/2024 0712 Last data filed at 06/20/2024 0500 Gross per 24 hour Intake -- Output 675 ml Net -675 ml Weight change: Visit Vitals BP 121/56 Pulse 73 Temp 37.5 ??C (99.5 ??F) Resp 12 OXYGENATION AND VENTILATION FiO2 (%): [40 %] 40 % S RR: [10] 10 ABG Lab Results Component Value Date PHART 7.25 (L) 06/17/2024 PHART 7.25 (L) 06/17/2024 [id number] 65 (HH) 06/17/2024 [id number] 59 (H) 06/17/2024 PO2ART 89 06/17/2024 PO2ART 128 (H) 06/17/2024 XBD1EEE 24.9 06/17/2024 YOE2NPN 23.1 06/17/2024 [id number] 97.5 06/17/2024 [id number] 98.7 (H) 06/17/2024 BEART 0.0 06/17/2024 BEART -2.3 (L) 06/17/2024 [facility] 06/17/2024 [facility] Pass 06/17/2024 FIO2 45.00 06/17/2024 FIO2 100.00 06/17/2024 PHYSICAL EXAMINATION Appearance: No Acute Distress Neuro: Internitantly confused to place and circumstance. Intermittently cooperative with requested simple commands. Bilaterally intentionally nonfocally purposeful with all 4 extremities. Nonfocal motor exam and without sensory deficit Head Exam: Normocephalic, Symmetric HEENT: Sclera Anicteric, PERRL, Moist Mucous Membranes, Trachea Midline, No JVD. Chest: CTA bilaterally. No Accessory Muscle Use. Cardiac: RRR without audible M/R/G Abdomen: Soft, Non-tender, NABS Rectal Exam: Deferred : IUBC in place draining clear cale urine Skin: Skin Color Normal, Skin Temperature Normal, Skin Turgor Normal. CRF < 3sec Wound Present: No Upper Extremity Appearance: Normal, Symmetric. Extremity muscle appearance andtone unremarkable. Lower Extremity Appearance: Normal, Symmetric. Extremity muscle appearance andtone unremarkable. Mental Status: A,A, & O x 3. appropriately conversant Follows Commands: yes Motor Response: symmetric, non-focally localizes noxious stimuli all 4 extremities Sensory Response: nonfocally localizes noxious stimuli all 4 extremities CURRENT MEDICATIONS Scheduled Meds: amLODIPine, 5 mg, oral, Daily doxycycline, 100 mg, oral, q12h FABIEN enoxaparin, 40 mg, subcutaneous, q24h FABIEN FLUoxetine, 40 mg, oral, Daily folic acid, 1 mg, oral, Daily multivitamin with minerals-iron, 1 each, oral, Daily pantoprazole, 40 mg, oral, q AM AC phosphorus, 500 mg, Orogastric, q6h propranoloL, 20 mg, oral, BID sodium chloride, 10 mL, intravenous, BID PRN medications: acetaminophen, albuterol, calcium carbonate, diphenhydrAMINE, hydrALAZINE, naloxone, ondansetron, [COMPLETED] Insert peripheral IV AND Maintain IV access AND [COMPLETED] Saline lock IV AND sodium chloride AND sodium chloride Continuous Infusions: PRN Meds: PRN medications: acetaminophen, albuterol, calcium carbonate, diphenhydrAMINE, hydrALAZINE, naloxone, ondansetron, [COMPLETED] Insert peripheral IV AND Maintain IV access AND [COMPLETED] Saline lock IV AND sodium chloride AND sodium chloride LINES & DRAINS Peripheral IV 06/18/24 Right Antecubital (Active) Site Assessment Clean;Dry;Intact 06/20/24 0349 Dressing Type Transparent 06/20/24 0349 Line Status Capped 06/20/24 0349 Phlebitis Scale 0 06/19/24 1145 Dressing Status Clean;Dry;Intact 06/20/24 0349 Peripheral IV 06/18/24 Anterior;Left;Upper Arm (Active) Site Assessment Clean;Dry;Intact 06/20/24 0214 Dressing Type Transparent 06/20/24 0214 Line Status Capped 06/20/24 0214 Phlebitis Scale 0 06/19/24 1807 Dressing Status Clean;Dry;Intact 06/20/24 0214 Urethral Catheter (Active) Site Assessment Clean;Skin intact 06/20/24 0112 Collection Container Standard drainage bag 06/19/24 0000 Securement Method Leg strap 06/19/24 0000 Reason for Continuing Urinary Catheterization Critically ill and need for accurate measurements of I&O (e.g., hourly monitoring) 06/20/24 0112 Urinary Catheter Output (mL) 675 mL 06/20/24 0500 NUTRITION Diet Order: Dietary Orders (From admission, onward) Start Ordered 06/17/24 1522 Adult diet [facility]; General; Regular Diet effective now Question Answer Comment Location [facility] Diet Type (req) General General Diet Regular 06/17/24 1522 LAB RESULTS Lab Results Component Value Date WBC 7.3 06/20/2024 RBC 4.00 06/20/2024 HGB 9.8 (L) 06/20/2024 HCT 33.4 (L) 06/20/2024 MCV 83.9 06/20/2024 MCHC 29.3 (L) 06/20/2024 RDW 16.3 (H) 06/20/2024 PLT 255 06/20/2024 MPV 10.1 06/20/2024 NRBC 0.0 06/20/2024 DIFF Lab Results Component Value Date LYMPHOPCT 20.0 06/20/2024 NEUTROABS 4.87 06/20/2024 LYMPHSABS 1.46 06/20/2024 MONOABS 0.68 06/20/2024 EOSABS 0.25 06/20/2024 BASOSABS 0.03 06/20/2024 IMMGRANABS 0.02 06/20/2024 RETIC No results found for: RETIC , RETICCTPCT Lab Results Component Value Date NA 136 06/20/2024 K 4.1 06/20/2024 CL 99 06/20/2024 CO2 38 (H) 06/20/2024 GLUCOSE 95 06/20/2024 BUN 13 06/20/2024 CREATININE 0.66 06/20/2024 CALCIUM 8.4 (L) 06/20/2024 PROT 7.3 06/19/2024 ALBUMIN 3.3 06/19/2024 BILITOT 0.3 06/19/2024 AST 94 (H) 06/19/2024 ALT 64 (H) 06/19/2024 PHOS 2.2 (L) 06/20/2024 MG 1.9 06/20/2024 ALKPHOS 319 (H) 06/19/2024 EGFR 98 06/20/2024 RADIOLOGY I have reviewed the relevant diagnostic imaging MICROBIOLOGY I have reviewed the relevant microbiology ASSESSMENT & PLAN Patient Active Problem List Diagnosis Depression with suicidal ideation Alcoholic intoxication with complication ([facility]) Methadone overdose, intentional self-harm, initial encounter ([facility]) Aspiration pneumonitis ([facility]) Acute on chronic respiratory failure with hypercapnia ([facility]) H/O ETOH abuse MRSA (methicillin resistant Staphylococcus aureus) carrier Diagnosis Plan Neuro: -Pain control: Denies pain -Sedation/Anxiety management: Prozac -Psychiatry follow-up Cardiovascular/Hematological: -target MAP > 65 mmHg -Continue Norvasc, Inderal Heme: -transfusion trigger Hb < 7.0 g/dl -VTE prophylaxis: mechanical, enoxaparin subcu Pulmonary: -Target SaO2 > 92% -Continue BiPAP/HFNC as needed -Provide FiO2 cautiously in clinical setting of likely CO2 retention. -Progressive mobility as possible to optimize respiratory mechanics. -Albuterol nebs scheduled and RN GI/Nutrition: -Peptic Ulcer Prophylaxis: Shift Protonix to IV pantoprazole while on BiPAP. -Continue Folvite, Thera M /Renal/Lytes: -target UO > 0.5 cc/kg/h Adjusted IBW -replace electrolytes to WNL -Replace hypophosphatemia Endocrine: -target BG 140-180 -SSI ICU protocol ID: -azithromycin () for potential aspiration pneumonitis/tracheobronchitis -assess antimicrobials, when present, daily for potential de-escalation.assess antimicrobials, whenpresent, daily for potential de-escalation. Social: Patient/family updated regarding patient status, response to therapy and plan of care. Skin/Wound: -Wound prevention positioning 52 minutes of critical care time was spent in direct patient care at the bedside or in the immediate area with this patient. They are acutely ill with system failure. They are at high risk for decompensation. This time was spent assessing and managing the patient, interpreting labs and imaging, coordinating care with other medical providers, and gathering history and discussing management and prognosis with family. Vickie Carmona MD * Ashleigh Vega RN - 06/20/2024 2:14 AM EST Goals: Identify possible barriers to meeting goals/advancing plan of care: none Stability of the patient: Moderately Stable - Low risk of patient condition declining or worsening End of Shift Summary: pt admit for SI and methadone overdose. Pt. Stabilizing on bipap, executive secretary social welfare and addiction medicine to f/u with disposition of care * TICO Barrera - 06/19/2024 5:50 PM EST 06/19/241742 Initial Transition Plan Initial Transition Plan Inpatient Behavioral Health Back up Transition Plan Back up Transition plan [facility] Discharge Planning Living Arrangements Homeless (pt reports appx [address] Type of Residence Homeless Assistive Devices None Support Systems None Medication Coverage Has Med Coverage Under Insurance Plan Yes Medication Affordability No concerns related to payment for meds Anticipated Discharge Needs Discipline following for SNF placement Shoulder Puncher Discharge Barriers Barriers to Discharge Plan Other (Comment) (pt at icu level of care) Transportation Final Discharge Disposition Other (Comment) (to be determined) To date, seen by psychiatry-in pt recommended. Sitter bedside * TICO Barrera - 06/19/2024 5:45 PM EST 06/19/241742 Initial Transition Plan Initial Transition Plan Inpatient Behavioral Health Back up Transition Plan Back up Transition plan [facility] Discharge Planning Living Arrangements Homeless (pt reports appx [address] Type of Residence Homeless Assistive Devices None Support Systems None Medication Coverage Has Med Coverage Under Insurance Plan Yes Medication Affordability No concerns related to payment for meds Anticipated Discharge Needs Discipline following for SNF placement Shoulder Puncher Discharge Barriers Barriers to Discharge Plan Other (Comment) (pt at icu level of care) Transportation Final Discharge Disposition Other (Comment) (to be determined) 06/19/241742 Initial Transition Plan Initial Transition Plan Inpatient Behavioral Health Back up Transition Plan Back up Transition plan Prison Facility Discharge Planning Living Arrangements Homeless (pt reports appx [address] Type of Residence Homeless Assistive Devices None Support Systems None Medication Coverage Has Med Coverage Under Insurance Plan Yes Medication Affordability No concerns related to payment for meds Anticipated Discharge Needs Discipline following for SNF placement Shoulder Puncher Discharge Barriers Barriers to Discharge Plan Other (Comment) (pt at icu level of care) Transportation Final Discharge Disposition Other (Comment) (to be determined) Social work will continue to follow for dc planning needs. Per psychiatry, in patient stay recommended. Per pt eval, rehab recommended. Pt remains in ICU with sitter bedside. * TICO Barrera - 06/19/2024 5:35 PM EST Review of medical record documents in pt psychiatric stay recommended. Physical therapy evaluation documents need for rehab. Currently disposition is pending--in pt psych admision vs rehab. SNF referrals on hold due to psychiatry's recommendations. Social work to follow * LUCIEN Nieto - 06/19/2024 9:59 AM EST Images from the original note were not included. Cherelle Gonsales 1960 [id number] Author: LUCIEN Vazquez DOS: 06/19/2024 Requesting Service: Hospitalist Service Chief Complaint: Aspiration pneumonitis ([facility]) Reason for Consultation: Alcohol use disorder Source of History: Patient and chart Subjective History of Present Illness: Cherelle Gonsales is a 63 y.o. female with a history of an extensive history of severe alcohol use disorder. Patient has multiple other comorbidities such as COPD, hypertension, depression, tobacco dependence. After further investigation and psychiatric consult patient's admits to taking the methadone and attempt to hurt herself. Patient did not initially state this to us on prior consultation. Patient feels a little shaky at this time but overall symptoms are improving. Plan today Patient to goto stepdown unit from ICU. Patient remains on high flow. Patient states she still is interested in decreasing alcohol use. Allergies: No Known Allergies Home Medications: Prior to Admission medications Medication Sig Start Date End Date Taking? Authorizing Provider amLODIPine (NORVASC) 5 mg tablet Take 1 tablet (5 mg total) by mouth 1 (one) time each day. 03/20/24istorical Provider, cloNIDine (CATAPRES) 0.1 mg tablet Take 1 tablet (0.1 mg total) by mouth 4 (four) times a day. 12/15/23 Historical Provider, ferrous sulfate 325 mg (65 mg iron) EC tablet Take 1 tablet (325 mg total) by mouth every other day. 03/20/24 Historical Provider, FLUoxetine (PROzac) 20 mg capsule Take 3 capsules (60 mg total) by mouth. 03/20/24 Historical Provider, gabapentin (NEURONTIN) 100 mg capsule Take 3 capsules (300 mg total) by mouth 3 (three) times a day. 12/15/23 Historical Provider, hydrOXYzine pamoate (VISTARIL) 25 mg capsule Take 2 capsules (50 mg total) by mouth 3 (three) timesa day if needed for anxiety. Patient not taking: Reported on 05/14/2024 03/20/24 Historical Provider, mirtazapine (REMERON) 7.5 mg tablet Take 1 tablet (7.5 mg total) by mouth. Historical Provider, OLANZapine (ZyPREXA) 2.5 mg tablet Take 2 tablets (5 mg total) by mouth 2 (two) times a day. 02/01/24 Historical Provider, propranoloL (INDERAL) 20 mg tablet Take 1 tablet (20 mg total) by mouth 2 (two) times a day. 03/20/24 Historical Provider, amLODIPine (NORVASC) 2.5 mg tablet Take 2 tablets (5 mg total) by mouth 1 (one) time each day. 12/15/23 06/17/24 Historical Provider, FLUoxetine (PROzac) 20 mg tablet Take 1 tablet (20 mg total) by mouth 1 (one) time each day. Pt reports she only takes 20mg not 60mg 12/15/23 06/17/24 Historical Provider, gabapentin (NEURONTIN) 600 mg tablet Take 0.5 tablets (300 mg total) by mouth 3 (three) times a day. 03/08/24 06/17/24 Historical Provider, hydrOXYzine HCL (ATARAX) 25 mg tablet Take 2 tablets (50 mg total) by mouth 3 (three) times a day if needed for anxiety. 08/08/23 06/17/24 Historical Provider, mirtazapine (REMERON) 15 mg tablet Take 0.5 tablets (7.5 mg total) by mouth at bedtime. 03/20/24 06/17/24 Historical Provider, OLANZapine (ZyPREXA) 5 mg tablet Take 1 tablet (5 mg total) by mouth at bedtime. 03/20/24 06/17/24 Historical Provider, propranoloL (INDERAL) 10 mg tablet Take 2 tablets (20 mg total) by mouth 2 (two) times a day. 12/15/23 06/17/24 Historical Provider, Past Medical History: Past Medical History: Diagnosis Date Alcohol use disorder Anxiety Cervical spinal stenosis CHF (congestive heart failure) ([facility]) Chronic back pain COPD (chronic obstructive pulmonary disease) ([facility]) Depression Hypertension Past Surgical History: Past Surgical History: Procedure Laterality Date CHOLECYSTECTOMY Family History: Family History Problem Relation Name Age of Onset Hypertension Other Anxiety disorder Other Social History: Social History Tobacco Use Smoking Status Every Day Current packs/day: 0.25 Types: Cigarettes Smokeless Tobacco Not on file Social History Substance and Sexual Activity Alcohol Use Yes Social History Substance and Sexual Activity Drug Use Yes Types: Cocaine Objective Last Recorded Vitals: Blood pressure 129/53, pulse 88, temperature 37.4 ??C (99.3 ??F), resp. rate 15, height 1.651 m (65 ), weight 92.1 kg (203 lb), SpO2 93%. Physical Exam Lying in bed Appears comfortable No gross resting tremor Normal cardiac rate High flow nasal cannula in place no obvious increased work of breathing at this time alert and oriented Conversing appropriately CIWA-Ar Total: 6 Labs: Lab Results Component Value Date GLUCOSE 106 (H) 06/19/2024 CALCIUM 8.3 (L) 06/19/2024 NA 134 06/19/2024 K 4.0 06/19/2024 CO2 33 (H) 06/19/2024 CL 99 06/19/2024 BUN 13 06/19/2024 CREATININE 0.75 06/19/2024 Lab Results Component Value Date WBC 8.7 06/19/2024 HGB 10.0 (L) 06/19/2024 HCT 33.7 (L) 06/19/2024 MCV 83.6 06/19/2024 PLT 260 06/19/2024 Imaging: XR Chest 1 View Narrative: XR CHEST 1 VIEW INDICATION: Respiratory failure TECHNIQUE: XR CHEST 1 VIEW COMPARISON: 06/18/2024 Impression: FINDINGS/IMPRESSION: Elevated right diaphragm with bibasilar atelectasis. No pleural effusion or pneumothorax. Cardiac silhouette and bones are normal. -------- FINAL REPORT -------- Dictated By: DELANO BARAJAS Dictated Date: 06/19/2024 08:54 ET Assigned Physician: DELANO BARAJAS Reviewed and Electronically Signed By: DELANO BARAJAS Signed Date: 06/19/2024 09:08 ET Workstation ID: [id number] Transcribed By: Self Edit Transcribed Date: 06/19/2024 08:54 ET Meds: amLODIPine, 5 mg, oral, Daily ampicillin-sulbactam, 3 g, intravenous, q6h enoxaparin, 40 mg, subcutaneous, q24h FABIEN FLUoxetine, 40 mg, oral, Daily folic acid, 1 mg, oral, Daily multivitamin with minerals-iron, 1 each, oral, Daily pantoprazole, 40 mg, oral, q AM AC propranoloL, 20 mg, oral, BID sodium chloride, 10 mL, intravenous, BID PRN medications: acetaminophen, albuterol, calcium carbonate, hydrALAZINE, naloxone, ondansetron, [COMPLETED] Insert peripheral IV AND Maintain IV access AND [COMPLETED] Saline lock IV AND sodium chloride AND sodium chloride Assessment and Plan Cherelle Gonsales is a 63 y.o. female with a history of alcohol use disorder. Patient also admitted for for opiate overdose that was now stated as intentional. Patient has been weaned off Narcan drip. Patient did not receive phenobarbital. Speaking with ICU team no sign of worsening concerns for alcohol withdrawal at this time. Patient was evaluated by psychiatry section 12 is been placed Patient ultimately admitted taking the methadone was an attempt to hurt herself. Thiamine folate replacement. Patient has no obvious signs of worsening alcohol withdrawal at this time would continue to monitorCIWA scale. 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 We will continue to follow. Please reach out with any questions or concerns. Principal Problem: Aspiration pneumonitis (CMS/HCC) Active Problems: Acute hypoxemic respiratory failure (CMS/HCC) Provider Attestation Electronically signed by Mukesh Prabhakar PA-C * Junior Polanco MD - 06/19/2024 9:51 AM EST Images from the original note were not included. MELISSA PROGRESS NOTE Date: 06/19/2024 Author: Junior Polanco MD Patient ID: Cherelle Gonsales is a 63 y.o. female : 1960 MR#: [id number] SUBJECTIVE Subjective Patient seen and examined bedside this morning. Offers no complaints and reports no events overnight. Patient was resting comfortably in the bed and having breakfast when I saw her. Has bedside sitter present in the room. Patient denies any chest pain, shortness of breath, nausea, vomiting or palpitation or dizziness. Objective Allergy- Patient has no known allergies. OBJECTIVE Vitals: 06/19/24 0500 06/19/24 0700 06/19/24 0800 06/19/24 0810 BP: (!) 147/69 133/62 129/53 Pulse: 93 89 88 Resp: 14 14 15 Temp: 37.6 ??C (99.7 ??F) 37.6 ??C (99.7 ??F) 37.4 ??C (99.3 ??F) TempSrc: SpO2: 94% 94% 93% Weight: Height: Temp (24hrs), Av.2 ??C (99 ??F), Min:36.9 ??C (98.4 ??F), Max:37.8 ??C (100 ??F) Physical Exam General-patient appears comfortable, no acute distress HEENT-NCAT Eyes-anicteric Cardiology-no significant murmur appreciated Respiratory-reduced breath sounds bilaterally with some crackles on right side, oh high flow O2 nasal cannula abdomen-nontender nondistended Extremity-no significant lower extremity edema noted Neurology-awake alert oriented to time place and person Skin-warm and dry Lab Results: CBC BMP Results from last 7 days Lab Units 06/19/24 0437 06/17/24 0408 06/16/24 2109 WBC AUTO K/mcL 8.7 16.7* 10.8 HEMOGLOBIN g/dL 10.0* 12.2 12.4 HEMATOCRIT % 33.7* 40.4 40.2 PLATELETS K/mcL 260 318 339 LYMPHS PCT AUTO % 15.8 4.9 16.2 MONO PCT AUTO % 8.3 9.4 6.9 EOS PCT AUTO % 2.9 1.1 1.4 Results from last 7 days Lab Units 06/19/24 0437 06/18/24 0535 06/17/24 0600 06/16/24 2109 SODIUM mmol/L 134 137 134 134 POTASSIUM mmol/L 4.0 4.1 5.3 3.8 CHLORIDE mmol/L 99 103 101 102 CO2 mmol/L 33* 32 28 25 ANION GAP 2* 2* 5 7 BUN mg/dL 13 18 18 15 CREATININE mg/dL 0.75 0.90 1.08 0.89 CALCIUM mg/dL 8.3* 8.1* 8.3* 9.1 MAGNESIUM mg/dL 1.9 2.2 2.1 -- PHOSPHORUS mg/dL 1.9* 2.5 4.3 -- Results from last 7 days Lab Units 06/19/24 0437 06/18/24 0535 06/18/24 0419 06/17/24 2255 06/17/24 0600 POCT GLUCOSE mg/dL -- -- 115* 106* -- GLUCOSE mg/dL 106* 110* -- -- 108* Results from last 7 days Lab Units 06/19/2443606/16/24 2109 AST unit/L 94* 49* ALT unit/L 64* 45 Scheduled Medications PRN Medications IV Medications amLODIPine, 5 mg, Daily ampicillin-sulbactam, 3 g, q6h enoxaparin, 40 mg, q24h FABIEN FLUoxetine, 40 mg, Daily folic acid, 1 mg, Daily multivitamin with minerals-iron, 1 each, Daily pantoprazole, 40 mg, q AM AC propranoloL, 20 mg, BID sodium chloride, 10 mL, BID acetaminophen, 650 mg, q4h PRN albuterol, 2.5 mg, q6h PRN calcium carbonate, 500 mg, q4h PRN hydrALAZINE, 10 mg, q4h PRN naloxone, 0.1 mg, q1h PRN ondansetron, 4 mg, q6h PRN sodium chloride, 10 mL, PRN ASSESSMENT & PLAN Assessment/Plan Principal Problem: Aspiration pneumonitis (CMS/HCC) Active Problems: Acute hypoxemic respiratory failure (CMS/HCC) No problem-specific Assessment & Plan notes found for this encounter. Patient is a 63 years old female with history of COPD, hypertension, major depression, severe alcohol use disorder complicated by alcohol withdrawal seizures, cocaine use, and tobacco dependence initially presented to the hospital with acute hypoxemic respiratory failure secondary to methadone intox ication complicated by likely right lower lobe aspiration pneumonia. She was transferred to ICU in light of altered mental status with patient becoming less responsive and respiratory depression. She responded to couple of doses of Narcan however with worsening clinical condition she was transferred to ICU for further care. In the ICU patient was treated with Narcan drip. Treated with BiPAP and high flow nasal cannula. After medical stabilization patient okay for transfer to medical floors. Acute hypoxic hypercapnic respiratory failure Aspiration pneumonia -Patient reported multiple episode of vomiting recently. Chest imaging suggestive of right lung base infiltrate suggestive of aspiration pneumonia. Positive MRSA screen. -Continue with antibiotic Unasyn. Add doxycycline. -Currently on high flow to nasal cannula; wean off as tolerated. Depression Suicidal ideation -Patient expressed suicidal ideation. Psych consulted. Currently on Prozac. -Meets criteria for section 12 and cannot leave AMA. Bedside sitter for safety. Once medically cleared plan for transfer to psychiatry unit. COPD-continue with inhaler treatment. Hypertension-amlodipine. Propranolol. Alcohol intoxication Opioid abuse -U-Tox positive for methadone on admission. Alcohol level high at 65. -Addiction medicine consult VTE Prophylaxis: Lovenox Diet: Regular diet Resuscitation: Full code All labs, imaging, relevant history personally reviewed by me. This dictation was performed using voice recognition software. Word substitution may have occurred and may have gone unnoticed and uncorrected. Reach out to our office for any errors or questions. * Renetta Roca, PT - 06/19/2024 9:35 AM EST [facility] ACUTE CARE PT EVALUATION Cherelle Gonsales 1960 Ambulation: Walking Assistance: Minimum assistance Device: Rolling walker Distance Ambulated (ft): (5 sidesteps) PLOF: Level of [place]: Independent with mobility and functional transfers Lives With: (homeless) Home Adaptive Equipment: (her RW was stolen so no AD now) Home Living Comments: she was living in the streets. DME Needs: rolling walker PT Discharge Recommendation: longterm facility placement Diagnosis: ICD-10-CM ICD-9-CM 1. Pneumonia of right lower lobe due to infectious organism J18.9 486 2. SOB (shortness of breath) R06.[address] Angio Chest wo and/or w Contrast CT Angio Chest wo and/or w Contrast 3. Hypoxia R09.02 799.02 4. Aspiration pneumonitis ([facility]) J69.0 507.0 Past Medical History: Diagnosis Date Alcohol use disorder Anxiety Cervical spinal stenosis CHF (congestive heart failure) ([facility]) Chronic back pain COPD (chronic obstructive pulmonary disease) ([facility]) Depression Hypertension Past Surgical History: Procedure Laterality Date CHOLECYSTECTOMY PT Received On: 06/19/2024 SUBJECTIVE Pt c/o itchiness all over PT Time Calculation: PT Time Calculation PT Start Time: 0935 PT Stop Time: 1015 PT Time Calculation (min): 40 min OBJECTIVE Precautions: Precautions Medical Precautions: Fall Risk Safety Interventions: Call morgan within reach, Bed alarm, Side rails up x2 Cognition: Cognition Overall Cognitive Status: Impaired Arousal/Alertness: Delayed responses to stimuli Orientation Level: Disoriented to time, Disoriented to situation Following Commands: Follows one step commands with increased time, Follows one step commands with repetition Safety Judgment: Decreased awareness of need for assistance, Decreased awareness of need for safety Vital Signs: Oxygen Therapy SpO2: 93 % Oxygen Therapy: Supplemental oxygen O2 Delivery Method: High flow nasal cannula Heart Rate: 88 SpO2: 93 % Home Living: Home Living Lives With: (homeless) Home Adaptive Equipment: (her RW was stolen so no AD now) Home Living Comments: she was living in the streets. Prior Function: Prior Function Level of [place]: Independent with mobility and functional transfers Ambulation Status: Community ambulator Indoor Mobility Assistance: Independent Prior Device Use: (walking without walker) Functional Assessments: Static Sitting Balance Static Sitting-Level of Assistance: Close supervision Static Sitting-Comment/Number of Minutes: good sitting @ EOB Dynamic Standing Balance Dynamic Standing-Level of Assistance: Minimum assistance Dynamic Standing-Balance: Ambulation Dynamic Standing-Comments: fair with RW Bed Mobility Rolling Left and Right Assistance: Minimum assistance Sitting to Lying Assistance: Moderate assistance Lying to Sitting Assistance: Moderate assistance Transfers Sit to Stand Assistance: Moderate assistance Ambulation Walking Assistance: Minimum assistance Device: Rolling walker Distance Ambulated (ft): (5 sidesteps) Education: Education Documentation Difficult to assess the way she learns. VC s for safe sit to stand Education Comments No comments found. ASSESSMENT Pt still somewhat confused and was focused on scratching from being itchy. Rec rehab to work on strengthening and safe mobility. PT Assessment: PT Assessment PT Assessment Results: Decreased strength, Decreased endurance, Impaired balance, Impaired gait, Decreased mobility Prognosis: Good Evaluation/Treatment Tolerance: Patient tolerated treatment well Medical Staff Made Aware: Yes PLAN PT Plan: During acute care stay: PT Plan: Skilled PT PT Frequency: 2-5 days per week PT Discharge Recommendations: longterm facility placement Equipment Recommendations: Rolling walker Goals: Goals: Encounter Problems Encounter Problems (Active) Template: Physical Therapy Problem: PT Short Term Goals Dates: Start: 06/19/24 Goal: PT STG 1 Patient will ambulate CGA 50 ft Dates: Start: 06/19/24 Expected End: 07/03/24 Goal: PT STG 2 Patient will transfer sit<>stand safely and Supervision Dates: Start: 06/19/24 Expected End: 07/03/24 Encounter Problems (Resolved) There are no resolved problems. PT Evaluation Time Entry Gabe Mercado PT Evaluation Time Entry PT Evaluation (Moderate) Time Entry: 40 * Anjelica Parker MD - 06/19/2024 8:37 AM EST Images from the original note were not included. Connected to patient's room via I-pad with help from fitness technician; assistance much appreciated. Patient consented to visit via Telehealth video conferencing modality. Patient educated as to likely differences between Telehealth care and face to face care. Patient informed of the risks and benefits of using Telehealth services and procedures and likely risks and benefits of using alternatives to Telehealth services. Patient informed of the right to refuse Telehealth services at any time without jeopardizing his/her right to future care, services or benefits. Patient was informed that he/she is being seen solely by Anjelica Parker MD today via secure connection in a locked virtual exam room. Persons present on patient's end: Patient Persons present on provider's end: Anjelica Parker MD CHART REVIEWED, PATIENT INTERVIEWED. CHIEF COMPLAINT: Depression, SI Time spent on encounter: 10 min. HISTORY OF PRESENT ILLNESS Cherelle Gonsales is a 63 y.o. female with psychiatric history significant for depression, anxiety, and alcohol/cocaine/tobacco use disorders and medical history significant for but not limited to COPD, HTN, chronic back pain, and cervical spinal stenosis who was admitted for acute hypoxic respiratory failure and aspiration PNA. Psychiatry was consulted due to concern for suicidal ideations. The patient states that she is not too bad this morning. She slept okay overnight. She continues to experience low mood and continues to report that she has been through a lot. She reports that she is still having thoughts about taking an overdose of her medications to take her own life. REVIEW OF SYSTEMS CONSTITUTIONAL: The patient denies fevers, chills, sweats and body ache. HEENT: Denies MATOS, blurry vision, eye pain, tinnitus, vertigo, gingival bleeding, sore throat, neck or thyroid masses. RESPIRATORY: C/o SOB. CARDIAC: Denies chest pain, pressure, palpitations, irregular heartbeats. Denies lower extremity edema. GASTROINTESTINAL: Denies abdominal pain, changes in bowel habits or any bleeding on toilet paper. GENITOURINARY: Denies dysuria, hematuria, nocturia or frequency. NEUROLOGIC: Denies headaches, dizziness, syncope. MUSCULOSKELETAL: Negative for arthritis. Denies muscle weakness. No limitation in range of motion. VASCULAR: Denies claudication and cramping. ENDOCRINOLOGY: Denies heat or cold intolerance. HEMATOLOGY: Denies easy bleeding or blood transfusion. DERMATOLOGY: Denies changes in moles or pigmentation changes. Psychiatric ROS: Depression: See HPI. Sari: The patient denies elevated/expansive mood, decreased need for sleep, grandiosity, pressuredspeech, flight of ideas, distractibility, increase in goal directed activity, and hypersexuality. Psychosis: The patient denies audio or visual hallucinations, delusions, thought broadcasting, thought insertion, delusions of reference, catatonia, or disorganized speech or behavior. Anxiety: See HPI. Panic: The patient denies any recent panic episodes. PTSD: The patient denies any h/o trauma and does not endorse any current s/s related to PTSD. OCD: The patient denies intrusive thoughts, repetitive behaviors, counting, checking, washing, symmetry, or grouping and ordering that take up more than 1 hour of the day. Eating Disorder: The patient denies feeling overweight, excessive dieting or exercise to lose weight, overuse of laxatives, binging/purging behaviors, and amenorrhea. MEDICAL HISTORY Non-psychiatric medical history: Past Medical History: Diagnosis Date Alcohol use disorder Anxiety Cervical spinal stenosis CHF (congestive heart failure) ([facility]) Chronic back pain COPD (chronic obstructive pulmonary disease) ([facility]) Depression Hypertension Current medications: amLODIPine, 5 mg, oral, Daily ampicillin-sulbactam, 3 g, intravenous, q6h enoxaparin, 40 mg, subcutaneous, q24h FABIEN FLUoxetine, 40 mg, oral, Daily folic acid, 1 mg, oral, Daily multivitamin with minerals-iron, 1 each, oral, Daily pantoprazole, 40 mg, oral, q AM AC propranoloL, 20 mg, oral, BID sodium chloride, 10 mL, intravenous, BID ALLERGIES: No Known Allergies MSE: Appearance: AOx4. Appears stated age, well groomed. Pleasant and cooperative. Adequate eye contact.No psychomotor agitation or retardation. No evidence of EPS. Muscle tone/station: WNL. Orientation: To person, place, time, and situation. Attention and Concentration: No deficits in attention and concentration. Speech: Normal rate, rhythm, volume, and tone. Mood: Still depressed. Affect: Dysphoric with restricted range, mood congruent. No lability noted. Thought Process: Coherent, linear, logical, and goal-directed. No FOI or BEST. No thought blocking. Thought Content: SI, as above. Denies homicidal ideation. Denies auditory/visual hallucinations. Nodelusions. No paranoia. Perception/associations: Denies hallucinations, somatic complaints, or tactile disturbances Suicidal Ideations: Continues to c/o suicidal ideations with plan, as above. Homicidal Ideations: Pt denies HI, intent, or plan. Low acute risk. No history of violence. No access to firearms. Behavior: No abnormal behavior during interview. Fund of Knowledge: Appropriate for age and level of education Intellect/Memory: Estimated as average based on interview. Immediate, recent, and remote memory is grossly intact. Language: No deficits Judgment/Insight: fair at present. Musculoskeletal Exam: Movement: [x]normal []abnormal [-]dyskinesias [-]tremors [-]tics Station: [x]upright []hyperflexed/stooped []hyperextended Muscle strength [x]appears normal [-]appears abnormal Muscle tone: [x]normal [-]muscle rigidity LABS: Lab Results Component Value Date WBC 8.7 06/19/2024 RBC 4.00 06/19/2024 HGB 10.0 (L) 06/19/2024 HCT 33.7 (L) 06/19/2024 MCV 83.6 06/19/2024 MCHC 29.7 (L) 06/19/2024 RDW 16.6 (H) 06/19/2024 PLT 260 06/19/2024 MPV 10.5 06/19/2024 NRBC 0.0 06/19/2024 DIFF Lab Results Component Value Date LYMPHOPCT 15.8 06/19/2024 NEUTROABS 6.23 06/19/2024 LYMPHSABS 1.37 06/19/2024 MONOABS 0.72 06/19/2024 EOSABS 0.25 06/19/2024 BASOSABS 0.04 06/19/2024 IMMGRANABS 0.04 (H) 06/19/2024 Pain Management Panel More data may exist Latest Ref Rng & Units 06/17/2024 05/14/2024 Pain Management Panel Amphetamine Screen, Ur Negative Negative Negative Barbiturate Screen, Ur Negative Negative Positive Benzodiazepine Screen, Ur Negative Positive Positive Buprenorphine Screen Urine Negative - Negative Cocaine Screen, Ur Negative Negative Positive Fentanyl, Ur Negative Negative Negative Negative Negative Methadone Screen, Urine Negative Positive Negative Opiate Screen, Ur Negative Negative Negative PCP Scrn, Ur Negative - Negative Cannabinoid (THC) Screen, Ur Negative Negative Negative Details Multiple values from one day are sorted in reverse-chronological order VITALS: BP: 147/69 (06/19 0500) Heart Rate: 93 (06/190) Heart Rate Source: Monitor (06/18 334) Temp: 37.6 ??C (99.7 ??F) (06/19 499) Temp Source: Bladder (06/18 599) SpO2: 95 % (06/19 399) FiO2 (%): 50 % (06/19 299) O2 Flow Rate (L/min): 40 L/min (06/19 299) O2 Delivery Method: High flow nasal cannula (06/19 299) ASSESSMENT: Cherelle Gonsales is a 63 y.o. female with psychiatric history significant for depression, anxiety, and alcohol/cocaine/tobacco use disorders and medical history significant for but not limited to COPD, HTN, chronic back pain, and cervical spinal stenosis who was admitted for acute hypoxic respiratory failure and aspiration PNA. Psychiatry was consulted due to concern for suicidal ideations. DSM-5 DIAGNOSIS: Suicidal ideations Depressive disorder, unspecified Anxiety disorder, unspecified Alcohol/cocaine/tobacco use disorders COPD, HTN, chronic back pain, and cervical spinal stenosis Admitted for acute hypoxic respiratory failure and aspiration PNA TREATMENT PLAN: Pt has verbalized understanding and given consent/agreement with medications and plan offered. LEVEL OF CARE: Continue current level of treatment. RECOMMENDATIONS: Prozac decreased to 40 mg PO qAM by another provider. Discussed/Reviewed mechanism of action of SSRIs, expected benefits and time to response, common SEs including GI, MATOS, drowsiness or activation, sexual SEs, and more rare but serious adverse effects including agitation, sari, suicidal thoughts and behaviors. Continue sitter for safety. The patient meets criteria for Section 12 and cannot leave the hospitalAMA. Please alert the u/s when the patient has been medically cleared. At that time, will as the storage specialist to evaluate for possible transfer to a psychiatric unit. Medication Education: Risks, benefits, alternatives, and potential side effects were discussed withthe patient. Patient voiced understanding and agreed with medication regimen described above. LABS: Reviewed and discussed most recent labs results. MEDICATION CONTRACT: Patient agreed to take medication only as prescribed and acknowledges that services may be terminated if prescription abuse is observed. SAFETY PLAN: Patient is to alert team if symptoms worsen. Team will monitor for development of suicidal ideations or an acute medication reaction. - Call 911 or present to nearest Emergency Room in case of crisis / suicidal thoughts upon discharge. EDUCATION/CONSENT: Discussed and explained all diagnoses including differential diagnosis and treatment options. Discussed risks, benefits, potential side effects, contraindications, potential drug-drug interactions, alternatives to current medications and medication allergies as noted above. Discussed continuing to monitor for side effects and treatment efficacy prospectively and delineated patient's involvement and responsibility in monitoring for side effects and efficacy. Lucien bell expressed understanding of these recommendations. BARRIERS TO LEARNING: Patient demonstrates a readiness to learn. Patient verbalizes understanding and agrees to plan. No barriers to communication noted. MEDICATION RECONCILIATION: Medications were reviewed and reconciled with the patient. PREVENTATIVE RECOMMENDATIONS: Preventative Health Education Counseling: discussed proper diet/nutrition, exercise, and sleep hygiene. The patient was encouraged to avoid nicotine, alcohol and illicitdrugs at all times. The patient was made aware that records from the u/s can be sent to his/her PCP at any time that he/she requests. * Jonathan Cole DO - 06/19/2024 7:47 AM EST [facility] PROGRESS NOTE Code Status: Full Code - Default SUBJECTIVE 06/17 ICU consult note Elsy Weinstein PA-C: Cherelle Gonsales is a 63 y.o. female with a history of COPD, hypertension, major depression, severe alcohol use disorder complicated by alcohol withdrawal seizures, cocaine use, and tobacco dependence who presents to the [facility] Emergency Department with vomiting and shortness of breath. This history is per [place] provider upon presentationto ED. The patient reports she was in a dual diagnosis recovery program until 2 days prior to presentation. She left the program and immediately began drinking alcohol again. She began vomiting and felt short of breath. She sought care in the Emergency Department. She was seen and admitted to the [facility]'s service. At the time of evaluation, the patient had become increasingly hypoxic and bradypneic and was minimally responsive to sternal rub. She was administered naloxone 0.4 mg IV x 1 and an ABG was simultaneously obtained. After receiving naloxone, the patient became alert with her respiratory rate increasing to the 20s and and becoming tachycardic to the 120s. On interview, the initially denied taking any opioids, illicit or otherwise; however, 90 minutes later, the patient again became bradypneic andpoorly responsive. An additional dose of naloxone 0.4 mg x 1 was administered with the patient again feeling awake and alert. At this time she endorses buying methadone on the street but denies typically using opioids. She is also unclear about her alcohol use. While she reported to the ER providerthat she was drinking 2 L of vodka daily for extended period time; however, she stated to [place] provider that she left her dual diagnosis treatment program 2 days ago and has been using alcohol since.Prior to the past 2 days, she tells me she had been sober for 3 weeks. At this time she is not showing significant signs of alcohol withdrawal. She does report that she is having suicidal thoughts. When asked if she intends to harm herself, she states that she has in the past. One month ago she was institutionalized secondary to depression and suicidal ideation. She continues to require 6 L/min supplemental O2 by [employer]. She is not on chronic oxygen. She reports she is homeless and uses a walker for ambulation. Functional status prior to presentation: Ambulatory with a walker. Patient has now required 3 doses of Narcan and there is consideration for starting a Narcan drip. For that reason, ICU consultation is being requested for possible transfer as Narcan drip cannot be initiated on [facility]. 06/18: Patient seen and examined. Please see note from Dr. Ng overnight. Ultimately transferred toICU on Narcan infusion at 0.2 mg/h. Just cut in half to 1 mg/h. Addiction medicine service is following. Reportedly took 1 dose of 20 mg of methadone. Has been drinking as well. No evidence of alcohol withdrawal. Vital signs stable. 06/19: Patient seen and examined this morning. Awake and alert. Eccentric affect. Denies pain. Mildlynauseous. Shortness of breath is improved. Cough is scant and unproductive. No fevers overnight. Seen by psychiatry. One-to-one sitter continues. Psychiatry following for possible inpatient psych admission once medically cleared. Denies any suicidality this morning. States feeling better. Remains on high flow. Late entry: Nursing reports increasing somnolence over the course of the day today. VBG consistent with acute hypercarbic respiratory failure. Restarted on BiPAP. Will continue ICU management. OBJECTIVE FLUID BALANCE VITAL SIGNS Intake/Output Summary (Last 24 hours) at 06/19/2024 0747 Last data filed at 06/19/2024 0500 Gross per 24 hour Intake 775.17 ml Output 1125 ml Net -349.83 ml Weight change: Visit Vitals BP (!) 147/69 Pulse 93 Temp 37.6 ??C (99.7 ??F) Resp 14 OXYGENATION AND VENTILATION FiO2 (%): [40 %-50 %] 50 % ABG Lab Results Component Value Date PHART 7.25 (L) 06/17/2024 PHART 7.25 (L) 06/17/2024 [id number] 65 (HH) 06/17/2024 [id number] 59 (H) 06/17/2024 PO2ART 89 06/17/2024 PO2ART 128 (H) 06/17/2024 [id number] 24.9 06/17/2024 [id number] 23.1 06/17/2024 [id number] 97.5 06/17/2024 [id number] 98.7 (H) 06/17/2024 BEART 0.0 06/17/2024 BEART -2.3 (L) 06/17/2024 [facility] Pass 06/17/2024 [facility] Pass 06/17/2024 FIO2 45.00 06/17/2024 FIO2 100.00 06/17/2024 PHYSICAL EXAMINATION In general the patient is awake, alert, oriented. No distress. Centric affect. HEENT is unremarkable. Pupils are equal round reactive to light. Sclera are anicteric. Extraocular muscles intact. Neck is supple, no JVD. Heart is regular. No murmurs appreciated. Chest is clear. Diminished at the bases. No rales, rhonchi, or wheezes. Abdomen is soft, nondistended. Bowel sounds quiet. Extremities notable for dependent edema. Warm and well-perfused. Distal pulses palpable in the radial/dorsalis pedis. Neuro exam is grossly nonfocal. Rectal is deferred is deferred. Mack in place. CURRENT MEDICATIONS Scheduled Meds: amLODIPine, 5 mg, oral, Daily ampicillin-sulbactam, 3 g, intravenous, q6h enoxaparin, 40 mg, subcutaneous, q24h FABIEN FLUoxetine, 40 mg, oral, Daily folic acid, 1 mg, oral, Daily multivitamin with minerals-iron, 1 each, oral, Daily pantoprazole, 40 mg, oral, q AM AC propranoloL, 20 mg, oral, BID sodium chloride, 10 mL, intravenous, BID PRN medications: acetaminophen, albuterol, calcium carbonate, hydrALAZINE, naloxone, ondansetron, [COMPLETED]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 Detected Final Parainfluenza Virus 3 06/16/2024 Not Detected Not Detected Final Parainfluenza Virus 4 06/16/2024 Not Detected Not Detected Final RSV PCR 06/16/2024 Not Detected Not Detected Final Human Metapneumovirus A and B 06/16/2024 Not Detected Not Detected Final Rhinovirus/Enterovirus 06/16/2024 Not Detected Not Detected Final Bordetella pertussis 06/16/2024 Not Detected Not Detected Final Bordetella parapertussis 06/16/2024 Not Detected Not Detected Final Mycoplasma pneumo by PCR 06/16/2024 Not Detected Not Detected Final Chlamydia pneumoniae 06/16/2024 Not Detected Not Detected Final SARS COV-2 06/16/2024 Not Detected Not Detected Final BNP 06/16/2024 17 <=100 pcg/mL Final Ethanol Level 06/16/2024 65 (H) 0 - 10 mg/dL Final Amphetamine Screen, Ur 06/17/2024 Negative Negative Final Certain OTC medications containing ephedrine, phenylephrine, pseudoephedrine and phenylpropanolamine can cause false positive results. Barbiturate Screen, Ur 06/17/2024 Negative Negative Final Benzodiazepine Screen, Ur 06/17/2024 Positive (A) Negative Final Cocaine Screen, Ur 06/17/2024 Negative Negative Final Opiate Screen, Ur 06/17/2024 Negative Negative Final Cannabinoid (THC) Screen, Ur 06/17/2024 Negative Negative Final Specimens from patients taking pantoprazole sodium (Protonix) have been shown to produce false positive results. Oxycodone Screen, Ur 06/17/2024 Negative Negative Final Fentanyl, Ur 06/17/2024 Negative Negative Final High Sensitivity Troponin I 06/16/2024 22 <=54 ng/L Final High Sensitivity Troponin I 06/17/2024 21 <=54 ng/L Final pH, Arterial 06/17/2024 7.25 (L) 7.35 - 7.45 pH Final pCO2, Arterial 06/17/2024 59 (H) 35 - 45 mmHg Final pO2, Arterial 06/17/2024 128 (H) 80 - 100 mmHg Final HCO3, Arterial 06/17/2024 23.1 22.0 - 26.0 mmol/L Final O2 Sat, Arterial 06/17/2024 98.7 (H) 95.0 - 98.0 % Final Base Excess, Arterial 06/17/2024 -2.3 (L) -2.0 - 2.0 mmol/L Final Sb Test 06/17/2024 Pass Pass, Unresponsive, Line Final FIO2 06/17/2024 100.00 Final Fentanyl, Ur 06/17/2024 Negative Negative Final Methadone Screen, Urine 06/17/2024 Positive (A) Negative Final Assay cutoff 300 ng/mL Semi-quantitative assay for screening purposes only. Unconfirmed screening result should not be used for non-medical purposes. *ALTERNATE METHOD CONFIRMATION DONE UPON REQUEST ONLY* Sodium 06/17/2024 134 133 - 145 mmol/L Final Potassium 06/17/2024 5.3 3.5 - 5.5 mmol/L Final Chloride 06/17/2024 101 96 - 110 mmol/L Final CO2 06/17/2024 28 21 - 32 mmol/L Final Anion Gap 06/17/2024 5 3 - 11 Final Glucose 06/17/2024 108 (H) 70 - 100 mg/dL Final BUN 06/17/2024 18 5 - 25 mg/dL Final Creatinine 06/17/2024 1.08 0.50 - 1.10 mg/dL Final eGFR 06/17/2024 57 (L) >=60 mL/min/1.73m2 Final Calculation based on the Chronic Kidney Disease Epidemiology Collaboration (CKD- EPI) equation refitwithout adjustment for race. BUN/Creatinine Ratio 06/17/2024 16.7 Final Calcium 06/17/2024 8.3 (L) 8.5 - 10.5 mg/dL Final pH, Arterial 06/17/2024 7.25 (L) 7.35 - 7.45 pH Final pCO2, Arterial 06/17/2024 65 (HH) 35 - 45 mmHg Final pO2, Arterial 06/17/2024 89 80 - 100 mmHg Final HCO3, Arterial 06/17/2024 24.9 22.0 - 26.0 mmol/L Final O2 Sat, Arterial 06/17/2024 97.5 95.0 - 98.0 % Final Base Excess, Arterial 06/17/2024 0.0 -2.0 - 2.0 mmol/L Final Sb Test 06/17/2024 Pass Pass, Unresponsive, Line Final FIO2 06/17/2024 45.00 Final WBC 06/17/2024 16.7 (H) 4.8 - 10.8 K/mcL Final RBC 06/17/2024 5.00 (H) 3.80 - 4.80 M/mcL Final Hemoglobin 06/17/2024 12.2 11.5 - 16.0 g/dL Final Hematocrit 06/17/2024 40.4 35.0 - 47.0 % Final MCV 06/17/2024 81.5 79.0 - 98.0 FL Final MCH 06/17/2024 24.6 (L) 27.0 - 32.0 pcg Final MCHC 06/17/2024 30.2 (L) 32.0 - 37.0 g/dL Final RDW 06/17/2024 16.9 (H) 11.0 - 15.0 % Final Platelets 06/17/2024 318 130 - 400 K/mcL Final MPV 06/17/2024 10.8 7.0 - 11.0 FL Final NRBC 06/17/2024 0.0 <1.0 % Final NRBC Absolute 06/17/2024 0.00 <0.10 K/mcL Final Neutrophils Relative 06/17/2024 83.9 % Final Lymphocytes Relative 06/17/2024 4.9 % Final Monocytes Relative 06/17/2024 9.4 % Final Eosinophils Relative 06/17/2024 1.1 % Final Basophils Relative 06/17/2024 0.3 % Final Immature Granulocytes Relative 06/17/2024 0.4 % Final Neutrophils Absolute 06/17/2024 14.02 (H) 1.50 - 7.00 K/mcL Final Lymphocytes Absolute 06/17/2024 0.82 (L) 1.00 - 5.00 K/mcL Final Monocytes Absolute 06/17/2024 1.58 (H) 0.20 - 1.00 K/mcL Final Eosinophils Absolute 06/17/2024 0.19 0.00 - 0.50 K/mcL Final Basophils Absolute 06/17/2024 0.05 0.00 - 0.20 K/mcL Final Immature Granulocytes Absolute 06/17/2024 0.06 (H) 0.00 - 0.03 K/mcL Final Magnesium 06/17/2024 2.1 1.9 - 2.6 mg/dL Final Phosphorus 06/17/2024 4.3 2.5 - 4.5 mg/dL Final pH, Parker 06/17/2024 7.24 (L) 7.32 - 7.42 pH Final pCO2, [place] 06/17/2024 73 (HH) 41 - 51 mmHg Final pO2, [place] 06/17/2024 55 (H) 25 - 40 mmHg Final HCO3, Venous 06/17/2024 26.3 (H) 22.0 - 26.0 mmol/L Final O2 Sat, [place] 06/17/2024 85.5 % Final Base Excess, [place] 06/17/2024 2.2 (H) -2.0 - 2.0 mmol/L Final Glucose POCT 06/17/2024 106 (H) 70 - 100 mg/dL Final Sodium 06/18/2024 137 133 - 145 mmol/L Final Potassium 06/18/2024 4.1 3.5 - 5.5 mmol/L Final Chloride 06/18/2024 103 96 - 110 mmol/L Final CO2 06/18/2024 32 21 - 32 mmol/L Final Anion Gap 06/18/2024 2 (L) 3 - 11 Final Glucose 06/18/2024 110 (H) 70 - 100 mg/dL Final BUN 06/18/2024 18 5 - 25 mg/dL Final Creatinine 06/18/2024 0.90 0.50 - 1.10 mg/dL Final eGFR 06/18/2024 72 >=60 mL/min/1.73m2 Final Calculation based on the Chronic Kidney Disease Epidemiology Collaboration (CKD- EPI) equation refitwithout adjustment for race. BUN/Creatinine Ratio 06/18/2024 20.0 Final Calcium 06/18/2024 8.1 (L) 8.5 - 10.5 mg/dL Final Magnesium 06/18/2024 2.2 1.9 - 2.6 mg/dL Final Phosphorus 06/18/2024 2.5 2.5 - 4.5 mg/dL Final pH, [place] 06/18/2024 7.29 (L) 7.32 - 7.42 pH Final pCO2, [place] 06/18/2024 76 (HH) 41 - 51 mmHg Final pO2, [place] 06/18/2024 73 (H) 25 - 40 mmHg Final HCO3, Venous 06/18/2024 30.8 (H) 22.0 - 26.0 mmol/L Final O2 Sat, [place] 06/18/2024 94.1 % Final Base Excess, [place] 06/18/2024 7.6 (H) -2.0 - 2.0 mmol/L Final Glucose POCT 06/18/2024 115 (H) 70 - 100 mg/dL Final pH, [place] 06/18/2024 7.32 7.32 - 7.42 pH Final pCO2, [place] 06/18/2024 65 (HH) 41 - 51 mmHg Final pO2, [place] 06/18/2024 60 (H) 25 - 40 mmHg Final HCO3, Venous 06/18/2024 29.2 (H) 22.0 - 26.0 mmol/L Final O2 Sat, [place] 06/18/2024 89.9 % Final Base Excess, [place] 06/18/2024 5.7 (H) -2.0 - 2.0 mmol/L Final VITALS: BP: 142/53 (06/18 799) Heart Rate: 94 (06/18 799) Heart Rate Source: Monitor (06/18 334) Temp: 37.5 ??C (99.5 ??F) (06/18 799) Temp Source: Bladder (06/18 599) SpO2: 96 % (06/18 799) FiO2 (%): 45 % (06/18 512) O2 Flow Rate (L/min): 30 L/min (06/17 1007) O2 Delivery Method: High flow nasal cannula (06/18 629) ASSESSMENT: Cherelle Gonsales is a 63 y.o. female with psychiatric history significant for depression, anxiety, and alcohol/cocaine/tobacco use disorders and medical history significant for but not limited to COPD, HTN, chronic back pain, and cervical spinal stenosis who was admitted for acute hypoxic respiratory failure and aspiration PNA. Psychiatry was consulted due to concern for suicidal ideations. DSM-5 DIAGNOSIS: Depressive disorder, unspecified Anxiety disorder, unspecified Alcohol/cocaine/tobacco use disorders COPD, HTN, chronic back pain, and cervical spinal stenosis Admitted for acute hypoxic respiratory failure and aspiration PNA TREATMENT PLAN: Pt has verbalized understanding and given consent/agreement with medications and plan offered. LEVEL OF CARE: Continue current level of treatment. RECOMMENDATIONS: Continue Prozac 60 mg PO qAM for depression and anxiety. Discussed/Reviewed mechanism of action of SSRIs, expected benefits and time to response, common SEs including GI, MATOS, drowsiness or activation, sexual SEs, and more rare but serious adverse effects including agitation, sari, suicidal thoughts and behaviors. The patient admits to SI with plan today. Will order sitter for safety. Please alert the u/s when the patient has been medically cleared. At that time, will as the storage specialist to evaluate for possible transfer to a psychiatric unit. Medication Education: Risks, benefits, alternatives, and potential side effects were discussed withthe patient. Patient voiced understanding and agreed with medication regimen described above. LABS: Reviewed and discussed most recent labs results. MEDICATION CONTRACT: Patient agreed to take medication only as prescribed and acknowledges that services may be terminated if prescription abuse is observed. SAFETY PLAN: Patient is to alert team if symptoms worsen. Team will monitor for development of suicidal ideations or an acute medication reaction. - Call 911 or present to nearest Emergency Room in case of crisis / suicidal thoughts upon discharge. EDUCATION/CONSENT: Discussed and explained all diagnoses including differential diagnosis and treatment options. Discussed risks, benefits, potential side effects, contraindications, potential drug-drug interactions, alternatives to current medications and medication allergies as noted above. Discussed continuing to monitor for side effects and treatment efficacy prospectively and delineated patient's involvement and responsibility in monitoring for side effects and efficacy. Lucien bell expressed understanding of these recommendations. BARRIERS TO LEARNING: Patient demonstrates a readiness to learn. Patient verbalizes understanding and agrees to plan. No barriers to communication noted. MEDICATION RECONCILIATION: Medications were reviewed and reconciled with the patient. PREVENTATIVE RECOMMENDATIONS: Preventative Health Education Counseling: discussed proper diet/nutrition, exercise, and sleep hygiene. The patient was encouraged to avoid nicotine, alcohol and illicitdrugs at all times. The patient was made aware that records from the u/s can be sent to his/her PCP at any time that he/she requests. * Orlando Ng MD - 06/18/2024 5:18 AM EST Has been evaluated multiple times during the evening. The patient had refused an ABG that have beenordered at change of shift. A venous blood gas was then obtained which demonstrated ongoing hypercapnic respiratory failure. On evaluation she was again bradypneic but would open eyes to voice, an improvement from the previous night. She was placed on BiPAP; however as the evening wore on the patient became less responsive and had a declining minute ventilation. Naloxone 0.4 mg IV x 1 was administered with significant improvement in the patient's vital signs and level of consciousness. Approximately 4 hours later, the patient again was observed to be less responsive with a deteriorating minute ventilation. She was also noted to have developed myoclonic jerks in upper extremities concerning for worsening hypercapnia. A repeat blood gas was performed which demonstrated a pCO2 continue to remain in the 70s despite noninvasive ventilation. Naloxone 0.4 mg was again administered and the patient returned to a continuous naloxone infusion at 0.2 mg/h. * Corrine Cote RN - 06/18/2024 5:[address] Ng at bedside where he gave verbal order to restart narcan drip at 0.2mg/hr. Corrine Cote RN 06/18/24 0511 * Corrine Cote RN - 06/18/2024 4:[address] Ng at bedside Corrine Cote RN 06/18/24 0447 * Corrine Cote RN - 06/18/2024 4:15 AM EST Pt is noted to be more somnolent best eye response to verbal stimuli, pt is unable to answer any questions but is able to follow commands, respirations are decreasing to 10 while pt is on bipap. Pt also noted to have myoclonic activity in the upper extremities as well as new pruritus to the abd. Ptvital signs HR 91, BP 116/56, RR 10, O2 94 on Bipap, pts blood glucose was 115. Dr. Yanez at bedside and Dr. Ng made aware. Corrine Cote RN 06/18/24 0446 * Corrine Cote RN - 06/18/2024 2:11 AM EST It was noted that pts continuous fluids order . Provider made aware. Per provider hold offIV fluids for now as pt is adequately fluid resuscitated. Corrine Cote RN 06/18/24 0214 * Corrine Cote RN - 06/17/2024 10:43 PM EST Pt had rectal temp of 100.3F. provider made aware Corrine Cote RN 06/17/24 [id number] * Corrine Cote RN - 06/17/2024 9:[address] Ng at bedside Corrine Cote RN 06/18/24 0542 * Corrine Cote RN - 06/17/2024 8:55 PM EST PT somnolent having a hard time keeping conversation and unable to answer questions. Pt best eye response to verbal stimuli. Pt propanolol held as pt too somnolent to take PO at this time. Vital signs are BP 147/90, HR 93, RR 14, O2 in highflow is 92%. Dr. Ng made aware. Corrine Cote RN 06/18/24 0541 * Corrine Cote RN - 06/17/2024 8:15 PM EST Pt refusing the ABG even after explaining the necessity of it . Dr. Ng made aware and per provider obtain VBG instead Corrine Cote RN 06/18/24 0542 * Maryann Russell - 06/17/2024 6:34 PM EST Patient will not keep the high flow mask on. The nurse and respiratory tried redirecting the patient but no success. Maryann Russell 06/17/24 [id number] * Akin Washington RN - 06/17/2024 2:39 PM EST [place] provider requested to pause narcan drip to see how patient's respiratory status is. Highflow NC also titrated down to 30% O2 while pt is more awake and is tolerating well. Pt admitted to provider that she drank about 8 nips and took methadone in a hope of not waking up. Pt contracted for safety while in the hospital, however states while living on the streets she does not feel safe as people steal her belongings and that is when she feels SI. provider recommends avasure video monitoring in lieu of a PO. PO remains at bedside at this time. Will continue to monitor. Akin Washington RN 06/17/24 0652 * Akin Washington RN - 06/17/2024 12:33 PM EST Pt had short period of hypoxia while on highflow, narcan titrated as documented. Also repositioned pt's highflow NC and titrated highflow O2 to 35%. Pt's SpO2 improved to 92-95% Pt resting comfortably on ED stretcher, responds to verbal stimuli, speaking clear complete sentences. Will continue to monitor. PO remains at bedside, security near by if needed. Akin Washington RN 06/17/24 1236 Akin Washington RN 06/17/24 1243 * Maryann Russell - 06/17/2024 11:56 AM EST I changed and repositioned patient and bladder scanned her. She had 247 in her bladder. I placed a purewick on patient Maryann Russell 06/17/24 1158 * Evon Mae - 06/17/2024 7:30 AM EST PT PLACED ON BIPAP PER MD ORDER. FIO2 TITRATED FOR SATS OF 92% PER PROVIDER SAND MOLDER * Rachelle Colon RN - 06/17/2024 3:20 AM EST Pt's home medications brought to pharmacy. Pt signed formed but stated I'm confused. vp genetic Leatha also signed. [place] form placed in pt's belongings that were locked up in [address] safe. [place] form in pt's paper chart. Bag serial number is [id number]. * Rachelle Colon RN - 06/17/2024 2:38 AM EST Pt reports she bought methadone and used it yesterday, does not usually use. Dr Ng made aware. Pt aaox4 at this time. * Rachelle Colon RN - 06/17/2024 2:23 AM EST Pt 89-90% on 6L oxymask at this time with RR of 9. Dr Ng made aware. Plan for additional narcan dose. * Rachelle Colon RN - 06/17/2024 1:[address] Ng informed this RN that pt made SI statements while he was at bedside discussing pt. 1:1 patient observer ordered and to bedside. vp genetic made aware. Dr. Ng requesting urine sample. ThisRN informed Dr. Ng that pt has not yet urinated. Dr. Ng requested straight cath. Pt bladder scanned, ~320ml of urine noted on bladder scan. Pt placed on bedpan as safety precaution due to previous O2 desaturation. Pt unable to void on bedpan. This RN notified Dr. Ng; awaiting order for straight cath vs. Mack catheter. * Rachelle Colon RN - 06/17/2024 12:[address] Ng to bedside, RT to bedside * Rachelle Colon RN - 06/17/2024 12:46 AM EST Pt desat to 79% on 4L NC. Changed her to oxymask and increased to 6L oxymask. With improvement to 87-88%. Pt also lethargic, arousable to gentle touch. Dr Orlando Ng made aware. Awaiting reply/orders. * Jinny Peoples RN - 06/16/2024 8:12 PM EST Per ems from residential, pt called because she was having SOB and vomiting with notable blood in it. Pt reports drinking one pint of vodka today. Pt on 2L for EMS. * LUCIEN Tan - 06/16/2024 8:08 PM EST Emergency Medicine Note Patient Name: Cherelle Gonsales Initial Evaluation: 06/16/2024 : 1960 Patient's PCP: No Pcp Physician Emergency Physician: LUCIEN Tan History of Present Illness Chief Complaint: Chief Complaint Patient presents with Shortness of Breath Vomiting Alcohol Intoxication HPI: This is a 63-year-old female with past medical history of hypertension, CHF, alcohol use disorder presenting today with complaint of shortness of breath vomiting. Patient reports most of breath as well as 1 episode of vomiting higher to arrival. She reports blood in vomit. Her last drink of alcoholwas 3 to 4 hours ago. She reports for the past few weeks she has been getting 2 L of vodka per day, prior to that she was sober for 3 months. Is also reporting abdominal pain. She does tell me she is supposed be on oxygen baseline however she does not wear it. She denies fever, headache, visual changes, chest pain, productive cough, diarrhea weakness or paresthesias. She also reports smoking cigarettes daily. Denies thinners. Denies any other substance use. Patient does report a history of alcohol withdrawal with seizure. ROS: I have performed a ROS with the pertinent positives and negatives documented in the history ofpresent illness. Previous History Past Medical History: Diagnosis Date Anxiety CHF (congestive heart failure) ([facility]) Depression Hypertension No past surgical history on file. Social History Tobacco Use Smoking status: Every Day Current packs/day: 0.25 Types: Cigarettes Substance Use Topics Alcohol use: Yes Drug use: Yes Types: Cocaine No family history on file. has No Known Allergies. No current facility-administered medications on file prior to encounter. Current Outpatient Medications on File Prior to Encounter Medication Sig Dispense Refill amLODIPine (NORVASC) 2.5 mg tablet Take 2 tablets (5 mg total) by mouth 1 (one) time each day. amLODIPine (NORVASC) 5 mg tablet Take 1 tablet (5 mg total) by mouth 1 (one) time each day. cloNIDine (CATAPRES) 0.2 mg tablet TAKE 1/2 (HALF) TABLET BY MOUTH FOUR TIMES A DAY ferrous sulfate 325 mg (65 mg iron) EC tablet Take 1 tablet (325 mg total) by mouth every other day. FLUoxetine (PROzac) 20 mg capsule Take 3 capsules (60 mg total) by mouth. FLUoxetine (PROzac) 20 mg tablet Take 1 tablet (20 mg total) by mouth 1 (one) time each day. Pt reports she only takes 20mg not 60mg gabapentin (NEURONTIN) 100 mg capsule Take 3 capsules (300 mg total) by mouth 3 (three) times a day. gabapentin (NEURONTIN) 600 mg tablet Take 0.5 tablets (300 mg total) by mouth 3 (three) times a day. hydrOXYzine HCL (ATARAX) 25 mg tablet Take 1 tablet (25 mg total) by mouth. hydrOXYzine pamoate (VISTARIL) 25 mg capsule Take 2 capsules (50 mg total) by mouth 3 (three) timesa day if needed for anxiety. (Patient not taking: Reported on 05/14/2024) mirtazapine (REMERON) 15 mg tablet Take 0.5 tablets (7.5 mg total) by mouth at bedtime. mirtazapine (REMERON) 7.5 mg tablet Take 1 tablet (7.5 mg total) by mouth. OLANZapine (ZyPREXA) 2.5 mg tablet Take 2 tablets (5 mg total) by mouth 1 (one) time each day. OLANZapine (ZyPREXA) 5 mg tablet Take 1 tablet (5 mg total) by mouth at bedtime. propranoloL (INDERAL) 10 mg tablet Take 2 tablets (20 mg total) by mouth 2 (two) times a day. propranoloL (INDERAL) 20 mg tablet Take 1 tablet (20 mg total) by mouth 2 (two) times a day. Physical Exam ED Triage Vitals [06/16/24 2030] Temp Heart Rate Resp BP 36.8 ??C (98.2 ??F) 97 22 (!) 150/80 SpO2 Temp Source Heart Rate Source Patient Position (!) 89 % Oral Monitor;Apical Sitting BP Location FiO2 (%) Left arm;Upper -- General: awake, calm, cooperative, in no acute distress. Unkept Skin: warm, dry, no diaphoresis. Eyes: PERRLA, EOMI. ENMT: Oral mucosa is moist, normal phonation, managing secretions. Respiratory: lungs clear to auscultation bilaterally, no increased work of breathing. Draining 88 to 90% on room air Cardiovascular: regular rate and rhythm, no peripheral edema. Equal pulses in all four extremities. Gastrointestinal: Soft, nondistended, palpation epigastric region as well as right lower quadrant with guarding no rebound. Normoactive bowel sounds. MSK: Moving all extremity spontaneously, equal strength and sensation upper and lower extremities Neurologic: Awake, alert, and oriented x3. Psychiatric: Appropriate mood and affect Results Labs Reviewed COMPREHENSIVE METABOLIC PANEL - Abnormal Result Value Sodium 134 Potassium 3.8 Chloride 102 CO2 25 Anion Gap 7 Glucose 118 (*) BUN 15 Creatinine 0.89 eGFR 73 BUN/Creatinine Ratio 16.9 Calcium 9.1 AST (SGOT) 49 (*) ALT (SGPT) 45 Alkaline Phosphatase 301 (*) Total Protein 8.3 (*) Albumin 3.9 Total Bilirubin 0.2 CBC WITH AUTO DIFFERENTIAL - Abnormal WBC 10.8 RBC 5.10 (*) Hemoglobin 12.4 Hematocrit 40.2 MCV 79.0 MCH 24.4 (*) MCHC 30.8 (*) RDW 16.7 (*) Platelets 339 MPV 10.6 NRBC 0.0 NRBC Absolute 0.00 Neutrophils Relative 74.6 Lymphocytes Relative 16.2 Monocytes Relative 6.9 Eosinophils Relative 1.4 Basophils Relative 0.5 Immature Granulocytes Relative 0.4 Neutrophils Absolute 8.09 (*) Lymphocytes Absolute 1.76 Monocytes Absolute 0.75 Eosinophils Absolute 0.15 Basophils Absolute 0.05 Immature Granulocytes Absolute 0.04 (*) RESPIRATORY VIRUS PANEL MOLECULAR STUDY - Normal Adenovirus Detection by PCR Not Detected Influenza A PCR Not Detected Influenza B PCR Not Detected Coronavirus 229E Not Detected Coronavirus HKU1 Not Detected Coronavirus OC43 Not Detected Coronavirus NL63 Not Detected Parainfluenza Virus 1 Not Detected Parainfluenza Virus 2 Not Detected Parainfluenza Virus 3 Not Detected Parainfluenza Virus 4 Not Detected RSV PCR Not Detected Human Metapneumovirus A and B Not Detected Rhinovirus/Enterovirus Not Detected Bordetella pertussis Not Detected Bordetella parapertussis Not Detected Mycoplasma pneumo by PCR Not Detected Chlamydia pneumoniae Not Detected SARS COV-2 Not Detected Narrative: Testing was performed using the [employer] Respiratory Pathogen PCR Assay. All results must be correlated with the clinical findings. Results should not be used as the sole basis for diagnosis. False Negative results may occur from the presence of sequence variants in the region targeted by the assay or the presence of inhibitors. Results may be affected by concurrent antiviral/antimicrobial therapy or levels of organisms that are below the limit of detection. B-TYPE NATRIURETIC PEPTIDE - Normal BNP 17 CBC AND DIFFERENTIAL Narrative: The following orders were created for panel order CBC and differential. Procedure Abnormality Status --------- ------ CBC auto differential[[id number]] Abnormal Final result Please view results for these tests on the individual orders. ETHANOL DRUG ABUSE SCREEN 8A PANEL, URINE TROPONIN I HIGH SENSITIVITY TROPONIN I HIGH SENSITIVITY Abnormal Labs Reviewed COMPREHENSIVE METABOLIC PANEL - Abnormal; Notable for the following components: Result Value Glucose 118 (*) AST (SGOT) 49 (*) Alkaline Phosphatase 301 (*) Total Protein 8.3 (*) All other components within normal limits CBC WITH AUTO DIFFERENTIAL - Abnormal; Notable for the following components: RBC 5.10 (*) MCH 24.4 (*) MCHC 30.8 (*) RDW 16.7 (*) Neutrophils Absolute 8.09 (*) Immature Granulocytes Absolute 0.04 (*) All other components within normal limits CT Abdomen Pelvis w Contrast Final Result 1. Normal appendix. 2. Scattered colonic diverticula without diverticulitis. Mild colonic fecal burden greatest involving the proximal colon. 3. Mild intrahepatic and extrahepatic biliary ductal dilatation likely related to prior cholecystectomy. 4. A small hiatal hernia. 5. Developing infiltrate and/or atelectasis of the right lung base. This document has been electronically signed by: Joey Sullivan DO on 06/16/2024 23:00:36 CT Angio Chest wo and/or w Contrast Final Result 1. No pulmonary embolism. 2. Bronchial thickening within the right base. Some opacities involving the right lung base which could represent developing right basilar infectious process including pneumonia and or right basilar atelectasis.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 right lung base which could represent developing right basilar infectious processincluding pneumonia and or right basilar atelectasis. Degenerative changes of the thoracic spine. Please see report for discussion of the abdomen and pelvis. A small hiatal hernia. Cholecystectomy. 1. No pulmonary embolism. 2. Bronchial thickening within the right base. Some opacities involving the right lung base which could represent developing right basilar infectious process including pneumonia and or right basilar atelectasis. This document has been electronically signed by: Joey Sullivan DO on 06/16/2024 23:00:33 Assessment/Plan Principal Problem: Aspiration pneumonitis (CMS/HCC) Active Problems: Acute hypoxemic respiratory failure (CMS/HCC) Assessment: 63 year old female with long history of polysubstance abuse who presents to ED with complaints of SOB and vomiting. Patient admits to ingesting street Methadone. She has received 3 doses of narcan with good results and may require Narcan drip. This can only be administered in ICU setting. She is hemodynamically stable. At present, she has no symptoms of alcohol withdrawal. Plan: If patient requires Narcan drip, she will be admitted to ICU when bed available. Antibiotics for presumed aspiration pneumonitis Watch for signs of alcohol withdraw Will require placement in facility due to her substance abuse and homelessness. Patient/family updated regarding patient status, response to therapy and plan of care Advance directive not on file. The patient's designated healthcare surrogate is: Bossman Winter I have personally performed a history, physical exam, and my own medical decision making. Upon my evaluation, this patient had a high probability of imminent or life- threatening deterioration due to polysubstance abuse, which required my direct attention, intervention, and personal management. I have personally provided 35 minutes of critical care time exclusive of time spent on separately billable procedures. Time includes review of laboratory data, radiology results, discussion with consultants, and monitoring for potential decompensation. Interventions were performed as documented above. Patient discussed with ICU Attending: Dr. Macdonald Critical care time: 35 minutes documented in this encounter Plan of Treatment Scheduled Orders Name Type Priority Associated Diagnoses Orde r Schedule Culture sputum Microbiology Routine Once for 1 Occurrences starting 06/18/2024 until 06/18/2024 documented as of this encounter Procedures Procedure Name Priority Date/Time Associated Diagnosis Comments [id number], QUALITATIVE REAL-TIME RT-PCR, INTERNAL LAB Routine 06/30/2024 5:50 PM EST BASIC METABOLIC PANEL Routine 06/25/2024 5:17 AM EST CBC WITH AUTO DIFFERENTIAL Routine 06/24/2024 5:31 AM EST CBC AND DIFFERENTIAL Routine 06/24/2024 5:31 AM EST BASIC METABOLIC PANEL Routine 06/24/2024 5:31 AM EST PROCALCITONIN Routine 06/23/2024 4:25 AM EST CBC WITH AUTO DIFFERENTIAL Routine 06/23/2024 4:25 AM EST CBC AND DIFFERENTIAL Routine 06/23/2024 4:25 AM EST PHOSPHORUS Routine 06/23/2024 4:25 AM EST MAGNESIUM Routine 06/23/2024 4:25 AM EST CALCIUM, IONIZED Routine 06/23/2024 4:25 AM EST BASIC METABOLIC PANEL Routine 06/23/2024 4:25 AM EST CALCIUM, IONIZED Routine 06/22/2024 6:31 AM EST CBC WITH AUTO DIFFERENTIAL Routine 06/22/2024 4:00 AM EST CBC AND DIFFERENTIAL Routine 06/22/2024 4:00 AM EST PHOSPHORUS Routine 06/22/2024 4:00 AM EST MAGNESIUM Routine 06/22/2024 4:00 AM EST LACTATE Routine 06/22/2024 4:00 AM EST VENOUS BLOOD GAS Routine 06/22/2024 4:00 AM EST HEPATIC FUNCTION PANEL Routine 4:00 AM EST BASIC METABOLIC PANEL Routine 06/22/2024 4:00 AM EST LIPASE Routine 06/21/2024 2:11 PM EST XR CHEST 1 VIEW Routine 06/21/2024 5:58 AM EST ARTERIAL BLOOD GAS Routine 06/21/2024 5: 36 AM EST CBC WITH AUTO DIFFERENTIAL Routine 06/21/2024 4:29 AM EST CBC AND DIFFERENTIAL Routine 06/21/2024 4:29 AM EST PHOSPHORUS Routine 06/21/2024 4:29 AM EST MAGNESIUM Routine 06/21/2024 4:29 AM EST LACTATE Routine 06/21/2024 4:29 AM EST CALCIUM, IONIZED Routine 06/21/2024 4:29 AM EST HEPATIC FUNCTION PANEL Routine 4:29 AM EST BASIC METABOLIC PANEL Routine 06/21/2024 4:29 AM EST INSERT PICC LINE Routine 06/20/2024 4:30 PM EST THYROID STIMULATING HORMONE Routine 06/20/2024 1:31 PM EST AMMONIA STAT 06/20/2024 1:22 PM EST VENOUS BLOOD GAS Routine 06/20/2024 11:1 0 AM EST POCT GLUCOSE BLOOD Routine 06/20/2024 10 :42 AM EST PROCALCITONIN Routine 06/20/2024 4:27 AM EST CBC WITH AUTO DIFFERENTIAL Routine 06/20/2024 4:27 AM EST CBC AND DIFFERENTIAL Routine 06/20/2024 4:27 AM EST PHOSPHORUS Routine 06/20/2024 4:27 AM EST MAGNESIUM Routine 06/20/2024 4:27 AM EST VENOUS BLOOD GAS Routine 06/20/2024 4:27 AM EST CALCIUM, IONIZED Routine 06/20/2024 4:27 AM EST BASIC METABOLIC PANEL Routine 06/20/2024 4:27 AM EST POCT GLUCOSE BLOOD Routine 06/19/2024 11 :39 PM EST VENOUS BLOOD GAS Routine 06/19/2024 6:38 PM EST AMMONIA Routine 06/19/2024 6:38 PM EST VENOUS BLOOD GAS Routine 06/19/2024 2:54 PM EST XR CHEST 1 VIEW STAT 06/19/2024 5:57 AM EST PROCALCITONIN Routine 06/19/2024 4:37 AM EST CBC WITH AUTO DIFFERENTIAL Routine 06/19/2024 4:37 AM EST CBC AND DIFFERENTIAL Routine 06/19/2024 4:37 AM EST PHOSPHORUS Routine 06/19/2024 4:37 AM EST MAGNESIUM Routine 06/19/2024 4:37 AM EST CALCIUM, IONIZED Routine 06/19/2024 4:37 AM EST HEPATIC FUNCTION PANEL Routine 4:37 AM EST BASIC METABOLIC PANEL Routine 06/19/2024 4:37 AM EST MRSA PCR Routine 06/18/2024 10:12 AM EST LEGIONELLA ANTIGEN URINE, EIA Routine 06/18/2024 10:12 AM EST OXYGEN THERAPY, ADULT Routine 06/18/2024 8:02 AM EST XR CHEST 1 VIEW Routine 06/18/2024 6:18 AM EST PROCALCITONIN Add-On 06/18/2024 5:35 AM EST THYROID STIMULATING HORMONE Add-On 06/18/2024 5:35 AM EST PHOSPHORUS Routine 06/18/2024 5:35 AM EST MAGNESIUM Routine 06/18/2024 5:35 AM EST VENOUS BLOOD GAS STAT 06/18/2024 5:35 AM EST BASIC METABOLIC PANEL Routine 06/18/2024 5:35 AM EST VENOUS BLOOD GAS Routine 06/18/2024 4:30 AM EST POCT GLUCOSE BLOOD Routine 06/18/2024 4: 19 AM EST POCT GLUCOSE BLOOD Routine 06/17/2024 10 :55 PM EST VENOUS BLOOD GAS STAT 06/17/2024 8:49 PM EST OXYGEN THERAPY, ADULT Routine 06/17/2024 8:01 PM EST OXYGEN THERAPY, ADULT Routine 06/17/2024 10:08 AM EST OXYGEN THERAPY, ADULT Routine 06/17/2024 10:08 AM EST OXYGEN THERAPY, ADULT Routine 06/17/2024 10:08 AM EST ARTERIAL BLOOD GAS Routine 06/17/2024 6: 42 AM EST PHOSPHORUS Add-On 06/17/2024 6:00 AM EST MAGNESIUM Add-On 06/17/2024 6:00 AM EST BASIC METABOLIC PANEL Routine 06/17/2024 6:00 AM EST CBC WITH AUTO DIFFERENTIAL Routine 06/17/2024 4:08 AM EST CBC AND DIFFERENTIAL Routine 06/17/2024 4:08 AM EST DRUG ABUSE SCREEN 8A PANEL, URINE STAT 06/17/2024 2:17 AM EST METHADONE SCREEN, URINE Routine 06/17/2024 2:17 AM EST FENTANYL, URINE Routine 06/17/2024 2:17 AM EST ARTERIAL BLOOD GAS STAT 06/17/2024 1: 04 AM EST TROPONIN I HIGH SENSITIVITY STAT 06/17/2024 12:04 AM EST ECG ANNOTATED 06/17/2024 TROPONIN I HIGH SENSITIVITY STAT 06/16/2024 11:[address] ABDOMEN PELVIS W CONTRAST STAT 06/16/2024 10:[address] ANGIO CHEST WO AND/OR W CONTRAST STAT 06/16/2024 10:20 PM EST SOB (shortness of breath) XR CHEST 1 VIEW STAT 06/16/2024 10:01 PM EST B-TYPE NATRIURETIC PEPTIDE STAT 06/16/2024 9:32 PM EST RESPIRATORY VIRUS PANEL MOLECULAR STUDY STAT 06/16/2024 9:20 PM EST CBC WITH AUTO DIFFERENTIAL STAT 06/16/2024 9:09 PM EST CBC AND DIFFERENTIAL STAT 06/16/2024 9:09 PM EST ETHANOL Add-On 06/16/2024 9:09 PM EST COMPREHENSIVE METABOLIC PANEL STAT 06/16/2024 9:09 PM EST ECG 12-LEAD STAT 06/16/2024 9:08 PM EST documented in this encounter Results * [id number], qualitative RT-PCR, internal lab (06/30/2024 5:50 PM EST) SARS COV-2 Not Detected Not Detected LAB MICROBIOLOGY METHOD 06/30/2024 6:47 PM EST [facility] Swab Both anterior nares / Unknown Non-blood Collection / Unknown 06/30/2024 5:50 PM EST 06/30/2024 5:59 PM EST Narrative [facility] - 06/30/2024 6:47 PM EST Disclaimer: The manner in which this information is used to guide patient care is the responsibility of the healthcare provider. Testing was performed using the [employer] GeneXpert Xpress CoV-2 Plus PCR Assay. This test has been authorized by the FDA under an Emergency Use Authorization (EUA). This test is only authorized for the duration of time the declaration that circumstances exist justifying the authorization of the emergency use of in vitro diagnostic tests for detection of SARS-CoV-2 virus and/or diagnosis of COVID-19 infection under section 564(b)(1) of the Act, 21 U.S.C. 360bbb-3 (b)(1), unless the authorization is terminated or revoked sooner. Reference Range: Not Detected Fact sheet for Healthcare providers can be found at: https://www.fda.gov/media/156847/download Fact sheet for Healthcare patients can be found at: Http;//www.fda.gov/media/721011/download Adolfo Mena MD LAB MICROBIOLOGY - G ENERAL ORDERABLES [facility] [address] [place] [address], * Basic metabolic panel (06/25/2024 5:17 AM EST) Sodium 134 133 - 145 mmol/L LAB CHEMISTRY METHOD 06/25/2024 7:47 AM [facility] Potassium 3.5 3.5 - 5.5 mmol/L LAB CHEMISTRY METHOD 06/25/2024 7:47 AM [facility] Chloride 98 96 - 110 mmol/L LAB CHEMISTRY METHOD 06/25/2024 7:47 AM [facility] CO2 30 21 - 32 mmol/L LAB CHEMISTRY METHOD 06/25/2024 7:47 AM [facility] Anion Gap 6 3 - 11 LAB CHEMISTRY METHOD 06/25/2024 7:47 AM [facility] Glucose 84 70 - 100 mg/dL LAB CHEMISTRY METHOD 06/25/2024 7:47 AM [facility] BUN 13 5 - 25 mg/dL LAB CHEMISTRY METHOD 06/25/2024 7:47 AM [facility] Creatinine 0.54 0.50 - 1.10 mg/dL LAB CHEMISTRY METHOD 06/25/2024 7:47 AM [facility] eGFR 103 >=60 mL/min/1. 73m2 LAB CHEMISTRY METHOD 06/25/2024 7:47 AM [facility] Comment:Calculation based on the??Chronic Kidney Disease Epidemiology Collaboration (CKD-EPI) equation refit??without adjustment for race. BUN/Creatinine Ratio 24.1 LAB CHEMISTRY METHOD 06/25/2024 7:47 AM [facility] Calcium 8.7 8.5 - 10.5 mg/dL LAB CHEMISTRY METHOD 06/25/2024 7:47 AM [facility] Blood Venous blood specimen / Unknown Venipuncture / Unknown 06/25/2024 5:17 AM EST 06/25/2024 6:49 AM EST Grisel Wynn MD LAB BLOOD ORDERABLE S [facility] [address] [place] [address], * (ABNORMAL) CBC auto differential (06/24/2024 5:31 AM EST) WBC 8.7 4.8 - 10.8 K/mcL LAB HEMETOLOGY METHOD 06/24/2024 8:06 AM [facility] RBC 4.20 3.80 - 4.80 M/mcL LAB HEMETOLOGY METHOD 06/24/2024 8:06 AM [facility] Hemoglobin 10.4(L) 11.5 - 16.0 g/dL LAB HEMETOLOGY METHOD 06/24/2024 8:06 AM [facility] Hematocrit 33.0(L) 35.0 - 47.0 % LAB HEMETOLOGY METHOD 06/24/2024 8:06 AM [facility] MCV 79.5 79.0 - 98.0 FL LAB HEMETOLOGY METHOD 06/24/2024 8:06 AM [facility] MCH 25.1(L) 27.0 - 32.0 pcg LAB HEMETOLOGY METHOD 06/24/2024 8:06 AM [facility] MCHC 31.5(L) 32.0 - 37.0 g/dL LAB HEMETOLOGY METHOD 06/24/2024 8:06 AM [facility] RDW 17.1(H) 11.0 - 15.0 % LAB HEMETOLOGY METHOD 06/24/2024 8:06 AM [facility] Platelets 305 130 - 400 K/mcL LAB HEMETOLOGY METHOD 06/24/2024 8:06 AM [facility] MPV 10.5 7.0 - 11.0 FL LAB HEMETOLOGY METHOD 06/24/2024 8:06 AM [facility] NRBC 0.0 <1.0 % LAB HEMETOLOGY METHOD 06/24/2024 8:06 AM [facility] NRBC Absolute 0.00 <0.10 K/mcL LAB HEMETOLOGY METHOD 06/24/2024 8:06 AM [facility] Neutrophils Relative 60.9 % LAB HEMETOLOGY METHOD 06/24/2024 8:06 AM [facility] Lymphocytes Relative 22.7 % LAB HEMETOLOGY METHOD 06/24/2024 8:06 AM [facility] Monocytes Relative 10.4 % LAB HEMETOLOGY METHOD 06/24/2024 8:06 AM [facility] Eosinophils Relative 5.1 % LAB HEMETOLOGY METHOD 06/24/2024 8:06 AM [facility] Basophils Relative 0.7 % LAB HEMETOLOGY METHOD 06/24/2024 8:06 AM [facility] Immature Granulocytes Relative 0.2 % LAB HEMETOLOGY METHOD 06/24/2024 8:06 AM [facility] Neutrophils Absolute 5.28 1.50 - 7.00 K/mcL LAB HEMETOLOGY METHOD 06/24/2024 8:06 AM [facility] Lymphocytes Absolute 1.97 1.00 - 5.00 K/mcL LAB HEMETOLOGY METHOD 06/24/2024 8:06 AM [facility] Monocytes Absolute 0.90 0.20 - 1.00 K/mcL LAB HEMETOLOGY METHOD 06/24/2024 8:06 AM [facility] Eosinophils Absolute 0.44 0.00 - 0.50 K/mcL LAB HEMETOLOGY METHOD 06/24/2024 8:06 AM [facility] Basophils Absolute 0.06 0.00 - 0.20 K/mcL LAB HEMETOLOGY METHOD 06/24/2024 8:06 AM [facility] Immature Granulocytes Absolute 0.02 0.00 - 0.03 K/mcL LAB HEMETOLOGY METHOD 06/24/2024 8:06 AM [facility] Blood Venous blood specimen / Unknown Venipuncture / Unknown 06/24/2024 5:31 AM EST 06/24/2024 7:15 AM EST Grisel Wynn MD LAB BLOOD ORDERABLE S [facility] [address] [place] [address], * (ABNORMAL) Basic metabolic panel (06/24/2024 5:31 AM EST) Sodium 135 133 - 145 mmol/L LAB CHEMISTRY METHOD 06/24/2024 8:43 AM [facility] Potassium 3.3(L) 3.5 - 5.5 mmol/L LAB CHEMISTRY METHOD 06/24/2024 8:43 AM [facility] Chloride 97 96 - 110 mmol/L LAB CHEMISTRY METHOD 06/24/2024 8:43 AM [facility] CO2 30 21 - 32 mmol/L LAB CHEMISTRY METHOD 06/24/2024 8:43 AM [facility] Anion Gap 8 3 - 11 LAB CHEMISTRY METHOD 06/24/2024 8:43 AM [facility] Glucose 82 70 - 100 mg/dL LAB CHEMISTRY METHOD 06/24/2024 8:43 AM [facility] BUN 15 5 - 25 mg/dL LAB CHEMISTRY METHOD 06/24/2024 8:43 AM [facility] Creatinine 0.56 0.50 - 1.10 mg/dL LAB CHEMISTRY METHOD 06/24/2024 8:43 AM [facility] eGFR 102 >=60 mL/min/1. 73m2 LAB CHEMISTRY METHOD 06/24/2024 8:43 AM [facility] Comment:Calculation based on the??Chronic Kidney Disease Epidemiology Collaboration (CKD-EPI) equation refit??without adjustment for race. BUN/Creatinine Ratio 26.8 LAB CHEMISTRY METHOD 06/24/2024 8:43 AM [facility] Calcium 8.4(L) 8.5 - 10.5 mg/dL LAB CHEMISTRY METHOD 06/24/2024 8:43 AM [facility] Blood Venous blood specimen / Unknown Venipuncture / Unknown 06/24/2024 5:31 AM EST 06/24/2024 7:15 AM EST Grisel Wynn MD LAB BLOOD ORDERABLE S [facility] [address] [place] [address], * (ABNORMAL) CBC auto differential (06/23/2024 4:25 AM EST) WBC 8.4 4.8 - 10.8 K/mcL LAB HEMETOLOGY METHOD 06/23/2024 7:26 AM [facility] RBC 4.20 3.80 - 4.80 M/[facility] LAB HEMETOLOGY METHOD 06/23/2024 7:26 AM [facility] Hemoglobin 10.3(L) 11.5 - 16.0 g/dL LAB HEMETOLOGY METHOD 06/23/2024 7:26 AM [facility] Hematocrit 32.9(L) 35.0 - 47.0 % LAB HEMETOLOGY METHOD 06/23/2024 7:26 AM [facility] MCV 79.1 79.0 - 98.0 FL LAB HEMETOLOGY METHOD 06/23/2024 7:26 AM [facility] MCH 24.8(L) 27.0 - 32.0 pcg LAB HEMETOLOGY METHOD 06/23/2024 7:26 AM [facility] MCHC 31.3(L) 32.0 - 37.0 g/dL LAB HEMETOLOGY METHOD 06/23/2024 7:26 AM [facility] RDW 16.9(H) 11.0 - 15.0 % LAB HEMETOLOGY METHOD 06/23/2024 7:26 AM [facility] Platelets 328 130 - 400 K/mcL LAB HEMETOLOGY METHOD 06/23/2024 7:26 AM [facility] MPV 10.7 7.0 - 11.0 FL LAB HEMETOLOGY METHOD 06/23/2024 7:26 AM [facility] NRBC 0.0 <1.0 % LAB HEMETOLOGY METHOD 06/23/2024 7:26 AM [facility] NRBC Absolute 0.00 <0.10 K/mcL LAB HEMETOLOGY METHOD 06/23/2024 7:26 AM [facility] Neutrophils Relative 64.6 % LAB HEMETOLOGY METHOD 06/23/2024 7:26 AM [facility] Lymphocytes Relative 19.3 % LAB HEMETOLOGY METHOD 06/23/2024 7:26 AM [facility] Monocytes Relative 10.8 % LAB HEMETOLOGY METHOD 06/23/2024 7:26 AM [facility] Eosinophils Relative 4.2 % LAB HEMETOLOGY METHOD 06/23/2024 7:26 AM [facility] Basophils Relative 0.6 % LAB HEMETOLOGY METHOD 06/23/2024 7:26 AM [facility] LAB Immature Granulocytes Relative 0.5 % LAB HEMETOLOGY METHOD 06/23/2024 7:26 AM [facility] LAB Neutrophils Absolute 5.42 1.50 - 7.00 K/mcL LAB HEMETOLOGY METHOD 06/23/2024 7:26 AM [facility] LAB Lymphocytes Absolute 1.62 1.00 - 5.00 K/mcL LAB HEMETOLOGY METHOD 06/23/2024 7:26 AM [facility] LAB Monocytes Absolute 0.91 0.20 - 1.00 K/mcL LAB HEMETOLOGY METHOD 06[facility]23/2024 7:26 [facility] [facility] Eosinophils Absolute 0.35 0.00 - 0.50 K/mcL LAB HEMETOLOGY METHOD 06/23/2024 7:26 AM [facility] Basophils Absolute 0.05 0.00 - 0.20 K/mcL LAB HEMETOLOGY METHOD 06/23/2024 7:26 AM [facility] Immature Granulocytes Absolute 0.04(H) 0.00 - 0.03 K/mcL LAB HEMETOLOGY METHOD 06/23/2024 7:26 AM [facility] Blood Venous blood specimen / Unknown Venipuncture / Unknown 06/23/2024 4:25 AM EST 06/23/2024 7:03 AM EST Jonathan Cole DO LAB BLOOD ORDERABLES Performing Organization Address [facility]/ZIP Co de Phone Number [facility] [address] [place] [address], * Procalcitonin (06/23/2024 4:25 AM EST) Procalcitonin 0.04 <=0.16 ng/mL LAB CHEMISTRY METHOD 06/23/2024 7:47 AM EST [facility] Blood Venous blood specimen / Unknown Venipuncture / Unknown 06/23/2024 4:25 AM EST 06/23/2024 7:03 AM EST Narrative [facility] - 06/23/2024 7:47 AM EST Procalcitonin > 2.00 ng/ml: Procalcitonin Levels above 2.00 ng/ml, on the first day of ICU admission represent a high risk for progression to severe sepsis and/or septic shock. Procalcitonin < 0.50 ng/ml: Procalcitonin levels below 0.50 ng/ml on the first day of ICU admission represent a low risk for progression to severe sepsis and/or septic shock. Concentrations <0.5 ng/mL do not exclude an infection, on account of local ized infections (without systemic signs) which can be associated with such low concentrations, or a systemic infection in its initial stages (<6 hours). Furthermore, increased procalcitonin can occur without infection. PCT concentrations between 0.5 and 2.0 ng/mL should be interpreted taking into account the patient's history. It is recommended to retest PCT within 6-24 hours if any concentrations <2.0 ng/mL are obtained. Jonathan Cole DO LAB BLOOD ORDERABLES Performing Organization Address [facility] Co de Phone Number [facility]) [facility] [address] [place] [address], [place] [phone] * Phosphorus (06/23/2024 4:25 AM EST) Phosphorus 2.8 2.5 - 4.5 mg/dL LAB CHEMISTRY METHOD 06/23/2024 7:49 AM EST [facility] Blood Venous blood specimen / Unknown Venipuncture / Unknown 06/23/2024 4:25 AM EST 06/23/2024 7:03 AM EST Jonathan Cole LAB BLOOD ORDERABLES Performing Organization Address City/[facility]/ZIP Co de Phone Number [facility] [address] [place] [address], [place] [phone] * Magnesium (06/23/2024 4:25 AM EST) Magnesium 1.9 1.9 - 2.6 mg/dL LAB CHEMISTRY METHOD 06/23/2024 7:49 AM EST [facility] Blood Venous blood specimen / Unknown Venipuncture / Unknown 06/23/2024 4:25 AM EST 06/23/2024 7:03 AM EST Jonathan Cole [facility] BLOOD ORDERABLES Performing Organization Address [facility]/ZIP Co de Phone Number [facility] [address] [place] [address], [place] [phone] * Calcium, ionized (06/23/2024 4:25 AM EST) Calcium Ionized 4.79 4.50 - 5.30 mg/dL 06/23/2024 9:48 AM EST [facility] Blood Venous blood specimen / Unknown Venipuncture / Unknown 06/23/2024 4:25 AM EST 06/23/2024 7:03 AM EST Jonathan Cole LAB BLOOD ORDERABLES Performing Organization Address City/[facility]/ZIP Co de Phone Number [facility] [address] [place] [address], [place] [phone] * (ABNORMAL) Basic metabolic panel (06/23/2024 4:25 AM EST) Sodium 135 133 - 145 mmol/L LAB CHEMISTRY METHOD 06/23/2024 7:49 AM [facility] Potassium 3.4(L) 3.5 - 5.5 mmol/L LAB CHEMISTRY METHOD 06/23/2024 7:49 AM [facility] Chloride 98 96 - 110 mmol/L LAB CHEMISTRY METHOD 06/23/2024 7:49 AM [facility] CO2 31 21 - 32 mmol/L LAB CHEMISTRY METHOD 06/23/2024 7:49 AM [facility] Anion Gap 6 3 - 11 LAB CHEMISTRY METHOD 06/23/2024 7:49 AM [facility] Glucose 82 70 - 100 mg/dL LAB CHEMISTRY METHOD 06/23/2024 7:49 AM [facility] BUN 15 5 - 25 mg/dL LAB CHEMISTRY METHOD 06/23/2024 7:49 AM [facility] Creatinine 0.55 0.50 - 1.10 mg/dL LAB CHEMISTRY METHOD 06/23/2024 7:49 AM [facility] eGFR 103 >=60 mL/min/1. 73m2 LAB CHEMISTRY METHOD 06/23/2024 7:49 AM [facility] Comment:Calculation based on the??Chronic Kidney Disease Epidemiology Collaboration (CKD-EPI) equation refit??without adjustment for race. BUN/Creatinine Ratio 27.3 LAB CHEMISTRY METHOD 06/23/2024 7:49 AM [facility] Calcium 8.5 8.5 - 10.5 mg/dL LAB CHEMISTRY METHOD 06/23/2024 7:49 AM [facility] Blood Venous blood specimen / Unknown Venipuncture / Unknown 06/23/2024 4:25 AM EST 06/23/2024 7:03 AM EST Jonathan Cole DO LAB BLOOD ORDERABLES [facility] [address] [place] [address], * Calcium, ionized (06/22/2024 6:31 AM EST) [facility] Calcium Ionized 4.59 4.50 - 5.30 mg/dL 06/22/2024 7:28 AM EST [facility] Blood Venous blood specimen / Unknown Existing Catheter / Unknown 06/22/2024 6:31 AM EST 06/22/2024 7:07 AM EST Vickie Carmona MD LAB BLOOD ORDERABLES [facility] [address] [place] [address], [place] [phone] * (ABNORMAL) Venous blood gas (06/22/2024 4:00 AM EST) [facility] pH, Parker 7.48(H) 7.32 - 7.42 pH 06/22/2024 4:37 AM [facility] pCO2, Parker 47 41 - 51 mmHg 06/22/2024 4:37 AM [facility] pO2, Parker 42(H) 25 - 40 mmHg 06/22/2024 4:37 AM [facility] HCO3, Venous 32.3(H) 22.0 - 26.0 mmol/L 06/22/2024 4:37 AM [facility] O2 Sat, Parker 72.9 % 06/22/2024 4:37 AM [facility] Base Excess, Parker 10.2(H) -2.0 - 2.0 mmol/L 06/22/2024 4:37 AM [facility] Blood Venous blood specimen / Unknown Existing Catheter / Unknown 06/22/2024 4:00 AM EST 06/22/2024 4:31 AM EST Fab MCGRAW LAB BLOOD ORDERABLES [facility] [address] [place] [address], * (ABNORMAL) CBC auto differential (06/22/2024 4:00 AM EST) WBC 7.9 4.8 - 10.8 K/mcL LAB HEMETOLOGY METHOD 06/22/2024 4:38 AM [facility] RBC 4.10 3.80 - 4.80 M/mcL LAB HEMETOLOGY METHOD 06/22/2024 4:38 AM [facility] Hemoglobin 10.2(L) 11.5 - 16.0 g/dL LAB HEMETOLOGY METHOD 06/22/2024 4:38 AM [facility] Hematocrit 32.3(L) 35.0 - 47.0 % LAB HEMETOLOGY METHOD 06/22/2024 4:38 AM [facility] MCV 79.4 79.0 - 98.0 FL LAB HEMETOLOGY METHOD 06/22/2024 4:38 AM [facility] MCH 25.1(L) 27.0 - 32.0 pcg LAB HEMETOLOGY METHOD 06/22/2024 4:38 AM [facility] MCHC 31.6(L) 32.0 - 37.0 g/dL LAB HEMETOLOGY METHOD 06/22/2024 4:38 AM [facility] RDW 16.2(H) 11.0 - 15.0 % LAB HEMETOLOGY METHOD 06/22/2024 4:38 AM [facility] Platelets 285 130 - 400 K/mcL LAB HEMETOLOGY METHOD 06/22/2024 4:38 AM [facility] MPV 10.2 7.0 - 11.0 FL LAB HEMETOLOGY METHOD 06/22/2024 4:38 AM [facility] NRBC 0.0 <1.0 % LAB HEMETOLOGY METHOD 06/22/2024 4:38 AM [facility] NRBC Absolute 0.00 <0.10 K/mcL LAB HEMETOLOGY METHOD 06/22/2024 4:38 AM [facility] Neutrophils Relative 69.2 % LAB HEMETOLOGY METHOD 06/22/2024 4:38 AM [facility] Lymphocytes Relative 20.1 % LAB HEMETOLOGY METHOD 06/22/2024 4:38 AM [facility] Monocytes Relative 8.6 % LAB HEMETOLOGY METHOD 06/22/2024 4:38 AM [facility] Eosinophils Relative 1.5 % LAB HEMETOLOGY METHOD 06/22/2024 4:38 AM [facility] Basophils Relative 0.3 % LAB HEMETOLOGY METHOD 06/22/2024 4:38 AM [facility] Immature Granulocytes Relative 0.3 % LAB HEMETOLOGY METHOD 06/22/2024 4:38 AM [facility] Neutrophils Absolute 5.46 1.50 - 7.00 K/mcL LAB HEMETOLOGY METHOD 06/22/2024 4:38 AM [facility] Lymphocytes Absolute 1.58 1.00 - 5.00 K/mcL LAB HEMETOLOGY METHOD 06/22/2024 4:38 AM [facility] Monocytes Absolute 0.68 0.20 - 1.00 K/mcL LAB HEMETOLOGY METHOD 06/22/2024 4:38 AM [facility] Eosinophils Absolute 0.12 0.00 - 0.50 K/mcL LAB HEMETOLOGY METHOD 06/22/2024 4:38 AM [facility] Basophils Absolute 0.02 0.00 - 0.20 K/mcL LAB HEMETOLOGY METHOD 06/22/2024 4:38 AM [facility] Immature Granulocytes Absolute 0.02 0.00 - 0.03 K/mcL LAB HEMETOLOGY METHOD 06/22/2024 4:38 AM [facility] Blood Venous blood specimen / Unknown Existing Catheter / Unknown 06/22/2024 4:00 AM EST 06/22/2024 4:32 AM EST Vickie Carmona MD LAB BLOOD ORDERABLES [facility] [address] [place] [address], * (ABNORMAL) Basic metabolic panel (06/22/2024 4:00 AM EST) Sodium 136 133 - 145 mmol/L LAB CHEMISTRY METHOD 06/22/2024 5:00 AM [facility] Potassium 3.6 3.5 - 5.5 mmol/L LAB CHEMISTRY METHOD 06/22/2024 5:00 AM [facility] Chloride 98 96 - 110 mmol/L LAB CHEMISTRY METHOD 06/22/2024 5:00 AM [facility] CO2 29 21 - 32 mmol/L LAB CHEMISTRY METHOD 06/22/2024 5:00 AM [facility] Anion Gap 9 3 - 11 LAB CHEMISTRY METHOD 06/22/2024 5:00 AM [facility] Glucose 119(H) 70 - 100 mg/dL LAB CHEMISTRY METHOD 06/22/2024 5:00 AM [facility] BUN 12 5 - 25 mg/dL LAB CHEMISTRY METHOD 06/22/2024 5:00 AM [facility] Creatinine 0.51 0.50 - 1.10 mg/dL LAB CHEMISTRY METHOD 06/22/2024 5:00 AM [facility] eGFR 104 >=60 mL/min/1. 73m2 LAB CHEMISTRY METHOD 06/22/2024 5:00 AM EST [facility] Comment:Calculation based on the??Chronic Kidney Disease Epidemiology Collaboration (CKD-EPI) equation refit??without adjustment for race. BUN/Creatinine Ratio 23.5 LAB CHEMISTRY METHOD 06/22/2024 5:00 AM [facility] Calcium 8.4(L) 8.5 - 10.5 mg/dL LAB CHEMISTRY METHOD 06/22/2024 5:00 AM EST [facility] Blood Venous blood specimen / Unknown Existing Catheter / Unknown 06/22/2024 4:00 AM EST 06/22/2024 4:32 AM EST Vickie Carmona MD LAB BLOOD ORDERABLES Performing Organization Address City/[facility]/ZIP Co de Phone Number [facility] [address] [place] [address], * (ABNORMAL) Phosphorus (06/22/2024 4:00 AM EST) Phosphorus 1.9(L) 2.5 - 4.5 mg/dL LAB CHEMISTRY METHOD 06/22/2024 5:00 AM EST [facility] Blood Venous blood specimen / Unknown Existing Catheter / Unknown 06/22/2024 4:00 AM EST 06/22/2024 4:32 AM EST Vickie Carmona MD LAB BLOOD ORDERABLES [facility] [address] [place] [address], [place] [phone] * Magnesium (06/22/2024 4:00 AM EST) Magnesium 1.9 1.9 - 2.6 mg/dL LAB CHEMISTRY METHOD 06/22/2024 5:00 AM EST [facility] Blood Venous blood specimen / Unknown Existing Catheter / Unknown 06/22/2024 4:00 AM EST 06/22/2024 4:32 AM EST Vickie Carmona MD LAB BLOOD ORDERABLES [facility] [address] [place] [address], * Lactate (06/22/2024 4:00 AM EST) [facility] Lactate 0.9 0.4 - 2.0 mmol/L LAB CHEMISTRY METHOD 06/22/2024 5:12 AM [facility] Blood Venous blood specimen / Unknown Existing Catheter / Unknown 06/22/2024 4:00 AM EST 06/22/2024 4:34 AM EST Vickie Carmona MD LAB BLOOD ORDERABLES Performing Organization Address [facility]/ZIP Co de Phone Number [facility] [address] [place] [address], [place] [phone] * (ABNORMAL) Hepatic function panel (06/22/2024 4:00 AM EST) Pathologist [facility] Total Protein 7.3 6.0 - 8.0 g/dL LAB CHEMISTRY METHOD 06/22/2024 5:01 AM [facility] Albumin 3.2 3.2 - 5.0 g/dL LAB CHEMISTRY METHOD 06/22/2024 5:01 AM [facility] Total Bilirubin 0.4 0.0 - 1.4 mg/dL LAB CHEMISTRY METHOD 06/22/2024 5:01 AM [facility] Bilirubin, Direct <0.1 0.0 - 0.3 mg/dL LAB CHEMISTRY METHOD 06/22/2024 5:01 AM [facility] Bilirubin, Indirect LAB CHEMISTRY METHOD 06/22/2024 5:01 AM [facility] Comment:Unable to calculate Indirect Bilirubin. ALT (SGPT) 36 10 - 60 unit/L LAB CHEMISTRY METHOD 06/22/2024 5:01 AM EST [facility] AST (SGOT) 30 10 - 42 unit/L LAB CHEMISTRY METHOD 06/22/2024 5:01 AM EST [facility] Alkaline Phosphatase 302(H) 42 - 121 unit/L LAB CHEMISTRY METHOD 06/22/2024 5:01 AM EST [facility] Blood Venous blood specimen / Unknown Existing Catheter / Unknown 06/22/2024 4:00 AM EST 06/22/2024 4:32 AM EST Vickie Carmona MD LAB BLOOD ORDERABLES [facility] [address] [place] [address], [place] [phone] * Lipase (06/21/2024 2:11 PM EST) Lipase 39 13 - 75 unit/L LAB CHEMISTRY METHOD 06/21/2024 2:50 PM EST [facility] Blood Blood sample taken from central line / Unknown Venipuncture / Unknown 06/21/2024 2:11 PM EST 06/21/2024 2:28 PM EST Vickie Carmona MD LAB BLOOD ORDERABLES Performing Organization Address City/[facility]/ZIP Co de Phone Number [facility] [address] [place] [address], [place] [phone] * XR Chest 1 View (06/21/2024 5:58 AM EST) Anatomical Region Laterality Modality Body Radiographic Michelle ging 06/21/2024 8:08 AM EST Impressions 06/21/2024 8:09 AM EST FINDINGS/IMPRESSION: Right upper extremity PICC terminates in the right atrium. ??Elevated right diaphragm with unchanged right basilar opacity, possibly atelectasis. ??No pleural effusion or pneumothorax. ??Cardiac silhouette and bones are stable compared to prior -------- FINAL REPORT -------- Dictated By: DELANO BARAJAS Dictated Date: 06/21/2024 08:08 ET Assigned Physician: DELANO BARAJAS Reviewed and Electronically Signed By: DELANO BARAJAS Signed Date: 06/21/2024 08:09 ET Workstation ID: [id number] Transcribed By: Self Edit Transcribed Date: 06/21/2024 08:08 ET Narrative 06/21/2024 8:09 AM EST XR CHEST 1 VIEW INDICATION: ??Pneumonia TECHNIQUE: XR CHEST 1 VIEW COMPARISON: 06/19/2024 Procedure Note Delano Barajas MD - 06/21/2024 XR CHEST 1 VIEW INDICATION: Pneumonia TECHNIQUE: XR CHEST 1 VIEW COMPARISON: 06/19/2024 IMPRESSION: FINDINGS/IMPRESSION: Right upper extremity PICC terminates in the rightatrium. Elevated right diaphragm with unchanged right basilar opacity,possibly atelectasis. No pleural effusion or pneumothorax. Cardiacsilhouette and bones are stable compared to prior -------- FINAL REPORT -------- Dictated By: DELANO BARAJAS Dictated Date: 06/21/2024 08:08 ET Assigned Physician: DELANO BARAJAS Reviewed and Electronically Signed By: DELANO BARAJAS Signed Date: 06/21/2024 08:09 ET Workstation ID: [id number] Transcribed By: Self Edit Transcribed Date: 06/21/2024 08:08 ET Vickie Carmona MD IMG XR PROCEDURES * (ABNORMAL) Arterial blood gas (06/21/2024 5:36 AM EST) pH, Arterial 7.45 7.35 - 7.45 pH 06/21/2024 5:52 AM EST [facility] pCO2, Arterial 53(H) 35 - 45 mmHg 06/21/2024 5:52 AM EST [facility] pO2, Arterial 89 80 - 100 mmHg 06/21/2024 5:52 AM EST [facility] HCO3, Arterial 33.7(H) 22.0 - 26.0 mmol/L 06/21/2024 5:52 AM [facility] O2 Sat, Arterial 99.1(H) 95.0 - 98.0 % 06/21/2024 5:52 AM [facility] Base Excess, Arterial 11.2(H) -2.0 - 2.0 mmol/L 06/21/2024 5:52 AM [facility] Sb Test Pass Pass, Unresponsi ve, Line 06/21/2024 5:52 AM [facility] FIO2 30.00 06/21/2024 5:52 AM [facility] Blood Arterial blood specimen / Unknown Arterial Puncture / Unknown 06/21/2024 5:36 AM EST 06/21/2024 5:36 AM EST Vickie Carmona MD LAB BLOOD ORDERABLES [facility] [address] [place] [address], * (ABNORMAL) CBC auto differential (06/21/2024 4:29 AM EST) WBC 6.9 4.8 - 10.8 K/mcL LAB HEMETOLOGY METHOD 06/21/2024 4:56 AM [facility] RBC 3.90 3.80 - 4.80 M/mcL LAB HEMETOLOGY METHOD 06/21/2024 4:56 AM [facility] Hemoglobin 9.8(L) 11.5 - 16.0 g/dL LAB HEMETOLOGY METHOD 06/21/2024 4:56 AM [facility] Hematocrit 31.8(L) 35.0 - 47.0 % LAB HEMETOLOGY METHOD 06/21/2024 4:56 AM [facility] MCV 80.7 79.0 - 98.0 FL LAB HEMETOLOGY METHOD 06/21/2024 4:56 AM [facility] MCH 24.9(L) 27.0 - 32.0 pcg LAB HEMETOLOGY METHOD 06/21/2024 4:56 AM [facility] MCHC 30.8(L) 32.0 - 37.0 g/dL LAB HEMETOLOGY METHOD 06/21/2024 4:56 AM [facility] RDW 16.0(H) 11.0 - 15.0 % LAB HEMETOLOGY METHOD 06/21/2024 4:56 AM [facility] Platelets 279 130 - 400 K/mcL LAB HEMETOLOGY METHOD 06/21/2024 4:56 AM [facility] MPV 10.2 7.0 - 11.0 FL LAB HEMETOLOGY METHOD 06/21/2024 4:56 AM [facility] NRBC 0.0 <1.0 % LAB HEMETOLOGY METHOD 06/21/2024 4:56 AM [facility] NRBC Absolute 0.00 <0.10 K/mcL LAB HEMETOLOGY METHOD 06/21/2024 4:56 AM [facility] Neutrophils Relative 69.6 % LAB HEMETOLOGY METHOD 06/21/2024 4:56 AM [facility] Lymphocytes Relative 18.9 % LAB HEMETOLOGY METHOD 06/21/2024 4:56 AM [facility] Monocytes Relative 8.0 % LAB HEMETOLOGY METHOD 06/21/2024 4:56 AM [facility] Eosinophils Relative 2.8 % LAB HEMETOLOGY METHOD 06/21/2024 4:56 AM [facility] Basophils Relative 0.6 % LAB HEMETOLOGY METHOD 06/21/2024 4:56 AM [facility] Immature Granulocytes Relative 0.1 % LAB HEMETOLOGY METHOD 06/21/2024 4:56 AM EST [facility] Neutrophils Absolute 4.79 1.50 - 7.00 K/mcL LAB HEMETOLOGY METHOD 06/21/2024 4:56 AM [facility] Lymphocytes Absolute 1.30 1.00 - 5.00 K/mcL LAB HEMETOLOGY METHOD 06/21/2024 4:56 AM [facility] Monocytes Absolute 0.55 0.20 - 1.00 K/mcL LAB HEMETOLOGY METHOD 06/21/2024 4:56 AM [facility] Eosinophils Absolute 0.19 0.00 - 0.50 K/mcL LAB HEMETOLOGY METHOD 06/21/2024 4:56 AM [facility] Basophils Absolute 0.04 0.00 - 0.20 K/mcL LAB HEMETOLOGY METHOD 06/21/2024 4:56 AM [facility] Immature Granulocytes Absolute 0.01 0.00 - 0.03 K/mcL LAB HEMETOLOGY METHOD 06/21/2024 4:56 AM [facility] Blood Venous blood specimen / Unknown Existing Catheter / Unknown 06/21/2024 4:29 AM EST 06/21/2024 4:49 AM EST Vickie Carmona MD LAB BLOOD ORDERABLES [facility] [address] [place] [address], * (ABNORMAL) Basic metabolic panel (06/21/2024 4:29 AM EST) Sodium 136 133 - 145 mmol/L LAB CHEMISTRY METHOD 06/21/2024 5:34 AM [facility] Potassium 3.6 3.5 - 5.5 mmol/L LAB CHEMISTRY METHOD 06/21/2024 5:34 AM [facility] Chloride 98 96 - 110 mmol/L LAB CHEMISTRY METHOD 06/21/2024 5:34 AM [facility] CO2 34(H) 21 - 32 mmol/L LAB CHEMISTRY METHOD 06/21/2024 5:34 AM [facility] Anion Gap 4 3 - 11 LAB CHEMISTRY METHOD 06/21/2024 5:34 AM [facility] Glucose 87 70 - 100 mg/dL LAB CHEMISTRY METHOD 06/21/2024 5:34 AM [facility] Comment:Lipemia present BUN 10 5 - 25 mg/dL LAB CHEMISTRY METHOD 06/21/2024 5:34 AM [facility] Creatinine 0.47(L) 0.50 - 1.10 mg/dL LAB CHEMISTRY METHOD 06/21/2024 5:34 AM [facility] eGFR 106 >=60 mL/min/1. 73m2 LAB CHEMISTRY METHOD 06/21/2024 5:34 AM [facility] Comment:Calculation based on the??Chronic Kidney Disease Epidemiology Collaboration (CKD-EPI) equation refit??without adjustment for race. BUN/Creatinine Ratio 21.3 LAB CHEMISTRY METHOD 06/21/2024 5:34 AM [facility] Calcium 8.4(L) 8.5 - 10.5 mg/dL LAB CHEMISTRY METHOD 06/21/2024 5:34 AM [facility] Blood Venous blood specimen / Unknown Existing Catheter / Unknown 06/21/2024 4:29 AM EST 06/21/2024 4:49 AM EST Vickie Carmona MD LAB BLOOD ORDERABLES [facility] [address] [place] [address], * (ABNORMAL) Phosphorus (06/21/2024 4:29 AM EST) Phosphorus 2.0(L) 2.5 - 4.5 mg/dL LAB CHEMISTRY METHOD 06/21/2024 5:34 AM EST [facility] Blood Venous blood specimen / Unknown Existing Catheter / Unknown 06/21/2024 4:29 AM EST 06/21/2024 4:49 AM EST Vickie Carmona MD LAB BLOOD ORDERABLES Performing Organization Address City/[facility]/ZIP Co de Phone Number [facility] [address] [place] [address], [place] [phone] * (ABNORMAL) Magnesium (06/21/2024 4:29 AM EST) Magnesium 1.8(L) 1.9 - 2.6 mg/dL LAB CHEMISTRY METHOD 06/21/2024 5:34 AM EST [facility] Blood Venous blood specimen / Unknown Existing Catheter / Unknown 06/21/2024 4:29 AM EST 06/21/2024 4:49 AM EST Vickie Carmona MD LAB BLOOD ORDERABLES Performing Organization Address City/[facility]/ZIP Co de Phone Number [facility] [address] [place] [address], [place] [phone] * Calcium, ionized (06/21/2024 4:29 AM EST) Calcium Ionized 4.54 4.50 - 5.30 mg/dL 06/21/2024 5:09 AM EST [facility] Blood Venous blood specimen / Unknown Existing Catheter / Unknown 06/21/2024 4:29 AM EST 06/21/2024 4:49 AM EST Vickie Carmona MD LAB BLOOD ORDERABLES Performing Organization Address City/[facility]/ZIP Co de Phone Number [facility] [address] [place] [address], [place] [phone] * Lactate (06/21/2024 4:29 AM EST) Lactate 0.6 0.4 - 2.0 mmol/L LAB CHEMISTRY METHOD 06/21/2024 5:23 AM EST [facility] Blood Venous blood specimen / Unknown Existing Catheter / Unknown 06/21/2024 4:29 AM EST 06/21/2024 4:49 AM EST Vickie Carmona MD LAB BLOOD ORDERABLES [facility] [address] [place] [address], * (ABNORMAL) Hepatic function panel (06/21/2024 4:29 AM EST) [facility] Total Protein 6.8 6.0 - 8.0 g/dL LAB CHEMISTRY METHOD 06/21/2024 5:34 AM [facility] Albumin 3.0(L) 3.2 - 5.0 g/dL LAB CHEMISTRY METHOD 06/21/2024 5:34 AM [facility] Total Bilirubin 0.5 0.0 - 1.4 mg/dL LAB CHEMISTRY METHOD 06/21/2024 5:34 AM [facility] Bilirubin, Direct 0.1 0.0 - 0.3 mg/dL LAB CHEMISTRY METHOD 06/21/2024 5:34 AM [facility] Bilirubin, Indirect 0.4 0.0 - 1.1 mg/dL LAB CHEMISTRY METHOD 06/21/2024 5:34 AM [facility] ALT (SGPT) 43 10 - 60 unit/L LAB CHEMISTRY METHOD 06/21/2024 5:34 AM [facility] AST (SGOT) 43(H) 10 - 42 unit/L LAB CHEMISTRY METHOD 06/21/2024 5:34 AM [facility] Alkaline Phosphatase 318(H) 42 - 121 unit/L LAB CHEMISTRY METHOD 06/21/2024 5:34 AM EST [facility] Blood Venous blood specimen / Unknown Existing Catheter / Unknown 06/21/2024 4:29 AM EST 06/21/2024 4:49 AM EST Vickie Carmona MD LAB BLOOD ORDERABLES [place] ([facility]) [facility] [address] [place] [address], * Insert PICC line (06/20/2024 4:30 PM EST) Narrative Evon Alfaro RN - 06/20/2024 4:30 PM EST Evon Alfaro RN ? 06/20/2024 ??5:37 PM PICC Line Insertion Procedure Note Procedure: Insertion of 4F Double lumen Bard Provena PowerPICC Lot: [id number] Exp: 05/16/2025 Indications: Provider's order/ICU level of care/VBG's Procedure Details Written consent was given for the procedure by ICU provider and witnessed by primary RN due to patient's current lack of mental capacity at this time. Risks of thrombus, infection, lung perforation, hemorrhage and adverse drug reaction are known potential complications. Pre-procedure checklist completed at bedside. Maximum sterile technique was used including antiseptics, cap, gloves, gown, hand hygiene, mask, and sheet. US guidance utilized, vein easily accessed and catheter advanced upon multiple attempts. Two wires intact and discarded. Lidocaine 2 ml sc administered. 4F PICC inserted to the Right Basilic vein per hospital protocol. Flushes smoothly with good blood return. Findings: Catheter cut at 44 cm and inserted to 44 cm with 0cm exposed. Mid upper arm circumference is 32 cm. ??There were no changes to vital signs. Catheter was flushed with 10 cc NS and sterile CVC dressing with Biopatch applied. Patient tolerated procedure well. Recommendations: 3CG confirmation obtained: Tip in SVC PICC Brochure left at bedside. Vickie Carmona MD IV THERAPY ORDERABLE S * Thyroid stimulating hormone (06/20/2024 1:31 PM EST) TSH 3.41 0.40 - 4.00 mcIU/mL LAB CHEMISTRY METHOD 06/20/2024 3:02 PM EST [facility] Blood Venous blood specimen / Unknown Venipuncture / Unknown 06/20/2024 1:31 PM EST 06/20/2024 1:33 PM EST Vickie Carmona MD LAB BLOOD ORDERABLES Performing Organization Address [facility]/ZIP Co de Phone Number [facility] [address] [place] [address], * Ammonia (06/20/2024 1:22 PM EST) Ammonia 27 11 - 35 mcmol/L LAB CHEMISTRY METHOD 06/20/2024 2:11 PM [facility] Blood Venous blood specimen / Unknown Venipuncture / Unknown 06/20/2024 1:22 PM EST 06/20/2024 1:33 PM EST Vickie Carmona MD LAB BLOOD ORDERABLES Performing Organization Address City/[facility]/ZIP Co de Phone Number [facility] [address] [place] [address], * (ABNORMAL) Venous blood gas (06/20/2024 11:10 AM EST) pH, Parker 7.34 7.32 - 7.42 pH 06/20/2024 11:22 AM [facility] pCO2, Parker 68(HH) 41 - 51 mmHg 06/20/2024 11:22 AM [facility] pO2, Parker 61(H) 25 - 40 mmHg 06/20/2024 11:22 AM [facility] HCO3, Venous 31.9(H) 22.0 - 26.0 mmol/L 06/20/2024 11:22 AM [facility] O2 Sat, Parker 93.4 % 06/20/2024 11:22 AM [facility] Base Excess, Parker 9.1(H) -2.0 - 2.0 mmol/L 06/20/2024 11:22 AM EST [facility] Blood Venous blood specimen / Unknown Venipuncture / Unknown 06/20/2024 11:10 AM EST 06/20/2024 11:15 AM EST Vickie Carmona MD LAB BLOOD ORDERABLES [facility] [address] [place] [address], [place] [phone] * POCT Glucose, blood (06/20/2024 10:42 AM EST) Glucose POCT 99 70 - 100 mg/dL 06/20/2024 10:43 AM [facility] Blood Capillary blood specimen / Unknown 06/20/2024 10:42 AM EST 06/20/2024 10:44 AM EST James Fletcher MD LAB POINT OF CARE TE ST DOCKED DEVICE UNSOLICITED RESULTS Performing Organization Address [facility]/ZIP Co de Phone Number [facility] [address] [place] [address], [place] [phone] * (ABNORMAL) Venous blood gas (06/20/2024 4:27 AM EST) pH, Parker 7.33 7.32 - 7.42 pH 06/20/2024 5:18 AM [facility] pCO2, Parker 82(HH) 41 - 51 mmHg 06/20/2024 5:18 AM [facility] pO2, Parker 56(H) 25 - 40 mmHg 06/20/2024 5:18 AM [facility] HCO3, Venous 35.3(H) 22.0 - 26.0 mmol/L 06/20/2024 5:18 AM [facility] O2 Sat, Parker 85.0 % 06/20/2024 5:18 AM [facility] Base Excess, Parker 13.8(H) -2.0 - 2.0 mmol/L 06/20/2024 5:18 AM [facility] Blood Venous blood specimen / Unknown Venipuncture / Unknown 06/20/2024 4:27 AM EST 06/20/2024 4:34 AM EST Jonathan Cole DO LAB BLOOD ORDERABLES [facility] [address] [place] [address], * (ABNORMAL) CBC auto differential (06/20/2024 4:27 AM EST) WBC 7.3 4.8 - 10.8 K/mcL LAB HEMETOLOGY METHOD 06/20/2024 4:55 AM [facility] RBC 4.00 3.80 - 4.80 M/mcL LAB HEMETOLOGY METHOD 06/20/2024 4:55 AM [facility] Hemoglobin 9.8(L) 11.5 - 16.0 g/dL LAB HEMETOLOGY METHOD 06/20/2024 4:55 AM [facility] Hematocrit 33.4(L) 35.0 - 47.0 % LAB HEMETOLOGY METHOD 06/20/2024 4:55 AM [facility] MCV 83.9 79.0 - 98.0 FL LAB HEMETOLOGY METHOD 06/20/2024 4:55 AM [facility] MCH 24.6(L) 27.0 - 32.0 pcg LAB HEMETOLOGY METHOD 06/20/2024 4:55 AM [facility] MCHC 29.3(L) 32.0 - 37.0 g/dL LAB HEMETOLOGY METHOD 06/20/2024 4:55 AM [facility] RDW 16.3(H) 11.0 - 15.0 % LAB HEMETOLOGY METHOD 06/20/2024 4:55 AM [facility] Platelets 255 130 - 400 K/mcL LAB HEMETOLOGY METHOD 06/20/2024 4:55 AM [facility] MPV 10.1 7.0 - 11.0 FL LAB HEMETOLOGY METHOD 06/20/2024 4:55 AM [facility] NRBC 0.0 <1.0 % LAB HEMETOLOGY METHOD 06/20/2024 4:55 AM [facility] NRBC Absolute 0.00 <0.10 K/mcL LAB HEMETOLOGY METHOD 06/20/2024 4:55 AM [facility] Neutrophils Relative 66.6 % LAB HEMETOLOGY METHOD 06/20/2024 4:55 AM [facility] Lymphocytes Relative 20.0 % LAB HEMETOLOGY METHOD 06/20/2024 4:55 AM [facility] Monocytes Relative 9.3 % LAB HEMETOLOGY METHOD 06/20/2024 4:55 AM [facility] Eosinophils Relative 3.4 % LAB HEMETOLOGY METHOD 06/20/2024 4:55 AM [facility] Basophils Relative 0.4 % LAB HEMETOLOGY METHOD 06/20/2024 4:55 AM [facility] Immature Granulocytes Relative 0.3 % LAB HEMETOLOGY METHOD 06/20/2024 4:55 AM [facility] Neutrophils Absolute 4.87 1.50 - 7.00 K/mcL LAB HEMETOLOGY METHOD 06/20/2024 4:55 AM [facility] Lymphocytes Absolute 1.46 1.00 - 5.00 K/mcL LAB HEMETOLOGY METHOD 06/20/2024 4:55 AM EST [facility] Monocytes Absolute 0.68 0.20 - 1.00 K/mcL LAB HEMETOLOGY METHOD 06/20/2024 4:55 AM EST [facility] Eosinophils Absolute 0.25 0.00 - 0.50 K/mcL LAB HEMETOLOGY METHOD 06/20/2024 4:55 AM EST [facility] Basophils Absolute 0.03 0.00 - 0.20 K/mcL LAB HEMETOLOGY METHOD 06/20/2024 4:55 AM EST [facility] Immature Granulocytes Absolute 0.02 0.00 - 0.03 K/mcL LAB HEMETOLOGY METHOD 06/20/2024 4:55 AM EST [facility] Blood Venous blood specimen / Unknown Venipuncture / Unknown 06/20/2024 4:27 AM EST 06/20/2024 4:34 AM EST Jonathan Cole DO LAB BLOOD ORDERABLES [facility] [address] [place] [address], * Procalcitonin (06/20/2024 4:27 AM EST) Procalcitonin <0.02 <=0.16 ng/mL LAB CHEMISTRY METHOD 06/20/2024 7:37 AM EST [facility] Blood Venous blood specimen / Unknown Venipuncture / Unknown 06/20/2024 4:27 AM EST 06/20/2024 4:34 AM EST Narrative [facility] - 06/20/2024 7:37 AM EST Procalcitonin > 2.00 ng/ml: Procalcitonin Levels above 2.00 ng/ml, on the first day of ICU admission represent a high risk for progression to severe sepsis and/or septic shock. Procalcitonin < 0.50 ng/ml: Procalcitonin levels below 0.50 ng/ml on the first day of ICU admission represent a low risk for progression to severe sepsis and/or septic shock. Concentrations <0.5 ng/mL do not exclude an infection, on account of local ized infections (without systemic signs) which can be associated with such low concentrations, or a systemic infection in its initial stages (<6 hours). Furthermore, increased procalcitonin can occur without infection. PCT concentrations between 0.5 and 2.0 ng/mL should be interpreted taking into account the patient's history. It is recommended to retest PCT within 6-24 hours if any concentrations <2.0 ng/mL are obtained. Jonathan Cole LAB BLOOD ORDERABLES Performing Organization Address City/[facility]/ZIP Co de Phone Number [facility] [address] [place] [address], * (ABNORMAL) Phosphorus (06/20/2024 4:27 AM EST) Phosphorus 2.2(L) 2.5 - 4.5 mg/dL LAB CHEMISTRY METHOD 06/20/2024 5:33 AM EST [facility] Blood Venous blood specimen / Unknown Venipuncture / Unknown 06/20/2024 4:27 AM EST 06/20/2024 4:34 AM EST Jonathan Keltoncasey [facility] BLOOD ORDERABLES [facility] [address] [place] [address], [place] [phone] * Magnesium (06/20/2024 4:27 AM EST) Magnesium 1.9 1.9 - 2.6 mg/dL LAB CHEMISTRY METHOD 06/20/2024 5:33 AM EST [facility] Blood Venous blood specimen / Unknown Venipuncture / Unknown 06/20/2024 4:27 AM EST 06/20/2024 4:34 AM EST Jonathan Dariel DO LAB BLOOD ORDERABLES Performing Organization Address City/[facility]/ZIP Co de Phone Number [facility] [address] [place] [address], * Calcium, ionized (06/20/2024 4:27 AM EST) [facility] Calcium Ionized 4.90 4.50 - 5.30 mg/dL 06/20/2024 4:50 AM [facility] Blood Venous blood specimen / Unknown Venipuncture / Unknown 06/20/2024 4:27 AM EST 06/20/2024 4:33 AM EST Jonathan Cole DO LAB BLOOD ORDERABLES Performing Organization Address [facility]/ZIP Co de Phone Number [facility] [address] [place] [address], * (ABNORMAL) Basic metabolic panel (06/20/2024 4:27 AM EST) [facility] Sodium 136 133 - 145 mmol/L LAB CHEMISTRY METHOD 06/20/2024 5:33 AM [facility] Potassium 4.1 3.5 - 5.5 mmol/L LAB CHEMISTRY METHOD 06/20/2024 5:33 AM [facility] Chloride 99 96 - 110 mmol/L LAB CHEMISTRY METHOD 06/20/2024 5:33 AM [facility] CO2 38(H) 21 - 32 mmol/L LAB CHEMISTRY METHOD 06/20/2024 5:33 AM [facility] Anion Gap -1(L) 3 - 11 LAB CHEMISTRY METHOD 06/20/2024 5:33 AM [facility] Glucose 95 70 - 100 mg/dL LAB CHEMISTRY METHOD 06/20/2024 5:33 AM [facility] Comment:Lipemia present BUN 13 5 - 25 mg/dL LAB CHEMISTRY METHOD 06/20/2024 5:33 AM [facility] Creatinine 0.66 0.50 - 1.10 mg/dL LAB CHEMISTRY METHOD 06/20/2024 5:33 AM [facility] eGFR 98 >=60 mL/min/1. 73m2 LAB CHEMISTRY METHOD 06/20/2024 5:33 AM [facility] Comment:Calculation based on the??Chronic Kidney Disease Epidemiology Collaboration (CKD-EPI) equation refit??without adjustment for race. BUN/Creatinine Ratio 19.7 LAB CHEMISTRY METHOD 06/20/2024 5:33 AM [facility] Calcium 8.4(L) 8.5 - 10.5 mg/dL LAB CHEMISTRY METHOD 06/20/2024 5:33 AM [facility] Blood Venous blood specimen / Unknown Venipuncture / Unknown 06/20/2024 4:27 AM EST 06/20/2024 4:34 AM EST Jonathan Cole DO LAB BLOOD ORDERABLES [facility] [address] [place] [address], * (ABNORMAL) POCT Glucose, blood (06/19/2024 11:39 PM EST) Glucose POCT 117(H) 70 - 100 mg/dL 06/19/2024 11:41 PM EST [facility] Blood Capillary blood specimen / Unknown 06/19/2024 11:39 PM EST 06/19/2024 11:42 PM EST Jonathan Cole DO LAB POINT OF CARE TE ST DOCKED DEVICE UNSOLICITED RESULTS Performing Organization Address [facility]/ZIP Co de Phone Number [facility] [address] [place] [address], [place] [phone] * (ABNORMAL) Ammonia (06/19/2024 6:38 PM EST) Ammonia 57(H) 11 - 35 mcmol/L LAB CHEMISTRY METHOD 06/19/2024 6:59 PM EST [facility] Blood Venous blood specimen / Unknown Venipuncture / Unknown 06/19/2024 6:38 PM EST 06/19/2024 6:38 PM EST Jonathan Melaragonzaelz LAB BLOOD ORDERABLES Performing Organization Address [facility]/ZIP Co de Phone Number [facility] [address] [place] [address], * (ABNORMAL) Venous blood gas (06/19/2024 6:38 PM EST) pH, Parker 7.29(L) 7.32 - 7.42 pH 06/19/2024 6:48 PM [facility] pCO2, Parker 75(HH) 41 - 51 mmHg 06/19/2024 6:48 PM [facility] pO2, Parker 55(H) 25 - 40 mmHg 06/19/2024 6:48 PM [facility] HCO3, Venous 30.6(H) 22.0 - 26.0 mmol/L 06/19/2024 6:48 PM [facility] O2 Sat, Parker 88.5 % 06/19/2024 6:48 PM [facility] Base Excess, Parker 7.5(H) -2.0 - 2.0 mmol/L 06/19/2024 6:48 PM [facility] Blood Venous blood specimen / Unknown Venipuncture / Unknown 06/19/2024 6:38 PM EST 06/19/2024 6:38 PM EST Jonathan Keltoncasey LAB BLOOD ORDERABLES [facility] [address] [place] [address], * (ABNORMAL) Venous blood gas (06/19/2024 2:54 PM EST) pH, Parker 7.25(L) 7.32 - 7.42 pH 06/19/2024 3:24 PM [facility] pCO2, Parker 87(HH) 41 - 51 mmHg 06/19/2024 3:24 PM [facility] pO2, Parker 31 25 - 40 mmHg 06/19/2024 3:24 PM [facility] HCO3, Venous 30.1(H) 22.0 - 26.0 mmol/L 06/19/2024 3:24 PM [facility] O2 Sat, Parker 50.1 % 06/19/2024 3:24 PM [facility] Base Excess, Parker 8.1(H) -2.0 - 2.0 mmol/L 06/19/2024 3:24 PM [facility] Blood Venous blood specimen / Unknown Venipuncture / Unknown 06/19/2024 2:54 PM EST 06/19/2024 3:11 PM EST Jonathan Cole DO LAB BLOOD ORDERABLES [facility] [address] [place] [address], * XR Chest 1 View (06/19/2024 5:57 AM EST) Anatomical Region Laterality Modality Body Radiographic Michelle ging 06/19/2024 8:54 AM EST Impressions 06/19/2024 9:08 AM EST FINDINGS/IMPRESSION: Elevated right diaphragm with bibasilar atelectasis. ??No pleural effusion or pneumothorax. ??Cardiac silhouette and bones are normal. -------- FINAL REPORT -------- Dictated By: DELANO BARAJAS Dictated Date: 06/19/2024 08:54 ET Assigned Physician: DELANO BARAJAS Reviewed and Electronically Signed By: DELANO BARAJAS Signed Date: 06/19/2024 09:08 ET Workstation ID: [id number] Transcribed By: Self Edit Transcribed Date: 06/19/2024 08:54 ET Narrative 06/19/2024 9:08 AM EST XR CHEST 1 VIEW INDICATION: ??Respiratory failure TECHNIQUE: XR CHEST 1 VIEW COMPARISON: 06/18/2024 Procedure Note Delano Barajas MD - 06/19/2024 XR CHEST 1 VIEW INDICATION: Respiratory failure TECHNIQUE: XR CHEST 1 VIEW COMPARISON: 06/18/2024 IMPRESSION: FINDINGS/IMPRESSION: Elevated right diaphragm with bibasilar atelectasis.No pleural effusion or pneumothorax. Cardiac silhouette and bones arenormal. -------- FINAL REPORT -------- Dictated By: DELANO BARAJAS Dictated Date: 06/19/2024 08:54 ET Assigned Physician: DELANO BARAJAS Reviewed and Electronically Signed By: DELANO BARAJAS Signed Date: 06/19/2024 09:08 ET Workstation ID: [id number] Transcribed By: Self Edit Transcribed Date: 06/19/2024 08:54 ET Jonathan Cole DO IMG XR PROCEDURES * (ABNORMAL) CBC auto differential (06/19/2024 4:37 AM EST) WBC 8.7 4.8 - 10.8 K/mcL LAB HEMETOLOGY METHOD 06/19/2024 5:42 AM [facility] RBC 4.00 3.80 - 4.80 M/mcL LAB HEMETOLOGY METHOD 06/19/2024 5:42 AM [facility] Hemoglobin 10.0(L) 11.5 - 16.0 g/dL LAB HEMETOLOGY METHOD 06/19/2024 5:42 AM [facility] Hematocrit 33.7(L) 35.0 - 47.0 % LAB HEMETOLOGY METHOD 06/19/2024 5:42 AM [facility] MCV 83.6 79.0 - 98.0 FL LAB HEMETOLOGY METHOD 06/19/2024 5:42 AM [facility] MCH 24.8(L) 27.0 - 32.0 pcg LAB HEMETOLOGY METHOD 06/19/2024 5:42 AM [facility] MCHC 29.7(L) 32.0 - 37.0 g/dL LAB HEMETOLOGY METHOD 06/19/2024 5:42 AM [facility] RDW 16.6(H) 11.0 - 15.0 % LAB HEMETOLOGY METHOD 06/19/2024 5:42 AM [facility] Platelets 260 130 - 400 K/mcL LAB HEMETOLOGY METHOD 06/19/2024 5:42 AM [facility] MPV 10.5 7.0 - 11.0 FL LAB HEMETOLOGY METHOD 06/19/2024 5:42 AM [facility] NRBC 0.0 <1.0 % LAB HEMETOLOGY METHOD 06/19/2024 5:42 AM [facility] NRBC Absolute 0.00 <0.10 K/mcL LAB HEMETOLOGY METHOD 06/19/2024 5:42 AM [facility] Neutrophils Relative 72.0 % LAB HEMETOLOGY METHOD 06/19/2024 5:42 AM [facility] Lymphocytes Relative 15.8 % LAB HEMETOLOGY METHOD 06/19/2024 5:42 AM [facility] Monocytes Relative 8.3 % LAB HEMETOLOGY METHOD 06/19/2024 5:42 AM [facility] Eosinophils Relative 2.9 % LAB HEMETOLOGY METHOD 06/19/2024 5:42 AM [facility] Basophils Relative 0.5 % LAB HEMETOLOGY METHOD 06/19/2024 5:42 AM [facility] Immature Granulocytes Relative 0.5 % LAB HEMETOLOGY METHOD 06/19/2024 5:42 AM EST [facility] Neutrophils Absolute 6.23 1.50 - 7.00 K/[facility] LAB HEMETOLOGY METHOD 06/19/2024 5:42 AM EST [facility] Lymphocytes Absolute 1.37 1.00 - 5.00 K/mcL LAB HEMETOLOGY METHOD 06/19/2024 5:42 AM EST [facility] Monocytes Absolute 0.72 0.20 - 1.00 K/mcL LAB HEMETOLOGY METHOD 06/19/2024 5:42 AM EST [facility] Eosinophils Absolute 0.25 0.00 - 0.50 K/[facility] LAB HEMETOLOGY METHOD 06/19/2024 5:42 AM EST [facility] Basophils Absolute 0.04 0.00 - 0.20 K/mcL LAB HEMETOLOGY METHOD 06/19/2024 5:42 AM EST [facility] Immature Granulocytes Absolute 0.04(H) 0.00 - 0.03 K/mcL LAB HEMETOLOGY METHOD 06/19/2024 5:42 AM EST [facility] Blood Venous blood specimen / Unknown Venipuncture / Unknown 06/19/2024 4:37 AM EST 06/19/2024 5:32 AM EST Jonathan Cole DO LAB BLOOD ORDERABLES [facility] [address] [place] [address], * Procalcitonin (06/19/2024 4:37 AM EST) Procalcitonin 0.03 <=0.16 ng/mL LAB CHEMISTRY METHOD 06/19/2024 9:17 AM EST [facility] Blood Venous blood specimen / Unknown Venipuncture / Unknown 06/19/2024 4:37 AM EST 06/19/2024 5:32 AM EST [facility] - 06/19/2024 9:17 AM EST Procalcitonin > 2.00 ng/ml: Procalcitonin Levels above 2.00 ng/ml, on the first day of ICU admission represent a high risk for progression to severe sepsis and/or septic shock. Procalcitonin < 0.50 ng/ml: Procalcitonin levels below 0.50 ng/ml on the first day of ICU admission represent a low risk for progression to severe sepsis and/or septic shock. Concentrations <0.5 ng/mL do not exclude an infection, on account of local ized infections (without systemic signs) which can be associated with such low concentrations, or a systemic infection in its initial stages (<6 hours). Furthermore, increased procalcitonin can occur without infection. PCT concentrations between 0.5 and 2.0 ng/mL should be interpreted taking into account the patient's history. It is recommended to retest PCT within 6-24 hours if any concentrations <2.0 ng/mL are obtained. Jonathan Cole DO LAB BLOOD ORDERABLES [facility] [address] [place] [address], * (ABNORMAL) Hepatic function panel (06/19/2024 4:37 AM EST) Total Protein 7.3 6.0 - 8.0 g/dL LAB CHEMISTRY METHOD 06/19/2024 6:14 AM EST [facility] Albumin 3.3 3.2 - 5.0 g/dL LAB CHEMISTRY METHOD 06/19/2024 6:14 AM EST [facility] Total Bilirubin 0.3 0.0 - 1.4 mg/dL LAB CHEMISTRY METHOD 06/19/2024 6:14 AM EST [facility] Bilirubin, Direct <0.1 0.0 - 0.3 mg/dL LAB CHEMISTRY METHOD 06/19/2024 6:14 AM EST [facility] Bilirubin, Indirect LAB CHEMISTRY METHOD 06/19/2024 6:14 AM EST [facility] Comment:Unable to calculate Indirect Bilirubin. ALT (SGPT) 64(H) 10 - 60 unit/L LAB CHEMISTRY METHOD 06/19/2024 6:14 AM [facility] AST (SGOT) 94(H) 10 - 42 unit/L LAB CHEMISTRY METHOD 06/19/2024 6:14 AM [facility] Alkaline Phosphatase 319(H) 42 - 121 unit/L LAB CHEMISTRY METHOD 06/19/2024 6:14 AM [facility] Blood Venous blood specimen / Unknown Venipuncture / Unknown 06/19/2024 4:37 AM EST 06/19/2024 5:32 AM EST [facility] LAB BLOOD ORDERABLES Performing Organization Address City/[facility]/ZIP Co de Phone Number [facility] [address] [place] [address], * (ABNORMAL) Phosphorus (06/19/2024 4:37 AM EST) Phosphorus 1.9(L) 2.5 - 4.5 mg/dL LAB CHEMISTRY METHOD 06/19/2024 6:08 AM [facility] Blood Venous blood specimen / Unknown Venipuncture / Unknown 06/19/2024 4:37 AM EST 06/19/2024 5:32 AM EST [facility] LAB BLOOD ORDERABLES [facility] [address] [place] [address], [place] [phone] * Magnesium (06/19/2024 4:37 AM EST) Magnesium 1.9 1.9 - 2.6 mg/dL LAB CHEMISTRY METHOD 06/19/2024 6:08 AM [facility] Blood Venous blood specimen / Unknown Venipuncture / Unknown 06/19/2024 4:37 AM EST 06/19/2024 5:32 AM EST Jonathan Cole [facility] BLOOD ORDERABLES Performing Organization Address [facility]/ZIP Co de Phone Number [facility] [address] [place] [address], [place] [phone] * Calcium, ionized (06/19/2024 4:37 AM EST) Pathologist [facility] Calcium Ionized 4.74 4.50 - 5.30 mg/dL 06/19/2024 5:46 AM [facility] Blood Venous blood specimen / Unknown Venipuncture / Unknown 06/19/2024 4:37 AM EST 06/19/2024 5:32 AM EST [facility] Performing Organization Address City/[facility]/ZIP Co de Phone Number [facility] [address] [place] [address], [place] [phone] * (ABNORMAL) Basic metabolic panel (06/19/2024 4:37 AM EST) [facility] Sodium 134 133 - 145 mmol/L LAB CHEMISTRY METHOD 06/19/2024 6:14 AM [facility] Potassium 4.0 3.5 - 5.5 mmol/L LAB CHEMISTRY METHOD 06/19/2024 6:14 AM [facility] Chloride 99 96 - 110 mmol/L LAB CHEMISTRY METHOD 06/19/2024 6:14 AM [facility] CO2 33(H) 21 - 32 mmol/L LAB CHEMISTRY METHOD 06/19/2024 6:14 AM [facility] Anion Gap 2(L) 3 - 11 LAB CHEMISTRY METHOD 06/19/2024 6:14 AM [facility] Glucose 106(H) 70 - 100 mg/dL LAB CHEMISTRY METHOD 06/19/2024 6:14 AM [facility] BUN 13 5 - 25 mg/dL LAB CHEMISTRY METHOD 06/19/2024 6:14 AM [facility] Creatinine 0.75 0.50 - 1.10 mg/dL LAB CHEMISTRY METHOD 06/19/2024 6:14 AM [facility] eGFR 89 >=60 mL/min/1. 73m2 LAB CHEMISTRY METHOD 06/19/2024 6:14 AM [facility] Comment:Calculation based on the??Chronic Kidney Disease Epidemiology Collaboration (CKD-EPI) equation refit??without adjustment for race. BUN/Creatinine Ratio 17.3 LAB CHEMISTRY METHOD 06/19/2024 6:14 AM [facility] Calcium 8.3(L) 8.5 - 10.5 mg/dL LAB CHEMISTRY METHOD 06/19/2024 6:14 AM [facility] Blood Venous blood specimen / Unknown Venipuncture / Unknown 06/19/2024 4:37 AM EST 06/19/2024 5:32 AM EST Jonathan Cole DO LAB BLOOD ORDERABLES Performing Organization Address City/[facility]/ZIP Co de Phone Number [facility] [address] [place] [address], * (ABNORMAL) MRSA molecular study (06/18/2024 10:12 AM EST) MRSA Screen PCR Detected (A) Not Detected LAB MICROBIOLOGY METHOD 06/18/2024 11:52 AM EST [facility] Swab Both anterior nares / Unknown Non-blood Collection / Unknown 06/18/2024 10:12 AM EST 06/18/2024 10:19 AM EST Jonathan Cole DO LAB MICROBIOLOGY - G ENERAL ORDERABLES [facility] [address] [place] [address], [place] [phone] * Legionella antigen urine, EIA (06/18/2024 10:12 AM EST) Legionella Antigen, Ur Negative Negative 06/18/2024 10:49 AM EST [facility] Urine Urine specimen obtained by clean catch procedure / Unknown Non-blood Collection / Unknown 06/18/2024 10:12 AM EST 06/18/2024 10:19 AM EST Narrative [facility] - 06/18/2024 10:49 AM EST Negative for Legionella pneumophilia serogroup 1 antigen. This presumptive result suggests no current or recent infection due to L. pneumophilia serogroup 1. Culture is recommended if Legionella infection is till suspected, as other serogroups and species of Legionella are not detected by this test. Jonathan Cole DO LAB URINE ORDERABLES [facility] [address] [place] [address], [place] [phone] * XR Chest 1 View (06/18/2024 6:18 AM EST) Anatomical Region Laterality Modality Body Radiographic Michelle ging 06/18/2024 10:0 6 AM EST Impressions 06/18/2024 10:08 AM EST Interval development of left base discoid atelectasis since 06/16/2024. ??The lungs otherwise remain clear. ??Again seen is chronic elevation of the right hemidiaphragm. Code 62243 -------- FINAL REPORT -------- Dictated By: Chacorta Pineda Dictated Date: 06/18/2024 10:06 ET Assigned Physician: Chacorta Pineda Reviewed and Electronically Signed By: Chacorta Pineda Signed Date: 06/18/2024 10:08 ET Workstation ID: [id number] Transcribed By: Self Edit Transcribed Date: 06/18/2024 10:06 ET Narrative 06/18/2024 10:08 AM EST HISTORY: The patient is a 63-year-old female with hypoxia. FINDINGS: Upright AP portable radiograph of the chest again demonstrates degenerative changes and dextroscoliosis of the thoracic spine as also seen on the prior study performed 06/16/2024. ??The cardiac silhouette is within normal limits. ??The aortic knob is calcified. ??Discoid atelectasis has developed at the left lung base. ??The lungs are otherwise clear. ??The right hemidiaphragm is again seen to be elevated as also seen on prior studies dating back to 08/20/2023. Procedure Note Chacorta Pineda MD - 06/18/2024 HISTORY: The patient is a 63-year-old female with hypoxia. FINDINGS: Upright AP portable radiograph of the chest again demonstratesdegenerative changes and dextroscoliosis of the thoracic spine as alsoseen on the prior study performed 06/16/2024. The cardiac silhouette iswithin normal limits. The aortic knob is calcified. Discoid atelectasishas developed at the left lung base. The lungs are otherwise clear. Theright hemidiaphragm is again seen to be elevated as also seen on priorstudies dating back to 08/20/2023. IMPRESSION: Interval development of left base discoid atelectasis since 06/16/2024.The lungs otherwise remain clear. Again seen is chronic elevation of theright hemidiaphragm. Code 61390 -------- FINAL REPORT -------- Dictated By: Chacorta Pineda Dictated Date: 06/18/2024 10:06 ET Assigned Physician: Chacorta Pineda Reviewed and Electronically Signed By: Chacorta Pineda Signed Date: 06/18/2024 10:08 ET Workstation ID: [id number] Transcribed By: Self Edit Transcribed Date: 06/18/2024 10:06 ET Orlando Ng MD IMG XR PROCEDURES * Procalcitonin (06/18/2024 5:35 AM EST) Procalcitonin 0.06 <=0.16 ng/mL LAB CHEMISTRY METHOD 06/18/2024 12:06 PM EST [facility] Blood Venous blood specimen / Unknown Venipuncture / Unknown 06/18/2024 5:35 AM EST 06/18/2024 5:41 AM EST Narrative [facility] - 06/18/2024 12:06 PM EST Procalcitonin > 2.00 ng/ml: Procalcitonin Levels above 2.00 ng/ml, on the first day of ICU admission represent a high risk for progression to severe sepsis and/or septic shock. Procalcitonin < 0.50 ng/ml: Procalcitonin levels below 0.50 ng/ml on the first day of ICU admission represent a low risk for progression to severe sepsis and/or septic shock. Concentrations <0.5 ng/mL do not exclude an infection, on account of local ized infections (without systemic signs) which can be associated with such low concentrations, or a systemic infection in its initial stages (<6 hours). Furthermore, increased procalcitonin can occur without infection. PCT concentrations between 0.5 and 2.0 ng/mL should be interpreted taking into account the patient's history. It is recommended to retest PCT within 6-24 hours if any concentrations <2.0 ng/mL are obtained. Jonathan Cole DO LAB BLOOD ORDERABLES Performing Organization Address City/[facility]/ZIP Co de Phone Number [facility] [address] [place] [address], * Thyroid stimulating hormone (06/18/2024 5:35 AM EST) TSH 1.99 0.40 - 4.00 mcIU/mL LAB CHEMISTRY METHOD 06/18/2024 10:39 AM EST [facility] Blood Venous blood specimen / Unknown Venipuncture / Unknown 06/18/2024 5:35 AM EST 06/18/2024 5:41 AM EST Jonathan Cole DO LAB BLOOD ORDERABLES [facility] [address] [place] [address], [place] [phone] * (ABNORMAL) Venous blood gas (06/18/2024 5:35 AM EST) pH, Parker 7.32 7.32 - 7.42 pH 06/18/2024 5:49 AM [facility] pCO2, Parker 65(HH) 41 - 51 mmHg 06/18/2024 5:49 AM [facility] pO2, Parker 60(H) 25 - 40 mmHg 06/18/2024 5:49 AM [facility] HCO3, Venous 29.2(H) 22.0 - 26.0 mmol/L 06/18/2024 5:49 AM [facility] O2 Sat, Parker 89.9 % 06/18/2024 5:49 AM [facility] Base Excess, Parker 5.7(H) -2.0 - 2.0 mmol/L 06/18/2024 5:49 AM [facility] Blood Venous blood specimen / Unknown Venipuncture / Unknown 06/18/2024 5:35 AM EST 06/18/2024 5:41 AM EST Orlando Ng MD LAB BLOOD ORDERABLE S [facility] [address] [place] [address], * Phosphorus (06/18/2024 5:35 AM EST) Pathologist [facility] Phosphorus 2.5 2.5 - 4.5 mg/dL LAB CHEMISTRY METHOD 06/18/2024 6:04 AM [facility] Blood Venous blood specimen / Unknown Venipuncture / Unknown 06/18/2024 5:35 AM EST 06/18/2024 5:41 AM EST Devonte MCGRAW LAB BLOOD ORDERAB LES Performing Organization Address [facility]/ZIP Co de Phone Number [facility] [address] [place] [address], * Magnesium (06/18/2024 5:35 AM EST) [facility] Magnesium 2.2 1.9 - 2.6 mg/dL LAB CHEMISTRY METHOD 06/18/2024 6:04 AM EST [facility] Blood Venous blood specimen / Unknown Venipuncture / Unknown 06/18/2024 5:35 AM EST 06/18/2024 5:41 AM EST Devonte Israel MCGRAW LAB BLOOD ORDERAB LES Performing Organization Address [facility]/ZIP Co de Phone Number [facility] [address] [place] [address], * (ABNORMAL) Basic metabolic panel (06/18/2024 5:35 AM EST) [facility] Sodium 137 133 - 145 mmol/L LAB CHEMISTRY METHOD 06/18/2024 6:22 AM [facility] Potassium 4.1 3.5 - 5.5 mmol/L LAB CHEMISTRY METHOD 06/18/2024 6:22 AM [facility] Chloride 103 96 - 110 mmol/L LAB CHEMISTRY METHOD 06/18/2024 6:22 AM [facility] CO2 32 21 - 32 mmol/L LAB CHEMISTRY METHOD 06/18/2024 6:22 AM [facility] Anion Gap 2(L) 3 - 11 LAB CHEMISTRY METHOD 06/18/2024 6:22 AM [facility] Glucose 110(H) 70 - 100 mg/dL LAB CHEMISTRY METHOD 06/18/2024 6:22 AM [facility] BUN 18 5 - 25 mg/dL LAB CHEMISTRY METHOD 06/18/2024 6:22 AM [facility] Creatinine 0.90 0.50 - 1.10 mg/dL LAB CHEMISTRY METHOD 06/18/2024 6:22 AM EST [facility] eGFR 72 >=60 mL/min/1. 73m2 LAB CHEMISTRY METHOD 06/18/2024 6:22 AM EST [facility] Comment:Calculation based on the??Chronic Kidney Disease Epidemiology Collaboration (CKD-EPI) equation refit??without adjustment for race. BUN/Creatinine Ratio 20.0 LAB CHEMISTRY METHOD 06/18/2024 6:22 AM [facility] Calcium 8.1(L) 8.5 - 10.5 mg/dL LAB CHEMISTRY METHOD 06/18/2024 6:22 AM [facility] Blood Venous blood specimen / Unknown Venipuncture / Unknown 06/18/2024 5:35 AM EST 06/18/2024 5:41 AM EST Devonte MCGRAW LAB BLOOD ORDERAB LES [facility] [address] [place] [address], * (ABNORMAL) Venous blood gas (06/18/2024 4:30 AM EST) pH, Parker 7.29(L) 7.32 - 7.42 pH 06/18/2024 4:55 AM [facility] pCO2, Parker 76(HH) 41 - 51 mmHg 06/18/2024 4:55 AM [facility] pO2, Parker 73(H) 25 - 40 mmHg 06/18/2024 4:55 AM [facility] HCO3, Venous 30.8(H) 22.0 - 26.0 mmol/L 06/18/2024 4:55 AM [facility] O2 Sat, Parker 94.1 % 06/18/2024 4:55 AM [facility] Base Excess, Parker 7.6(H) -2.0 - 2.0 mmol/L 06/18/2024 4:55 AM EST [facility] Blood Venous blood specimen / Unknown Venipuncture / Unknown 06/18/2024 4:30 AM EST 06/18/2024 4:42 AM EST Orlando Ng MD LAB BLOOD ORDERABLE S [facility] [address] [place] [address], [place] [phone] * (ABNORMAL) POCT Glucose, blood (06/18/2024 4:19 AM EST) Glucose POCT 115(H) 70 - 100 mg/dL 06/18/2024 4:23 AM EST [facility] Blood Capillary blood specimen / Unknown 06/18/2024 4:19 AM EST 06/18/2024 4:24 AM EST James Fletcher MD LAB POINT OF CARE TE ST DOCKED DEVICE UNSOLICITED RESULTS Performing Organization Address [facility]/ZIP Co de Phone Number [facility] [address] [place] [address], [place] [phone] * (ABNORMAL) POCT Glucose, blood (06/17/2024 10:55 PM EST) Glucose POCT 106(H) 70 - 100 mg/dL 06/17/2024 10:55 PM EST [facility] Blood Capillary blood specimen / Unknown 06/17/2024 10:55 PM EST 06/17/2024 10:56 PM EST James Fletcher MD LAB POINT OF CARE TE ST DOCKED DEVICE UNSOLICITED RESULTS Performing Organization Address City/[facility]/ZIP Co de Phone Number [facility] [address] [place] [address], [place] [phone] * (ABNORMAL) Venous blood gas (06/17/2024 8:49 PM EST) pH, Parker 7.24(L) 7.32 - 7.42 pH 06/17/2024 9:02 PM [facility] pCO2, Parker 73(HH) 41 - 51 mmHg 06/17/2024 9:02 PM [facility] pO2, Parker 55(H) 25 - 40 mmHg 06/17/2024 9:02 PM [facility] HCO3, Venous 26.3(H) 22.0 - 26.0 mmol/L 06/17/2024 9:02 PM [facility] O2 Sat, Parker 85.5 % 06/17/2024 9:02 PM [facility] Base Excess, Parker 2.2(H) -2.0 - 2.0 mmol/L 06/17/2024 9:02 PM [facility] Blood Venous blood specimen / Unknown Venipuncture / Unknown 06/17/2024 8:49 PM EST 06/17/2024 8:54 PM EST Orlando Ng MD LAB BLOOD ORDERABLE S [facility] [address] [place] [address], * (ABNORMAL) Arterial blood gas (06/17/2024 6:42 AM EST) pH, Arterial 7.25(L) 7.35 - 7.45 pH 06/17/2024 6:56 AM [facility] pCO2, Arterial 65(HH) 35 - 45 mmHg 06/17/2024 6:56 AM [facility] pO2, Arterial 89 80 - 100 mmHg 06/17/2024 6:56 AM [facility] HCO3, Arterial 24.9 22.0 - 26.0 mmol/L 06/17/2024 6:56 AM [facility] O2 Sat, Arterial 97.5 95.0 - 98.0 % 06/17/2024 6:56 AM [facility] Base Excess, Arterial 0.0 -2.0 - 2.0 mmol/L 06/17/2024 6:56 AM [facility] Sb Test Pass Pass, Unresponsi ve, Line 06/17/2024 6:56 AM [facility] FIO2 45.00 06/17/2024 6:56 AM [facility] Blood Arterial blood specimen / Unknown Arterial Puncture / Unknown 06/17/2024 6:42 AM EST 06/17/2024 6:47 AM EST Orlando Ng MD LAB BLOOD ORDERABLE S [facility] [address] [place] [address], [place] [phone] * Phosphorus (06/17/2024 6:00 AM EST) Phosphorus 4.3 2.5 - 4.5 mg/dL LAB CHEMISTRY METHOD 06/17/2024 1:32 PM EST [facility] Blood Venous blood specimen / Unknown Venipuncture / Unknown 06/17/2024 6:00 AM EST 06/17/2024 6:56 AM EST Devonte MCGRAW LAB BLOOD ORDERAB LES [facility] [address] [place] [address], [place] [phone] * Magnesium (06/17/2024 6:00 AM EST) Magnesium 2.1 1.9 - 2.6 mg/dL LAB CHEMISTRY METHOD 06/17/2024 1:32 PM [facility] Blood Venous blood specimen / Unknown Venipuncture / Unknown 06/17/2024 6:00 AM EST 06/17/2024 6:56 AM EST Devonte MCGRAW LAB BLOOD ORDERAB LES [facility] [address] [place] [address], * (ABNORMAL) Basic metabolic panel (06/17/2024 6:00 AM EST) Sodium 134 133 - 145 mmol/L LAB CHEMISTRY METHOD 06/17/2024 7:48 AM [facility] Potassium 5.3 3.5 - 5.5 mmol/L LAB CHEMISTRY METHOD 06/17/2024 7:48 AM [facility] Chloride 101 96 - 110 mmol/L LAB CHEMISTRY METHOD 06/17/2024 7:48 AM [facility] CO2 28 21 - 32 mmol/L LAB CHEMISTRY METHOD 06/17/2024 7:48 AM [facility] Anion Gap 5 3 - 11 LAB CHEMISTRY METHOD 06/17/2024 7:48 AM [facility] Glucose 108(H) 70 - 100 mg/dL LAB CHEMISTRY METHOD 06/17/2024 7:48 AM [facility] BUN 18 5 - 25 mg/dL LAB CHEMISTRY METHOD 06/17/2024 7:48 AM [facility] Creatinine 1.08 0.50 - 1.10 mg/dL LAB CHEMISTRY METHOD 06/17/2024 7:48 AM [facility] eGFR 57(L) >=60 mL/min/1. 73m2 LAB CHEMISTRY METHOD 06/17/2024 7:48 AM [facility] Comment:Calculation based on the??Chronic Kidney Disease Epidemiology Collaboration (CKD-EPI) equation refit??without adjustment for race. BUN/Creatinine Ratio 16.7 LAB CHEMISTRY METHOD 06/17/2024 7:48 AM EST [facility] Calcium 8.3(L) 8.5 - 10.5 mg/dL LAB CHEMISTRY METHOD 06/17/2024 7:48 AM [facility] Blood Venous blood specimen / Unknown Venipuncture / Unknown 06/17/2024 6:00 AM EST 06/17/2024 6:56 AM EST Orlando Ng MD LAB BLOOD ORDERABLE S [facility] [address] [place] [address], * (ABNORMAL) CBC auto differential (06/17/2024 4:08 AM EST) WBC 16.7(H) 4.8 - 10.8 K/mcL LAB HEMETOLOGY METHOD 06/17/2024 5:22 AM [facility] RBC 5.00(H) 3.80 - 4.80 M/mcL LAB HEMETOLOGY METHOD 06/17/2024 5:22 AM [facility] Hemoglobin 12.2 11.5 - 16.0 g/dL LAB HEMETOLOGY METHOD 06/17/2024 5:22 AM [facility] Hematocrit 40.4 35.0 - 47.0 % LAB HEMETOLOGY METHOD 06/17/2024 5:22 AM [facility] MCV 81.5 79.0 - 98.0 FL LAB HEMETOLOGY METHOD 06/17/2024 5:22 AM [facility] MCH 24.6(L) 27.0 - 32.0 pcg LAB HEMETOLOGY METHOD 06/17/2024 5:22 AM [facility] MCHC 30.2(L) 32.0 - 37.0 g/dL LAB HEMETOLOGY METHOD 06/17/2024 5:22 AM [facility] RDW 16.9(H) 11.0 - 15.0 % LAB HEMETOLOGY METHOD 06/17/2024 5:22 AM [facility] Platelets 318 130 - 400 K/mcL LAB HEMETOLOGY METHOD 06/17/2024 5:22 AM [facility] MPV 10.8 7.0 - 11.0 FL LAB HEMETOLOGY METHOD 06/17/2024 5:22 AM [facility] NRBC 0.0 <1.0 % LAB HEMETOLOGY METHOD 06/17/2024 5:22 AM [facility] NRBC Absolute 0.00 <0.10 K/mcL LAB HEMETOLOGY METHOD 06/17/2024 5:22 AM [facility] Neutrophils Relative 83.9 % LAB HEMETOLOGY METHOD 06/17/2024 5:22 AM [facility] Lymphocytes Relative 4.9 % LAB HEMETOLOGY METHOD 06/17/2024 5:22 AM [facility] Monocytes Relative 9.4 % LAB HEMETOLOGY METHOD 06/17/2024 5:22 AM [facility] Eosinophils Relative 1.1 % LAB HEMETOLOGY METHOD 06/17/2024 5:22 AM [facility] Basophils Relative 0.3 % LAB HEMETOLOGY METHOD 06/17/2024 5:22 AM [facility] Immature Granulocytes Relative 0.4 % LAB HEMETOLOGY METHOD 06/17/2024 5:22 AM [facility] Neutrophils Absolute 14.02(H) 1.50 - 7.00 K/mcL LAB HEMETOLOGY METHOD 06/17/2024 5:22 AM [facility] Lymphocytes Absolute 0.82(L) 1.00 - 5.00 K/mcL LAB HEMETOLOGY METHOD 06/17/2024 5:22 AM EST [facility] Monocytes Absolute 1.58(H) 0.20 - 1.00 K/[facility] LAB HEMETOLOGY METHOD 06/17/2024 5:22 AM EST [facility] Eosinophils Absolute 0.19 0.00 - 0.50 K/[facility] LAB HEMETOLOGY METHOD 06/17/2024 5:22 AM EST [facility] Basophils Absolute 0.05 0.00 - 0.20 K/[facility] HEMETOLOGY METHOD 06/17/2024 5:22 AM EST [facility] Immature Granulocytes Absolute 0.06(H) 0.00 - 0.03 K/[facility] HEMETOLOGY METHOD 06/17/2024 5:22 AM EST [facility] Blood Venous blood specimen / Unknown Venipuncture / Unknown 06/17/2024 4:08 AM EST 06/17/2024 5:09 AM EST Orlando Ng MD LAB BLOOD ORDERABLE S [facility] [address] [place] [address], * (ABNORMAL) Methadone, urine (06/17/2024 2:17 AM EST) Methadone Screen, Urine Positive (A) Negative LAB CHEMISTRY METHOD 06/17/2024 3:11 AM EST [facility] Comment: Assay cutoff 300 ng/mL Semi-quantitative assay for screening purposes only. Unconfirmed screening result should not be used for non-medical purposes. *ALTERNATE METHOD CONFIRMATION DONE UPON REQUEST ONLY* Urine Urine specimen obtained by clean catch procedure / Unknown Non-blood Collection / Unknown 06/17/2024 2:17 AM EST 06/17/2024 2:48 AM EST Orlando Ng MD LAB URINE ORDERABLE S [facility] [address] [place] [address], * Fentanyl urine (06/17/2024 2:17 AM EST) [facility] Fentanyl, Ur Negative Negative LAB CHEMISTRY METHOD 06/17/2024 3:11 AM [facility] Urine Urine specimen obtained by clean catch procedure / Unknown Non-blood Collection / Unknown 06/17/2024 2:17 AM EST 06/17/2024 2:48 AM EST [facility] - 06/17/2024 3:11 AM EST Assay cutoff 1 ng/mL Semi-quantitative assay for screening purposes only. Unconfirmed screening result should not be used for non-medical purposes. *ALTERNATE METHOD CONFIRMATION DONE UPON REQUEST ONLY* Orlando Ng MD LAB URINE ORDERABLE S Performing Organization Address [facility] Co de Phone Number [facility] [address] [place] [address], * (ABNORMAL) Drug abuse screen 8a panel, urine (06/17/2024 2:17 AM EST) [facility] Amphetamine Screen, Ur Negative Negative LAB CHEMISTRY METHOD 5 3:11 AM [facility] Comment:Certain OTC medicati ons containing ephedrine, phenylephrine, pseudoephedrine and phenylpropanolamine can cause false positive results. Barbiturate Screen, Ur Negative Negative LAB CHEMISTRY METHOD 5 3:11 AM [facility] Benzodiazepine Screen, Ur Positive(A ) Negative LAB CHEMISTRY METHOD 5 3:11 AM [facility] Cocaine Screen, Ur Negative Negative LAB CHEMISTRY METHOD 5 3:11 AM [facility] Opiate Screen, Ur Negative Negative LAB CHEMISTRY METHOD 5 3:11 AM EST [facility] Cannabinoid (THC) Screen, Ur Negative Negative LAB CHEMISTRY METHOD 5 3:11 AM EST [facility] Comment:Specimens from patie nts taking pantoprazole sodium (Protonix) have been shown to produce false positive results. Oxycodone Screen, Ur Negative Negative LAB CHEMISTRY METHOD 5 3:11 AM EST [facility] Fentanyl, Ur Negative Negative LAB CHEMISTRY METHOD 5 3:11 AM [facility] Urine Urine specimen obtained by clean catch procedure / Unknown Non-blood Collection / Unknown 06/17/2024 2:17 AM EST 06/17/2024 2:48 AM EST [facility] - 06/17/2024 3:11 AM EST Assay cutoffs: Amphetamines ? 1000 ng/mL Barbiturates ?200 ng/mL Benzodiazepines ?? 200 ng/mL Cocaine ? 300 ng/mL Fentanyl ?1 ng/mL Opiates ? 300 ng/mL Oxycodone ? 100 ng/mL THC ?50 ng/mL Semi-quantitative assay for screening purposes only. Unconfirmed screening result should not be used for non-medical purposes. *ALTERNATE METHOD CONFIRMATION DONE UPON REQUEST ONLY* Mercedes MCGRAW LAB URINE ORDERABLES [facility] [address] [place] [address], * (ABNORMAL) Arterial blood gas (06/17/2024 1:04 AM EST) pH, Arterial 7.25(L) 7.35 - 7.45 pH 06/17/2024 1:23 AM EST [facility] pCO2, Arterial 59(H) 35 - 45 mmHg 06/17/2024 1:23 AM [facility] pO2, Arterial 128(H) 80 - 100 mmHg 06/17/2024 1:23 AM [facility] HCO3, Arterial 23.1 22.0 - 26.0 mmol/L 06/17/2024 1:23 AM [facility] O2 Sat, Arterial 98.7(H) 95.0 - 98.0 % 06/17/2024 1:23 AM [facility] Base Excess, Arterial -2.3(L) -2.0 - 2.0 mmol/L 06/17/2024 1:23 AM [facility] Sb Test Pass Pass, Unresponsi ve, Line 06/17/2024 1:23 AM [facility] FIO2 100.00 06/17/2024 1:23 AM [facility] Blood Arterial blood specimen / Unknown Arterial Puncture / Unknown 06/17/2024 1:04 AM EST 06/17/2024 1:09 AM EST Orlando Ng MD LAB BLOOD ORDERABLE S [facility] [address] [place] [address], * Troponin I high sensitivity (NOW and then in 1 hour) (06/17/2024 12:04 AM EST) High Sensitivity Troponin I 21 <=54 ng/L LAB CHEMISTRY METHOD 06/17/2024 12:54 AM EST [facility] Blood Venous blood specimen / Unknown Venipuncture / Unknown 06/17/2024 12:04 AM EST 06/17/2024 12:25 AM EST Narrative [facility] - 06/17/2024 12:54 AM EST High levels of biotin in samples may falsely decrease hsTroponin values. ??Use caution when interpreting hsTroponin results in patients taking biotin who exhibit renal impairment (eGFR <60) or in patients taking more than 20 mg/day of biotin. Mercedes MCGRAW LAB BLOOD ORDERABLES Performing Organization Address [facility] Co de Phone Number [facility] [address] [place] [address], [place] [phone] * ECG-Annotated (06/17/2024) Provider Onbase MD ECG ORDERABLES * Troponin I high sensitivity (NOW and then in 1 hour) (06/16/2024 11:20 PM EST) Pathologist [facility] High Sensitivity Troponin I 22 <=54 ng/L LAB CHEMISTRY METHOD 06/17/2024 12:11 AM EST [facility] Blood Venous blood specimen / Unknown Venipuncture / Unknown 06/16/2024 11:20 PM EST 06/16/2024 11:37 PM EST Narrative [facility] - 06/17/2024 12:11 AM EST High levels of biotin in samples may falsely decrease hsTroponin values. ??Use caution when interpreting hsTroponin results in patients taking biotin who exhibit renal impairment (eGFR <60) or in patients taking more than 20 mg/day of biotin. Mercedes MCGRAW LAB BLOOD ORDERABLES Performing Organization Address [facility] Co de Phone Number [facility] [address] [place] [address], [place] [phone] * CT Angio Chest wo and/or w Contrast (06/16/2024 10:20 PM EST) Anatomical Region Laterality Modality Body Computed Tomogra phy 06/16/2024 11:0 0 PM EST Impressions 06/16/2024 11:00 PM EST 1. No pulmonary embolism. 2. Bronchial thickening within the right base. Some opacities involving the right lung base which could represent developing right basilar infectious process including pneumonia and or right basilar atelectasis. This document has been electronically signed by: Joey Sullivan DO on 06/16/2024 23:00:33 Narrative 06/16/2024 11:00 PM EST CTA chest with IV contrast. MIP images also submitted for evaluation. Comparison: None Findings: The thyroid is unremarkable. Normal caliber of the thoracic aorta. Atherosclerosis of the thoracic aorta. Soft plaque involving the descending thoracic aorta The heart is normal size. Small lymph nodes throughout mediastinum No pulmonary embolism. Bronchial thickening within the right base. Some opacities involving the right lung base which could represent developing right basilar infectious process including pneumonia and or right basilar atelectasis. Degenerative changes of the thoracic spine. Please see report for discussion of the abdomen and pelvis. A small hiatal hernia. Cholecystectomy. Procedure Note Joey Sullivan MD - 06/16/2024 CTA chest with IV contrast. MIP images also submitted for evaluation. Comparison: None Findings: The thyroid is unremarkable. Normal caliber of the thoracic aorta. Atherosclerosis of the thoracic aorta. Soft plaque involving the descending thoracic aorta The heart is normal size. Small lymph nodes throughout mediastinum No pulmonary embolism. Bronchial thickening within the right base. Some opacities involving the right lung base which could represent developing right basilarinfectious process including pneumonia and or right basilar atelectasis. Degenerative changes of the thoracic spine. Please see report for discussion of the abdomen and pelvis. A smallhiatal hernia. Cholecystectomy. IMPRESSION: 1. No pulmonary embolism. 2. Bronchial thickening within the right base. Some opacities involving the right lung base which could represent developing right basilar infectious process including pneumonia and or right basilar atelectasis. This document has been electronically signed by: Joey Sullivan DO on 06/16/2024 23:00:[address] PROCEDURES * CT Abdomen Pelvis w Contrast (06/16/2024 10:20 PM EST) Anatomical Region Laterality Modality Body Computed Tomogra phy 06/16/2024 11:0 0 PM EST Impressions 06/16/2024 11:00 PM EST 1. Normal appendix. 2. Scattered colonic diverticula without diverticulitis. Mild colonic fecal burden greatest involving the proximal colon. 3. Mild intrahepatic and extrahepatic biliary ductal dilatation likely related to prior cholecystectomy. 4. A small hiatal hernia. 5. Developing infiltrate and/or atelectasis of the right lung base. This document has been electronically signed by: Joey Sullivan DO on 06/16/2024 23:00:36 Narrative 06/16/2024 11:[address] abdomen and pelvis with contrast Comparison: None Findings: Developing infiltrate and/or atelectasis of the right lung base. Small hiatal hernia. Atherosclerosis of the abdominal aorta. Small subcentimeter lymph nodes retroperitoneum. Mild intrahepatic and [...] changes of the lumbar spine bilateral hips. Procedure Note Joey Sullivan MD - 06/16/2024 CT abdomen and pelvis with contrast Comparison: None Findings: Developing infiltrate and/or atelectasis of the right lung base. Small hiatal hernia. Atherosclerosis of the abdominal aorta. Small subcentimeter lymph nodes retroperitoneum. Mild intrahepatic and extrahepatic biliary ductal dilatation likely related to prior cholecystectomy. Pancreatic atrophy. The spleen and bilateral adrenal glands are normal. The kidneys without nephrolithiasis or hydronephrosis. The contour of the urinary bladder is unremarkable. Atrophied anteverted uterus. No bowel obstruction, pneumoperitoneum, or pneumatosis. Scatteredcolonic diverticula without diverticulitis. Mild colonic fecal burden greatest involving proximal colon. Normal appendix. Degenerative changes of the lumbar spine bilateral hips. IMPRESSION: 1. Normal appendix. 2. Scattered colonic diverticula without diverticulitis. Mild colonic fecal burden greatest involving the proximal colon. 3. Mild intrahepatic and extrahepatic biliary ductal dilatation likely related to prior cholecystectomy. 4. A small hiatal hernia. 5. Developing infiltrate and/or atelectasis of the right lung base. This document has been electronically signed by: Joey Sullivan DO on 06/16/2024 23:00:[address] PROCEDURES * XR Chest 1 View (06/16/2024 10:01 PM EST) Anatomical Region Laterality Modality Body Radiographic Michelle ging 06/17/2024 8:26 AM EST Impressions 06/17/2024 8:27 AM EST Bibasilar atelectatic changes. -------- FINAL REPORT -------- Dictated By: Lex Darling Dictated Date: 06/17/2024 08:26 ET Assigned Physician: Lex Darling Reviewed and Electronically Signed By: Lex Darling Signed Date: 06/17/2024 08:27 ET Workstation ID: [id number] Transcribed By: Self Edit Transcribed Date: 06/17/2024 08:26 ET Narrative 06/17/2024 8:27 AM EST Examination: Chest portable AP sitting at 2158 hours. COMPARISON: Chest 03/10/2024. FINDINGS: The lungs are hypoexpanded with by basilar atelectatic changes. Heart size and pulmonary vasculature is normal. There is mild extradural scoliosis lower dorsal spine. No aggressive lytic or sclerotic process seen. Procedure Note Lex Darling MD - 06/17/2024 Examination: Chest portable AP sitting at 2158 hours. COMPARISON: Chest 03/10/2024. FINDINGS: The lungs are hypoexpanded with by basilar atelectatic changes.Heart size and pulmonary vasculature is normal. There is mild extraduralscoliosis lower dorsal spine. No aggressive lytic or sclerotic processseen. IMPRESSION: Bibasilar atelectatic changes. -------- FINAL REPORT -------- Dictated By: Lex Darling Dictated Date: 06/17/2024 08:26 ET Assigned Physician: Lex Darling Reviewed and Electronically Signed By: Lex Darling Signed Date: 06/17/2024 08:27 ET Workstation ID: [id number] Transcribed By: Self Edit Transcribed Date: 06/17/2024 08:26 ET Mercedes MCGRAW IMG XR PROCEDURES * B-type natriuretic peptide (06/16/2024 9:32 PM EST) Pathologist [facility] BNP 17 <=100 pcg/mL LAB CHEMISTRY METHOD 06/16/2024 10:22 PM EST [facility] Blood Venous blood specimen / Unknown Venipuncture / Unknown 06/16/2024 9:32 PM EST 06/16/2024 9:49 PM EST Mercedes MCGRAW LAB BLOOD ORDERABLES [facility] [address] [place] [address], * Respiratory virus panel molecular study (06/16/2024 9:20 PM EST) [facility] Adenovirus Detection by PCR Not Detected Not Detected LAB MICROBIOLOGY METHOD 06/16/2024 10:39 PM [facility] Influenza A PCR Not Detected Not Detected LAB MICROBIOLOGY METHOD 06/16/2024 10:39 PM [facility] Influenza B PCR Not Detected Not Detected LAB MICROBIOLOGY METHOD 06/16/2024 10:39 PM [facility] Coronavirus 229E Not Detected Not Detected LAB MICROBIOLOGY METHOD 06/16/2024 10:39 PM [facility] Coronavirus HKU1 Not Detected Not Detected LAB MICROBIOLOGY METHOD 06/16/2024 10:39 PM [facility] Coronavirus OC43 Not Detected Not Detected LAB MICROBIOLOGY METHOD 06/16/2024 10:39 PM [facility] Coronavirus NL63 Not Detected Not Detected LAB MICROBIOLOGY METHOD 06/16/2024 10:39 PM [facility] Parainfluenza Virus 1 Not Detected Not Detected LAB MICROBIOLOGY METHOD 06/16/2024 10:39 PM [facility] Parainfluenza Virus 2 Not Detected Not Detected LAB MICROBIOLOGY METHOD 06/16/2024 10:39 PM [facility] Parainfluenza Virus 3 Not Detected Not Detected LAB MICROBIOLOGY METHOD 06/16/2024 10:39 PM [facility] Parainfluenza Virus 4 Not Detected Not Detected LAB MICROBIOLOGY METHOD 06/16/2024 10:39 PM [facility] RSV PCR Not Detected Not Detected LAB MICROBIOLOGY METHOD 06/16/2024 10:39 PM [facility] Human Metapneumovirus A and B Not Detected Not Detected LAB MICROBIOLOGY METHOD 06/16/2024 10:39 PM [facility] Rhinovirus/Entero virus Not Detected Not Detected LAB MICROBIOLOGY METHOD 06/16/2024 10:39 PM [facility] Bordetella pertussis Not Detected Not Detected LAB MICROBIOLOGY METHOD 06/16/2024 10:39 PM [facility] Bordetella parapertussis Not Detected Not Detected LAB MICROBIOLOGY METHOD 06/16/2024 10:39 PM [facility] Mycoplasma pneumo by PCR Not Detected Not Detected LAB MICROBIOLOGY METHOD 06/16/2024 10:39 PM [facility] Chlamydia pneumoniae Not Detected Not Detected LAB MICROBIOLOGY METHOD 06/16/2024 10:39 PM [facility] SARS COV-2 Not Detected Not Detected LAB MICROBIOLOGY METHOD 06/16/2024 10:39 PM [facility] Swab Both anterior nares / Unknown Non-blood Collection / Unknown 06/16/2024 9:20 PM EST 06/16/2024 9:28 PM EST [facility] - 06/16/2024 10:39 PM EST Testing was performed using the [employer] Respiratory Pathogen PCR Assay. All results must be correlated with the clinical findings. Results should not be used as the sole basis for diagnosis. False Negative results may occur from the presence of sequence variants in the region targeted by the assay or the presence of inhibitors. Results may be affected by concurrent antiviral/antimicrobial therapy or levels of organisms that are below the limit of detection. Mercedes MCGRAW LAB MICROBIOLOGY - G ENERAL ORDERABLES Performing Organization Address City/[facility]/ZIP Co de Phone Number [facility] [address] [place] [address], * (ABNORMAL) Ethanol (06/16/2024 9:09 PM EST) Ethanol Level 65(H) 0 - 10 mg/dL LAB CHEMISTRY METHOD 06/16/2024 11:22 PM [facility] Blood Venous blood specimen / Unknown Venipuncture / Unknown 06/16/2024 9:09 PM EST 06/16/2024 9:28 PM EST Mercedes MCGRAW LAB BLOOD ORDERABLES Performing Organization Address [facility]/ZIP Co de Phone Number [facility] [address] [place] [address], * (ABNORMAL) CBC auto differential (06/16/2024 9:09 PM EST) WBC 10.8 4.8 - 10.8 K/mcL LAB HEMETOLOGY METHOD 06/16/2024 9:38 PM [facility] RBC 5.10(H) 3.80 - 4.80 M/mcL LAB HEMETOLOGY METHOD 06/16/2024 9:38 PM [facility] Hemoglobin 12.4 11.5 - 16.0 g/dL LAB HEMETOLOGY METHOD 06/16/2024 9:38 PM [facility] Hematocrit 40.2 35.0 - 47.0 % LAB HEMETOLOGY METHOD 06/16/2024 9:38 PM [facility] MCV 79.0 79.0 - 98.0 FL LAB HEMETOLOGY METHOD 06/16/2024 9:38 PM [facility] MCH 24.4(L) 27.0 - 32.0 pcg LAB HEMETOLOGY METHOD 06/16/2024 9:38 PM [facility] MCHC 30.8(L) 32.0 - 37.0 g/dL LAB HEMETOLOGY METHOD 06/16/2024 9:38 PM [facility] RDW 16.7(H) 11.0 - 15.0 % LAB HEMETOLOGY METHOD 06/16/2024 9:38 PM [facility] Platelets 339 130 - 400 K/mcL LAB HEMETOLOGY METHOD 06/16/2024 9:38 PM [facility] MPV 10.6 7.0 - 11.0 FL LAB HEMETOLOGY METHOD 06/16/2024 9:38 PM [facility] NRBC 0.0 <1.0 % LAB HEMETOLOGY METHOD 06/16/2024 9:38 PM [facility] NRBC Absolute 0.00 <0.10 K/mcL LAB HEMETOLOGY METHOD 06/16/2024 9:38 PM [facility] Neutrophils Relative 74.6 % LAB HEMETOLOGY METHOD 06/16/2024 9:38 PM [facility] Lymphocytes Relative 16.2 % LAB HEMETOLOGY METHOD 06/16/2024 9:38 PM [facility] Monocytes Relative 6.9 % LAB HEMETOLOGY METHOD 06/16/2024 9:38 PM [facility] Eosinophils Relative 1.4 % LAB HEMETOLOGY METHOD 06/16/2024 9:38 PM [facility] Basophils Relative 0.5 % LAB HEMETOLOGY METHOD 06/16/2024 9:38 PM [facility] Immature Granulocytes Relative 0.4 % LAB HEMETOLOGY METHOD 06/16/2024 9:38 PM [facility] Neutrophils Absolute 8.09(H) 1.50 - 7.00 K/mcL LAB HEMETOLOGY METHOD 06/16/2024 9:38 PM EST [facility] Lymphocytes Absolute 1.76 1.00 - 5.00 K/mcL LAB HEMETOLOGY METHOD 06/16/2024 9:38 PM EST [facility] Monocytes Absolute 0.75 0.20 - 1.00 K/mcL LAB HEMETOLOGY METHOD 06/16/2024 9:38 PM EST [facility] Eosinophils Absolute 0.15 0.00 - 0.50 K/mcL LAB HEMETOLOGY METHOD 06/16/2024 9:38 PM EST [facility] Basophils Absolute 0.05 0.00 - 0.20 K/mcL LAB HEMETOLOGY METHOD 06/16/2024 9:38 PM [facility] Immature Granulocytes Absolute 0.04(H) 0.00 - 0.03 K/mcL LAB HEMETOLOGY METHOD 06/16/2024 9:38 PM EST [facility] Blood Venous blood specimen / Unknown Venipuncture / Unknown 06/16/2024 9:09 PM EST 06/16/2024 9:28 PM EST Mercedes MCGRAW LAB BLOOD ORDERABLES [facility] [address] [place] [address], * (ABNORMAL) Comprehensive metabolic panel (06/16/2024 9:09 PM EST) Sodium 134 133 - 145 mmol/L LAB CHEMISTRY METHOD 06/16/2024 10:09 PM [facility] Potassium 3.8 3.5 - 5.5 mmol/L LAB CHEMISTRY METHOD 06/16/2024 10:09 PM [facility] Chloride 102 96 - 110 mmol/L LAB CHEMISTRY METHOD 06/16/2024 10:09 PM [facility] CO2 25 21 - 32 mmol/L LAB CHEMISTRY METHOD 06/16/2024 10:09 PM [facility] Anion Gap 7 3 - 11 LAB CHEMISTRY METHOD 06/16/2024 10:09 PM [facility] Glucose 118(H) 70 - 100 mg/dL LAB CHEMISTRY METHOD 06/16/2024 10:09 PM [facility] BUN 15 5 - 25 mg/dL LAB CHEMISTRY METHOD 06/16/2024 10:09 PM [facility] Creatinine 0.89 0.50 - 1.10 mg/dL LAB CHEMISTRY METHOD 06/16/2024 10:09 PM [facility] eGFR 73 >=60 mL/min/1. 73m2 LAB CHEMISTRY METHOD 06/16/2024 10:09 PM [facility] Comment:Calculation based on the??Chronic Kidney Disease Epidemiology Collaboration (CKD-EPI) equation refit??without adjustment for race. BUN/Creatinine Ratio 16.9 LAB CHEMISTRY METHOD 06/16/2024 10:09 PM [facility] Calcium 9.1 8.5 - 10.5 mg/dL LAB CHEMISTRY METHOD 06/16/2024 10:09 PM [facility] AST (SGOT) 49(H) 10 - 42 unit/L LAB CHEMISTRY METHOD 06/16/2024 10:09 PM [facility] ALT (SGPT) 45 10 - 60 unit/L LAB CHEMISTRY METHOD 06/16/2024 10:09 PM [facility] Alkaline Phosphatase 301(H) 42 - 121 unit/L LAB CHEMISTRY METHOD 06/16/2024 10:09 PM [facility] Total Protein 8.3(H) 6.0 - 8.0 g/dL LAB CHEMISTRY METHOD 06/16/2024 10:09 PM [facility] Albumin 3.9 3.2 - 5.0 g/dL LAB CHEMISTRY METHOD 06/16/2024 10:09 PM [facility] Total Bilirubin 0.2 0.0 - 1.4 mg/dL LAB CHEMISTRY METHOD 06/16/2024 10:09 PM EST [facility] ([facility] Blood Venous blood specimen / Unknown Venipuncture / Unknown 06/16/2024 9:09 PM EST 06/16/2024 9:28 PM EST Mercedes MCGRAW LAB BLOOD ORDERABLES Performing Organization Address City/[facility]/ZIP Co de Phone Number [facility] ([facility]) [facility] [address] [place] [address], * ECG 12 lead (06/16/2024 9:08 PM EST) Ventricular Rate ECG 94 BPM GEMUSE Atrial Rate 94 BPM GEMUSE P-R Interval 156 ms GEMUSE QRS Duration 90 ms GEMUSE Q-T Interval 386 ms GEMUSE QTc 482 ms GEMUSE P Wave [place] 58 degrees GEMUSE R [place] -6 degrees GEMUSE T [place] 87 degrees GEMUSE ECG Interpretation Normal sinus rhythm Septal infarct (cited on or before 16-JUN-2024) Abnormal ECG When compared with ECG of 14-MAY-2024 08:38, T wave inversion now evident in Lateral leads Septal ST elevation is more evident Confirmed by Herbie HARTLEY JAMES ([id number]) on 06/17/2024 8:56:10 AM GEMUSE 06/16/2024 9:08 PM EST 06/17/2024 8:56 AM EST Mercedes MCGRAW ECG ORDERABLES GEMUSE documented in this encounter Visit Diagnoses Diagnosis Acute on chronic respiratory failure with hypercapnia (CMS/HCC)- Primary SOB (shortness of breath) Shortness of breath Pneumonia of right lower lobe due to infectious organism Hypoxia Hypoxemia Aspiration pneumonitis (CMS/HCC) Pneumonitis due to inhalation of food or vomitus Acute on chronic respiratory failure with hypercapnia (CMS/HCC) Aspiration pneumonitis (CMS/HCC) Pneumonitis due to inhalation of food or vomitus Depression with suicidal ideation H/O ETOH abuse 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 Alcoholic intoxication with complication (CMS/HCC) Methadone overdose, intentional self-harm, initial encounter ([facility]) Wernicke encephalopathy Other and unspecified manifestations of thiamine deficiency documented in this encounter Admitting Diagnoses Diagnosis Aspiration pneumonitis ([facility]) Pneumonitis due to inhalation of food or vomitus Acute hypoxemic respiratory failure ([facility]) documented in this encounter Administered Medications Inactive Administered Medications - up to 3 most recent administrations Medication Order MAR Action Action Date Dose Rate Site acetaminophen (TYLENOL) tablet 650 mg 650 mg, oral, Every 4 hours PRN, mild pain, headaches, fever - temperature GREATER than 38 C (100.4 F), Starting on Sat06/16/24 at 2340 Given 06/30/2024 8:35 PM EST 650 mg Given 06/17/2024 5:16 AM EST 650 mg albuterol 2.5 mg /3 mL (0.083 %) nebulizer solution 2.5 mg 2.5 mg, nebulization, Every 6 hours PRN, wheezing, Starting on Sat06/16/24 at 2340 Given 06/17/2024 5:17 AM EST 2 .5 mg amLODIPine (NORVASC) tablet 10 mg 10 mg, oral, Daily, First dose (after last modification) on Sat06/23/24 at 0900 Given 07/01/2024 8:32 AM EST 10 mg Given 06/30/2024 9:26 AM EST 10 mg Given 06/29/2024 8:56 AM EST 10 mg amLODIPine (NORVASC) tablet 5 mg 5 mg, oral, Daily, First dose on Sat06/17/24 at 0900 Given 06/22/2024 9:59 AM EST 5 mg Given 06/19/2024 8:01 AM EST 5 mg Given 06/18/2024 8:10 AM EST 5 mg ampicillin-sulbactam (UNASYN) 3 g in sodium chloride 0.9 % 100 mL IVPB 3 g, intravenous, at 200 mL/hr, Administer over 30 Minutes, Every 6 hours, First dose on Sat06/17/24 at 0900, For 5 days, Indication: Other, Specify: Aspiration PNA New Bag 06/19/2024 8:01 AM EST 3 g 200 mL/ hr New Bag 06/19/2024 3:03 AM EST 3 g 200 mL/hr New Bag 06/18/2024 8:30 PM EST 3 g 200 mL/hr azithromycin (ZITHROMAX) 500 mg in sodium chloride 0.9 % 250 mL IVPB 500 mg, intravenous, at 250 mL/hr, Administer over 60 Minutes, Once, On Sat06/16/24 at 2321, For 1 dose, Indication: Pneumonia, Community Acquired New Bag 06/16/2024 11:31 PM EST 500 mg 250 mL/hr azithromycin (ZITHROMAX) 500 mg in sodium chloride 0.9 % 250 mL IVPB 500 mg, intravenous, at 250 mL/hr, Administer over 60 Minutes, Every 24 hours, First dose on 06/20/24 at 0900, For 7 days, Indication: Pneumonia, Community Acquired New Bag 06/22/2024 9:58 AM EST 500 mg 2 50 mL/hr New Bag 06/21/2024 9:06 AM EST 500 mg 250 mL/hr New Bag 06/20/2024 8:30 AM EST 500 mg 250 mL/hr cefTRIAXone (ROCEPHIN) 1 g in sterile water 10 mL IV syringe 1 g, intravenous, at 200 mL/hr, Administer over 3 Minutes, Once, On Sat06/16/24 at 2307, For 1 dose, Do not administer simultaneously with any calcium containing solutions via a Y-site in any patient., Indication: Pneumonia, Community Acquired Given 06/16/2024 11:26 PM EST 1 g 200 mL/hr dexmedeTOMIDine (PRECEDEX) 1,000 mcg in sodium chloride 0.9 % 250 mL (4 mcg/mL) infusion 0.2-1.5 mcg/kg/hr ? 92.1 kg (4.605-34.5375 mL/hr, rounded to 4.61-34.54 mL/hr), intravenous, Continuous, Starting on 06/21/24 at 2315, *If the patient FAILS the SAT, the RN will restart previously ordered sedative at one-half of the dose given prior to beginning the SAT* GOAL EFFECT: Titrate to target RASS goal INITIAL RATE: 0.2 mcg/kg/hr USUAL DOSE RANGE: 0.2 - 1.5 mcg/kg/hr TITRATION DOSE: 0.1 mcg/kg/hr TITRATION FREQUENCY: 15 mins CONTACT PRESCRIBER: -If RASS goal NOT achieved at maximum rate *Individual cases may deviate from parameters and would REQUIRE an order from the provider documented in the patient record* Rate/Dose Change 06/22/2024 9:00 AM EST 1 mcg/kg/hr 23 mL/hr New Bag 06/22/2024 12:24 AM EST 1.5 mcg/kg/hr 34.5 mL/h r dexmedeTOMIDine (PRECEDEX) 200 mcg in sodium chloride 0.9 % 50 mL (4 mcg/mL) infusion 0.2-1.5 mcg/kg/hr ? 92.1 kg (4.605-34.5375 mL/hr, rounded to 4.61-34.54 mL/hr), intravenous, Continuous, Starting on Sat06/21/24 at 1330, *If the patient FAILS the SAT, the RN will restart previously ordered sedative at one-half of the dose given prior to beginning the SAT* GOAL EFFECT: Titrate to target RASS goal INITIAL RATE: 0.2 mcg/kg/hr USUAL DOSE RANGE: 0.2 - 1.5 mcg/kg/hr TITRATION DOSE: 0.1 mcg/kg/hr TITRATION FREQUENCY: 15 mins CONTACT PRESCRIBER: -If RASS goal NOT achieved at maximum rate *Individual cases may deviate from parameters and would REQUIRE an order from the provider documented in the patient record* New Bag 06/21/2024 10:55 PM EST 1.5 mcg/kg/hr 34.5 mL/hr New Bag 06/21/2024 9:03 PM EST 1.5 mcg/kg/hr 34.5 mL/hr New Bag 06/21/2024 8:10 PM EST 1.5 mcg/kg/hr 34.5 mL/hr diphenhydrAMINE (BENADRYL) 50 mg/mL injection - ADS Override Pull Starting on Sat06/19/24 at 1452, For 1 dose, Created by [email or web address] override diphenhydrAMINE (BENADRYL) injection 12.5 mg 12.5 mg, intravenous, Every 6 hours PRN, itching, Starting on Sat06/19/24 at 1443 Given 06/19/2024 2:57 PM EST 12.5 mg doxycycline (MONODOX) capsule 100 mg 100 mg, oral, Every 12 hours scheduled, First dose on Sat06/19/24 at 1100, For 5 days, Take with at least 8 ounces (large glass) of water, do not lie down for 30 minutes after, Indication: Pneumonia, Community Acquired Given 06/19/2024 11:45 AM EST 100 mg doxycycline (MONODOX) capsule 100 mg 100 mg, oral, Every 12 hours scheduled, First dose on Sat06/22/24 at 2100, For 5 doses, Take with at least 8 ounces (large glass) of water, do not lie down for 30 minutes after, Indication: Pneumonia, Community Acquired Given 06/24/2024 8:22 PM EST 100 mg Given 06/24/2024 8:15 AM EST 100 mg Given 06/23/2024 8:36 PM EST 100 mg doxycycline (MONODOX) capsule 100 mg 100 mg, oral, Every 12 hours scheduled, First dose on Tyesha 06/25/24 at 2100, For 3 days, Take with at least 8 ounces (large glass) of water, do not lie down for 30 minutes after, Indication: Pneumonia, Community Acquired Given 06/28/2024 9:58 AM EST 10 0 mg Given 06/27/2024 8:29 PM EST 100 mg Given 06/27/2024 9:03 AM EST 100 mg doxycycline (VIBRAMYCIN) 100 mg in sodium chloride 0.9 % 100 mL IVPB 100 mg, intravenous, at 100 mL/hr, Administer over 60 Minutes, Every 12 hours, First dose on Sat06/22/24 at 1000, For 3 days, Indication: Pneumonia, Community Acquired New Bag 06/22/2024 11:03 AM EST 100 mg 100 mL/hr DULoxetine (CYMBALTA) DR capsule 30 mg 30 mg, oral, Daily, First dose on Sat06/26/24 at 1045, Do not crush or chew. Given 06/29/2024 8:56 AM EST 30 mg Given 06/28/2024 9:58 AM EST 30 mg Given 06/27/2024 9:03 AM EST 30 mg DULoxetine (CYMBALTA) DR capsule 60 mg 60 mg, oral, Daily, First dose (after last modification) on Sat06/30/24 at 0900, Do not crush or chew. Given 07/01/2024 8:32 AM EST 60 mg Given 06/30/2024 9:25 AM EST 60 mg enoxaparin (LOVENOX) injection 40 mg 40 mg, subcutaneous, Every 24 hours scheduled, First dose on Sat06/17/24 at 0900, Indication: VTE/PE Prophylaxis Given 07/01/2024 8:33 AM EST 40 mg Left Upper Abdomen Given 06/30/2024 9:26 AM EST 40 mg Ri ght Lower Abdomen Given 06/29/2024 8:57 AM EST 40 mg Le ft Upper Abdomen famotidine (PEPCID) tablet 20 mg 20 mg, oral, Daily, First dose on Sat06/22/24 at 1145 Given 07/01/2024 8:32 AM EST 20 mg Given 06/30/2024 9:26 AM EST 20 mg Given 06/29/2024 8:56 AM EST 20 mg FLUoxetine (PROzac) capsule 20 mg 20 mg, oral, Daily, First dose (after last modification) on Sat06/27/24 at 0900, For 3 doses Given 06/29/2024 8:56 AM EST 20 mg Given 06/28/2024 9:58 AM EST 20 mg Given 06/27/2024 9:03 AM EST 20 mg FLUoxetine (PROzac) capsule 40 mg 40 mg, oral, Daily, First dose (after last modification) on Sat06/19/24 at 0900 Given 06/26/2024 9:28 AM EST 40 mg Given 06/25/2024 9:20 AM EST 40 mg Given 06/24/2024 8:15 AM EST 40 mg FLUoxetine (PROzac) capsule 60 mg 60 mg, oral, Daily, First dose on Sat06/17/24 at 0900 Given 06/18/2024 9:26 AM EST 60 mg folic acid (FOLVITE) tablet 1 mg 1 mg, oral, Daily, First dose on Sat06/17/24 at 0900 Given 07/01/2024 8:32 AM EST 1 mg Given 06/30/2024 9:26 AM EST 1 mg Given 06/29/2024 8:56 AM EST 1 mg gabapentin (NEURONTIN) capsule 100 mg 100 mg, oral, 3 times daily, First dose on Sat06/25/24 at 1530 Given 07/01/2024 8:38 AM EST 100 mg Given 06/30/2024 8:34 PM EST 100 mg Given 06/30/2024 2:56 PM EST 100 mg hydrALAZINE (APRESOLINE) injection 10 mg 10 mg, intravenous, Every 4 hours PRN, systolic BP greater than:, 160, Starting on Sat06/22/24 at 1034 iopamidoL (ISOVUE-370) 370 mg iodine /mL (76 %) injection 100 mL 100 mL, intravenous, Once in imaging, Starting on Sat06/16/24 at 2215, For 1 dose Given 06/16/2024 10:17 PM EST 90 mL lactated Ringer's infusion 100 mL/hr, intravenous, Continuous, Starting on Sat06/16/24 at 2341, For 10 hours Restarted 06/17/2024 10:43 AM EST 100 mL/hr 100 mL/hr New Bag 06/17/2024 1:13 AM EST 100 mL/hr 100 mL/hr LORazepam (ATIVAN) tablet 1 mg 1 mg, oral, Every 6 hours PRN, anxiety, Starting on Sat06/22/24 at 0942 Given 06/30/2024 8:45 PM EST 1 mg Given 06/22/2024 12:37 PM EST 1 mg magnesium sulfate 2 gram/50 mL (4 %) IVPB 2 g 2 g, intravenous, at 25 mL/hr, Administer over 2 Hours, Once, On Sat06/21/24 at 0630, For 1 dose Rate/Dose Verify 06/21/2024 7:00 AM EST 25 mL/hr New Bag 06/21/2024 6:18 AM EST 2 g 25 mL/hr magnesium sulfate 2 gram/50 mL (4 %) IVPB 2 g 2 g, intravenous, at 25 mL/hr, Administer over 2 Hours, Once, On Sat06/22/24 at 0600, For 1 dose New Bag 06/22/2024 6:37 AM EST 2 g 25 mL/hr multivitamin minerals-iron (THERA-M) 1 tablet 1 tablet (1 each), oral, Daily, First dose on Sat06/17/24 at 0900 Given 07/01/2024 8:32 AM EST 1 tablet Given 06/30/2024 9:26 AM EST 1 tablet Given 06/29/2024 8:56 AM EST 1 tablet mupirocin (BACTROBAN) 2 % ointment Each Nostril, 3 times daily, First dose on Sat06/25/24 at 0945, For 7 days Given 06/30/2024 3:00 PM EST Given 06/30/2024 9:21 AM EST Given 06/29/2024 10:04 PM EST naloxone (NARCAN) 0.4 mg/mL injection - ADS Override Pull Starting on Sat06/17/24 at 0053, For 1 dose, Created by cabinet override naloxone (NARCAN) 10 mg in sodium chloride 0.9 % 250 mL (0.04 mg/mL) infusion 0.1 mg/hr (2.5 mL/hr), intravenous, Continuous, Starting on Sat06/17/24 at 0500, GOAL EFFECT: Respiratory rate equal to or greater than 8; DOSE RANGE: 0.1 mg/hr to 10 mg/hr; TITRATION DOSE: increase by 0.2 mg/hr; TITRATION FREQUENCY: every 15 minutes; CONTACT PRESCRIBER: SBP less than 90 mmHg, Respiratory Rate less than 8, Oxygen Saturation less than 90% or GAG WRITER depression * Deviations from parameters require physician order. Rate/Dose Verify 06/18/2024 10:00 AM EST 0.1 mg/hr 2.5 mL/hr Rate/Dose Change 06/18/2024 9:35 AM EST 0.1 mg/hr 2.5 mL/ hr Rate/Dose Verify 06/18/2024 9:00 AM EST 0.2 mg/hr 5 mL/hr naloxone (NARCAN) injection 0.1 mg 0.1 mg, intravenous, Every 1 hour PRN, opioid reversal, respiratory depression, Starting on Sat06/18/24 at 1028, For 1 dose naloxone (NARCAN) injection 0.4 mg 0.4 mg, intravenous, Once, On Sat06/17/24 at 0053, For 1 dose Given 06/17/2024 12:56 AM EST 0.4 mg naloxone (NARCAN) injection 0.4 mg 0.4 mg, intravenous, Once, On Sat06/17/24 at 0224, For 1 dose Given 06/17/2024 2:30 AM EST 0.4 mg naloxone (NARCAN) injection 0.4 mg 0.4 mg, intravenous, Once, On Sat06/17/24 at 0353, For 1 dose Given 06/17/2024 3:58 AM EST 0.4 mg naloxone (NARCAN) injection 0.4 mg 0.4 mg, intravenous, Once, On Sat06/17/24 at 2327, For 1 dose Given 06/17/2024 11:31 PM EST 0.4 mg naloxone (NARCAN) injection 0.4 mg 0.4 mg, intravenous, Once, On Sat06/18/24 at 0501, For 1 dose Given 06/18/2024 5:07 AM EST 0.4 mg nicotine polacrilex (NICORETTE) gum 2 mg 2 mg, buccal, Every 2 hours PRN, smoking cessation, Starting on Sat06/25/24 at 1117 OLANZapine (ZyPREXA ZYDIS) disintegrating tablet 5 mg 5 mg, oral, 3 times daily PRN, delirium, Starting on Sat06/22/24 at 0942, Tablets should NOT be swallowed whole, chewed, broken, or crushed. Place tablet in mouth, allow to dissolve, and then swallow saliva with or without water. ondansetron (PF) (ZOFRAN) injection 4 mg 4 mg, intravenous, Every 8 hours PRN, vomiting, nausea, Starting on Sat06/16/24 at 2340, -ONLY give IV if patient is unable to take orally. -If inadequate response within 30 minutes, proceed to next-line agent or contact provider if no further options ordered. Given 06/18/2024 5:21 AM EST 4 mg Given 06/17/2024 9:09 AM EST 4 mg ondansetron (PF) (ZOFRAN) injection 4 mg 4 mg, intravenous, Once, On Sat06/16/24 at 2341, For 1 dose Given 06/17/2024 1:13 AM EST 4 mg ondansetron (PF) (ZOFRAN) injection 4 mg 4 mg, intravenous, Every 6 hours PRN, nausea, vomiting, Starting on Sat06/18/24 at 1027 Given 06/27/2024 8:14 PM EST 4 m g Given 06/18/2024 10:40 AM EST 4 mg pantoprazole (PROTONIX) EC tablet 40 mg 40 mg, oral, Every morning before breakfast, First dose on Sat06/17/24 at 0700, Do not crush, chew, or split. Given 06/19/2024 6:31 AM EST 40 mg Given 06/18/2024 8:10 AM EST 40 mg Given 06/17/2024 6:33 AM EST 40 mg pantoprazole (PROTONIX) injection 40 mg 40 mg, intravenous, Administer over 2 Minutes, Every 24 hours, First dose on Sat06/20/24 at 0900, Pantroprazole - IV push: Reconstitute powder for injection with 10 mL NS; final concentration: 4 mg/mL., Indication for IV Push Pantoprazole? Stress Ulcer Prophylaxis for patients with STRICT NPO status AND contraindication to H2RA Given 06/22/2024 10:00 AM EST 40 mg Given 06/21/2024 9:05 AM EST 40 mg Given 06/20/2024 8:30 AM EST 40 mg phosphorus (K PHOS NEUTRAL) tablet 1 tablet 1 tablet (250 mg), oral, 3 times daily, First dose on Sat06/22/24 at 1400, Administer tablets with a full glass of water. Ordered in mg of elemental phosphorus. Each tablet contains 8 mmol of phosphorus, 1.1 mEq of potassium, and 13 mEq of sodium. Given 07/01/2024 8:32 AM EST 1 tablet Given 06/30/2024 8:34 PM EST 1 tablet Given 06/30/2024 2:56 PM EST 1 tablet polyethylene glycol (MIRALAX) packet 17 g 17 g, oral, Daily, First dose on Sat06/29/24 at 1000 Given 07/01/2024 8:33 AM EST 17 g Given 06/30/2024 9:21 AM EST 17 g Given 06/29/2024 11:40 AM EST 17 g potassium phosphates 30 mmol in sodium chloride 0.9 % 500 mL infusion 30 mmol, intravenous, at 83.3 mL/hr, Administer over 6 Hours, Once, On Sat06/21/24 at 0900, For 1 dose, Each 3 mmol contains 4.4 mEq potassium. New Bag 06/21/2024 10:14 AM EST 30 mmol 83.3 mL/hr potassium phosphates 30 mmol in sodium chloride 0.9 % 500 mL infusion 30 mmol, intravenous, at 83.3 mL/hr, Administer over 6 Hours, Once, On Sat06/22/24 at 0830, For 1 dose, Each 3 mmol contains 4.4 mEq potassium. New Bag 06/22/2024 9:59 AM EST 30 mmol 83.3 mL/hr propranoloL (INDERAL) tablet 20 mg 20 mg, oral, 2 times daily, First dose on 1/1/25 at 0155 Given 06/22/2024 10:09 AM EST 20 mg Given 06/19/2024 8:01 AM EST 20 mg Given 06/18/2024 8:09 PM EST 20 mg propranoloL (INDERAL) tablet 40 mg 40 mg, oral, 2 times daily, First dose (after last modification) on Sat06/22/24 at 2100 Given 07/01/2024 8:33 AM EST 40 mg Given 06/30/2024 8:35 PM EST 40 mg Given 06/29/2024 9:59 PM EST 40 mg sodium chloride 0.9 % flush 10 mL 10 mL, intravenous, Once, On Sat06/16/24 at 2217, For 1 dose Given 06/16/2024 10:17 PM EST 10 mL sodium chloride 0.9 % flush 10 mL 10 mL, intravenous, 2 times daily, First dose on Sat06/16/24 at 2341 Given 07/01/2024 8:33 AM EST 10 mL Given 06/30/2024 8:37 PM EST 10 mL Given 06/30/2024 9:23 AM EST 10 mL sodium chloride 0.9 % flush 10 mL 10 mL, intravenous, As needed, line care, Starting on Sat06/16/24 at 2340 Given 06/20/2024 5:22 PM EST 10 mL sodium chloride 0.9 % infusion - ADS Override Pull Starting on Sat06/17/24 at 2019, For 1 dose, Created by cabinet override New Bag 06/17/2024 8:34 PM EST 100 mL sodium chloride 0.9 % IVPB (MBP) - ADS Override Pull Starting on Sat06/18/24 at 0229, For 1 dose, Created by cabinet override Given 06/18/2024 2:39 AM EST 100 mL sodium phosphates 60 mmol in sodium chloride 0.9 % 500 mL IVPB 60 mmol, intravenous, at 83.3 mL/hr, Administer over 6 Hours, Once, On 06/20/24 at 1000, For 1 dose Rate/Dose Verify 06/20/2024 1:57 PM EST 83.3 mL/hr New Bag 06/20/2024 10:31 AM EST 60 mmol 83.3 mL/hr thiamine (VITAMIN B-1) 500 mg in dextrose 5 % 50 mL IVPB 500 mg, intravenous, at 100 mL/hr, Administer over 30 Minutes, Every 8 hours, First dose on Sat06/20/24 at 1500, For 3 doses New Bag 06/21/2024 6:10 AM EST 500 mg 100 mL/hr New Bag 06/20/2024 11:07 PM EST 500 mg 100 mL/hr New Bag 06/20/2024 4:45 PM EST 500 mg 100 mL/hr thiamine (VITAMIN B-1) injection 100 mg 100 mg, intravenous, Once, On Sat06/17/24 at 0136, For 1 dose, IV push only for doses 100 mg or less. Given 06/17/2024 2:28 AM EST 100 mg documented in this encounter Discontinued Medications Medication Sig Discontinue Reason Start Date End Da te amLODIPine (NORVASC) 2.5 mg tablet Take 2 tablets (5 mg total) by mouth 1 (one) time each day. 12/15/2023 06/17/2024 FLUoxetine (PROzac) 20 mg tablet Take 1 tablet (20 mg total) by mouth 1 (one) time each day. Pt reports she only takes 20mg not 60mg 12/15/2023 06/17/2024 gabapentin (NEURONTIN) 600 mg tablet Take 0.5 tablets (300 mg total) by mouth 3 (three) times a day. 03/08/2024 06/17/2024 hydrOXYzine HCL (ATARAX) 25 mg tablet Take 2 tablets (50 mg total) by mouth 3 (three) times a day if needed for anxiety. 08/08/2023 06/17/2024 OLANZapine (ZyPREXA) 5 mg tablet Take 1 tablet (5 mg total) by mouth at bedtime. 03/20/2024 06/17/2024 propranoloL (INDERAL) 10 mg tablet Take 2 tablets (20 mg total) by mouth 2 (two) times a day. 12/15/2023 06/17/2024 mirtazapine (REMERON) 15 mg tablet Take 0.5 tablets (7.5 mg total) by mouth at bedtime. 03/20/2024 06/17/2024 hydrOXYzine pamoate (VISTARIL) 25 mg capsule Take 2 capsules (50 mg total) by mouth 3 (three) times a day if needed for anxiety. Stop Taking at Discharge 03/20/2024 07/01/2024 mirtazapine (REMERON) 7.5 mg tablet Take 1 tablet (7.5 mg total) by mouth. Stop Taking at Discharge 07/01/2024 OLANZapine (ZyPREXA) 2.5 mg tablet Take 2 tablets (5 mg total) by mouth 2 (two) times a day. Stop Taking at Discharge 02/01/2024 07/01/2024 FLUoxetine (PROzac) 20 mg capsule Take 3 capsules (60 mg total) by mouth. Stop Taking at Discharge 03/20/2024 07/01/2024 documented as of this encounter Active and Recently Administered Medications Times are shown in EST. Scheduled Medication Order 06/29/2024 06/30/2024 07/01/2024 amLODIPine (NORVASC) tablet 10 mg 10 mg, oral, Daily, First dose (after last modification) on Sat06/23/24 at 0900 0856 (Given - Provider: Faustino Stevens RN) 0926 (Given - Provider: Faustino Stevens RN) 0832 (Given - Provider: Ashley Pereira, DARSHANA) DULoxetine (CYMBALTA) DR capsule 30 mg (CANCELED) 30 mg, oral, Daily, First dose on Sat06/26/24 at 1045, Do not crush or chew. 0856 (Given - Provider: Faustino Stevens RN) DULoxetine (CYMBALTA) DR capsule 60 mg 60 mg, oral, Daily, First dose (after last modification) on Sat06/30/24 at 0900, Do not crush or chew. 0925 (Given - Provider: Faustino Stevens RN) 0832 (Given - Provider: Ashley Pereira, DARSHANA) enoxaparin (LOVENOX) injection 40 mg 40 mg, subcutaneous, Every 24 hours scheduled, First dose on Sat06/17/24 at 0900, Indication: VTE/PE Prophylaxis 0857 (Given - Provider: Faustino Stevens RN) 0926 (Given - Provider: Faustino Stevens RN) 0833 (Given - Provider: Ashley Pereira, DARSHANA) famotidine (PEPCID) tablet 20 mg 20 mg, oral, Daily, First dose on Sat06/22/24 at 1145 0856 (Given - Provider: Faustino Stevens RN) 0926 (Given - Provider: Faustino Stevens RN) 0832 (Given - Provider: Ashley Pereira, DARSHANA) FLUoxetine (PROzac) capsule 20 mg (COMPLETED) 20 mg, oral, Daily, First dose (after last modification) on Sat06/27/24 at 0900, For 3 doses 0856 (Given - Provider: Faustino Stevens RN) folic acid (FOLVITE) tablet 1 mg 1 mg, oral, Daily, First dose on Sat06/17/24 at 0900 0856 (Given - Provider: Faustino Stevens RN) 0926 (Given - Provider: Faustino Stevens RN) 0832 (Given - Provider: Ashley Pereira, DARSHANA) gabapentin (NEURONTIN) capsule 100 mg 100 mg, oral, 3 times daily, First dose on Sat06/25/24 at 1530 0856 (Given - Provider: Faustino Stevens RN)1534 (Given - Provider: Faustino Stevens RN)2159 (Given - Provider: Erika Haynes RN) 0926 (Given - Provider: Faustino Stevens RN)1456 (Given - Provider: Faustino Stevens RN)2034 (Given - Provider: Erkia Haynes, DARSHANA) 0838 (Given - Provider: Ashley Pereira, DARSHANA) multivitamin minerals-iron (THERA-M) 1 tablet 1 tablet (1 each), oral, Daily, First dose on Sat06/17/24 at 0900 0856 (Given - Provider: Faustino Stevens RN) 0926 (Given - Provider: Faustino Stevens RN) 0832 (Given - Provider: Ashley Pereira, DARSHANA) mupirocin (BACTROBAN) 2 % ointment Each Nostril, 3 times daily, First dose on Sat06/25/24 at 0945, For 7 days 0908 (Given - Provider: Faustino Stevens RN)1534 (Given - Provider: Faustino Stevens RN)2204 (Given - Provider: Erika Haynes, DARSHANA) 0921 (Given - Provider: Faustino Stevens RN)1500 (Given - Provider: Faustino Stevens RN)203 (Not Given - Provider: Erika Haynes RN - Reason: Patient/Resident/Agen t refused - education provided ) 0841 (Not Given - Provider: Ashley Pereira RN - Reason: Patient/Resident/Agen t refused - education provided ) phosphorus (K PHOS NEUTRAL) tablet 1 tablet 1 tablet (250 mg), oral, 3 times daily, First dose on Sat06/22/24 at 1400, Administer tablets with a full glass of water. Ordered in mg of elemental phosphorus. Each tablet contains 8 mmol of phosphorus, 1.1 mEq of potassium, and 13 mEq of sodium. 0856 (Given - Provider: Faustino Stevens RN)1534 (Given - Provider: Faustino Stevens RN)2159 (Given - Provider: Erika Haynes, DARSHANA) 0926 (Given - Provider: Faustino Stevens RN)1456 (Given - Provider: Faustino Stevens RN)2033 (Given - Provider: Erika Haynes, DARSHANA) 0832 (Given - Provider: Ashley Pereira, DARSHANA) polyethylene glycol (MIRALAX) packet 17 g 17 g, oral, Daily, First dose on Sat06/29/24 at 1000 1140 (Given - Provider: Faustino Stevens RN) 0921 (Given - Provider: Faustino Stevens RN) 0833 (Given - Provider: Ashley Pereira, DARSHANA) propranoloL (INDERAL) tablet 40 mg 40 mg, oral, 2 times daily, First dose (after last modification) on Sat06/22/24 at 2100 0858 (Hold - Provider: Faustino Stevens RN - Reason: Order parameters not met)215 (Given - Provider: Erika Haynes RN) 0900 (Hold - Provider: Faustino Stevens RN - Reason: Order parameters not met)2034 (Given - Provider: Erika Haynes, DARSHANA) 0833 (Given - Provider: Ashley Pereira, DARSHANA) sodium chloride 0.9 % flush 10 mL(Linked Group 1) 10 mL, intravenous, 2 times daily, First dose on Sat06/16/24 at 2341 0856 (Given - Provider: Faustino Stevens RN)215 (Given - Provider: Erika Haynes, DARSHANA) 0923 (Given - Provider: Faustino Stevens RN)203 (Given - Provider: Erika Haynes RN) 0833 (Given - Provider: Ashley Pereira RN) PRN Medication Order 06/29/2024 06/30/2024 07/01/2024 acetaminophen (TYLENOL) tablet 650 mg 650 mg, oral, Every 4 hours PRN, mild pain, headaches, fever - temperature GREATER than 38 C (100.4 F), Starting on Sat06/16/24 at 2340 2034 (Given - Provider: Erika Haynes RN) albuterol 2.5 mg /3 mL (0.083 %) nebulizer solution 2.5 mg 2.5 mg, nebulization, Every 6 hours PRN, wheezing, Starting on Sat06/16/24 at 2340 calcium carbonate (TUMS) chewable tablet 500 mg 500 mg, oral, Every 4 hours PRN, heartburn, Starting on Sat06/16/24 at 2343, Ordered as calcium carbonate. 500 mg calcium carbonate = 200 mg elemental calcium. hydrALAZINE (APRESOLINE) injection 10 mg 10 mg, intravenous, Every 4 hours PRN, systolic BP greater than:, 160, Starting on Sat06/22/24 at 1034 LORazepam (ATIVAN) tablet 1 mg 1 mg, oral, Every 6 hours PRN, anxiety, Starting on Sat06/22/24 at 0942 2044 (Given - Provider: Erika Haynes RN) naloxone (NARCAN) injection 0.1 mg 0.1 mg, intravenous, Every 1 hour PRN, opioid reversal, respiratory depression, Starting on Sat06/18/24 at 1028, For 1 dose nicotine polacrilex (NICORETTE) gum 2 mg 2 mg, buccal, Every 2 hours PRN, smoking cessation, Starting on Sat06/25/24 at 1117 OLANZapine (ZyPREXA ZYDIS) disintegrating tablet 5 mg 5 mg, oral, 3 times daily PRN, delirium, Starting on Sat06/22/24 at 0942, Tablets should NOT be swallowed whole, chewed, broken, or crushed. Place tablet in mouth, allow to dissolve, and then swallow saliva with or without water. ondansetron (PF) (ZOFRAN) injection 4 mg 4 mg, intravenous, Every 6 hours PRN, nausea, vomiting, Starting on Sat06/18/24 at 1027 sodium chloride 0.9 % flush 10 mL(Linked Group 1) 10 mL, intravenous, As needed, line care, Starting on Sat06/16/24 at 2340 Linked Groups Order Group 1: Insert peripheral IV (COMPLETED) STAT, Once, On Sat06/16/24 at 2341, For 1 occurrence And Maintain IV access (CANCELED) Until discontinued, Starting on Sat06/16/24 at 2341, Until Specified And Saline lock IV (COMPLETED) Routine, Once, On Sat06/16/24 at 2341, For 1 occurrence And sodium chloride 0.9 % flush 10 mLJump to med 10 mL, intravenous, 2 times daily, First dose on Sat06/16/24 at 2341 And sodium chloride 0.9 % flush 10 mLJump to med 10 mL, intravenous, As needed, line care, Starting on Sat06/16/24 at 2340 documented in this encounter Orders Medications Ordered That Zeus ht Not Have Been Administered Count Last Ordered Date First Ordered Date nicotine polacrilex (NICORETTE) gum 2 mg 1 06/25/2024 hydrALAZINE (APRESOLINE) injection 10 mg 2 06/22/2024 06/18/2024 OLANZapine (ZyPREXA ZYDIS) d isintegrating tablet 5 mg 1 06/22/2024 magnesium sulfate 2 gram/50 mL (4 %) IVPB - ADS Override Pull 1 06/21/2024 phosphorus (K PHOS NEUTRAL) tablet 2 tablet 1 06/20/2024 dexmedeTOMIDine (PRECEDEX) 2 00 mcg in sodium chloride 0.9 % 50 mL (4 mcg/mL) infusion 1 06/19/2024 naloxone (NARCAN) injection 0.1 mg 1 2024 naloxone (NARCAN) 0.4 mg/mL injection - ADS Override Pull 1 06/17/2024 naloxone (NARCAN) bolus from infusion 0.4 mg 1 06/17/2024 OLANZapine (ZyPREXA) tablet 5 mg 1 06/17/19 25 calcium carbonate (TUMS) phoenix wable tablet 500 mg 1 06/16/2024 cefTRIAXone (ROCEPHIN) 1 g i n sterile water 10 mL IV syringe 1 06/16/2024 ondansetron ODT (ZOFRAN-ODT) disintegrating tablet 4 mg 1 06/16/2024 prochlorperazine (COMPAZINE) injection 10 mg 1 06/16/2024 prochlorperazine (COMPAZINE) suppository 25 mg 1 06/16/2024 prochlorperazine (COMPAZINE) tablet 10 mg 1 06/16/2024 Nursing Count Last Ordered Date First Orde red Date NURSING GENERAL ASSESSMENTS AND INTERVENTIONS 1 06/16/2024 Consult Count Last Ordered Date First Orde red Date IP CONSULT TO SOCIAL WORK 1 06/18/2024 IP CONSULT TO CRITICAL CARE 1 06/17/2024 IP CONSULT TO ADDICTION MEDICINE 1 06/16/20 PT Count Last Ordered Date First Orde red Date PT EVAL AND TREAT 3 06/26/2024 06/22/2024 Respiratory Care Count Last Ordered Date First Ordered Date OXYGEN THERAPY, ADULT 5 06/18/20242024 HOME RESTORATION SERVICE SUPERVISOR Count Last Ordered Date First Orde red Date HOME RESTORATION SERVICE SUPERVISOR SWALLOW EVAL AND TREAT 1 06/20/2024 IV Count Last Ordered Date First Orde red Date INSERT PERIPHERAL IV 1 06/16/2024 SALINE LOCK IV 1 06/16/2024 Admission Count Last Ordered Date First Orde red Date ADMIT TO INPATIENT 1 06/18/2024 Transfer Count Last Ordered Date First Orde red Date TRANSFER PATIENT TO NEW UNIT 2 06/23/2024 06/22/2024 ED TO FLOOR BED REQUEST 1 06/16/2024 Discharge Count Last Ordered Date First Orde red Date DISCHARGE PATIENT 1 06/26/2024 documented in this encounter Additional Health Concerns Infection Onset Date Last Indicated Resolved Time Respiratory Rule-Out 06/16/2024 06/16/2024 024 10:39 PM EST COVID-19 Rule-Out 06/16/2024 06/16/2024 06/16/2024 10:39 PM EST MRSA 06/18/2024 06/18/2024 07/01/2024 3:49 PM EST documented as of this encounter Care Teams 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
--- OUTSIDE RECORDS SUMMARY | 2024-07-11 04:07 | XMS_ITS | Patient Health Record ---
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 Role Phone No, PCP Primary Care Provider Unavailabl e [facility], [facility] Unavailable [phone] Tamanna Zaldivar Unavailable [phone] [facility], Nursing Unavailable [phone] Reason For Referral No Information Encounters Encounter Location Date Provider Diagnosis [facility] [address], [place] [id number] 05/18/2024 [facility] [address], [place] [id number] 05/22/2024 [facility] [address], [place] [id number] 05/25/[address] [id number] 05/25/2024 [facility] [address], [place] [id number] 05/26/[address] [id number] 07/01/[address] [id number] 07/02/2024 Nursing [facility] Assessments Encounter Date Diagnosis (ICD Code) Assessment Notes Treatment Notes Treatment Clinical Notes 06/02/2024 Other Reviewed hx of psychiatric illness, treatment received and medication trials with client. Discussed current medications as to indications, actions and side effects. Reviewed risks benefits of treatment versus non treatment. Medication education provided. Patient given opportunity to ask questions. Patient gives informed consent to proceed with prescribed treatment. 1. [place] P[employer]IATR[employer] NEUROLOGIST reviewed: see exam 2. Medications: 3. Cont psychotherapy 4. Labs/Procedures: 5. Exercise/Nutrition: sleep, regular exercise and nutrition all have a direct impact on our health and well-being. Keeping them in balance is especially important when we face stressful times in our lives. Eat balanced meals, get 6-8 hours of sleep a night, daily walking as able. 6. Understands plan and verbalizes agreement, allowed time for clarifying questions. Plan Of Treatment No Information Insurance Providers Payer Name Payer Address Payer Phone Subscriber Number Group Number Insured Name Patient Relationship to Insured Coverage Start Date Coverage End Date [place] Medicaid C3 [address] [place], [place] [id number] Cherelle Doshi Self - patient is the insured 5
--- OUTSIDE RECORDS SUMMARY | 2024-07-11 04:07 | XMS_ITS ---
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 Generated for Esperanza riley/Dave/eTransmitting on:?07/11/2024 04:07 AM EST
--- OUTSIDE RECORDS SUMMARY | 2024-07-11 04:07 | XMS_ITS | Clinical Summary ---
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 100 each 5 025 Active amLODIPine (NORVASC) 5 mg tablet Take 1 tablet (5 mg total) by mouth 1 (one) time each day. 30 tablet 5 Active DULoxetine (CYMBALTA) [address] capsule Take 1 capsule (30 mg total) by mouth 1 (one) time each day. Do not crush or chew. 30 capsule 5 026 Active gabapentin (NEURONTIN) 400 mg capsule Take 1 capsule (400 mg total) by mouth 3 (three) times a day. 90 capsule 5 026 Active multivitamin minerals-iron (THERA-M) 9 mg iron-400 mcg tablet Take 1 tablet by mouth 1 (one) time each day. 30 tablet 5 Active naloxone (NARCAN) 4 mg/0.1 mL nasal sprayIndications:o pioid overdose,opioid-in duced respiratory depression Administer 1 each (4 mg total) into affected nostril(s) if needed for opioid reversal or respiratory depression. Give 4 mg (1 spray) into one nostril. May repeat every 2-3 minutes if needed, alternating nostrils, until medical assistance becomes available. 2 each 5 026 Active mirtazapine (REMERON) 15 mg tablet Take 0.5 tablets (7.5 mg total) by mouth at bedtime. 4 025 Discontinued OLANZapine (ZyPREXA) 5 mg tablet Take 1 tablet (5 mg total) by mouth at bedtime. 4 025 Discontinued amLODIPine (NORVASC) 5 mg tablet Take 1 tablet (5 mg total) by mouth 1 (one) time each day. 025 Discontinued ferrous sulfate 325 mg (65 mg iron) EC tablet Take 1 tablet (325 mg total) by mouth every other day. 025 Discontinued(St op Taking at Discharge) hydrOXYzine pamoate (VISTARIL) 25 mg capsule Take 2 capsules (50 mg total) by mouth 3 (three) times a day if needed for anxiety. 4 025 Discontinued(St op Taking at Discharge) FLUoxetine (PROzac) 20 mg tablet Take 1 tablet (20 mg total) by mouth 1 (one) time each day. Pt reports she only takes 20mg not 60mg 4 025 Discontinued propranoloL (INDERAL) 20 mg tablet Take 1 tablet (20 mg total) by mouth 2 (two) times a day. 025 Discontinued(St op Taking at Discharge) gabapentin (NEURONTIN) 600 mg tablet Take 0.5 tablets (300 mg total) by mouth 3 (three) times a day. 4 025 Discontinued hydrOXYzine HCL (ATARAX) 25 mg tablet Take 2 tablets (50 mg total) by mouth 3 (three) times a day if needed for anxiety. 4 025 Discontinued amLODIPine (NORVASC) 2.5 mg tablet Take 2 tablets (5 mg total) by mouth 1 (one) time each day. 4 Discontinued cloNIDine (CATAPRES) 0.1 mg tablet Take 1 tablet (0.1 mg total) by mouth 4 (four) times a day. 4 Discontinued(St op Taking at Discharge) gabapentin (NEURONTIN) 100 mg capsule Take 3 capsules (300 mg total) by mouth 3 (three) times a day. 4 Discontinued(St op Taking at Discharge) mirtazapine (REMERON) 7.5 mg tablet Take 1 tablet (7.5 mg total) by mouth. Discontinued(St op Taking at Discharge) OLANZapine (ZyPREXA) 2.5 mg tablet Take 2 tablets (5 mg total) by mouth 2 (two) times a day. 4 Discontinued(St op Taking at Discharge) propranoloL (INDERAL) 10 mg tablet Take 2 tablets (20 mg total) by mouth 2 (two) times a day. 4 Discontinued FLUoxetine (PROzac) 20 mg capsule Take 3 capsules (60 mg total) by mouth. 4 Discontinued(St op Taking at Discharge) FLUoxetine (PROzac) 20 mg capsule Take 1 capsule (20 mg total) by mouth 1 (one) time each day for 3 doses. 3 each 5 Discontinued(St op Taking at Discharge) OLANZapine (ZyPREXA ZYDIS) 5 mg disintegrating tablet Take 1 tablet (5 mg total) by mouth 3 (three) times a day if needed (delirium). 5 Discontinued(St op Taking at Discharge) doxycycline (MONODOX) 100 mg capsule Take 1 capsule (100 mg total) by mouth every 12 (twelve) hours for 4 doses. Take with at least 8 ounces (large glass) of water, do not lie down for 30 minutes after 4 each 5 Discontinued(St op Taking at Discharge) DULoxetine (CYMBALTA) [address] capsule Take 1 capsule (30 mg total) by mouth 1 (one) time each day. Do not crush or chew. 5 01/22/2 025 Discontinued(St op Taking at Discharge) folic acid (FOLVITE) 1 mg tablet Take 1 tablet (1 mg total) by mouth 1 (one) time each day. 5 025 Discontinued(St op Taking at Discharge) multivitamin minerals-iron (THERA-M) 9 mg iron-400 mcg tablet Take 1 tablet by mouth 1 (one) time each day. 5 025 Discontinued mupirocin (BACTROBAN) 2 % ointment Apply to each nostril 3 (three) times a day for 5 doses. 5 025 Discontinued(St op Taking at Discharge) nicotine polacrilex (NICORETTE) [address] 1 each (2 mg total) into mouth between cheek and gum every 2 (two) hours if needed for smoking cessation. 5 025 Discontinued(In effective) phosphorus (K PHOS NEUTRAL) tablet Take 1 tablet by mouth 3 (three) times a day for 5 days. 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 06/20/2024 Alcoholic intoxication with complication 025 Methadone overdose, intentio nal self-harm, initial encounter 06/20/2024 Aspiration pneumonitis 06/16/2024 Encounters Date Type Department Care Team Description 07/01/2024 2:46 PM EST - 07/08/2024 4:18 PM EST Hospital Encounter [facility] [address] [place] [id number] Derek Herring DO Discharge Disposition: Home or Self Care 06/16/2024 8:11 PM EST - 07/01/2024 1:57 PM EST Hospital Encounter [facility] [address] [place] [address] LutzCristin Kimo GonzaleznyDO Hernandez Christopher, MD Zipagan, James T, MD Levrault, Richard, DO Loiacono, Laurie, MD Surendran, Anupama, MD Rasul, Yar M, MD Pneumonia of right lower lobe due to infectious organism (Primary Dx); SOB (shortness of breath); Hypoxia; Aspiration pneumonitis (CMS/HCC); Acute on chronic respiratory failure with hypercapnia (CMS/HCC) Discharge Disposition: [facility] 05/14/2024 8:06 AM EST - 05/15/2024 11:07 AM [facility] [address] [place] [address] Enoc Patel MD Hematemesis of unknown cause (Primary Dx); Moderate episode of recurrent major depressive disorder (CMS/HCC) Discharge Disposition: Another Health Care Institution Not Defined 04/22/2024 5:10 AM EST - 04/23/2024 1:36 PM [facility] [address] [place] [address] James Cage MD Intentional overdose, initial encounter (CMS/HCC) (Primary Dx); Episode of recurrent major depressive disorder, unspecified depression episode severity (CMS/HCC); Mild episode of recurrent major depressive disorder (CMS/HCC) Discharge Disposition: Another Health Care Institution Not Defined from Last 3 Months Surgical History Surgery Date Site/Laterality Comments CHOLECYSTECTOMY Medical History Medical History Date Comments CHF (congestive heart failure) (CMS/HCC) Hypertension Depression Anxiety COPD (chronic obstructive pulmonary disease) (CM S/HCC) Chronic back pain Cervical spinal stenosis Alcohol use disorder Seizures (CMS/HCC) Family History Medical History Relation Name Comments Anxiety disorder Other Hypertension Other Relation Name Status Comments Other Social History Tobacco Use Types Packs/Day Years Used Date Smoking Tobacco: Every Day Cigarettes Tobacco Cessation:Ready to Q uit: Not Asked; Counseling Given: Not Answered Alcohol Use Standard Drinks/Week Comments Yes 0 [...] file Not on file Not on file Obstetrics History Last Filed Vital Signs Vital Sign Reading [...] Mass Index 31.67 07/01/2024 3:00 PM EST Plan of Treatment Health Maintenance Due Date Last Done Comments Breast Cancer Screening 1960 Cervical Cancer Screening: Pap Smear 11/03/1980 Zoster Vaccines (1 of 2) 11/03/2009 Pneumococcal Vaccine: Pediatrics (0 to 5 Years) and At-Risk Patients (6 to 64 Years) (2 of 2 - PCV) 04/15/2015 04/15/2014, 04/18/2005 Hepatitis B Vaccines (3 of 3 - 19+ 3-dose series) 08/23/2017 06/28/2017, 11/20/2016 RSV Immunization Patients 60+ Years Old (1 - Risk 60-74 years 1-dose series) 2019 Cholesterol Screening (Lipid Panel) 01/08/2024 Colorectal Cancer Screening: Colonoscopy 01/08/2024 Depression Screening 01/08/2024 HIV Screening 01/08/2024 Hepatitis C Screening 01/08/2024 Social Influencers of Health Screening 01/08/2024 COVID-19 Vaccine ( season) 2024 04/19/2021, 08/25/2020, 07/28/2020 Influenza Vaccine (#1) 2024 , 03/04/2021, 03/01/2018, Additional history exists Hypertension/CHF/CAD Annual BMP Blood Test 06/25/2025 06/25/2024, 06/24/2024, 06/23/2024, Additional history exists DTaP,Tdap,and Td Vaccines (2 - Td or Tdap) 07/24/2026 07/24/2016 Hepatitis A Vaccines Completed 06/28/2017, 11/21/19 17 HIB Vaccines Aged Out No longer eligi ble based on patient's age to complete this topic HPV Vaccines Aged Out No longer eligi ble based on patient's age to complete this topic IPV Vaccines Aged Out No longer eligi ble based on patient's age to complete this topic MMR Vaccines Aged Out No longer eligi ble based on patient's age to complete this topic Meningococcal ACWY Vaccine Aged Out N o longer eligible based on patient's age to complete this topic RSV Immunization Patients Under 20 months Aged Out No longer eligible based on patient's age to complete this topic Varicella Vaccines Aged Out No longer eligible based on patient's age to complete this topic Procedures Procedure Name Priority Date/Time Associated Diagnosis Comments [id number], QUALITATIVE REAL-TIME RT-PCR, INTERNAL LAB Routine 06/30/2024 5:50 PM EST BASIC METABOLIC PANEL Routine 06/25/2024 5:17 AM EST CBC WITH AUTO DIFFERENTIAL Routine 06/24/2024 5:31 AM EST CBC AND DIFFERENTIAL Routine 06/24/2024 5:31 AM EST BASIC METABOLIC PANEL Routine 06/24/2024 5:31 AM EST CBC WITH AUTO DIFFERENTIAL Routine 06/23/2024 4:25 AM EST CBC AND DIFFERENTIAL Routine 06/23/2024 4:25 AM EST PROCALCITONIN Routine 06/23/2024 4:25 AM EST PHOSPHORUS Routine 06/23/2024 4:25 AM EST MAGNESIUM Routine 06/23/2024 4:25 AM EST CALCIUM, IONIZED Routine 06/23/2024 4:25 AM EST BASIC METABOLIC PANEL Routine 06/23/2024 4:25 AM EST CALCIUM, IONIZED Routine 06/22/2024 6:31 AM EST VENOUS BLOOD GAS Routine 06/22/2024 4:00 AM EST CBC WITH AUTO DIFFERENTIAL Routine 06/22/2024 4:00 AM EST BASIC METABOLIC PANEL Routine 06/22/2024 4:00 AM EST PHOSPHORUS Routine 06/22/2024 4:00 AM EST MAGNESIUM Routine 06/22/2024 4:00 AM EST CBC AND DIFFERENTIAL Routine 06/22/2024 4:00 AM EST LACTATE Routine 06/22/2024 4:00 AM EST HEPATIC FUNCTION PANEL Routine 4:00 AM EST LIPASE Routine 06/21/2024 2:11 PM EST XR CHEST 1 VIEW Routine 06/21/2024 5:58 AM EST ARTERIAL BLOOD GAS Routine 06/21/2024 5: 36 AM EST CBC WITH AUTO DIFFERENTIAL Routine 06/21/2024 4:29 AM EST BASIC METABOLIC PANEL Routine 06/21/2024 4:29 AM EST PHOSPHORUS Routine 06/21/2024 4:29 AM EST MAGNESIUM Routine 06/21/2024 4:29 AM EST CALCIUM, IONIZED Routine 06/21/2024 4:29 AM EST CBC AND DIFFERENTIAL Routine 06/21/2024 4:29 AM EST LACTATE Routine 06/21/2024 4:29 AM EST HEPATIC FUNCTION PANEL Routine 4:29 AM EST INSERT PICC LINE Routine 06/20/2024 4:30 PM EST THYROID STIMULATING HORMONE Routine 06/20/2024 1:31 PM EST AMMONIA STAT 06/20/2024 1:22 PM EST VENOUS BLOOD GAS Routine 06/20/2024 11:1 0 AM EST POCT GLUCOSE BLOOD Routine 06/20/2024 10 :42 AM EST VENOUS BLOOD GAS Routine 06/20/2024 4:27 AM EST CBC WITH AUTO DIFFERENTIAL Routine 06/20/2024 4:27 AM EST CBC AND DIFFERENTIAL Routine 06/20/2024 4:27 AM EST PROCALCITONIN Routine 06/20/2024 4:27 AM EST PHOSPHORUS Routine 06/20/2024 4:27 AM EST MAGNESIUM Routine 06/20/2024 4:27 AM EST CALCIUM, IONIZED Routine 06/20/2024 4:27 AM EST BASIC METABOLIC PANEL Routine 06/20/2024 4:27 AM EST POCT GLUCOSE BLOOD Routine 06/19/2024 11 :39 PM EST AMMONIA Routine 06/19/2024 6:38 PM EST VENOUS BLOOD GAS Routine 06/19/2024 6:38 PM EST VENOUS BLOOD GAS Routine 06/19/2024 2:54 PM EST XR CHEST 1 VIEW STAT 06/19/2024 5:57 AM EST CBC WITH AUTO DIFFERENTIAL Routine 06/19/2024 4:37 AM EST CBC AND DIFFERENTIAL Routine 06/19/2024 4:37 AM EST PROCALCITONIN Routine 06/19/2024 4:37 AM EST HEPATIC FUNCTION PANEL Routine 4:37 AM EST PHOSPHORUS Routine 06/19/2024 4:37 AM EST MAGNESIUM Routine 06/19/2024 4:37 AM EST CALCIUM, IONIZED Routine 06/19/2024 4:37 AM EST BASIC METABOLIC PANEL Routine 06/19/2024 4:37 AM EST MRSA PCR Routine 06/18/2024 10:12 AM EST LEGIONELLA ANTIGEN URINE, EIA Routine 06/18/2024 10:12 AM EST OXYGEN THERAPY, ADULT Routine 06/18/2024 8:02 AM EST XR CHEST 1 VIEW Routine 06/18/2024 6:18 AM EST PROCALCITONIN Add-On 06/18/2024 5:35 AM EST THYROID STIMULATING HORMONE Add-On 06/18/2024 5:35 AM EST VENOUS BLOOD GAS STAT 06/18/2024 5:35 AM EST PHOSPHORUS Routine 06/18/2024 5:35 AM EST MAGNESIUM Routine 06/18/2024 5:35 AM EST BASIC METABOLIC PANEL [...] AND DIFFERENTIAL Routine 06/17/2024 4:08 AM EST METHADONE SCREEN, URINE Routine 06/17/2024 2:17 AM EST FENTANYL, URINE Routine 06/17/2024 2:17 AM EST DRUG ABUSE SCREEN 8A PANEL, URINE STAT 06/17/2024 2:17 AM EST ARTERIAL BLOOD GAS STAT 06/17/2024 1: 04 AM EST TROPONIN I HIGH SENSITIVITY STAT 06/17/2024 12:04 AM EST ECG ANNOTATED 06/17/2024 TROPONIN I HIGH SENSITIVITY STAT 06/16/2024 11:[address] ANGIO CHEST WO AND/OR W CONTRAST STAT 06/16/2024 10:20 PM EST SOB (shortness of breath) CT ABDOMEN PELVIS W CONTRAST STAT 06/16/2024 10:20 PM EST XR CHEST 1 VIEW STAT 06/16/2024 10:01 PM EST B-TYPE NATRIURETIC PEPTIDE STAT 06/16/2024 9:32 PM EST RESPIRATORY VIRUS PANEL MOLECULAR STUDY STAT 06/16/2024 9:20 PM EST ETHANOL Add-On 06/16/2024 9:09 PM EST CBC WITH AUTO DIFFERENTIAL STAT 06/16/2024 9:09 PM EST COMPREHENSIVE METABOLIC PANEL STAT 06/16/2024 9:09 PM EST CBC AND DIFFERENTIAL STAT 06/16/2024 9:09 PM EST ECG 12-LEAD STAT 06/16/2024 9:08 PM EST [id number], RSV, FLU A AND B QUALITATIVE RT-PCR, INTERNAL LAB STAT 05/14/2024 9:57 PM EST YAP URINE CULTURE TUBE STAT 05/14/2024 11:21 AM EST URINALYSIS WITH REFLEX MICROSCOPIC AND CULTURE STAT 05/14/2024 11:21 AM EST URINALYSIS WITH REFLEX MICROSCOPIC AND CULTURE STAT 05/14/2024 11:21 AM EST METHADONE SCREEN, URINE STAT 05/14/2024 11:21 AM EST PHENCYCLIDINE, URINE STAT 05/14/2024 11:21 AM EST BUPRENORPHINE SCREEN, URINE STAT 05/14/2024 11:21 AM EST DRUG ABUSE SCREEN 8A PANEL, URINE STAT 05/14/2024 11:[address] ANGIO ABDOMEN PELVIS WO AND/OR W CONTRAST STAT 05/14/2024 10:45 AM EST Hematemesis of unknown cause CBC WITH AUTO DIFFERENTIAL STAT 05/14/2024 9:08 AM EST COMPREHENSIVE METABOLIC PANEL STAT 05/14/2024 9:08 AM EST CBC AND DIFFERENTIAL STAT 05/14/2024 9:08 AM EST LIPASE STAT 05/14/2024 9:08 AM EST MAGNESIUM STAT 05/14/2024 9:08 AM EST SALICYLATE LEVEL STAT 05/14/2024 9:08 AM EST ACETAMINOPHEN LEVEL STAT 05/14/2024 9 :08 AM EST ETHANOL STAT 05/14/2024 9:08 AM EST ECG 12-LEAD STAT 05/14/2024 8:38 AM EST ECG ANNOTATED 05/14/2024 [id number], QUALITATIVE REAL-TIME RT-PCR, INTERNAL LAB STAT 04/22/2024 12:18 PM EST ECG 12-LEAD STAT 04/22/2024 12:16 PM EST CBC WITH AUTO DIFFERENTIAL STAT 04/22/2024 9:30 AM EST SALICYLATE LEVEL STAT 04/22/2024 9:30 AM EST ACETAMINOPHEN LEVEL STAT 04/22/2024 9 :30 AM EST ETHANOL STAT 04/22/2024 9:30 AM EST COMPREHENSIVE METABOLIC PANEL STAT 04/22/2024 9:30 AM EST CBC AND DIFFERENTIAL STAT 04/22/2024 9:30 AM EST ECG ANNOTATED 04/22/2024 from Last 3 Months Results * [id number], qualitative RT-PCR, internal lab (06/30/2024 5:50 PM EST) Only the most recent of2 resultswithin the time period is included. SARS COV-2 Not Detected Not Detected LAB MICROBIOLOGY METHOD 06/30/2024 6:47 PM EST [facility] Swab Both anterior nares / Unknown Non-blood Collection / Unknown 06/30/2024 5:50 PM EST 06/30/2024 5:59 PM EST Narrative [facility] - 06/30/2024 6:47 PM EST Disclaimer: The manner in which this information is used to guide patient care is the responsibility of the healthcare provider. Testing was performed using the [employer] GeneXpert Xpress CoV-2 Plus PCR Assay. This [...] for Healthcare providers can be found at: https://www.fda.gov/media/266617/download Fact sheet for Healthcare patients can be found at: Http;//www.fda.gov/media/033652/download Adolfo Mena MD LAB MICROBIOLOGY - G ENERAL ORDERABLES [facility] [address] [place] [address], * Basic metabolic panel (06/25/2024 5:17 AM EST) Only the most recent of9 resultswithin the time period is included. Sodium 134 133 - 145 mmol/L LAB CHEMISTRY METHOD 06/25/2024 7:47 AM [facility] Potassium 3.5 3.5 - 5.5 mmol/L LAB CHEMISTRY METHOD 06/25/2024 7:47 AM [facility] Chloride 98 96 - 110 mmol/L LAB CHEMISTRY METHOD 06/25/2024 7:47 AM [facility] CO2 30 21 - 32 mmol/L LAB CHEMISTRY METHOD 06/25/2024 7:47 AM [facility] Anion Gap 6 3 - 11 LAB CHEMISTRY METHOD 06/25/2024 7:47 AM [facility] Glucose 84 70 - 100 mg/dL LAB CHEMISTRY METHOD 06/25/2024 7:47 AM [facility] BUN 13 5 - 25 mg/dL LAB CHEMISTRY METHOD 06/25/2024 7:47 AM [facility] Creatinine 0.54 0.50 - 1.10 mg/dL LAB CHEMISTRY METHOD 06/25/2024 7:47 AM [facility] eGFR 103 >=60 mL/min/1. 73m2 LAB CHEMISTRY METHOD 06/25/2024 7:47 AM [facility] Comment:Calculation based on the??Chronic Kidney Disease Epidemiology Collaboration (CKD-EPI) equation refit??without adjustment for race. BUN/Creatinine Ratio 24.1 LAB CHEMISTRY METHOD 06/25/2024 7:47 AM [facility] Calcium 8.7 8.5 - 10.5 mg/dL LAB CHEMISTRY METHOD 06/25/2024 7:47 AM [facility] Blood Venous blood specimen / Unknown Venipuncture / Unknown 06/25/2024 5:17 AM EST 06/25/2024 6:49 AM EST Grisel Wynn MD LAB BLOOD ORDERABLE S [facility] [address] [place] [address], * (ABNORMAL) CBC auto differential (06/24/2024 5:31 AM EST) Only the most recent of10 resultswithin the time period is included. WBC 8.7 4.8 - 10.8 K/mcL LAB HEMETOLOGY METHOD 06/24/2024 8:06 AM [facility] RBC 4.20 3.80 - 4.80 M/mcL LAB HEMETOLOGY METHOD 06/24/2024 8:06 AM [facility] Hemoglobin 10.4(L) 11.5 - 16.0 g/dL LAB HEMETOLOGY METHOD 06/24/2024 8:06 AM [facility] Hematocrit 33.0(L) 35.0 - 47.0 % LAB HEMETOLOGY METHOD 06/24/2024 8:06 AM [facility] MCV 79.5 79.0 - 98.0 FL LAB HEMETOLOGY METHOD 06/24/2024 8:06 AM [facility] MCH 25.1(L) 27.0 - 32.0 pcg LAB HEMETOLOGY METHOD 06/24/2024 8:06 AM [facility] MCHC 31.5(L) 32.0 - 37.0 g/dL LAB HEMETOLOGY METHOD 06/24/2024 8:06 AM [facility] RDW 17.1(H) 11.0 - 15.0 % LAB HEMETOLOGY METHOD 06/24/2024 8:06 AM [facility] Platelets 305 130 - 400 K/mcL LAB HEMETOLOGY METHOD 06/24/2024 8:06 AM [facility] MPV 10.5 7.0 - 11.0 FL LAB HEMETOLOGY METHOD 06/24/2024 8:06 AM [facility] NRBC 0.0 <1.0 % LAB HEMETOLOGY METHOD 06/24/2024 8:06 AM [facility] NRBC Absolute 0.00 <0.10 K/mcL LAB HEMETOLOGY METHOD 06/24/2024 8:06 AM [facility] Neutrophils Relative 60.9 % LAB HEMETOLOGY METHOD 06/24/2024 8:06 AM [facility] Lymphocytes Relative 22.7 % LAB HEMETOLOGY METHOD 06/24/2024 8:06 AM [facility] Monocytes Relative 10.4 % LAB HEMETOLOGY METHOD 06/24/2024 8:06 AM [facility] Eosinophils Relative 5.1 % LAB HEMETOLOGY METHOD 06/24/2024 8:06 AM [facility] Basophils Relative 0.7 % LAB HEMETOLOGY METHOD 06/24/2024 8:06 AM [facility] Immature Granulocytes Relative 0.2 % LAB HEMETOLOGY METHOD 06/24/2024 8:06 AM [facility] Neutrophils Absolute 5.28 1.50 - 7.00 K/mcL LAB HEMETOLOGY METHOD 06/24/2024 8:06 AM [facility] Lymphocytes Absolute 1.97 1.00 - 5.00 K/mcL LAB HEMETOLOGY METHOD 06/24/2024 8:06 AM [facility] Monocytes Absolute 0.90 0.20 - 1.00 K/mcL LAB HEMETOLOGY METHOD 06/24/2024 8:06 AM [facility] Eosinophils Absolute 0.44 0.00 - 0.50 K/mcL LAB HEMETOLOGY METHOD 06/24/2024 8:06 AM EST [facility] Basophils Absolute 0.06 0.00 - 0.20 K/mcL LAB HEMETOLOGY METHOD 06/24/2024 8:06 AM EST [facility] Immature Granulocytes Absolute 0.02 0.00 - 0.03 K/[facility] LAB HEMETOLOGY METHOD 06/24/2024 8:06 AM EST [facility] Blood Venous blood specimen / Unknown Venipuncture / Unknown 06/24/2024 5:31 AM EST 06/24/2024 7:15 AM EST Grisel Wynn MD LAB BLOOD ORDERABLE S [facility] [address] [place] [address], * Procalcitonin (06/23/2024 4:25 AM EST) Only the most recent of4 resultswithin the time period is included. Procalcitonin 0.04 <=0.16 ng/mL LAB CHEMISTRY METHOD 06/23/2024 7:47 AM EST [facility] Blood Venous blood specimen / Unknown Venipuncture / Unknown 06/23/2024 4:25 AM EST 06/23/2024 7:03 AM EST Narrative [facility] - 06/23/2024 7:47 AM EST [...] any concentrations <2.0 ng/mL are obtained. Jonathan Vieira DO LAB BLOOD ORDERABLES Performing Organization Address [facility] de Phone Number [facility] [address] [place] [address], * Phosphorus (06/23/2024 4:25 AM EST) Only the most recent of7 resultswithin the time period is included. Phosphorus 2.8 2.5 - 4.5 mg/dL LAB CHEMISTRY METHOD 06/23/2024 7:49 AM EST [facility] Blood Venous blood specimen / Unknown Venipuncture / Unknown 06/23/2024 4:25 AM EST 06/23/2024 7:03 AM EST Jonathan Keltongonzalez LAB BLOOD ORDERABLES Performing Organization Address [facility] de Phone Number [facility] [address] [place] [address], * Magnesium (06/23/2024 4:25 AM EST) Only the most recent of8 resultswithin the time period is included. Magnesium 1.9 1.9 - 2.6 mg/dL LAB CHEMISTRY METHOD 06/23/2024 7:49 AM EST [facility] Blood Venous blood specimen / Unknown Venipuncture / Unknown 06/23/2024 4:25 AM EST 06/23/2024 7:03 AM EST Jonathan Keltongonzalez LAB BLOOD ORDERABLES [facility] [address] [place] [address], * Calcium, ionized (06/23/2024 4:25 AM EST) Only the most recent of5 resultswithin the time period is included. Calcium Ionized 4.79 4.50 - 5.30 mg/dL 06/23/2024 9:48 AM EST [facility] Blood Venous blood specimen / Unknown Venipuncture / Unknown 06/23/2024 4:25 AM EST 06/23/2024 7:03 AM EST Jonathan Vieira DO LAB BLOOD ORDERABLES Performing Organization Address [facility]/ZIP Co de Phone Number [facility] [address] [place] [address], * Lactate (06/22/2024 4:00 AM EST) Only the most recent of2 resultswithin the time period is included. [facility] Lactate 0.9 0.4 - 2.0 mmol/L LAB CHEMISTRY METHOD 06/22/2024 5:12 AM EST [facility] Blood Venous blood specimen / Unknown Existing Catheter / Unknown 06/22/2024 4:00 AM EST 06/22/2024 4:34 AM EST Vickie Carmona MD LAB BLOOD ORDERABLES [facility] [address] [place] [address], * (ABNORMAL) Venous blood gas (06/22/2024 4:00 AM EST) Only the most recent of8 resultswithin the time period is included. pH, Parker 7.48(H) 7.32 - 7.42 pH 06/22/2024 4:37 AM EST [facility] pCO2, Parker 47 41 - 51 mmHg 06/22/2024 4:37 AM [facility] pO2, Parker 42(H) 25 - 40 mmHg 06/22/2024 4:37 AM [facility] HCO3, Venous 32.3(H) 22.0 - 26.0 mmol/L 06/22/2024 4:37 AM [facility] O2 Sat, Parker 72.9 % 06/22/2024 4:37 AM [facility] Base Excess, Parker 10.2(H) -2.0 - 2.0 mmol/L 06/22/2024 4:37 AM [facility] Blood Venous blood specimen / Unknown Existing Catheter / Unknown 06/22/2024 4:00 AM EST 06/22/2024 4:31 AM EST Fab MCGRAW LAB BLOOD ORDERABLES [facility] [address] [place] [address], * (ABNORMAL) Hepatic function panel (06/22/2024 4:00 AM EST) Only the most recent of3 resultswithin the time period is included. Total Protein 7.3 6.0 - 8.0 g/dL LAB CHEMISTRY METHOD 06/22/2024 5:01 AM [facility] Albumin 3.2 3.2 - 5.0 g/dL LAB CHEMISTRY METHOD 06/22/2024 5:01 AM [facility] Total Bilirubin 0.4 0.0 - 1.4 mg/dL LAB CHEMISTRY METHOD 06/22/2024 5:01 AM [facility] Bilirubin, Direct <0.1 0.0 - 0.3 mg/dL LAB CHEMISTRY METHOD 06/22/2024 5:01 AM [facility] Bilirubin, Indirect LAB CHEMISTRY METHOD 06/22/2024 5:01 AM [facility] Comment:Unable to calculate Indirect Bilirubin. ALT (SGPT) 36 10 - 60 unit/L LAB CHEMISTRY METHOD 06/22/2024 5:01 AM [facility] AST (SGOT) 30 10 - 42 unit/L LAB CHEMISTRY METHOD 06/22/2024 5:01 AM [facility] Alkaline Phosphatase 302(H) 42 - 121 unit/L LAB CHEMISTRY METHOD 06/22/2024 5:01 AM [facility] Blood Venous blood specimen / Unknown Existing Catheter / Unknown 06/22/2024 4:00 AM EST 06/22/2024 4:32 AM EST Vickie Carmona MD LAB BLOOD ORDERABLES Performing Organization Address City/[facility]/ZIP Co de Phone Number [facility] [address] [place] [address], [place] [phone] * Lipase (06/21/2024 2:11 PM EST) Only the most recent of2 resultswithin the time period is included. Lipase 39 13 - 75 unit/L LAB CHEMISTRY METHOD 06/21/2024 2:50 PM EST [facility] Blood Blood sample taken from central line / Unknown Venipuncture / Unknown 06/21/2024 2:11 PM EST 06/21/2024 2:28 PM EST Vickie Carmona MD LAB BLOOD ORDERABLES [facility] [address] [place] [address], [place] [phone] * XR Chest 1 View (06/21/2024 5:58 AM EST) Only the most recent of4 resultswithin the time period is included. Anatomical Region Laterality Modality Body Radiographic Michelle ging 06/21/2024 8:08 AM EST Impressions 06/21/2024 8:09 AM EST FINDINGS/IMPRESSION: Right upper extremity PICC terminates in the right atrium. ??Elevated right diaphragm with unchanged right basilar opacity, possibly atelectasis. ??No pleural effusion or pneumothorax. ??Cardiac silhouette and bones are stable compared to prior -------- FINAL REPORT -------- Dictated By: HERNAN BARAJAS Dictated Date: 06/21/2024 08:08 ET Assigned Physician: HERNAN BARAJAS Reviewed and Electronically Signed By: HERNAN BARAJAS Signed Date: 06/21/2024 08:09 ET Workstation ID: [id number] Transcribed By: Self Edit Transcribed Date: 06/21/2024 08:08 ET Narrative 06/21/2024 8:09 AM EST XR CHEST 1 VIEW INDICATION: ??Pneumonia TECHNIQUE: XR CHEST 1 VIEW COMPARISON: 06/19/2024 Procedure Note Hernan Barajas MD - 06/21/2024 XR CHEST 1 VIEW INDICATION: Pneumonia TECHNIQUE: XR CHEST 1 VIEW COMPARISON: 06/19/2024 IMPRESSION: FINDINGS/IMPRESSION: Right upper extremity PICC terminates in the rightatrium. Elevated right diaphragm with unchanged right basilar opacity,possibly atelectasis. No pleural effusion or pneumothorax. Cardiacsilhouette and bones are stable compared to prior -------- FINAL REPORT -------- Dictated By: HERNAN BARAJAS Dictated Date: 06/21/2024 08:08 ET Assigned Physician: HERNAN BARAJAS Reviewed and Electronically Signed By: HERNAN BARAJAS Signed Date: 06/21/2024 08:09 ET Workstation ID: [id number] Transcribed By: Self Edit Transcribed Date: 06/21/2024 08:08 ET Vickie Carmona MD IMG XR PROCEDURES * (ABNORMAL) Arterial blood gas (06/21/2024 5:36 AM EST) Only the most recent of3 resultswithin the time period is included. pH, Arterial 7.45 7.35 - 7.45 pH 06/21/2024 5:52 AM EST [facility] pCO2, Arterial 53(H) 35 - 45 mmHg 06/21/2024 5:52 AM [facility] pO2, Arterial 89 80 - 100 mmHg 06/21/2024 5:52 AM [facility] HCO3, Arterial 33.7(H) 22.0 - 26.0 mmol/L 06/21/2024 5:52 AM [facility] O2 Sat, Arterial 99.1(H) 95.0 - 98.0 % 06/21/2024 5:52 AM [facility] Base Excess, Arterial 11.2(H) -2.0 - 2.0 mmol/L 06/21/2024 5:52 AM [facility] Sb Test Pass Pass, Unresponsi ve, Line 06/21/2024 5:52 AM [facility] FIO2 30.00 06/21/2024 5:52 AM [facility] Blood Arterial blood specimen / Unknown Arterial Puncture / Unknown 06/21/2024 5:36 AM EST 06/21/2024 5:36 AM EST Vickie Carmona MD LAB BLOOD ORDERABLES Performing Organization Address City/State/[facility] Co de Phone Number [facility] [address] [place] [address], * Insert PICC line (06/20/2024 4:30 PM EST) Narrative Evon Alfaro RN - 06/20/2024 4:30 PM EST Evon Alfaro RN ? 06/20/2024 ??5:37 PM PICC Line Insertion Procedure Note Procedure: Insertion of 4F Double lumen Bard Provena PowerPICC Lot: [id number] Exp: 05/16/2025 Indications: Provider's order/ICU level of [...] Thyroid stimulating hormone (06/20/2024 1:31 PM EST) Only the most recent of2 resultswithin the time period is included. TSH 3.41 0.40 - 4.00 mcIU/mL LAB CHEMISTRY METHOD 06/20/2024 3:02 PM EST [facility] Blood Venous blood specimen / Unknown Venipuncture / Unknown 06/20/2024 1:31 PM EST 06/20/2024 1:33 PM EST Vickie Carmona MD LAB BLOOD ORDERABLES [facility] [address] [place] [address], * Ammonia (06/20/2024 1:22 PM EST) Only the most recent of2 resultswithin the time period is included. Ammonia 27 11 - 35 mcmol/L LAB CHEMISTRY METHOD 06/20/2024 2:11 PM EST [facility] Blood Venous blood specimen / Unknown Venipuncture / Unknown 06/20/2024 1:22 PM EST 06/20/2024 1:33 PM EST Vickie Carmona MD LAB BLOOD ORDERABLES Performing Organization Address [facility]/ZIP Co de Phone Number [facility] [address] [place] [address], [place] [phone] * POCT Glucose, blood (06/20/2024 10:42 AM EST) Only the most recent of4 resultswithin the time period is included. [facility] Glucose POCT 99 70 - 100 mg/dL 06/20/2024 10:43 AM EST [facility] Blood Capillary blood specimen / Unknown 06/20/2024 10:42 AM EST 06/20/2024 10:44 AM EST James Fletcher MD LAB POINT OF CARE TE ST DOCKED DEVICE UNSOLICITED RESULTS Performing Organization Address [facility] de Phone Number [facility] [address] [place] [address], [place] [phone] * (ABNORMAL) MRSA molecular study (06/18/2024 10:12 AM EST) [facility] MRSA Screen PCR Detected (A) Not Detected LAB MICROBIOLOGY METHOD 06/18/2024 11:52 AM EST [facility] Swab Both anterior nares / Unknown Non-blood Collection / Unknown 06/18/2024 10:12 AM EST 06/18/2024 10:19 AM EST Jonathan Vieira DO LAB MICROBIOLOGY - G ENERAL ORDERABLES Performing Organization Address [facility]/ZIP Co de Phone Number [facility] [address] [place] [address], [place] [phone] * Legionella antigen urine, EIA (06/18/2024 10:12 AM EST) [facility] Legionella Antigen, Ur Negative Negative 06/18/2024 10:49 AM [facility] Urine Urine specimen obtained by clean catch procedure / Unknown Non-blood Collection / Unknown 06/18/2024 10:12 AM EST 06/18/2024 10:19 AM EST [facility] - 06/18/2024 10:49 AM EST Negative for Legionella pneumophilia serogroup 1 antigen. This presumptive result suggests no current or recent infection due to L. pneumophilia serogroup 1. Culture is recommended if Legionella infection is till suspected, as other serogroups and species of Legionella are not detected by this test. Jonathan Vieira DO LAB URINE ORDERABLES [facility] [address] [place] [address], [place] [phone] * (ABNORMAL) Drug abuse screen 8a panel, urine (06/17/2024 2:17 AM EST) Only the most recent of2 resultswithin the time period is included. Amphetamine Screen, Ur Negative Negative LAB CHEMISTRY METHOD 5 3:11 AM [facility] Comment:Certain OTC medicati ons containing ephedrine, phenylephrine, pseudoephedrine and phenylpropanolamine can cause false positive results. Barbiturate Screen, Ur Negative Negative LAB CHEMISTRY METHOD 5 3:11 AM [facility] Benzodiazepine Screen, Ur Positive(A ) Negative LAB CHEMISTRY METHOD 5 3:11 AM [facility] Cocaine Screen, Ur Negative Negative LAB CHEMISTRY METHOD 5 3:11 AM [facility] Opiate Screen, Ur Negative Negative LAB CHEMISTRY METHOD 5 3:11 AM [facility] Cannabinoid (THC) Screen, Ur Negative Negative LAB CHEMISTRY METHOD 5 3:11 AM [facility] Comment:Specimens from patie nts taking pantoprazole sodium (Protonix) have been shown to produce false positive results. Oxycodone Screen, Ur Negative Negative LAB CHEMISTRY METHOD 3:11 AM EST [facility] Fentanyl, Ur Negative Negative LAB CHEMISTRY METHOD 3:11 AM EST [facility] Urine Urine specimen obtained by clean catch procedure / Unknown Non-blood Collection / Unknown 06/17/2024 2:17 AM EST 06/17/2024 2:48 AM EST [facility] - 06/17/2024 3:11 AM EST Assay [...] REQUEST ONLY* Mercedes MCGRAW LAB URINE ORDERABLES [facility] [address] [place] [address], * (ABNORMAL) Methadone, urine (06/17/2024 2:17 AM EST) Only the most recent of2 resultswithin the time period is included. Methadone Screen, Urine Positive (A) Negative LAB CHEMISTRY METHOD 06/17/2024 3:11 AM EST [facility] Comment: Assay cutoff 300 ng/mL Semi-quantitative assay for screening purposes only. Unconfirmed screening result should not be used for non-medical purposes. *ALTERNATE METHOD CONFIRMATION DONE UPON REQUEST ONLY* Urine Urine specimen obtained by clean catch procedure / Unknown Non-blood Collection / Unknown 06/17/2024 2:17 AM EST 06/17/2024 2:48 AM EST Orlando Ng MD LAB URINE ORDERABLE S Performing Organization Address [facility] Co de Phone Number [facility] [address] [place] [address], * Fentanyl urine (06/17/2024 2:17 AM EST) Pathologist [facility] Fentanyl, Ur Negative Negative LAB CHEMISTRY METHOD 06/17/2024 3:11 AM EST [facility] Urine Urine specimen obtained by clean catch procedure / Unknown Non-blood Collection / Unknown 06/17/2024 2:17 AM EST 06/17/2024 2:48 AM EST Narrative [facility] - 06/17/2024 3:11 AM EST Assay cutoff 1 ng/mL Semi-quantitative assay for screening purposes only. Unconfirmed screening result should not be used for non-medical purposes. *ALTERNATE METHOD CONFIRMATION DONE UPON REQUEST ONLY* Orlando Ng MD LAB URINE ORDERABLE S Performing Organization Address [facility] de Phone Number [facility] [address] [place] [address], [place] [phone] * Troponin I high sensitivity (NOW and then in 1 hour) (06/17/2024 12:04 AM EST) Only the most recent of2 resultswithin the time period is included. [facility] High Sensitivity Troponin I 21 <=54 ng/L LAB CHEMISTRY METHOD 06/17/2024 12:54 AM EST [facility] Blood Venous blood specimen / Unknown Venipuncture / Unknown 06/17/2024 12:04 AM EST 06/17/2024 12:25 AM EST Narrative [facility] - 06/17/2024 12:54 AM EST High levels of biotin in samples may falsely decrease hsTroponin values. ??Use caution when interpreting hsTroponin results in patients taking biotin who exhibit renal impairment (eGFR <60) or in patients taking more than 20 mg/day of biotin. Mercedes MCGRAW LAB BLOOD ORDERABLES [facility] [address] [place] [address], * ECG-Annotated (06/17/2024) Only the most recent of3 resultswithin the time period is included. Provider Onbase ECG ORDERABLES * CT Abdomen Pelvis w Contrast (06/16/2024 [...] by: Joey Rivera DO on 06/16/2024 23:00:36 Narrative 06/16/2024 11:00 [...] lumbar spine bilateral hips. Procedure Note Joey Rivera MD - 06/16/2024 CT abdomen and pelvis [...] by: Joey Rivera DO on 06/16/2024 23:00:36 Mercedes MCGRAW [facility] CT PROCEDURES * CT Angio Chest wo and/or w [...] by: Joey Rivera DO on 06/16/2024 23:00:33 Narrative 06/16/2024 11:00 [...] small hiatal hernia. Cholecystectomy. Procedure Note Joey Rivera MD - 06/16/2024 CTA chest with IV [...] by: Joey Rivera DO on 06/16/2024 23:00:[address] PROCEDURES * B-type natriuretic peptide (06/16/2024 9:32 PM EST) [facility] BNP 17 <=100 pcg/mL LAB CHEMISTRY METHOD 06/16/2024 10:22 PM EST [facility] Blood Venous blood specimen / Unknown Venipuncture / Unknown 06/16/2024 9:32 PM EST 06/16/2024 9:49 PM EST Mercedes MCGRAW LAB BLOOD ORDERABLES [facility] [address] [place] [address], * Respiratory virus panel molecular study (06/16/2024 9:20 PM EST) [facility] Adenovirus Detection by PCR Not Detected Not Detected LAB MICROBIOLOGY METHOD 06/16/2024 10:39 PM EST [facility] Influenza A PCR Not Detected Not Detected LAB MICROBIOLOGY METHOD 06/16/2024 10:39 PM [facility] Influenza B PCR Not Detected Not Detected LAB MICROBIOLOGY METHOD 06/16/2024 10:39 PM [facility] Coronavirus 229E Not Detected Not Detected LAB MICROBIOLOGY METHOD 06/16/2024 10:39 PM [facility] Coronavirus HKU1 Not Detected Not Detected LAB MICROBIOLOGY METHOD 06/16/2024 10:39 PM [facility] Coronavirus OC43 Not Detected Not Detected LAB MICROBIOLOGY METHOD 06/16/2024 10:39 PM [facility] Coronavirus NL63 Not Detected Not Detected LAB MICROBIOLOGY METHOD 06/16/2024 10:39 PM [facility] Parainfluenza Virus 1 Not Detected Not Detected LAB MICROBIOLOGY METHOD 06/16/2024 10:39 PM [facility] Parainfluenza Virus 2 Not Detected Not Detected LAB MICROBIOLOGY METHOD 06/16/2024 10:39 PM [facility] Parainfluenza Virus 3 Not Detected Not Detected LAB MICROBIOLOGY METHOD 06/16/2024 10:39 PM [facility] Parainfluenza Virus 4 Not Detected Not Detected LAB MICROBIOLOGY METHOD 06/16/2024 10:39 PM [facility] RSV PCR Not Detected Not Detected LAB MICROBIOLOGY METHOD 06/16/2024 10:39 PM [facility] Human Metapneumovirus A and B Not Detected Not Detected LAB MICROBIOLOGY METHOD 06/16/2024 10:39 PM [facility] Rhinovirus/Entero virus Not Detected Not Detected LAB MICROBIOLOGY METHOD 06/16/2024 10:39 PM [facility] Bordetella pertussis Not Detected Not Detected LAB MICROBIOLOGY METHOD 06/16/2024 10:39 PM [facility] Bordetella parapertussis Not Detected Not Detected LAB MICROBIOLOGY METHOD 06/16/2024 10:39 PM EST [facility] Mycoplasma pneumo by PCR Not Detected Not Detected LAB MICROBIOLOGY METHOD 06/16/2024 10:39 PM EST [facility] Chlamydia pneumoniae Not Detected Not Detected LAB MICROBIOLOGY METHOD 06/16/2024 10:39 PM EST [facility] SARS COV-2 Not Detected Not Detected LAB MICROBIOLOGY METHOD 06/16/2024 10:39 PM EST [facility] Swab Both anterior nares / Unknown Non-blood Collection / Unknown 06/16/2024 9:20 PM EST 06/16/2024 9:28 PM EST Narrative [facility] - 06/16/2024 10:39 PM EST Testing was performed using the [employer] Respiratory Pathogen PCR Assay. All results must [...] MCGRAW LAB MICROBIOLOGY - G ENERAL ORDERABLES [facility] [address] [place] [address], * (ABNORMAL) Ethanol (06/16/2024 9:09 PM EST) Only the most recent of3 resultswithin the time period is included. Ethanol Level 65(H) 0 - 10 mg/dL LAB CHEMISTRY METHOD 06/16/2024 11:22 PM EST [facility] Blood Venous blood specimen / Unknown Venipuncture / Unknown 06/16/2024 9:09 PM EST 06/16/2024 9:28 PM EST Mercedes MCGRAW LAB BLOOD ORDERABLES [facility] [address] [place] [address], * (ABNORMAL) Comprehensive metabolic panel (06/16/2024 9:09 PM EST) Only the most recent of3 resultswithin the time period is included. Sodium 134 133 - 145 mmol/L LAB CHEMISTRY METHOD 06/16/2024 10:09 PM [facility] Potassium 3.8 3.5 - 5.5 mmol/L LAB CHEMISTRY METHOD 06/16/2024 10:09 PM [facility] Chloride 102 96 - 110 mmol/L LAB CHEMISTRY METHOD 06/16/2024 10:09 PM [facility] CO2 25 21 - 32 mmol/L LAB CHEMISTRY METHOD 06/16/2024 10:09 PM [facility] Anion Gap 7 3 - 11 LAB CHEMISTRY METHOD 06/16/2024 10:09 PM [facility] Glucose 118(H) 70 - 100 mg/dL LAB CHEMISTRY METHOD 06/16/2024 10:09 PM [facility] BUN 15 5 - 25 mg/dL LAB CHEMISTRY METHOD 06/16/2024 10:09 PM [facility] Creatinine 0.89 0.50 - 1.10 mg/dL LAB CHEMISTRY METHOD 06/16/2024 10:09 PM [facility] eGFR 73 >=60 mL/min/1. 73m2 LAB CHEMISTRY METHOD 06/16/2024 10:09 PM [facility] Comment:Calculation based on the??Chronic Kidney Disease Epidemiology Collaboration (CKD-EPI) equation refit??without adjustment for race. BUN/Creatinine Ratio 16.9 LAB CHEMISTRY METHOD 06/16/2024 10:09 PM [facility] Calcium 9.1 8.5 - 10.5 mg/dL LAB CHEMISTRY METHOD 06/16/2024 10:09 PM [facility] AST (SGOT) 49(H) 10 - 42 unit/L LAB CHEMISTRY METHOD 06/16/2024 10:09 PM [facility] ALT (SGPT) 45 10 - 60 unit/L LAB CHEMISTRY METHOD 06/16/2024 10:09 PM [facility] Alkaline Phosphatase 301(H) 42 - 121 unit/L LAB CHEMISTRY METHOD 06/16/2024 10:09 PM [facility] Total Protein 8.3(H) 6.0 - 8.0 g/dL LAB CHEMISTRY METHOD 06/16/2024 10:09 PM EST [facility] Albumin 3.9 3.2 - 5.0 g/dL LAB CHEMISTRY METHOD 06/16/2024 10:09 PM [facility] Total Bilirubin 0.2 0.0 - 1.4 mg/dL LAB CHEMISTRY METHOD 06/16/2024 10:09 PM [facility] Blood Venous blood specimen / Unknown Venipuncture / Unknown 06/16/2024 9:09 PM EST 06/16/2024 9:28 PM EST Mercedes MCGRAW LAB BLOOD ORDERABLES [facility] [address] [place] [address], * ECG 12 lead (06/16/2024 9:08 PM EST) Only the most recent of3 resultswithin the time period is included. Ventricular Rate ECG 94 BPM GEMUSE Atrial Rate 94 BPM GEMUSE P-R Interval 156 ms GEMUSE QRS Duration 90 ms GEMUSE Q-T Interval 386 ms GEMUSE QTc 482 ms GEMUSE P Wave Banner 58 degrees GEMUSE R Banner -6 degrees GEMUSE T Banner 87 degrees GEMUSE ECG Interpretation Normal sinus rhythm Septal infarct (cited on or before 16-JUN-2024) Abnormal ECG When compared with ECG of 14-MAY-2024 08:38, T wave inversion now evident in Lateral leads Septal ST elevation is more evident Confirmed by Herbie HARTLEY JAMES ([id number]) on 06/17/2024 8:56:10 AM GEMUSE 06/16/2024 9:08 PM EST 06/17/2024 8:56 AM EST Mercedes uK LUCIEN ECG ORDERABLES GEMUSE * [id number], RSV, Influenza A and B qualitative RT-PCR (05/14/2024 9:57 PM EST) Pathologist [facility] Influenza A PCR Not Detected Not Detected LAB MICROBIOLOGY METHOD 05/14/2024 11:04 PM EST [facility] Influenza B PCR Not Detected Not Detected LAB MICROBIOLOGY METHOD 05/14/2024 11:04 PM EST [facility] RSV PCR Not Detected Not Detected LAB MICROBIOLOGY METHOD 05/14/2024 11:04 PM EST [facility] SARS COV-2 Not Detected Not Detected LAB MICROBIOLOGY METHOD 05/14/2024 11:04 PM EST [facility] Swab Both anterior nares / Unknown Non-blood Collection / Unknown 05/14/2024 9:57 PM EST 05/14/2024 10:13 PM EST Narrative [facility] - 05/14/2024 11:04 PM EST Disclaimer: ??Testing was performed using the [employer] GeneXpert Xpress SARS-CoV-2 _Flu_RSV PLUS PCR assay. ??The manner in which this information is used to guide patient care is the responsibility of the healthcare provider. ??Results should be correlated with the clinical history, epidemiological data, and other data available to the clinician evaluating the patient. ??Negative results do not preclude infection. ??This test has been authorized by the FDA under an Emergency Use Authorization (EUA). ??This test is only authorized for the duration of time the declaration that circumstances exist justifying the authorization of the emergency use of in vitro diagnostic tests for detection of SARS-CoV-2 virus and/or diagnosis of COVID-19 infection under section 564 (b) (1) of the Act, 21 U.S.C 360bbb-3 (b) (1), unless the authorization is terminated or revoked sooner. ?? Reference Range: Not Detected Fact sheet for Healthcare providers can be found at https://www.fda.gov/media/089774/download. ?? Fact sheet for Healthcare patients can be found at https://www.fda.gov/media/422556/download. Mukesh MCGRAW LAB MICROBIOLOGY - G ENERAL ORDERABLES [facility] [address] [place] [address], * (ABNORMAL) Urinalysis with reflex microscopic and culture (05/14/2024 11:21 AM EST) Specific [place] Urine 1.035(H) 1.003 - 1.030 LAB URINALYSIS - AUTOMATED METHOD 05/14/2024 12:29 PM [facility] pH, Urine 7.0 5.0 - 8.0 pH LAB URINALYSIS - AUTOMATED METHOD 05/14/2024 12:29 PM [facility] Leukocytes, Urine Negative Negative LAB URINALYSIS - AUTOMATED METHOD 05/14/2024 12:29 PM [facility] Nitrite, Urine Negative Negative LAB URINALYSIS - AUTOMATED METHOD 05/14/2024 12:29 PM [facility] Protein, Urine Negative <=Trace mg/dL LAB URINALYSIS - AUTOMATED METHOD 05/14/2024 12:29 PM [facility] Glucose, Urine Negative Negative mg/dL LAB URINALYSIS - AUTOMATED METHOD 05/14/2024 12:29 PM [facility] Ketones, Urine Negative Negative mg/dL LAB URINALYSIS - AUTOMATED METHOD 05/14/2024 12:29 PM [facility] Urobilinogen, Urine 0.2 0.2 - 1.0 mg/dL LAB URINALYSIS - AUTOMATED METHOD 05/14/2024 12:29 PM [facility] Bilirubin, Urine Negative Negative LAB URINALYSIS - AUTOMATED METHOD 05/14/2024 12:29 PM [facility] Blood, Urine Negative Negative LAB URINALYSIS - AUTOMATED METHOD 05/14/2024 12:29 PM [facility] Urine Urine specimen obtained by clean catch procedure / Unknown Non-blood Collection / Unknown 05/14/2024 11:21 AM EST 05/14/2024 12:14 PM EST Enoc Patel MD LAB URINE ORDERABLES [facility] [address] [place] [address], [place] [phone] * Yap urine culture tube (05/14/2024 11:21 AM EST) Extra Tube Hold for add-ons. 05/14/2024 2:01 PM [facility] Comment:Auto resulted. Urine Urine specimen obtained by clean catch procedure / Unknown Non-blood Collection / Unknown 05/14/2024 11:21 AM EST 05/14/2024 12:14 PM EST Enoc Patel MD LAB URINE ORDERABLES [facility] [address] [place] [address], [place] [phone] * Buprenorphine screen, urine (05/14/2024 11:21 AM EST) Buprenorphine Screen Urine Negative Negative LAB CHEMISTRY METHOD 05/14/2024 12:42 PM [facility] Urine Urine specimen obtained by clean catch procedure / Unknown Non-blood Collection / Unknown 05/14/2024 11:21 AM EST 05/14/2024 12:14 PM EST Narrative [facility] - 05/14/2024 12:42 PM EST Assay cutoff 5 ng/mL Semi-quantitative assay for screening purposes only. Unconfirmed screening result should not be used for non-medical purposes. *ALTERNATE METHOD CONFIRMATION DONE UPON REQUEST ONLY* Enoc Patel MD LAB URINE ORDERABLES Performing Organization Address [facility] Co de Phone Number [facility] [address] [place] [address], [place] [phone] * Phencyclidine, urine (05/14/2024 11:21 AM EST) PCP Scrn, Ur Negative Negative LAB CHEMISTRY METHOD 05/14/2024 12:42 PM EST [facility] Comment: Assay cutoff 25 ng/mL Semi-quantitative assay for screening purposes only. Unconfirmed screening result should not be used for non-medical purposes. *ALTERNATE METHOD CONFIRMATION DONE UPON REQUEST ONLY* Urine Urine specimen obtained by clean catch procedure / Unknown Non-blood Collection / Unknown 05/14/2024 11:21 AM EST 05/14/2024 12:14 PM EST Enoc Patel MD LAB URINE ORDERABLES Performing Organization Address [facility] de Phone Number [facility] [address] [place] [address], [place] [phone] * CT Angio Abdomen Pelvis wo and/or w Contrast (05/14/2024 10:45 AM EST) Anatomical Region Laterality Modality Body Computed Tomogra phy 05/14/2024 10:5 3 AM EST Impressions 05/14/2024 11:17 AM EST 1. ??No contrast collection to suggest a site of active gastrointestinal hemorrhage. 2. ??Incidental findings as detailed above. -------- FINAL REPORT -------- Dictated By: Chase Cornejo Dictated Date: 05/14/2024 10:53 ET Assigned Physician: Chase Cornejo Reviewed and Electronically Signed By: Chase Cornejo Signed Date: 05/14/2024 11:17 ET Workstation ID: [id number] Transcribed By: Self Edit Transcribed Date: 05/14/2024 11:02 ET Narrative 05/14/2024 11:[address] angiogram of the abdomen and pelvis, 05/14/2024. TECHNIQUE: Noncontrast CT of the abdomen, followed by contrast enhanced CT angiogram of the abdomen and pelvis. ??Postcontrast images obtained in the arterial phase and 90 second post contrast administration. ??Multiplanar reformats were created. IV contrast dose: 90 mL ISOVUE-370. HISTORY: GI bleed COMPARISON: Liver ultrasound 02/12/2024 Dose length product: ??3338 mGy-cm. FINDINGS: Vasculature: Moderate hard and soft plaque throughout the abdominal aorta. ??Small amount of calcified plaque in the celiac trunk at the origin, without associated stenosis. ??Less than a stenosis. ??No renal artery stenosis. ??Patent MICHELLE. ??Scattered calcified plaque in the iliac vessels. ??Mild proximal stenosis of the left internal iliac artery. Lung bases: Elevated right hemidiaphragm. Cardiac: Minimal aortic annular calcification. Liver: No focal lesion. ??Portal veins are patent. Biliary: Cholecystectomy. Pancreas: Normal. Spleen: Normal. Adrenal glands: Normal. Kidneys: Small calcifications in the left renal hilum are likely atherosclerotic. ??Normal appearance of the ureters. Retroperitoneum: No mass or adenopathy. Bowel/mesentery: No obstruction or adenopathy. ??No mass or ascites. ??Extensive distal predominant colonic diverticulosis. ??Normal appendix. ??Small hiatal hernia. ??No contrast collection to suggest a site of active gastrointestinal hemorrhage. Abdominal wall: Normal. Pelvic nodes: No adenopathy. Pelvic organs: Normal. Bones: Degenerative changes of the spine. ??Mild rotatory lumbar levoscoliosis. ??Mild degenerative changes of the sacroiliac joints. Other: No other significant findings. Procedure Note Chase Cornejo MD - 05/14/2024 CT angiogram of the abdomen and pelvis, 05/14/2024. TECHNIQUE: Noncontrast CT of the abdomen, followed by contrast enhanced CTangiogram of the abdomen and pelvis. Postcontrast images obtained in thearterial phase and 90 second post contrast administration. Multiplanarreformats were created. IV contrast dose: 90 mL ISOVUE-370. HISTORY: GI bleed COMPARISON: Liver ultrasound 02/12/2024 Dose length product: 3338 mGy-cm. FINDINGS: Vasculature: Moderate hard and soft plaque throughout the abdominal aorta.Small amount of calcified plaque in the celiac trunk at the origin,without associated stenosis. Less than a stenosis. No renal arterystenosis. Patent MICHELLE. Scattered calcified plaque in the iliac vessels.Mild proximal stenosis of the left internal iliac artery. Lung bases: Elevated right hemidiaphragm. Cardiac: Minimal aortic annular calcification. Liver: No focal lesion. Portal veins are patent. Biliary: Cholecystectomy. Pancreas: Normal. Spleen: Normal. Adrenal glands: Normal. Kidneys: Small calcifications in the left renal hilum are likelyatherosclerotic. Normal appearance of the ureters. Retroperitoneum: No mass or adenopathy. Bowel/mesentery: No obstruction or adenopathy. No mass or ascites.Extensive distal predominant colonic diverticulosis. Normal appendix.Small hiatal hernia. No contrast collection to suggest a site of activegastrointestinal hemorrhage. Abdominal wall: Normal. Pelvic nodes: No adenopathy. Pelvic organs: Normal. Bones: Degenerative changes of the spine. Mild rotatory lumbarlevoscoliosis. Mild degenerative changes of the sacroiliac joints. Other: No other significant findings. IMPRESSION: 1. No contrast collection to suggest a site of active gastrointestinalhemorrhage. 2. Incidental findings as detailed above. -------- FINAL REPORT -------- Dictated By: Chase Cornejo Dictated Date: 05/14/2024 10:53 ET Assigned Physician: Chase Cornejo Reviewed and Electronically Signed By: Chase Cornejo Signed Date: 05/14/2024 11:17 ET Workstation ID: [id number] Transcribed By: Self Edit Transcribed Date: 05/14/2024 11:02 ET Enoc Patel MD IMG CT PROCEDURES * (ABNORMAL) Acetaminophen level (05/14/2024 9:08 AM EST) Only the most recent of2 resultswithin the time period is included. Acetaminophen Level <2.0(L) 10.0 - 30.0 mcg/mL LAB CHEMISTRY METHOD 05/14/2024 10:12 AM EST [facility] Blood Venous blood specimen / Unknown Venipuncture / Unknown 05/14/2024 9:08 AM EST 05/14/2024 9:20 AM EST Enoc Patel MD LAB BLOOD ORDERABLES Performing Organization Address [facility]/ZIP Co de Phone Number [facility] [address] [place] [address], [place] [phone] * (ABNORMAL) Salicylate level (05/14/2024 9:08 AM EST) Only the most recent of2 resultswithin the time period is included. 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 Do not modify or discontinue any currently active code status orders. * Full Code - Default Date Activated Date Inactivated Comments 06/16/2024 11:43 PM 07/01/2024 2:46 PM This is or peng is used when code status has not been discussed with the patient, or code status is otherwise unknown/unconfirmed To update the patient's code status, place a code status order. Do not modify or discontinue any currently active code status orders. * Full Code - Default Date Activated Date Inactivated Comments 06/16/2024 11:40 PM 06/16/2024 11:43 PM This is order is used when code status has not been discussed with the patient, or code status is otherwise unknown/unconfirmed To update the patient's code status, place a code status order. Do not modify or discontinue any currently active code status orders. Care Teams International Accountant Relationship Specialty Start Date End Date Physician, No Pcp PCP - General 04/22/24
--- OUTSIDE RECORDS SUMMARY | 2024-07-11 04:07 | XMS_ITS ---
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 Encounter for screening for cardiovascular disorders Z13.6 ; Encounter for screening for infections with a predominantly sexual mode of transmission Z11.3 ; Encounter for screening for infectious and parasitic diseases, unspecified Z11.9 ; Encounter for screening for other suspected endocrine disorder Z13.29 and Encounter for screening for respiratory tuberculosis Z11.1 Assessments Encounter Date Diagnosis (ICD Code) Assessment Notes Treat ment Notes Treatment Clinical Notes 07/03/2024 Encounter for screening for cardiovascular disorders (ICD-10 - Z13.6) 07/03/2024 Encounter for screening for infections with a predominantly sexual mode of transmission (ICD-10 - Z11.3) 07/03/2024 Encounter for screening for infectious and parasitic diseases, unspecified (ICD-10 - Z11.9) 07/03/2024 Encounter for screening for other suspected endocrine disorder (ICD-10 - Z13.29) 07/03/2024 Encounter for screening for respiratory tuberculosis (ICD-10 - Z11.1) Plan Of Treatment Pending Test Test Name Order Date CBC 07/03/2024 CHLAMYDIA / GC DNA W RFLX 07/03/2024 COMPREHENSIVE METABOLIC PANEL 07/03/2024 HEPATITIS B CORE AB TOTAL 07/03/2024 HEPATITIS B SURFACE ANTIBODY 07/03/2024 HEPATITIS B SURFACE ANTIGEN 07/03/2024 HIV 1 AND 2 ANTIBODY SCREEN 07/03/2024 LIPID PROFILE 07/03/2024 TSH CASCADE 07/03/2024 QUANTIFERON(R)-TB GOLD PLUS, 1 TUBE 06/17 HEPATITIS C ANTIBODY 07/03/2024 TREPONEMA PALLIDUM ANTIBODY 07/03/2024 Progress Notes * Cherelle DOSHI EDOB: [birth year] (63 yo F)Acc No.[id number]:07/03/2024 Progress Notes Patient:?Cherelle DOSHI Provider:?Provider [facility] :1960???Age:63 Y???Sex:Female D ate:07/03/2024 Address:[address] [place] [address], [id number] Pcp:PCP No Subjective: * Chief Complaints: * ???1. Office: intake. * Medical History:? Objective: * Vitals:? Assessment: * Assessment: 1.?Encounter for screening f or cardiovascular disorders - Z13.6 (Primary)???2.?Encounter for screening for infections with a predominantly sexual mode of transmission - Z11.3 ??3.?Encounter for screening for infectious and parasitic diseases, unspecified - Z11.9???4.?Encounter for screening for other suspected endocrine disorder - Z13.29???5.?Encounter for screening for respiratory tuberculosis - Z11.1??? Plan: * Treatment: 2.?Encounter for screening f or infections with a predominantly sexual mode of transmission?LAB: HEPATITIS B CORE AB TOTAL ?LAB: HEPATITIS B SURFACE ANTIBODY ?LAB: HEPATITIS B SURFACE ANTIGEN ?LAB: HIV 1 AND 2 ANTIBODY SCREEN ?LAB: HEPATITIS C ANTIBODY 3.?Encounter for screening f or infectious and parasitic diseases, unspecified?LAB: CHLAMYDIA / GC DNA W RFLX ?LAB: TREPONEMA PALLIDUM ANTIBODY 4.?Encounter for screening f or other suspected endocrine disorder?LAB: TSH CASCADE 5.?Encounter for screening f or respiratory tuberculosis?LAB: QUANTIFERON(R)-TB GOLD PLUS, 1 TUBE * Images: Billing Information: * Visit Code:? * Procedure Codes:? * Electronic signature of Nurs [facility] on 07/11/2024 at 04:06 AM EST Sign off status: Pending * Provider:?Provider [facility] Date:?07/03/2024 Generated for Esperanza riley/Dave/Martinez on:?07/11/2024 04:06 AM EST
--- NOTE | 2024-07-11 07:23 | ED.ALCOHOL ---
HPI - Alcohol General Chief Complaint: ETOH/Substance Use Stated Complaint: ETOH Time Seen by Provider: 07/11/24 06:41 Source: patient and EMS Mode of arrival: EMS Limitations: no limitations History of Present Illness ED Provider: LUCIEN Vogt HPI narrative: 63-year-old female presents with suicidal ideation for an unclear amount of time. She reports she is feeling suicidal with no particular plan. She has never felt this way before. She does endorse daily drinking her last drink was prior to arrival she states prior to arrival she had 2 or 3 beers. She denies drugs, tobacco. She tells me she was recently started on Cymbalta and she is not sure if this was contributing. She denies visual, auditory and tactile hallucinations. No medical complaints at this time Related Data Previous Rx's ?Medication ?Instructions ?Recorded acetaminophen 500 mg tablet 500 mg PO Q6H PRN pain #30 tabs 09/01/23 (Tylenol Extra Strength) Allergies Allergy/AdvReac Type Severity Reaction Status Date / Time No Known Allergies Allergy Verified 07/11/24 02:21 Review of Systems Review of Systems: Yes all other systems are reviewed and are negative [facility] Past Medical History Attestation statement: The following information was validated with the patient. Source: old records reviewed and nursing notes reviewed Medical History Alcohol dependence Alcohol abuse Social History Social History Alcohol intake: current Alcohol intake frequency: 3 or more drinks per day Alcohol type: hard liquor Advance Directives: No Advance Directives Information Provided: No Patient : No Physical Exam ED Vital Signs: Vital Signs - 24 hr 07/11/24 02:19 07/11/24 05:57 07/11/24 08:29 Temperature 97.5 F 97.9 F 98.0 F Pulse Rate 98 85 87 Respiratory Rate 20 14 15 Blood Pressure 157/83 H 122/61 136/43 L Pulse Oximetry 92 95 98 Oxygen Delivery Method Room Air Room Air Room Air BMI result Body Mass Index 28.3 vss Appearance: Alert.? Oriented X3.? No acute distress.? Head: Normocephalic, atraumatic, no step-offs or deformities Eyes: Pupils equal, round and reactive to light.? Neck: Normal inspection.? Neck supple.? CVS: Normal heart rate and rhythm.? Pulses normal.? Respiratory: No respiratory distress.? Breath sounds normal.? Abdomen: Soft and nontender.? Skin: Skin warm and dry.? Normal skin color.? Normal skin turgor.? Extremities: No lower extremity edema.? No calf ttp. 5/5 strength to bilateral upper and lower extremities Back: No midline tenderness, no C-spine tenderness, full range of motion, no CVA tenderness bilaterally Neuro: Oriented X 3.? No motor deficit.? No sensory deficit. CN 2-12 intact Course Reevaluation(s) Reevaluation #1: Patient's CBC with leukopenia nonspecific, unlikely infectious in origin. Chemistry without acute electrolyte abnormalities needing intervention. Chronically elevated alk-phos not deviating from baseline. Patient's ethanol level 104 consistent with acute alcohol intoxication. UA and urine toxicology pending. Pending care team evaluation. However, at this time patient will be placed into physician observation to allow more time to be evaluated by care team at time observation started patient common cooperative no acute distress will continue to monitor Time: 08:49 Medical Decision Making Medical Decision Making [facility] Narrative: 63-year-old female presents with suicidal ideation unclear amount of time. Recently started on Cymbalta Physical exam benign History and physical exam concerning for alcohol use disorder with depression and suicidal ideation. Unlikely metabolic derangements, bipolar schizophrenia. And medical clearance evaluation by care team Differential Diagnosis Differential Diagnoses: The differential diagnosis associated with the presentation includes (History and physical exam concerning for alcohol use disorder with depression and suicidal ideation. Unlikely metabolic derangements, bipolar schizophrenia.) Admission/Observation Consideration of admission/observation: Escalation of care including admission/observation considered Lab Data [facility] Lab Attestation statement: I reviewed the patient's lab results. 07/11/24 08:14 07/11/24 08:14 Labs: Lab Results 07/11/24 Range/Units 08:14 WBC 4.5 L (4.8-10.8) X10*3/uL RBC 4.84 (4.20-5.50) X10*6/uL Hgb 12.1 (12.0-16.0) g/dl Hct 37.1 (37.0-47.0) % MCV 76.7 L (80.0-98.0) fL MCH 25.0 L (27.0-33.0) pg MCHC 32.6 (31.0-35.0) g/dl RDW 16.4 H (11.0-16.0) % Plt Count 297 (160-400) X10*3/uL MPV 9.7 (9.4-12.3) fL Immature Gran % (Auto) 0.2 (0.0-0.4) % Neut % (Auto) 54.9 (45-73) % Lymph % (Auto) 31.9 (20-40) % [place] % (Auto) 8.6 (2-11) % Eos % (Auto) 3.1 (0-4) % Baso % (Auto) 1.3 (0-2) % Lymph # (Auto) 1.4 (1.2-4.9) X10*3/uL [place] # (Auto) 0.4 (0.1-1.2) X10*3/uL Eos # (Auto) 0.1 (0.0-0.4) X10*3/uL Baso # (Auto) 0.1 (0.0-0.2) X10*3/uL Abs Immat Gran (auto) 0.01 (0.00-0.03) X10*3/uL Absolute Neuts (auto) 2.5 (2.0-8.3) x10*3/uL Absolute Nucleated RBC 0.000 (0.0-0.012) X10*3/uL Nucleated RBC % (auto) 0.0 (0.0-0.2) /100WBC PT 11.2 (10.9-12.4) SEC INR 1.0 (0.9-1.1) Sodium 141 (135-145) mmol/L Potassium 3.8 (3.3-5.1) mmol/L Chloride 105 (96-108) mmol/L Carbon Dioxide 25 (22-29) mmol/L Anion Gap 15 (12-20) BUN 3 L (9-16) mg/dL Creatinine 0.61 (0.5-1.4) mg/dL Estim Creat Clear Calc 95.6 Estimated GFR > 60 Random Glucose 110 (60-115) mg/dL Calcium 9.0 (8.4-10.2) mg/dL Magnesium 2.0 (1.6-2.6) mg/dL Total Bilirubin 0.2 (0.0-1.0) mg/dL AST 42 H (5-31) U/L ALT 26 (0-31) U/L Alkaline Phosphatase 201 H (39-117) U/L Total Protein 7.8 (6.5-8.0) g/dL Albumin 3.9 (3.5-5.0) g/dL Ethyl Alcohol 104 mg/dL External Record Review External record reviewed: Office record, Outpatient record and Prior outpatient labs Chronic Conditions Patient?s care impacted by: Other (Alcohol use disorder, obesity) Social Determinants Patient?s care significantly limited by Social Determinants of Health including: Other Social Determinant of Health Discharge Plan Discharge Clinical Impression: Alcoholic intoxication, Depression, Suicidal ideations Patient Disposition: Home, Self-Care Instructions: Alcohol Intoxication (ED), Alcohol Withdrawal (ED) Additional Instructions: Take your medications as prescribed. If you were prescribed antibiotics today, it is important that you take your medication to their entirety, do not skip any doses, do not finish them early. Follow-up with your primary care provider this week. Return to the emergency department with new or worsening symptoms. Such as fevers, chills, chest pain, shortness of breath, nausea, vomiting, dizziness, headache, vision changes, lethargy In case of emergency call 911 Prescriptions: No Action acetaminophen [Tylenol Extra Strength] 500 mg tablet 500 mg PO Q6H PRN (Reason: pain) Qty: 30 0RF Referrals: Physician,Unknown J [Primary Care Provider] - 2 days Print Language: Pakistani
[2024-07-11 08:19] LABS: MANUAL DIFF FLAG NO
[2024-07-11 08:30] LABS: Basophils Absolute Auto 0.1 X10*3/uL (0.0-0.2); Basophils Percent Auto 1.3 % (0-2); Eosinophils Absolute Auto 0.1 X10*3/uL (0.0-0.4); Eosinophils Percent Auto 3.1 % (0-4); Hematocrit 37.1 % (37.0-47.0); Hemoglobin 12.1 g/dl (12.0-16.0); Imm Gran Abs Auto 0.01 X10*3/uL (0.00-0.03); Imm Gran Pct Auto 0.2 % (0.0-0.4); Lymphocytes Absolute Auto 1.4 X10*3/uL (1.2-4.9); Lymphocytes Percent Auto 31.9 % (20-40); Mean Corpuscular HGB Conc 32.6 g/dl (31.0-35.0); Mean Corpuscular Volume 76.7 fL (80.0-98.0); Mean Platelet Volume 9.7 fL (9.4-12.3); Monocytes Absolute Auto 0.4 X10*3/uL (0.1-1.2); Monocytes Percent Auto 8.6 % (2-11); Neutrophils Absolute Auto 2.5 x10*3/uL (2.0-8.3); Neutrophils Percent Auto 54.9 % (45-73); Platelet Count 297 X10*3/uL (160-400); Red Blood Count 4.84 X10*6/uL (4.20-5.50); Red Cell Distribution Width 16.4 % (11.0-16.0); White Blood Count 4.5 X10*3/uL (4.8-10.8)
[2024-07-11 08:34] LABS: Prothrombin Time 11.2 SEC (10.9-12.4)
[2024-07-11 08:39] LABS: Alanine Aminotransferase 26 U/L (0-31); Albumin Level 3.9 g/dL (3.5-5.0); Alkaline Phosphatase 201 U/L (39-117); Anion Gap 15 (12-20); Aspartate Amino Transferase 42 U/L (5-31); Bilirubin Total 0.2 mg/dL (0.0-1.0); Blood Urea Nitrogen 3 mg/dL (9-16); Carbon Dioxide 25 mmol/L (22-29); Chloride 105 mmol/L (96-108); Creatinine Clr Calc Pharmacy 95.6; Estimated Glomerular Filt Rate > 60; Ethanol 104 mg/dL; Glucose Random 110 mg/dL (60-115); Potassium 3.8 mmol/L (3.3-5.1); Sodium 141 mmol/L (135-145); Total Protein 7.8 g/dL (6.5-8.0)
--- NOTE | 2024-07-11 09:48 | MHC.RECOVRN ---
Met with Cherelle in ED09 to discuss ongoing alcohol use. Pt reported daily EtOH use - a couple pints per day , recent stressors including homelessness and having no family supports. Pt denies SI/HI (no ideation, plan, or intent). Pt denies AH/VH. Pt interested in going to ATS to address her alcohol use disorder. Cherelle is reporting 9/10 for depression and 10/10 for anxiety. During our discussion pt was calm and responsive. Affect was flat and depressed. Thought process was logical and linear. Referrals to be sent to ATS facilities for review.
--- NOTE | 2024-07-11 11:58 | MHC.RECOVRN ---
per [facility], pt needs a higher level of care due to her older age. per staff at [facility] pt has presented before and has been denied for the same reason. Per [facility], no female beds available today. Waiting to hear back from [facility], [facility], and [facility].
[2024-07-11 12:01] LABS: Appearance Urine Clear; Color Urine Yellow; Glucose Urine UA Negative (Negative); Leukocyte Esterase Urine Negative (Negative); Nitrite Urine Negative (Negative); PH 5.5 (5.0-9.0); Specific Gravity - Urine <= 1.005 (1.005-1.025); Urine Blood Negative (Negative); Urine Ketones Trace mg/dL (Negative); Urine Protein Negative (Neg-Trace)
[2024-07-11 12:13] LABS: Amphetamine Screen Urine Not Detected (Not Detect); Barbiturates, Urine Not Detected (Not Detect); Benzodiazepines Screen Urine Not Detected (Not Detect); Buprenorphine Scr Not Detected (Not Detect); Cannabinoid Screen Urine Not Detected (Not Detect); Cocaine Screen Urine Not Detected (Not Detect); Fentanyl, urine Not Detected (Not Detect); Methadone Screen, Urine Not Detected (Not Detect); Opiate Screen Urine Not Detected (Not Detect); Oxycodone Screen Urine Not Detected (Not Detect); Phencyclidine Screen Urine Not Detected (Not Detect)
--- NOTE | 2024-07-11 14:35 | MHC.RECOVRN ---
per [facility] and [facility] there are no female beds available today for ATS.
--- NOTE | 2024-07-11 15:00 | MHC.RECOVRN ---
Due to no bed availability today for ATS and other concerns, Cherelle will be seen by CARE tem to re-assess LOC.
--- NOTE | 2024-07-11 15:07 | PHA.MEDREC ---
Pharmacy Consult ? Medication Reconciliation Pharmacy has completed the medication reconciliation. Spoke to patient at bedside, she was able to name most medications on her own. Also spoke to nurse Barb who stated the patient had RX bottles with her. Asked patient about not filling since October and she insisted she gets her fills at [facility] regularly, and it's been about two days since she took her meds
[2024-07-11] MEDS: cloNIDine HCL 0.1 MG TABLET PO ×2 (15:54→20:52)
[2024-07-11] MEDS: amLODIPine Besylate 5 MG TABLET PO (15:57)
[2024-07-11] MEDS: Acetaminophen 325 MG TABLET 650 MG PO ×2 (15:57→21:29)
[2024-07-11] MEDS: Gabapentin 300 MG CAPSULE PO (20:52)
[2024-07-11] MEDS: OLANZapine 5 MG TABLET PO (20:52)
--- NOTE | 2024-07-11 20:58 | PC.NURSE ---
medicated per mar.
[2024-07-11] MEDS: Mirtazapine 7.5 MG TABLET PO (21:00)
--- NOTE | 2024-07-11 21:01 | PC.NURSE ---
pt cooperative, medicated per aug.
[2024-07-11] MEDS: Propranolol HCL 20 MG TABLET PO (21:30)
--- NOTE | 2024-07-11 21:31 | PC.NURSE ---
medicated per mar.
[2024-07-12 05:40] VITALS: BP 102/45; PULSE 60; RESP 12; TEMP 36.1; O2SAT 98
--- NOTE | 2024-07-12 05:57 | PC.NURSE ---
pt cooperative during the night, no sign of distress, pt sleeping at this time.
[2024-07-12 08:46] VITALS: BP 155/88
[2024-07-12] MEDS: amLODIPine Besylate 5 MG TABLET PO (08:46)
[2024-07-12] MEDS: Gabapentin 300 MG CAPSULE PO (08:46)
[2024-07-12 08:47] VITALS: BP 155/88; PULSE 83
[2024-07-12] MEDS: Propranolol HCL 20 MG TABLET PO (08:47)
[2024-07-12] MEDS: Ascorbic Acid 500 MG TABLET PO (08:47)
[2024-07-12 08:48] VITALS: BP 155/88
[2024-07-12] MEDS: cloNIDine HCL 0.1 MG TABLET PO (08:48)
--- NOTE | 2024-07-12 08:59 | MHC.RECOVRN ---
Patient continues to want to go to ATS (detox), denies SI/HI (no plan or intent). Referrals sent to ATS facillities: [facility], [facility], [facility], [facility], and [facility]. Will be reaching out to these facilities shortly to inquire about the status of these referrals.
[2024-07-12] MEDS: Nicotine Polacrilex 2 MG GUM BUCCAL (09:55)
--- NOTE | 2024-07-12 11:34 | MHC.RECOVRN ---
The following facilities have no bed availability today: [facility], [facility]. Waiting to hear back from [facility] and [facility].
[2024-07-12 13:28] VITALS: BP 133/69; PULSE 81; RESP 19; TEMP 36.1; O2SAT 93
--- NOTE | 2024-07-12 13:29 | MHC.RECOVRN ---
Pt accepted at [facility] in [place] for ATS (detox). Is expected there radha or before 16:30. Pt will be going there via Ly[employer] called by the CARE team. ED nurse and provider aware.
--- NOTE | 2024-07-12 13:29 | PC.NURSE ---
Pt requesting Ativan for increased anxiety
[2024-07-12] MEDS: LORazepam 1 MG TABLET PO (13:34)
== END 2024-07-12 13:56 ==
PROVIDERS: Physician Assistant; Emergency Provider Emergency Medicine
DX: F10.220 Alcohol dependence with intoxication, uncomplicated (principal); Y90.5 Blood alcohol level of 100-119 mg/100 ml; F32.A Depression, unspecified; R45.851 Suicidal ideations
CPT/HCPCS: 36415; 80053; 80307; 81003; 83735; 85025; 85610; 99285; S9485